=== PATIENT | female | born 1970 | race African-American/Black ===

== ENCOUNTER 2017-08-02 12:14 | Emergency (ER) | payer OTHER ==
[~2017-08-02] VITALS: Ht 160 cm; Wt 96.9 kg
[2017-08-02 12:17] VITALS: Ht 160 cm; Wt 96.9 kg
[2017-08-02] MEDS ORDERED: KETOROLAC TROMETHAMINE 30 MG/ML VIAL IV STA (12:54)
[2017-08-02 12:59] LABS: HEMATOCRIT 39.4 % (37-47); HEMOGLOBIN 13.2 g/dL (12.0-16.0); MEAN CORPUSCULAR HEMOGLOBIN 30.1 pg (25-34); MEAN CORPUSCULAR HGB CONC 33.5 g/dl (32-36); MEAN PLATELET VOLUME 9.8 fL (7.4-10.4); PLATELET COUNT 249 K/uL (130-400); RED CELL DISTRIBUTION WIDTH CV 13.1 % (11.5-14.5); RED CELL DISTRIBUTION WIDTH SD 43.4 fL (36.4-46.3); WHITE BLOOD COUNT 6.74 K/uL (4.8-10.8)
[2017-08-02 13:14] LABS: ALBUMIN 3.7 gm/dl (3.4-5.0); CALCIUM 8.8 mg/dl (8.5-10.1); CREATININE 0.76 mg/dl (0.60-1.20); POTASSIUM 3.8 mmol/L (3.5-5.1)
[2017-08-02] MEDS ORDERED: ATV/1 PO (13:16)
[2017-08-02] MEDS ORDERED: BUPRTAB PO (13:16)
[2017-08-02] MEDS ORDERED: NXM/40 PO (13:16)
[2017-08-02 13:19] LABS: CKMB 1.9 ng/ml (0.5-3.6); TOTAL PROTEIN 8.1 gm/dl (6.4-8.2)
[2017-08-02] MEDS ORDERED: IBUP1CAP9 PO (13:19)
--- NOTE | 2017-08-02 13:36 | DIAGNOSTIC IMAGING REPORT ---
CHEST ONE VIEW PORTABLE CLINICAL HISTORY: Chest pain. COMPARISON STUDY: No previous studies for comparison. FINDINGS: Lung volumes are normal. Lungs are clear. No pneumothorax or pleural effusion is noted. Pulmonary vascularity is normal. There is borderline cardiomegaly. IMPRESSION: No acute cardiopulmonary findings. Electronically signed by: Tai Salazar M.D. 08/02/2017 1:34 PM Dictated Date/Time: 08/02/2017 1:33 PM
[2017-08-02 13:55] LABS: INR 0.9 (0.9-1.1); PTT PATIENT 23.8 SECONDS (21.0-31.0)
[2017-08-02] MEDS ORDERED: ACETAMINOPHEN 500 MG TAB PO ONE (14:22)
[2017-08-02] MEDS ORDERED: ACETAMINOPHEN 500 MG TAB PO STA (14:22)
[2017-08-02 14:30] VITALS: O2SAT 99
--- NOTE | 2017-08-02 14:33 | EMERGENCY ROOM VISIT NOTE ---
History Report prepared by Earle: Viet Alan Under the Supervision of: Dr. Bob Churchill D.O. First contact with patient: 12:43 Chief Complaint: CHEST PAIN Stated Complaint: CHEST PAIN History of Present Illness The patient is a 47 year old female who presents to the Emergency Room with complaints of constant chest pain that began 1 hour ago. She states her fingers went to sleep and that she had sharp, stabbing pain that radiated into her chest. She also complains that her nose was bleeding and that she was seeing spots. Of note, she states she is Lorazepam for her anxiety and on Nexium. Source of History: patient Onset: 1 hour ago Position: chest Quality: sharp, stabbing Timing: constant Associated Symptoms: + chest pain Note: Patient complains of seeing spots and epistaxis. Review of Systems See HPI for pertinent positives & negatives. A total of 10 systems reviewed and were otherwise negative. Past Medical & Surgical Medical Problems: (1) Anxiety Social History Smoking Status: Current Every Day Smoker Occupation Status: employed Current/Historical Medications Scheduled Bupropion Hcl (Wellbutrin Xl), 1 TAB PO QAM Esomeprazole Magnesium (Nexium), 40 MG PO QAM Ibuprofen (Ibuprofen), 800 MG PO UD Lorazepam (Ativan), 1 MG PO BID Allergies Coded Allergies: No Known Allergies (Unverified , 08/02/17) Physical Exam Vital Signs Date Time Temp Pulse Resp B/P (MAP) Pulse Ox O2 Delivery O2 Flow Rate FiO2 08/02/17 14:30 99 Room Air 08/02/17 14:23 77 18 159/109 99 08/02/17 14:21 75 18 165/102 99 08/02/17 14:14 76 19 08/02/17 13:44 79 19 97 08/02/17 13:33 98 Room Air 08/02/17 13:31 166/115 08/02/17 13:28 173/116 08/02/17 13:24 79 20 151/105 98 08/02/17 13:23 151/105 08/02/17 12:54 74 08/02/17 12:44 80 15 08/02/17 12:17 36.5 82 20 159/106 99 Room Air Physical Exam CONSTITUTIONAL/VITAL SIGNS: Reviewed / noted above. GENERAL: Non-toxic in appearance. INTEGUMENTARY: Warm, dry, and [place]. HEAD: Normocephalic. EYES: without scleral icterus or trauma. ENT/OROPHARYNX: clear and moist. LYMPHADENOPATHY/NECK: Is supple without lymphadenopathy or meningismus. RESPIRATORY: Lungs clear and equal. CARDIOVASCULAR: Regular rate and rhythm. GI/ABDOMEN: Soft and nontender. No organomegaly or pulsatile mass. No rebound or guarding. Normal bowel sounds. EXTREMITIES: Warm and well perfused. BACK: No CVA tenderness. NEUROLOGICAL: Intact without focal deficits. PSYCHIATRIC: normal affect. MUSCULOSKELETAL: Normally developed with good muscle tone. Medical Decision & Procedures ER Provider Diagnostic Interpretation: Radiology results as stated below per my review and radiologist interpretation: CHEST ONE VIEW PORTABLE CLINICAL HISTORY: Chest pain. COMPARISON STUDY: No previous studies for comparison. FINDINGS: Lung volumes are normal. Lungs are clear. No pneumothorax or pleural effusion is noted. Pulmonary vascularity is normal. There is borderline cardiomegaly. IMPRESSION: No acute cardiopulmonary findings. Electronically signed by: Tai Salazar M.D. 08/02/2017 1:34 PM Dictated Date/Time: 08/02/2017 1:33 PM Laboratory Results 08/02/17 12:45 08/02/17 12:45 Test 08/02/17 12:45 08/02/17 13:30 08/02/17 13:33 Red Blood Count 4.38 M/uL (4.2-5.4) Mean Corpuscular Volume 90.0 fL (80-100) Mean Corpuscular Hemoglobin 30.1 pg (25-34) Mean Corpuscular Hemoglobin Concent 33.5 g/dl (32-36) RDW Standard Deviation 43.4 fL (36.4-46.3) RDW Coefficient of Variation 13.1 % (11.5-14.5) Mean Platelet Volume 9.8 fL (7.4-10.4) Anion Gap 6.0 mmol/L (3-11) Est Creatinine Clear Calc Drug Dose 100.3 ml/min Estimated GFR () 107.5 Estimated GFR (Non- 92.8 BUN/Creatinine Ratio 18.5 (10-20) Calcium Level 8.8 mg/dl (8.5-10.1) Total Bilirubin 0.2 mg/dl (0.2-1) Aspartate Amino Transf (AST/SGOT) 18 U/L (15-37) Alanine Aminotransferase (ALT/SGPT) 35 U/L (12-78) Alkaline Phosphatase 87 U/L (45-117) Total Creatine Kinase 269 U/L (26-192) Creatine Kinase MB 1.9 ng/ml (0.5-3.6) Creatine Kinase MB Ratio 0.7 (0-3.0) Total Protein 8.1 gm/dl (6.4-8.2) Albumin 3.7 gm/dl (3.4-5.0) Globulin 4.4 gm/dl (2.5-4.0) Albumin/Globulin Ratio 0.8 (0.9-2) Prothrombin Time 9.8 SECONDS (9.0-12.0) Prothromb Time International Ratio 0.9 (0.9-1.1) Activated Partial Thromboplast Time 23.8 SECONDS (21.0-31.0) Partial Thromboplastin Ratio 0.9 D-Dimer 270 ug/L FEU (0-500) Bedside Troponin I < 0.030 ng/ml (0-0.045) Laboratory results as stated above per my review. Medications Administered Medications (Trade) Dose Ordered Sig/Vitaly Route Start Time Stop Time Status Last Admin Dose Admin Ketorolac Tromethamine (Toradol Inj) 30 mg NOW STAT IV 08/02/17 12:54 08/02/17 12:55 DC 08/02/17 13:24 30 MG Acetaminophen (Tylenol Tab) 1,000 mg STK-MED ONCE PO 08/02/17 14:22 08/02/17 14:23 DC 08/02/17 14:25 1,000 MG ECG Indication: chest pain Rate (beats per minute): 87 Rhythm: normal sinus Findings: no ectopy, other (no acute injury) Change: Patient's EKG interpreted by me. ED Course 1243: Previous medical records were reviewed. The patient was evaluated in room A3. A complete history and physical examination was performed. 1254: Toradol Inj 30 mg IV. 1422: Tylenol Tab 1,000 mg PO. 1440: On reevaluation, the patient is doing well. I discussed the results and findings with the patient. She verbalized agreement of the treatment plan. She was discharged home. Medical Decision the differential was considered includes acute myocardial infarction, acute coronary syndrome, myocarditis, pericarditis, pericardial effusions /tamponade, esophageal perforation, thoracic aortic dissection, pulmonary embolism, pneumonia, pneumothorax, pancreatitis, shingles, acute cholecystitis, perforated abdominal viscus. This is a 47-year-old female who presents to the ED with a chief complaint of chest pain as well as a sensation of paresthesias in her upper extremities prior the patient states that her fingers felt like they were sleeping. She also reported a headache in addition to her chest pain. The chest pain and symptoms started around 11 or 12:00. 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 The patient states that her chest pain is a sharp pinching sensation and pulling sensation as well as stabbing sensation. It is mostly left chest and into the shoulder. It is worsened by breathing and movement. The patient does report a history of anxiety. Her exam was unremarkable. An EKG shows normal sinus rhythm at a rate of 87. CBC is normal, d-dimer is negative, troponin is negative, complete metabolic panel was unremarkable. Chest x-ray did not show acute disease. Blood pressure was somewhat elevated during her ED stay. She was told to follow-up with her PCP for this. She is felt to be stable for discharge. Medication Reconcilliation Current Medication List: was personally reviewed by me Blood Pressure Screening Patient's blood pressure: Elevated blood pressure Blood pressure disposition: Elevated BP felt to be situational Impression Primary Impression: Left sided chest pain Additional Impression: Paresthesia Scribe Attestation The scribe's documentation has been prepared under my direction and personally reviewed by me in its entirety. I confirm that the note above accurately reflects all work, treatment, procedures, and medical decision making performed by me. Departure Information Dispostion Home / Self-Care Referrals No Doctor, Assigned (PCP) Patient Instructions My [facility] Additional Instructions Follow-up with your doctor for further care and evaluation in 1-2 days. Return to the emergency department for worsening or new symptoms or any concerns. You have been examined and treated today on an emergency basis only. This is not a substitute for, or an effort to provide, complete comprehensive medical care. It is impossible to recognize and treat all injuries or illnesses in a single emergency department visit. It is therefore important that you follow up closely with your doctor. Call as soon as possible for an appointment. Follow-up with your doctor for recheck your blood pressure. Problem Qualifiers
[2017-08-02 15:11] VITALS: BP 155/102; PULSE 75; TEMP 36.5; O2SAT 99
== END 2017-08-02 15:11 | disposition home or self-care (01) ==
LOC: C.EDB 12:15 → C.EDA 15:11
DX: R07.9 Chest pain, unspecified (principal); R20.2 Paresthesia of skin; R51 Headache; F41.9 Anxiety disorder, unspecified; Z79.899 Other long term (current) drug therapy; F17.210 Nicotine dependence, cigarettes, uncomplicated

== ENCOUNTER 2017-08-16 13:38 | Emergency (ER) | payer OTHER ==
[~2017-08-16] VITALS: Ht 160 cm; Wt 91.2 kg
[~2017-08-16 13:38] MED LIST: ATV/1 PO; BUPRTAB PO; IBUP1CAP9 PO; NXM/40 PO
[2017-08-16 13:45] VITALS: TEMP 36.7; Ht 160 cm; Wt 91.2 kg
[2017-08-16] MEDS ORDERED: LABETALOL HCL IV 5 MG/ML 20ML IV STA (13:50)
[2017-08-16] MEDS ORDERED: MoRPHine SULFATE 4 MG/ML 1 ML CARP\\VIAL IV STA (13:50)
[2017-08-16] MEDS ORDERED: LORAZEPAM 2 MG/ML 1 ML VIAL IV STA (13:50)
--- NOTE | 2017-08-16 13:59 | EMERGENCY ROOM VISIT NOTE ---
History Report prepared by Earle: Viet Alan Under the Supervision of: Dr. Alex Horta M.D. First contact with patient: 13:42 Chief Complaint: HYPERTENSION Stated Complaint: HYPERTENSION History of Present Illness The patient is a 47 year old female who presents to the Emergency Room with complaints of headache when she woke up 5 hours ago. She states that her "brain is on fire" and took Excedrin 1 hour ago with minimal improvement. She states she had 3 [employer] beverages last night. She states she has neck pain. She denies recent falls, head strike, vomiting, and abdominal pain. She denies taking blood pressure medication. She was previously seen for chest pain. She denies a history of migraines. She states she is menopausal and takes Lorazepam 3x a day. Source of History: patient Onset: 5 hours ago Position: head Quality: burning (Patient states her head is on fire) Timing: constant Associated Symptoms: + headache, + neck pain, No vomiting, No abdominal pain Note: The patient denies recent falls and head strike. Review of Systems See HPI for pertinent positives & negatives. A total of 10 systems reviewed and were otherwise negative. Past Medical & Surgical Medical Problems: (1) Anxiety Social History Smoking Status: Current Every Day Smoker Occupation Status: employed Current/Historical Medications Scheduled Amlodipine (Norvasc), 5 MG PO DAILY Bupropion Hcl (Wellbutrin Xl), 1 TAB PO QAM Esomeprazole Magnesium (Nexium), 40 MG PO QAM Lorazepam (Ativan), 1 MG PO BID Allergies Coded Allergies: No Known Allergies (Unverified , 08/16/17) Physical Exam Vital Signs Date Time Temp Pulse Resp B/P (MAP) Pulse Ox O2 Delivery O2 Flow Rate FiO2 08/16/17 18:00 77 20 155/98 99 08/16/17 16:48 66 08/16/17 15:49 78 20 161/95 99 Room Air 08/16/17 14:51 84 20 128/92 98 Room Air 08/16/17 14:29 76 20 160/77 100 Room Air 08/16/17 13:50 82 08/16/17 13:45 36.7 82 20 186/109 98 Room Air Physical Exam GENERAL: Patient is very anxious appearing and in mild distress. HEENT: No acute trauma, normocephalic atraumatic, mucous membranes moist, no nasal congestion, no scleral icterus. NECK: No stridor, no adenopathy, no meningismus, trachea is midline. Spasm of bilateral paraspinal muscles of cervical spine. LUNGS: No dyspnea. Clear to auscultation and equal bilaterally. No wheeze, no rhonchi. HEART: Regular rate and rhythm. No murmurs, rubs, gallops appreciated. ABDOMEN: Soft, nontender, bowel sounds positive, no masses appreciated, no peritonitis. BACK: No midline tenderness, no CVA tenderness EXTREMITIES: Normal motion all extremities, no cyanosis, no edema. NEUROLOGIC: Alert and oriented, no acute motor or sensory deficits, no focal weakness, cranial nerves grossly intact. SKIN: No rash, no jaundice, no diaphoresis. Medical Decision & Procedures ER Provider Diagnostic Interpretation: Radiology results and stated below per my review and radiologist interpretation: CT OF THE HEAD WITHOUT CONTRAST CLINICAL HISTORY: Sudden onset headache/hypertension last evening. COMPARISON STUDY: No previous studies for comparison. CT DOSE: 623.48 mGy.cm TECHNIQUE: Helical axial images of the head were obtained without IV contrast. Automated exposure control was utilized for the study. A dose lowering technique was utilized adhering to the principles of ALARA. FINDINGS: No acute intracranial hemorrhage, midline shift or mass effect is present. Ventricular system is normal. Basilar cisterns are patent. There are no extra-axial collections. Robert-white differentiation is maintained. There are no findings to suggest acute dural sinus thrombosis or acute territorial infarct. There are no significant calvarial abnormalities. There is minimal mucosal thickening of the ethmoid sinuses. Mastoid air cells are clear. IMPRESSION: No acute intracranial findings. Electronically signed by: Tai Salazar M.D. 08/16/2017 3:01 PM Dictated Date/Time: 08/16/2017 2:59 PM Laboratory Results 08/16/17 14:15 Red Blood Count 4.38, Mean Corpuscular Volume 89.5, Mean Corpuscular Hemoglobin 29.7, Mean Corpuscular Hemoglobin Concent 33.2, Mean Platelet Volume 9.2, Neutrophils (%) (Auto) 57.4, Lymphocytes (%) (Auto) 33.1, Monocytes (%) (Auto) 8.0, Eosinophils (%) (Auto) 1.3, Basophils (%) (Auto) 0.1, Neutrophils # (Auto) 4.02, Lymphocytes # (Auto) 2.32, Monocytes # (Auto) 0.56, Eosinophils # (Auto) 0.09, Basophils # (Auto) 0.01 08/16/17 14:15 Test 08/16/17 14:15 White Blood Count 7.01 K/uL (4.8-10.8) Red Blood Count 4.38 M/uL (4.2-5.4) Hemoglobin 13.0 g/dL (12.0-16.0) Hematocrit 39.2 % (37-47) Mean Corpuscular Volume 89.5 fL (80-100) Mean Corpuscular Hemoglobin 29.7 pg (25-34) Mean Corpuscular Hemoglobin Concent 33.2 g/dl (32-36) Platelet Count 237 K/uL (130-400) Mean Platelet Volume 9.2 fL (7.4-10.4) Neutrophils (%) (Auto) 57.4 % Lymphocytes (%) (Auto) 33.1 % Monocytes (%) (Auto) 8.0 % Eosinophils (%) (Auto) 1.3 % Basophils (%) (Auto) 0.1 % Neutrophils # (Auto) 4.02 K/uL (1.4-6.5) Lymphocytes # (Auto) 2.32 K/uL (1.2-3.4) Monocytes # (Auto) 0.56 K/uL (0.11-0.59) Eosinophils # (Auto) 0.09 K/uL (0-0.5) Basophils # (Auto) 0.01 K/uL (0-0.2) RDW Standard Deviation 42.7 fL (36.4-46.3) RDW Coefficient of Variation 13.1 % (11.5-14.5) Immature Granulocyte % (Auto) 0.1 % Immature Granulocyte # (Auto) 0.01 K/uL (0.00-0.02) Anion Gap 7.0 mmol/L (3-11) Est Creatinine Clear Calc Drug Dose 95.8 ml/min Estimated GFR () 105.8 Estimated GFR (Non- 91.3 BUN/Creatinine Ratio 15.7 (10-20) Calcium Level 8.6 mg/dl (8.5-10.1) Troponin I < 0.015 ng/ml (0-0.045) Laboratory results as reviewed by me. Medications Administered Medications (Trade) Dose Ordered Sig/Vitaly Route Start Time Stop Time Status Last Admin Dose Admin Lorazepam (Ativan Inj) 1 mg NOW STAT IV 08/16/17 13:50 08/16/17 13:52 DC 08/16/17 14:30 1 MG Morphine Sulfate (MoRPHine SULFATE INJ) 4 mg NOW STAT IV 08/16/17 13:50 08/16/17 13:52 DC 08/16/17 14:31 4 MG Ketorolac Tromethamine (Toradol Inj) 30 mg NOW STAT IV 08/16/17 15:26 08/16/17 15:28 DC 08/16/17 16:04 30 MG Diphenhydramine HCl (Benadryl Inj) 25 mg NOW STAT IV 08/16/17 15:26 08/16/17 15:28 DC 08/16/17 16:03 25 MG Amlodipine Besylate (Norvasc Tab) 5 mg NOW ONCE PO 08/16/17 17:30 08/16/17 17:31 DC 08/16/17 17:58 5 MG Oxycodone HCl (Roxicodone Immediate Rel 5MG Home Pack) 1 homepack UD ONCE PO 08/16/17 17:30 08/16/17 17:31 DC 08/16/17 17:57 1 HOMEPACK ECG Per My Interpretation Indication: other (headache) Rate (beats per minute): 77 Rhythm: normal sinus Findings: no acute ischemic change, no ectopy Comparison ECG Date: 08/02/2017: Similar morphology to previous EKG Change: EKG: Electrocardiogram per my interpretation. ED Course 1342: The patient was evaluated in room B8. A complete history and physical exam was performed. 1511: I checked on the patient. She is much improved and states she has a mild frontal headache. She declines further imaging and LP. She would like to try more for her headache. I have ordered Toradol and Benadryl. 1700: I checked on the patient and she is feeling much better. She has faint residual headache but her symptoms have improved. She has no neural deficits. She is agreeable to start antihypertensives. She will follow up with PCP for repeat evaluation. We discussed at length the symptoms that would require a return visit to the ED. 1715: Reevaluated the patient. Discussed results and discharge instructions: She verbalized understanding and agreement. The patient is ready for discharge. Medical Decision Differential: Headache, Migraine, Cluster Headache, Seizure, Meningitis, Sinusitis, CO exposure, ICH/SAH, Infectious, Tumor, Sinus Thrombosis, Arterial Dissection, amongst other pathologies entertained. 47 yr old hypertensive female arrives for evaluation of frontal headache that radiates to back of head. She is not meningitic nor does she have risks of dissection. No neuro defictis nor unremarkable findings other than her HTN and headache. Vastly improved with above and looking well. EKG and labs unremarkable. Rare headaches thus felt imaging reasonable which was unremarkable and given resolution of symptoms I do not feel MRI/MRA are required. The patient is well hydrated, happy, breathing comfortably and in no distress. They are not septic and are stable at discharge. She will be started on Norvasc given clearly underlying HTN issues and I have stressed PCP follow up. Reviewed symptoms requiring RTED. Head Trauma GCS Score: 15 Medication Reconcilliation Current Medication List: was personally reviewed by me Blood Pressure Screening Patient's blood pressure: Elevated blood pressure Blood pressure disposition: Elevated BP felt to be situational Impression Primary Impression: Frontal headache Additional Impression: Hypertension Scribe Attestation The scribe's documentation has been prepared under my direction and personally reviewed by me in its entirety. I confirm that the note above accurately reflects all work, treatment, procedures, and medical decision making performed by me. Departure Information Dispostion Home / Self-Care Prescriptions Amlodipine (Norvasc) 5 Mg Tab 5 MG PO DAILY for 30 Days, #30 TAB Prov: Alex Horta M.D. 08/16/17 Referrals Brad Dsouza M.D. (PCP) Patient Instructions ED Hypertension [facility], [facility] Additional Instructions You have received a narcotic pain medication. These medications may cause drowsiness and should not be used with other sedative medications. Do not drive , drink alcohol, perform dangerous activities, nor make important decisions after taking these medications. exterminator termite use or inappropriate use may lead to addiction. Problem Qualifiers
[2017-08-16 14:25] LABS: BASO % 0.1 %; BASO ABS # 0.01 K/uL (0-0.2); EOS % 1.3 %; EOS ABS # 0.09 K/uL (0-0.5); HEMATOCRIT 39.2 % (37-47); IG# 0.01 K/uL (0.00-0.02); LYMPH % 33.1 %; LYMPH ABS # 2.32 K/uL (1.2-3.4); MEAN CELL VOLUME 89.5 fL (80-100); MEAN CORPUSCULAR HEMOGLOBIN 29.7 pg (25-34); MEAN CORPUSCULAR HGB CONC 33.2 g/dl (32-36); MEAN PLATELET VOLUME 9.2 fL (7.4-10.4); MONO ABS # 0.56 K/uL (0.11-0.59); NEUT % 57.4 %; NEUT ABS # 4.02 K/uL (1.4-6.5); PLATELET COUNT 237 K/uL (130-400); RED CELL DISTRIBUTION WIDTH CV 13.1 % (11.5-14.5); RED CELL DISTRIBUTION WIDTH SD 42.7 fL (36.4-46.3); WHITE BLOOD COUNT 7.01 K/uL (4.8-10.8)
[2017-08-16 14:45] LABS: BLOOD UREA NITROGEN 12 mg/dl (7-18); CALCIUM 8.6 mg/dl (8.5-10.1); CARBON DIOXIDE 28 mmol/L (21-32); CREATININE 0.77 mg/dl (0.60-1.20); GLUCOSE 92 mg/dl (70-99); POTASSIUM 3.6 mmol/L (3.5-5.1); SODIUM 138 mmol/L (136-145)
--- NOTE | 2017-08-16 15:02 | DIAGNOSTIC IMAGING REPORT ---
CT OF THE HEAD WITHOUT CONTRAST CLINICAL HISTORY: Sudden onset headache/hypertension last evening. COMPARISON STUDY: No previous studies for comparison. CT DOSE: 623.48 mGy.cm TECHNIQUE: Helical axial images of the head were obtained without IV contrast. Automated exposure control was utilized for the study. A dose lowering technique was utilized adhering to the principles of ALARA. FINDINGS: No acute intracranial hemorrhage, midline shift or mass effect is present. Ventricular system is normal. Basilar cisterns are patent. There are no extra-axial collections. Robert-white differentiation is maintained. There are no findings to suggest acute dural sinus thrombosis or acute territorial infarct. There are no significant calvarial abnormalities. There is minimal mucosal thickening of the ethmoid sinuses. Mastoid air cells are clear. IMPRESSION: No acute intracranial findings. Electronically signed by: Tai Salazar M.D. 08/16/2017 3:01 PM Dictated Date/Time: 08/16/2017 2:59 PM
[2017-08-16] MEDS ORDERED: DiphenhydrAMINE HCL 50 MG/ML VIAL IV STA (15:26)
[2017-08-16] MEDS ORDERED: KETOROLAC TROMETHAMINE 30 MG/ML VIAL IV STA (15:26)
[2017-08-16] MEDS ORDERED: AMLO-110 PO (17:18)
[2017-08-16] MEDS ORDERED: OXYCODONE IR HOME PACK PO ONE (17:30)
[2017-08-16] MEDS ORDERED: AMLODIPINE BESYLATE 5 MG TAB PO ONE (17:30)
[2017-08-16 18:00] VITALS: BP 155/98; PULSE 77; O2SAT 99
== END 2017-08-16 18:00 | disposition home or self-care (01) ==
LOC: EDBD 13:38 → C.EDB 13:39
DX: R51 Headache (principal); I10 Essential (primary) hypertension; Z78.0 Asymptomatic menopausal state; Z79.899 Other long term (current) drug therapy; F41.9 Anxiety disorder, unspecified; F17.210 Nicotine dependence, cigarettes, uncomplicated

== ENCOUNTER 2021-04-08 15:52 | Inpatient (IN) ==
--- NOTE | 2021-04-08 16:16 | Emergency Department Note ---
Impression & Plan Slurring of speech, HTN (hypertension), Numbness on right side ED Provider Note Provider: Bao Mauricio MD DATE OF SERVICE: 04/08/2021 CHIEF COMPLAINT: Fogginess, right facial issues, numbness HISTORY OF PRESENT ILLNESS: Patient is a 50-year-old female history of hypertension and GERD as well as anxiety presenting here today reporting developing since around 10 PM last night onset fairly suddenly of some mild fogginess and some right-sided numbness of her face and indoor right hand. P atient states she is developed a bit of a headache but no nausea. Denies any falls. States she has been a little bit wobbly on her feet. Went to bed and awoke and was a bit better but then worsened over the course the morning. Presents here for further evaluation. Patient states he feels a little bit euphoric and a bit out of it. Patient denies any chest pain or shortness of breath. She denies any abdominal pain or nausea. She reports she has only been on Effexor for 2 weeks and initially after starting this medication she was stuck in bed for a day or 2 but this resolved. Denies any significant alcohol use or drug use overnight. No history of similar is reported. Daughter present states that her speech been somewhat slurred at home and she thought it seemed like she had a little bit of a left facial droop although the patient reports some numbness and weakness of the right side of her face. No rashes reported denies dental pain REVIEW OF SYSTEMS: A total of 10 review of systems was obtained and negative except as stated above in the HPI. PAST MEDICAL HISTORY: As noted above MEDICATIONS: Reviewed home medication SOCIAL HISTORY: Former smoker quit a month ago, denies alcohol use but reports occasional marijuana use PHYSICAL EXAM: GENERAL: alert and oriented to person in no acute distress on stretcher Head: normocephalic and atraumatic EYES: No injection, discharge or icterus. PERRL, EOMI. NECK: Trachea midline. Supple. ENT: Mucous membranes pink and moist. Pharynx without erythema or exudate. Nonstridulous. LUNGS: Airway patent. No retractions. Breath sounds clear HEART: Regular rate and rhythm. No chest wall tenderness ABDOMEN: Soft and non-tender, without guarding or rebound. SKIN: Acyanotic, warm, dry, without rashes EXTREMITIES: Without swelling, tenderness or deformity NEUROLOGICAL: No aphasia. Some slight right facial droop and numbness of the right face is noted including the forehead. Some slight numbness in the right hand and interestingly of only the left thumb is noted. Tongue midline. Normal strength and tone in the extremities. Ambulatory EK bpm normal sinus rhythm. No PVC or PAC. No acute ST segment elevation is noted with some nonspecific lateral T wave inversions. CONTINUOUS CARDIAC MONITORING: was ordered and showed a heart rate of 60s to 80s bpm in normal sinus rhythm Patient's laboratory studies and imaging reviewed. Differential includes infection, dehydration, metabolic abnormality, hypo/hyperglycemia, electrolyte disturbance, anemia, hypoxia, cardiac sources, intracerebral event, toxicologic, neurologic, as well as other pathologies. IMPRESSION/MEDICAL DECISION MAKING: Patient presents outside the TPA window with onset of some slurred speech and numbness in her right hand and on her right face with a possible left facial droop/right facial droop last night. No trauma reported. Some improved this morning but then worsened this afternoon. Not hemiplegic. Some mild headache reported. Does not seem infectious in nature. Question of some component of her Effexor medication which is new baby contributing. Suspicion exists however for possible stroke/TIA. Again outside the window for acute thrombolysis. Basic labs and CT imaging of the head and neck will be completed. Blood work without significant anemia leukocytosis. I doubt this is meningitis, HSV, or zoster. The distribution seems somewhat atypical for Sena's palsy and does involve sensation to the forehead. Lyme testing is negative. No significant electrolyte abnormalities. No evidence of acute hepatitis. Covid test negative. CT the head and CT angiograms of the head neck per radiology without acute bleed, CT evidence of ischemia, or vascular abnormality of significance. Reassessed the patient discussed with her the findings. She still continues with some right facial numbness and dullness and states that her tongue is feeling a bit weird. Still with some numbness in her right hand and occasion ally upper right arm. Discussed that this could possibly related to Effexor medication but somewhat atypical. Patient's blood pressure still noted to be hypertensive here but I doubt this is a hypertensive emergency. Patient symptoms could be related to a small occult stroke does have some risk factors. Discussed with her for total exclusion MRI and further evaluation here in the hospital was recommended. Given some aspirin. DIAGNOSIS: Slurred speech, right-sided numbness, hypertension DISPOSITION: Hospitalist will evaluate Patient was agreeable with this plan. Past Med/Surg History Medical History (Updated 04/08/21 @ 19:34 by Bao Mauricio M.D.) Anxiety GERD (gastroesophageal reflux disease) Hypertension Surgical History No significant past surgical history Social History Smoking Status: Former smoker Preferred Language: Tuvaluan marital status: Single current occupational status: unemployed Feels Safe at Home: Yes Allergies Allergies Allergy/AdvReac Type Severity Reaction Status Date / Time No Known Allergies Allergy Unverified 06/13/19 10:23 Home Meds Home Medications Medication Instructions Recorded Confirmed amlodipine 5 mg tablet 5 mg PO DAILY 04/16/19 06/13/19 hydrochlorothiazide 12.5 mg capsule 0 mg PO DAILY 04/16/19 06/13/19 lorazepam 1 mg tablet 1 mg PO TID PRN 04/16/19 06/13/19 omeprazole 40 mg capsule,delayed 40 mg PO DAILY 04/16/19 06/13/19 release gabapentin 100 mg capsule 100 mg PO BID 06/13/19 06/13/19 Previous Rx's Medication Instructions Recorded hydrocodone 5 mg-acetaminophen 325 1 tab PO Q6H PRN #8 tab 06/13/19 mg tablet (Mehama) Results & Data (ED) Vital Signs Vital Signs - 24 hr 04/08/21 15:55 04/08/21 16:12 04/08/21 16:30 Temperature 36.9 C Temperature Source Oral Pulse Rate 87 82 75 Pulse Rate from SpO2 Sensor Respiratory Rate 18 20 19 Blood Pressure 151/100 H 134/96 Blood Pressure Mean 117 108 Pulse Oximetry 97 Oxygen Delivery Method Room Air Sepsis Recent Fever Within 48 Hours No Sepsis New/Unexplained Change in Mental Status No Sepsis Action Taken by Nursing No Action Required 04/08/21 17:30 04/08/21 18:00 Temperature Temperature Source Pulse Rate 83 72 Pulse Rate from SpO2 Sensor 72 Respiratory Rate 14 23 Blood Pressure 159/107 H 172/104 H Blood Pressure Mean 124 126 Pulse Oximetry 96 96 Oxygen Delivery Method Room Air Sepsis Recent Fever Within 48 Hours Sepsis New/Unexplained Change in Mental Status Sepsis Action Taken by Nursing Laboratory Data Result diagrams: 04/08/21 17:19 10/10/21 17:19 Lab Results 04/08/21 04/08/21 04/08/21 Range/Units 17:19 17:19 17:19 WBC 5.94 (4.8-10.8) K/uL RBC 5.07 (4.2-5.4) M/uL Hgb 15.2 (12.0-16.0) g/dL Hct 44.2 (37-47) % MCV 87.2 (80-100) fL MCH 30.0 (25-34) pg MCHC 34.4 (32-36) g/dL RDW Std Deviation 40.7 (36.4-46.3) fL RDW Coeff of Magdiel 12.7 (11.5-14.5) % Plt Count 213 (130-400) K/uL MPV 9.4 (7.4-10.4) fL Immature Gran % (Auto) 0.2 % Neut % (Auto) 48.8 % Lymph % (Auto) 41.8 % Mccormick % (Auto) 8.2 % Eos % (Auto) 0.8 % Baso % (Auto) 0.2 % Neut # (Auto) 2.90 (1.4-6.5) K/uL Lymph # (Auto) 2.48 (1.2-3.4) K/uL Mccormick # (Auto) 0.49 (0.11-0.59) K/uL Eos # (Auto) 0.05 (0-0.5) K/uL Baso # (Auto) 0.01 (0-0.2) K/uL Immature Gran # (Auto) 0.01 (0.00-0.02) K/uL PT 9.9 (9.0-12.0) Seconds INR 1.0 (0.9-1.1) APTT 25.1 (21.0-31.0) Seconds PTT Ratio 1.0 Sodium (136-145) mmol/L Potassium (3.5-5.1) mmol/L Chloride (98-107) mmol/L Carbon Dioxide (21-32) mmol/L Anion Gap (3-11) BUN (7-18) mg/dl Creatinine (0.6-1.2) mg/dl Est Cr Clr Drug Dosing ml/min Est GFR ( Amer) ml/min Est GFR (Non-Af Amer) ml/min BUN/Creatinine Ratio (10-20) Glucose (70-99) mg/dl Calcium (8.5-10.1) mg/dl Magnesium (1.8-2.4) mg/dl Total Bilirubin (0.2-1) mg/dl AST (15-37) U/L ALT (12-78) U/L Alkaline Phosphatase (45-117) U/L Troponin I (0-0.045) ng/ml Total Protein (6.4-8.2) gm/dl Albumin (3.4-5.0) gm/dl Globulin (2.5-4.0) gm/dl Albumin/Globulin Ratio (0.9-2) HCG, Qual Negative (Negative) Lyme Disease IgG Ab Negative (Negative) Lyme Disease IgM Ab Negative (Negative) COVID-19 Eval Order SARS-CoV-2 (PCR) (Negative) 04/08/21 04/08/21 04/08/21 Range/Units 17:19 17:19 17:19 WBC (4.8-10.8) K/uL RBC (4.2-5.4) M/uL Hgb (12.0-16.0) g/dL Hct (37-47) % MCV (80-100) fL MCH (25-34) pg MCHC (32-36) g/dL RDW Std Deviation (36.4-46.3) fL RDW Coeff of Magdiel (11.5-14.5) % Plt Count (130-400) K/uL MPV (7.4-10.4) fL Immature Gran % (Auto) % Neut % (Auto) % Lymph % (Auto) % Mccormick % (Auto) % Eos % (Auto) % Baso % (Auto) % Neut # (Auto) (1.4-6.5) K/uL Lymph # (Auto) (1.2-3.4) K/uL Mccormick # (Auto) (0.11-0.59) K/uL Eos # (Auto) (0-0.5) K/uL Baso # (Auto) (0-0.2) K/uL Immature Gran # (Auto) (0.00-0.02) K/uL PT (9.0-12.0) Seconds INR (0.9-1.1) APTT (21.0-31.0) Seconds PTT Ratio Sodium 139 (136-145) mmol/L Potassium 3.6 (3.5-5.1) mmol/L Chloride 106 (98-107) mmol/L Carbon Dioxide 29 (21-32) mmol/L Anion Gap 4.0 (3-11) BUN 6 L (7-18) mg/dl Creatinine 0.79 (0.6-1.2) mg/dl Est Cr Clr Drug Dosing 89.8 ml/min Est GFR ( Amer) 100.5 ml/min Est GFR (Non-Af Amer) 86.7 ml/min BUN/Creatinine Ratio 8.0 L (10-20) Glucose 110 H (70-99) mg/dl Calcium 9.2 (8.5-10.1) mg/dl Magnesium 2.3 (1.8-2.4) mg/dl Total Bilirubin 0.2 (0.2-1) mg/dl AST 19 (15-37) U/L ALT 31 (12-78) U/L Alkaline Phosphatase 104 (45-117) U/L Troponin I < 0.015 (0-0.045) ng/ml Total Protein 8.3 H (6.4-8.2) gm/dl Albumin 4.0 (3.4-5.0) gm/dl Globulin 4.3 H (2.5-4.0) gm/dl Albumin/Globulin Ratio 0.9 (0.9-2) HCG, Qual (Negative) Lyme Disease IgG Ab (Negative) Lyme Disease IgM Ab (Negative) COVID-19 Eval Order Covid19 at [facility] SARS-CoV-2 (PCR) NEGATIVE (Negative) Administered Medications Discontinued Medications Ioversol (Optiray 320 125ml) 101 ml IV ONCE ONE Stop: 04/08/21 19:05 Last Admin: 04/08/21 19:04 Dose: 101 ml Documented by: [id number] Imaging Data Radiologist's Impression: Head CT 04/08/21 16:[address] OF THE BRAIN; CT ANGIOGRAM OF THE BRAIN; CT ANGIOGRAM OF THE NECK CLINICAL HISTORY: Strokelike symptoms. COMPARISON STUDY: CT of the brain dated 08/16/2017. TECHNIQUE: Unenhanced axial CT scan of the brain is performed. Subsequently, following the IV administration of 101 of Optiray 320, CT angiogram of the head and neck was performed from the aortic arch to the vertex. Images are reviewed in the axial, sagittal, and coronal planes. 3-D MIPS images are created and assessed. IV contrast was administered without complication. All measurements were calculated based on NASCET criteria. A dose lowering technique was u tilized adhering to the principles of ALARA. CT DOSE: 1155.75 mGy.cm FINDINGS: Brain parenchyma: The brain parenchyma is normal in appearance. There is no hemorrhage, mass effect, or evidence of acute territorial ischemia by CT criteria. There is no evidence of enhancing mass lesion on the angiogram phase images. The ventricles, sulci, and cisterns are normal in configuration. Robert- white matter differentiation is preserved. No extra-axial fluid collection is seen. Thoracic aorta: Visualized portions of the thoracic aorta are normal in caliber. The aortic arch demonstrates standard 3-vessel anatomy. Right carotid arterial system: The right common carotid artery is widely patent, as are the right internal and external carotid arteries. Left carotid arterial system: The left common carotid artery is widely patent, as are the left internal and external carotid arteries. Vertebral arteries: The vertebral arteries are widely patent bilaterally and codominant. Subclavian arteries: Widely patent bilaterally. Intracranial vasculature: There is origin of the right posterior cerebral artery. There is atherosclerotic calcification of the cavernous carotid arteries. The internal carotid arteries are patent at the skull base, as are the anterior and middle cerebral arteries bilaterally. The vertebrobasilar system and posterior cerebral arteries are widely patent. The vertebral arteries are codominant. There is no aneurysm, high-grade stenosis, or focal vessel cut off seen throughout the intracranial circulation. Jugular veins: Patent bilaterally. Dural sinuses: Patent. Lung apices: Partially visualized upper lobe lung parenchyma appears clear. Soft tissues: The visualized pharyngeal soft tissues are normal in appearance noting angiographic phase technique. The oropharyngeal airway appears widely patent. The salivary and thyroid glands are normal in appearance. No cervical lymphadenopathy is seen. Skeletal structures: The calvarium appears intact. The cervical spine is maintained noting mild multilevel spondylosis. No lytic or blastic lesion is seen. Orbits: The bony orbits are intact. Orbital contents are normal as visualized. Sinuses and mastoids: The paranasal sinuses are clear. The mastoid air cells are well pneumatized. IMPRESSION: 1 There is no hemorrhage, mass effect, or evidence of acute territorial ischemia by CT criteria. 2. Unremarkable CT angiogram of the brain. 3. Unremarkable CT angiogram of the neck. ACT 112: Negative or not required by law. Electronically signed by: Riky Velasco M.D. 04/08/2021 7:09 PM Head CTA 04/08/21 16:[address] OF THE BRAIN; CT ANGIOGRAM OF THE BRAIN; CT ANGIOGRAM OF THE NECK CLINICAL HISTORY: Strokelike symptoms. COMPARISON STUDY: CT of the brain dated 08/16/2017. TECHNIQUE: Unenhanced axial CT scan of the brain is performed. Subsequently, following the IV administration of 101 of Optiray 320, CT angiogram of the head and neck was performed from the aortic arch to the vertex. Images are reviewed in the axial, sagittal, and coronal planes. 3-D MIPS images are created and assessed. IV contrast was administered without complication. All measurements were calculated based on NASCET criteria. A dose lowering technique was utilized adhering to the principles of ALARA. CT DOSE: 1155.75 mGy.cm FINDINGS: Brain parenchyma: The brain parenchyma is normal in appearance. There is no hemorrhage, mass effect, or evidence of acute territorial ischemia by CT criteria. There is no evidence of enhancing mass lesion on the angiogram phase images. The ventricles, sulci, and cisterns are normal in configuration. Robert- white matter differentiation is preserved. No extra-axial fluid collection is seen. Thoracic aorta: Visualized portions of the thoracic aorta are normal in caliber. The aortic arch demonstrates standard 3-vessel anatomy. Right carotid arterial system: The right common carotid artery is widely patent, as are the right internal and external carotid arteries. Left carotid arterial system: The left common carotid artery is widely patent, as are the left internal and external carotid arteries. Vertebral arteries: The vertebral arteries are widely patent bilaterally and codominant. Subclavian arteries: Widely patent bilaterally. Intracranial vasculature: There is origin of the right posterior cerebral artery. There is atherosclerotic calcification of the cavernous carotid arteries. The internal carotid arteries are patent at the skull base, as are the anterior and middle cerebral arteries bilaterally. The vertebrobasilar system and posterior cerebral arteries are widely patent. The vertebral arteries are codominant. There is no aneurysm, high-grade stenosis, or focal vessel cut off seen throughout the intracranial circulation. Jugular veins: Patent bilaterally. Dural sinuses: Patent. Lung apices: Partially visualized upper lobe lung parenchyma appears clear. Soft tissues: The visualized pharyngeal soft tissues are normal in appearance noting angiographic phase technique. The oropharyngeal airway appears widely patent. The salivary and thyroid glands are normal in appearance. No cervical lymphadenopathy is seen. Skeletal structures: The calvarium appears intact. The cervical spine is maintained noting mild multilevel spondylosis. No lytic or blastic lesion is seen. Orbits: The bony orbits are intact. Orbital contents are normal as visualized. Sinuses and mastoids: The paranasal sinuses are clear. The mastoid air cells are well pneumatized. IMPRESSION: 1 There is no hemorrhage, mass effect, or evidence of acute territorial ischemia by CT criteria. 2. Unremarkable CT angiogram of the brain. 3. Unremarkable CT angiogram of the neck. ACT 112: Negative or not required by law. Electronically signed by: Riky Velasco M.D. 04/08/2021 7:09 PM Neck CTA 04/08/21 16:[address] OF THE BRAIN; CT ANGIOGRAM OF THE BRAIN; CT ANGIOGRAM OF THE NECK CLINICAL HISTORY: Strokelike symptoms. COMPARISON STUDY: CT of the brain dated 08/16/2017. TECHNIQUE: Unenhanced axial CT scan of the brain is performed. Subsequently, following the IV administration of 101 of Optiray 320, CT angiogram of the head and neck was performed from the aortic arch to the vertex. Images are reviewed in the axial, sagittal, and coronal planes. 3-D MIPS images are created and assessed. IV contrast was administered without complication. All measurements were calculated based on NASCET criteria. A dose lowering technique was utilized adhering to the principles of ALARA. CT DOSE: 1155.75 mGy.cm FINDINGS: Brain parenchyma: The brain parenchyma is normal in appearance. There is no hemorrhage, mass effect, or evidence of acute territorial ischemia by CT criteria. There is no evidence of enhancing mass lesion on the angiogram phase images. The ventricles, sulci, and cisterns are normal in configuration. Robert- white matter differentiation is preserved. No extra-axial fluid collection is seen. Thoracic aorta: Visualized portions of the thoracic aorta are normal in caliber. The aortic arch demonstrates standard 3-vessel anatomy. Right carotid arterial system: The right common carotid artery is widely patent, as are the right internal and external carotid arteries. Left carotid arterial system: The left common carotid artery is widely patent, as are the left internal and external carotid arteries. Vertebral arteries: The vertebral arteries are widely patent bilaterally and codominant. Subclavian arteries: Widely patent bilaterally. Intracranial vasculature: There is origin of the right posterior cerebral artery. There is atherosclerotic calcification of the cavernous carotid arteries. The internal carotid arteries are patent at the skull base, as are the anterior and middle cerebral arteries bilaterally. The vertebrobasilar system and posterior cerebral arteries are widely patent. The vertebral arteries are codominant. There is no aneurysm, high-grade stenosis, or focal vessel cut off seen throughout the intracranial circulation. Jugular veins: Patent bilaterally. Dural sinuses: Patent. Lung apices: Partially visualized upper lobe lung parenchyma appears clear. Soft tissues: The visualized pharyngeal soft tissues are normal in appearance noting angiographic phase technique. The oropharyngeal airway appears widely patent. The salivary and thyroid glands are normal in appearance. No cervical lymphadenopathy is seen. Skeletal structures: The calvarium appears intact. The cervical spine is maintained noting mild multilevel spondylosis. No lytic or blastic lesion is seen. Orbits: The bony orbits are intact. Orbital contents are normal as visualized. Sinuses and mastoids: The paranasal sinuses are clear. The mastoid air cells are well pneumatized. IMPRESSION: 1 There is no hemorrhage, mass effect, or evidence of acute territorial ischemia by CT criteria. 2. Unremarkable CT angiogram of the brain. 3. Unremarkable CT angiogram of the neck. ACT 112: Negative or not required by law. Electronically signed by: Riky Velasco M.D. 04/08/2021 7:09 PM Discharge Plan Visit Data Chief Complaint: Stroke/CVA Symptoms Stated Complaint: SLURRED SPEECH, R SIDE FACIAL DROOP, STROKE SYMP ED Provider: Bao Mauricio Discharge Problem: Slurring of speech, HTN (hypertension), Numbness on right side Patient Disposition: Being Evaluated by Hospitalist Forms Stand Alone Forms: My [facility] Prescriptions Prescriptions: No Action amlodipine 5 mg tablet 5 mg PO DAILY RF: 0 omeprazole 40 mg capsule,delayed release(DR/EC) 40 mg PO DAILY RF: 0 hydrochlorothiazide 12.5 mg Capsule 0 mg PO DAILY RF: 0 lorazepam 1 mg tablet 1 mg PO TID PRN (Reason: Anxiety) RF: 0 gabapentin 100 mg Capsule 100 mg PO BID RF: 0 hydrocodone-acetaminophen [Mehama] 5-325 mg tablet 1 tab PO Q6H PRN (Reason: pain) Qty: 8 RF: 0 Referrals Referrals: Brad Dsouza MD [Primary Care Provider] - Discharge Problem: HTN (hypertension) Qualifiers: Hypertension type: unspecified Qualified Code(s): I10 - Essential (primary) hypertension
[2021-04-08 17:26] LABS: Basophils # (auto) 0.01 K/uL (0-0.2); Basophils % (auto) 0.2 %; Eosinophils # (auto) 0.05 K/uL (0-0.5); Eosinophils % (auto) 0.8 %; Hematocrit (blood only) 44.2 % (37-47); Hemoglobin 15.2 g/dL (12.0-16.0); Immature Granulocytes # (auto) 0.01 K/uL (0.00-0.02); Immature Granulocytes % (auto) 0.2 %; Lymphocytes # (auto) 2.48 K/uL (1.2-3.4); Lymphocytes % (auto) 41.8 %; Mean Corpuscular Hgb Conc 34.4 g/dL (32-36); Mean Corpuscular Volume 87.2 fL (80-100); Mean Platelet Volume 9.4 fL (7.4-10.4); Monocytes # (auto) 0.49 K/uL (0.11-0.59); Monocytes % (auto) 8.2 %; Neutrophils % (auto) 48.8 %; Platelet Count 213 K/uL (130-400); RDW Coefficient of Variation 12.7 % (11.5-14.5); RDW Standard Deviation 40.7 fL (36.4-46.3); Red Blood Count 5.07 M/uL (4.2-5.4); White Blood Count 5.94 K/uL (4.8-10.8)
[2021-04-08 17:40] LABS: Partial Thromboplastin Time 25.1 Seconds (21.0-31.0); Prothrombin Time 9.9 Seconds (9.0-12.0)
[2021-04-08 18:04] LABS: Alanine Aminotransferase 31 U/L (12-78); Aspartate Aminotransferase 19 U/L (15-37); Blood Urea Nitrogen 6 mg/dl (7-18); Calcium 9.2 mg/dl (8.5-10.1); Carbon Dioxide 29 mmol/L (21-32); Chloride 106 mmol/L (98-107); Creatinine Clr Calc Pharmacy 89.8 ml/min; Est GFR (African American) 100.5 ml/min; Est GFR (Non-African American) 86.7 ml/min; Glucose 110 mg/dl (70-99); Magnesium 2.3 mg/dl (1.8-2.4); Potassium 3.6 mmol/L (3.5-5.1); Sodium 139 mmol/L (136-145)
[2021-04-08 18:09] LABS: Albumin Globulin Ratio 0.9 (0.9-2); Alkaline Phosphatase 104 U/L (45-117); Bilirubin,Total 0.2 mg/dl (0.2-1); Globulin 4.3 gm/dl (2.5-4.0); Total Protein 8.3 gm/dl (6.4-8.2); Troponin I < 0.015 ng/ml (0-0.045)
[2021-04-08 18:38] LABS: Pregnancy Test, Serum Negative (Negative)
[2021-04-08 19:03] LABS: Lyme Ab IgG w/WB Rflx Negative (Negative); Lyme Ab IgM w/WB Rflx Negative (Negative)
[2021-04-08] MEDS ORDERED: OPTIRAY 320 125ml IV ONE (19:04)
--- NOTE | 2021-04-08 19:10 | CT Scan Report ---
UNENHANCED CT OF THE BRAIN; CT ANGIOGRAM OF THE BRAIN; CT ANGIOGRAM OF THE NECK CLINICAL HISTORY: Strokelike symptoms. COMPARISON STUDY: CT of the brain dated 08/16/2017. TECHNIQUE: Unenhanced axial CT scan of the brain is performed. Subsequently, following the IV adminis tration of 101 of Optiray 320, CT angiogram of the head and neck was performed from the aortic arch t o the vertex. Images are reviewed in the axial, sagittal, and coronal planes. 3-D MIPS images are cre ated and assessed. IV contrast was administered without complication. All measurements were calculate d based on NASCET criteria. A dose lowering technique was utilized adhering to the principles of ALA RA. CT DOSE: 1155.75 mGy.cm FINDINGS: Brain parenchyma: The brain parenchyma is normal in appearance. There is no hemorrhage, mass effect, or evidence of acute territorial ischemia by CT criteria. There is no evidence of enhancing mass lesi on on the angiogram phase images. The ventricles, sulci, and cisterns are normal in configuration. Gr ay-white matter differentiation is preserved. No extra-axial fluid collection is seen. Thoracic aorta: Visualized portions of the thoracic aorta are normal in caliber. The aortic arch demo nstrates standard 3-vessel anatomy. Right carotid arterial system: The right common carotid artery is widely patent, as are the right int ernal and external carotid arteries. Left carotid arterial system: The left common carotid artery is widely patent, as are the left international logistics coordinator al and external carotid arteries. Vertebral arteries: The vertebral arteries are widely patent bilaterally and codominant. Subclavian arteries: Widely patent bilaterally. Intracranial vasculature: There is origin of the right posterior cerebral artery. There is athe rosclerotic calcification of the cavernous carotid arteries. The internal carotid arteries are patent at the skull base, as are the anterior and middle cerebral arteries bilaterally. The vertebrobasilar system and posterior cerebral arteries are widely patent. The vertebral arteries are codominant. The re is no aneurysm, high-grade stenosis, or focal vessel cut off seen throughout the intracranial circ ulation. Jugular veins: Patent bilaterally. Dural sinuses: Patent. Lung apices: Partially visualized upper lobe lung parenchyma appears clear. Soft tissues: The visualized pharyngeal soft tissues are normal in appearance noting angiographic pha se technique. The oropharyngeal airway appears widely patent. The salivary and thyroid glands are nor mal in appearance. No cervical lymphadenopathy is seen. Skeletal structures: The calvarium appears intact. The cervical spine is maintained noting mild multi level spondylosis. No lytic or blastic lesion is seen. Orbits: The bony orbits are intact. Orbital contents are normal as visualized. Sinuses and mastoids: The paranasal sinuses are clear. The mastoid air cells are well pneumatized. IMPRESSION: 1 There is no hemorrhage, mass effect, or evidence of acute territorial ischemia by CT criteria. 2. Unremarkable CT angiogram of the brain. 3. Unremarkable CT angiogram of the neck. ACT 112: Negative or not required by law. Electronically signed by: Riky Velasco M.D. 04/08/2021 7:09 PM
[2021-04-08] MEDS ORDERED: ASPIRIN 81 MG CHEW PO STA (19:27)
[2021-04-08 20:53] LABS: Appearance Urine Clear (Clear); Bilirubin Urine Negative (Negative); Blood Urine Negative (Negative); Color Urine Yellow; Glucose Urine UA Negative (Negative); Ketones Urine Negative (Negative); Leukocyte Esterase Urine Negative (Negative); Nitrite Urine Negative (Negative); Protein Urine Negative (Negative); Specific Gravity Urine 1.015 (1.000-1.030); Urobilinogen Urine Negative (Negative)
--- NOTE | 2021-04-08 22:13 | History & Physical Report ---
Date of Service April 08, 2021 Assessment & Plan (1) Acute CVA (cerebrovascular accident): Plan: hypertension, elevated secondary to intracranial process anxiety/mood disorder, improved with Effexor, PCP planning to taper patient off medication given intolerance of side effects as per patient prediabetes, hemoglobin A1c of 6.01 July 2020 past tobacco abuse Medical telemetry Neurochecks Aspirin and Plavix for secondary stroke prevention TTE to rule out embolic source Check lipid profile, initiate statin Permissive hypertension Update hemoglobin A1c DVT prophylaxis per Lovenox subcu Full code Text document was generated using [employer] voice recognition software. It may contain grammatical or spelling errors. Kindly contact undersigned for clarification of any documentation item in question. History of Present Illness Chief Complaint: Transient right right-sided facial droop, arm numbness Primary Care Provider: Brad Dsouza MD History obtained from patient and records. Medical history significant for hypertension, anxiety/mood disorder, prediabetes, past tobacco abuse. Patient seen at PCPs office last month for worsening mood swings brought about by personal stressors. Effexor initiated by family doctor which controlled mood swings. Patient however unhappy with sedation. PCP contemplating on weaning patient off medication. Around 10 PM last night, patient noted right-sided numbness of the face and right hand. Transient droopiness of the right face. Patient daughter told her it was her left face that looked droopy. Transient headache symptoms. No chest pain, no S OB. No prior episodes. Left hand also felt tingly as per patient. Patient has concerns if Effexor medication has anything to do with symptoms. Personal stressors at home with recent in the family. Improved symptoms upon arrival at the ER after aspirin administration. Medical History as above Surgical History : Breast biopsy, BTL Family History : Unknown as patient was adopted Personal/Social history : Past tobacco abuse, occasional EtOH intake, home care Allergies Allergy/AdvReac Type Severity Reaction Status Date / Time No Known Drug Allergies Allergy . Verified 04/09/21 00:27 Home Medications Medication Instructions Recorded Confirmed Type amlodipine 5 mg tablet 5 mg PO DAILY 04/16/19 04/08/21 History omeprazole 40 mg capsule,delayed 40 mg PO DAILY 04/16/19 04/08/21 History release acetaminophen 500 mg tablet 1,000 mg PO Q6H PRN 04/08/21 04/08/21 History (Tylenol Extra Strength) albuterol sulfate 2.5 mg INHALATION Q4 PRN 04/08/21 04/08/21 History albuterol sulfate 90 mcg/actuation 2 puff INHALATION Q4 PRN 04/08/21 04/08/21 History aerosol inhaler clobetasol 0.05 % topical cream 1 applic TOPICAL BID PRN 04/08/21 04/08/21 History (Temovate) clonazepam 0.5 mg tablet 0.5 mg PO TID PRN 04/08/21 04/08/21 History diclofenac sodium 1 % topical gel 2 g TOPICAL BID PRN 04/08/21 04/08/21 History fluticasone propionate 50 2 spray INTRANASAL DAILY 04/08/21 04/08/21 History mcg/actuation nasal spray,suspension hydrochlorothiazide 25 mg tablet 25 mg PO DAILY 04/08/21 04/08/21 History ibuprofen 200 mg tablet 400 - 600 mg PO TID PRN 04/08/21 04/08/21 History venlafaxine 150 mg 150 mg PO DAILY 04/08/21 04/08/21 History capsule,extended release 24 hr Past Med/Surg History Medical History Anxiety GERD (gastroesophageal reflux disease) HLD (hyperlipidemia) Hypertension Pre-diabetes Surgical History No significant past surgical history Social History Smoking Status: Former smoker Hx Alcohol Use: No Hx Substance Use: No Preferred Language: Yi Beliefs That Will Affect Care: None marital status: Single Current Living Situation: Family current occupational status: unemployed Other Information That Helps Us Care for You: No Feels Safe at Home: Yes Safety Concerns: Feels Safe At This Time Assistive Devices: None Review of Systems Review of Systems: As per HPI, all 10 systems reviewed, all other ROS negative Physical Exam Physical Exam: GENERAL: Comfortable, obese, no respiratory distress SKIN: Normal color, warm HEENT: [place] palpebral conjunctivae, no ptosis, moist buccal mucosa NECK : Supple, short neck, no tenderness CHEST : CTA, no tenderness HEART : RRR, no obvious murmurs ABDOMEN: Some distention, nontender EXTREMITIES : Minimal LE swelling, no LE tenderness, no other conspicuous deformities noted NEUROLOGIC : Coherent, no facial asymmetry, no other gross focality Results & Data Results & Data ([facility]) Vital Signs (Past 12 Hours) Vital Signs Temp Pulse Resp BP Pulse Ox 04/08/21 21:30 67 21 04/08/21 21:00 69 17 171/100 H 04/08/21 20:30 68 15 140/97 04/08/21 20:00 68 21 140/97 04/08/21 19:30 71 19 04/08/21 19:00 74 21 04/08/21 18:45 81 15 99 04/08/21 18:00 72 23 172/104 H 96 04/08/21 17:30 83 14 159/107 H 96 04/08/21 16:30 75 19 04/08/21 16:12 82 20 134/96 04/08/21 15:55 36.9 C 87 18 151/100 H 97 Laboratory Results Laboratory Results WBC 5.94 K/uL (4.8-10.8) 04/08/21 17:19 RBC 5.07 M/uL (4.2-5.4) 04/08/21 17:19 Hgb 15.2 g/dL (12.0-16.0) 04/08/21 17:19 Hct 44.2 % (37-47) 04/08/21 17:19 MCV 87.2 fL (80-100) 04/08/21 17:19 MCH 30.0 pg (25-34) 04/08/21 17:19 MCHC 34.4 g/dL (32-36) 04/08/21 17:19 RDW Std Deviation 40.7 fL (36.4-46.3) 04/08/21 17:19 RDW Coeff of Magdiel 12.7 % (11.5-14.5) 04/08/21 17:19 Plt Count 213 K/uL (130-400) 04/08/21 17:19 MPV 9.4 fL (7.4-10.4) 04/08/21 17:19 Immature Gran % (Auto) 0.2 % 04/08/21 17:19 Neut % (Auto) 48.8 % 04/08/21 17:19 Lymph % (Auto) 41.8 % 04/08/21 17:19 [place] % (Auto) 8.2 % 04/08/21 17:19 Eos % (Auto) 0.8 % 04/08/21 17:19 Baso % (Auto) 0.2 % 04/08/21 17:19 Neut # (Auto) 2.90 K/uL (1.4-6.5) 04/08/21 17:19 Lymph # (Auto) 2.48 K/uL (1.2-3.4) 04/08/21 17:19 [place] # (Auto) 0.49 K/uL (0.11-0.59) 04/08/21 17:19 Eos # (Auto) 0.05 K/uL (0-0.5) 04/08/21 17:19 Baso # (Auto) 0.01 K/uL (0-0.2) 04/08/21 17:19 Immature Gran # (Auto) 0.01 K/uL (0.00-0.02) 04/08/21 17:19 PT 9.9 Seconds (9.0-12.0) 04/08/21 17:19 INR 1.0 (0.9-1.1) 04/08/21 17:19 APTT 25.1 Seconds (21.0-31.0) 04/08/21 17:19 PTT Ratio 1.0 04/08/21 17:19 Sodium 139 mmol/L (136-145) 04/08/21 17:19 Potassium 3.6 mmol/L (3.5-5.1) 04/08/21 17:19 Chloride 106 mmol/L (98-107) 04/08/21 17:19 Carbon Dioxide 29 mmol/L (21-32) 04/08/21 17:19 Anion Gap 4.0 (3-11) 04/08/21 17:19 BUN 6 mg/dl (7-18) L 04/08/21 17:19 Creatinine 0.79 mg/dl (0.6-1.2) 04/08/21 17:19 Est Cr Clr Drug Dosing 89.8 ml/min 04/08/21 17:19 Est GFR ( Amer) 100.5 ml/min 04/08/21 17:19 Est GFR (Non-Af Amer) 86.7 ml/min 04/08/21 17:19 BUN/Creatinine Ratio 8.0 (10-20) L 04/08/21 17:19 Glucose 110 mg/dl (70-99) H 04/08/21 17:19 Calcium 9.2 mg/dl (8.5-10.1) 04/08/21 17:19 Magnesium 2.3 mg/dl (1.8-2.4) 04/08/21 17:19 Total Bilirubin 0.2 mg/dl (0.2-1) 04/08/21 17:19 AST 19 U/L (15-37) 04/08/21 17:19 ALT 31 U/L (12-78) 04/08/21 17:19 Alkaline Phosphatase 104 U/L (45-117) 04/08/21 17:19 Troponin I < 0.015 ng/ml (0-0.045) 04/08/21 17:19 Total Protein 8.3 gm/dl (6.4-8.2) H 04/08/21 17:19 Albumin 4.0 gm/dl (3.4-5.0) 04/08/21 17:19 Globulin 4.3 gm/dl (2.5-4.0) H 04/08/21 17:19 Albumin/Globulin Ratio 0.9 (0.9-2) 04/08/21 17:19 HCG, Qual Negative (Negative) 04/08/21 17:19 Urine Color Yellow 04/08/21 20:37 Urine Appearance Clear (Clear) 04/08/21 20:37 Urine pH 8.0 (4.5-7.5) H 04/08/21 20:37 Ur Specific [place] 1.015 (1.000-1.030) 04/08/21 20:37 Urine Protein Negative (Negative) 04/08/21 20:37 Urine Glucose (UA) Negative (Negative) 04/08/21 20:37 Urine Ketones Negative (Negative) 04/08/21 20:37 Urine Blood Negative (Negative) 04/08/21 20:37 Urine Nitrite Negative (Negative) 04/08/21 20:37 Urine Bilirubin Negative (Negative) 04/08/21 20:37 Urine Urobilinogen Negative (Negative) 04/08/21 20:37 Ur Leukocyte Esterase Negative (Negative) 04/08/21 20:37 Lyme Disease IgG Ab Negative (Negative) 04/08/21 17:19 Lyme Disease IgM Ab Negative (Negative) 04/08/21 17:19 COVID-19 Eval Order Covid19 at [facility] 04/08/21 17:19 SARS-CoV-2 (PCR) NEGATIVE (Negative) 04/08/21 17:[address] 04/08/21 16:[address] OF THE BRAIN; CT ANGIOGRAM OF THE BRAIN; CT ANGIOGRAM OF THE NECK CLINICAL HISTORY: Strokelike symptoms. COMPARISON STUDY: CT of the brain dated 08/16/2017. TECHNIQUE: Unenhanced axial CT scan of the brain is performed. Subsequently, following the IV administration of 101 of Optiray 320, CT angiogram of the head and neck was performed from the aortic arch to the vertex. Images are reviewed in the axial, sagittal, and coronal planes. 3-D MIPS images are created and assessed. IV contrast was administered without complication. All measurements were calculated based on NASCET criteria. A dose lowering technique was utilized adhering to the principles of ALARA. CT DOSE: 1155.75 mGy.cm FINDINGS: Brain parenchyma: The brain parenchyma is normal in appearance. There is no hemorrhage, mass effect, or evidence of acute territorial ischemia by CT criteria. There is no evidence of enhancing mass lesion on the angiogram phase images. The ventricles, sulci, and cisterns are normal in configuration. Robert-white matter differentiation is preserved. No extra-axial fluid collection is seen. Thoracic aorta: Visualized portions of the thoracic aorta are normal in caliber. The aortic arch demonstrates standard 3-vessel anatomy. Right carotid arterial system: The right common carotid artery is widely patent, as are the right internal and external carotid arteries. Left carotid arterial system: The left common carotid artery is widely patent, as are the left internal and external carotid arteries. Vertebral arteries: The vertebral arteries are widely patent bilaterally and codominant. Subclavian arteries: Widely patent bilaterally. Intracranial vasculature: There is origin of the right posterior cerebral artery. There is atherosclerotic calcification of the cavernous carotid arteries. The internal carotid arteries are patent at the skull base, as are the anterior and middle cerebral arteries bilaterally. The vertebrobasilar system and posterior cerebral arteries are widely patent. The vertebral arteries are codominant. There is no aneurysm, high-grade stenosis, or focal vessel cut off seen throughout the intracranial circulation. Jugular veins: Patent bilaterally. Dural sinuses: Patent. Lung apices: Partially visualized upper lobe lung parenchyma appears clear. Soft tissues: The visualized pharyngeal soft tissues are normal in appearance noting angiographic phase technique. The oropharyngeal airway appears widely patent. The salivary and thyroid glands are normal in appearance. No cervical lymphadenopathy is seen. Skeletal structures: The calvarium appears intact. The cervical spine is maintained noting mild multilevel spondylosis. No lytic or blastic lesion is seen. Orbits: The bony orbits are intact. Orbital contents are normal as visualized. Sinuses and mastoids: The paranasal sinuses are clear. The mastoid air cells are well pneumatized. IMPRESSION: 1 There is no hemorrhage, mass effect, or evidence of acute territorial ischemia by CT criteria. 2. Unremarkable CT angiogram of the brain. 3. Unremarkable CT angiogram of the neck. ACT 112: Negative or not required by law. Electronically signed by: Riky Velasco M.D. 04/08/2021 7:09 PM Head CTA 04/08/21 16:[address] OF THE BRAIN; CT ANGIOGRAM OF THE BRAIN; CT ANGIOGRAM OF THE NECK CLINICAL HISTORY: Strokelike symptoms. COMPARISON STUDY: CT of the brain dated 08/16/2017. TECHNIQUE: Unenhanced axial CT scan of the brain is performed. Subsequently, following the IV administration of 101 of Optiray 320, CT angiogram of the head and neck was performed from the aortic arch to the vertex. Images are reviewed in the axial, sagittal, and coronal planes. 3-D MIPS images are created and assessed. IV contrast was administered without complication. All measurements were calculated based on NASCET criteria. A dose lowering technique was utilized adhering to the principles of ALARA. CT DOSE: 1155.75 mGy.cm FINDINGS: Brain parenchyma: The brain parenchyma is normal in appearance. There is no hemorrhage, mass effect, or evidence of acute territorial ischemia by CT criteria. There is no evidence of enhancing mass lesion on the angiogram phase images. The ventricles, sulci, and cisterns are normal in configuration. Robert- white matter differentiation is preserved. No extra-axial fluid collection is seen. Thoracic aorta: Visualized portions of the thoracic aorta are normal in caliber. The aortic arch demonstrates standard 3-vessel anatomy. Right carotid arterial system: The right common carotid artery is widely patent, as are the right internal and external carotid arteries. Left carotid arterial system: The left common carotid artery is widely patent, as are the left internal and external carotid arteries. Vertebral arteries: The vertebral arteries are widely patent bilaterally and codominant. Subclavian arteries: Widely patent bilaterally. Intracranial vasculature: There is origin of the right posterior cerebral artery. There is atherosclerotic calcification of the cavernous carotid arteries. The internal carotid arteries are patent at the skull base, as are the anterior and middle cerebral arteries bilaterally. The vertebrobasilar system and posterior cerebral arteries are widely patent. The vertebral arteries are codominant. There is no aneurysm, high-grade stenosis, or focal vessel cut off seen throughout the intracranial circulation. Jugular veins: Patent bilaterally. Dural sinuses: Patent. Lung apices: Partially visualized upper lobe lung parenchyma appears clear. Soft tissues: The visualized pharyngeal soft tissues are normal in appearance noting angiographic phase technique. The oropharyngeal airway appears widely patent. The salivary and thyroid glands are normal in appearance. No cervical lymphadenopathy is seen. Skeletal structures: The calvarium appears intact. The cervical spine is maintained noting mild multilevel spondylosis. No lytic or blastic lesion is seen. Orbits: The bony orbits are intact. Orbital contents are normal as visualized. Sinuses and mastoids: The paranasal sinuses are clear. The mastoid air cells are well pneumatized. IMPRESSION: 1 There is no hemorrhage, mass effect, or evidence of acute territorial ischemia by CT criteria. 2. Unremarkable CT angiogram of the brain. 3. Unremarkable CT angiogram of the neck. ACT 112: Negative or not required by law. Electronically signed by: Riky Velasco M.D. 04/08/2021 7:09 PM Neck CTA 04/08/21 16:[address] OF THE BRAIN; CT ANGIOGRAM OF THE BRAIN; CT ANGIOGRAM OF THE NECK CLINICAL HISTORY: Strokelike symptoms. COMPARISON STUDY: CT of the brain dated 08/16/2017. TECHNIQUE: Unenhanced axial CT scan of the brain is performed. Subsequently, following the IV administration of 101 of Optiray 320, CT angiogram of the head and neck was performed from the aortic arch to the vertex. Images are reviewed in the axial, sagittal, and coronal planes. 3-D MIPS images are created and assessed. IV contrast was administered without complication. All measurements were calculated based on NASCET criteria. A dose lowering technique was utilized adhering to the principles of ALARA. CT DOSE: 1155.75 mGy.cm FINDINGS: Brain parenchyma: The brain parenchyma is normal in appearance. There is no hemorrhage, mass effect, or evidence of acute territorial ischemia by CT criteria. There is no evidence of enhancing mass lesion on the angiogram phase images. The ventricles, sulci, and cisterns are normal in configuration. Robert- white matter differentiation is preserved. No extra-axial fluid collection is seen. Thoracic aorta: Visualized portions of the thoracic aorta are normal in caliber. The aortic arch demonstrates standard 3-vessel anatomy. Right carotid arterial system: The right common carotid artery is widely patent, as are the right internal and external carotid arteries. Left carotid arterial system: The left common carotid artery is widely patent, as are the left internal and external carotid arteries. Vertebral arteries: The vertebral arteries are widely patent bilaterally and codominant. Subclavian arteries: Widely patent bilaterally. Intracranial vasculature: There is origin of the right posterior cerebral artery. There is atherosclerotic calcification of the cavernous carotid arteries. The internal carotid arteries are patent at the skull base, as are the anterior and middle cerebral arteries bilaterally. The vertebrobasilar system and posterior cerebral arteries are widely patent. The vertebral arteries are codominant. There is no aneurysm, high-grade stenosis, or focal vessel cut off seen throughout the intracranial circulation. Jugular veins: Patent bilaterally. Dural sinuses: Patent. Lung apices: Partially visualized upper lobe lung parenchyma appears clear. Soft tissues: The visualized pharyngeal soft tissues are normal in appearance noting angiographic phase technique. The oropharyngeal airway appears widely patent. The salivary and thyroid glands are normal in appearance. No cervical lymphadenopathy is seen. Skeletal structures: The calvarium appears intact. The cervical spine is maintained noting mild multilevel spondylosis. No lytic or blastic lesion is seen. Orbits: The bony orbits are intact. Orbital contents are normal as visualized. Sinuses and mastoids: The paranasal sinuses are clear. The mastoid air cells are well pneumatized. IMPRESSION: 1 There is no hemorrhage, mass effect, or evidence of acute territorial ischemia by CT criteria. 2. Unremarkable CT angiogram of the brain. 3. Unremarkable CT angiogram of the neck. ACT 112: Negative or not required by law. Electronically signed by: Riky Velasco M.D. 04/08/2021 7:09 PM Diagnostic Findings MRI brain initial read: Small, multifocal areas of restricted diffusion in the right frontal cortex and deep white matter, compatible with acute infarct, nonhemorrhagic. Normal flowvoids in the major arteries at the skull base, indicating gross patency. No mass-effect, hydrocephalus, midline shift, herniation, or other acute finding. EKG as per my interpretation rate 70, NSR, normal axis, nonspecific T wave abnormalities
[2021-04-08] MEDS ORDERED: LORazepam 1 MG/2 ML VIAL IV PRN (22:14)
[2021-04-09] MEDS ORDERED: CLOPIDOGREL BISULFATE 300 MG TAB PO STA (00:13)
[2021-04-09] MEDS ORDERED: PROMETHAZINE HCL 12.5 MG in SODIUM CHLORIDE 0.9% 50 ML IV PRN (00:20)
[2021-04-09] MEDS ORDERED: LORazepam 0.5 MG/1 ML VIAL IV PRN (00:20)
[2021-04-09] MEDS ORDERED: oxyCODONE HCL IR 5 MG TAB (IMMEDIATE RELEASE) PO PRN (00:20)
[2021-04-09] MEDS ORDERED: POTASSIUM CHLORIDE 40 MEQ in SODIUM CHLORIDE 0.9% 1000ML 1,000 ML IV STA (00:28)
[2021-04-09 06:52] LABS: Basophils # (auto) 0.01 K/uL (0-0.2); Basophils % (auto) 0.2 %; Eosinophils # (auto) 0.05 K/uL (0-0.5); Hematocrit (blood only) 42.7 % (37-47); Hemoglobin 14.5 g/dL (12.0-16.0); Immature Granulocytes # (auto) 0.01 K/uL (0.00-0.02); Immature Granulocytes % (auto) 0.2 %; Lymphocytes # (auto) 2.14 K/uL (1.2-3.4); Mean Corpuscular Hemoglobin 29.4 pg (25-34); Mean Corpuscular Volume 86.4 fL (80-100); Mean Platelet Volume 10.3 fL (7.4-10.4); Monocytes # (auto) 0.41 K/uL (0.11-0.59); Monocytes % (auto) 8.4 %; Neutrophils # (auto) 2.24 K/uL (1.4-6.5); Neutrophils % (auto) 46.2 %; Platelet Count 201 K/uL (130-400); RDW Coefficient of Variation 12.6 % (11.5-14.5); RDW Standard Deviation 40.3 fL (36.4-46.3); Red Blood Count 4.94 M/uL (4.2-5.4); White Blood Count 4.86 K/uL (4.8-10.8)
--- NOTE | 2021-04-09 07:12 | Magnetic Resonance Report ---
MR brain wo con HISTORY: 50 years-old Female r numbness acute dizziness with weakness and slurred speech COMPARISON: Head CT 04/08/2021 TECHNIQUE: Multiplanar multisequence MRI of the brain was obtained without the use of IV contrast. FINDINGS: Cortical based foci of restricted diffusion within the right frontal lobe near the vertex measures up to 2.2 cm on image 17 series 4 demonstrating decreased signal on ADC map with areas of minimally inc reased T2/FLAIR signal. Study is mildly motion degraded. No acute intracranial hemorrhage, midline sh ift, abnormal extra-axial collection, hydrocephalus or intracranial mass. No pathologic blooming corie fact. Minimal senescent calcifications of the basal ganglia. Cerebral venous sinuses and major arterial flow voids are patent. The mastoid air cells and paranasal sinuses are generally clear. The skull, orbits and soft tissues are within normal limits. IMPRESSION: There are several small acute infarcts of the right frontal lobe near the vertex within the right MCA territory measuring up to 2.2 cm. No associated hemorrhage or midline shift. ACT 112: Negative or not required by law. The above report was generated using voice recognition software. It may contain grammatical, syntax o r spelling errors. Electronically signed by: Griffin Sarabia M.D. 04/09/2021 7:11 AM
[2021-04-09 07:15] LABS: Creatinine Clr Calc Pharmacy 125.6 ml/min; Est GFR (African American) 123.7 ml/min; Est GFR (Non-African American) 106.7 ml/min; Potassium 3.7 mmol/L (3.5-5.1)
[2021-04-09] MEDS ORDERED: VENLAFAXINE HCL XR 150 MG CAPXR PO SCH (09:00)
[2021-04-09] MEDS: ATORVASTATIN 40 MG TAB PO SCH (09:25)
[2021-04-09] MEDS: ENOXAPARIN INJ 40 MG/0.4 ML SYR SQ SCH (09:25)
[2021-04-09] MEDS: ASPIRIN 81 MG ECTAB PO SCH (09:25)
[2021-04-09] MEDS: PANTOprazole 40 MG TAB PO SCH (09:26)
[2021-04-09] MEDS: FLUTICASONE PROPIONATE NA SPR 16 GM BTL SCH (09:26)
[2021-04-09] MEDS: ACETAMINOPHEN 325 MG TAB PO PRN ×2 (09:27→21:13)
[2021-04-09] MEDS ORDERED: CLOPIDOGREL BISULFATE 75 MG TAB ONE (09:29)
--- NOTE | 2021-04-09 09:57 | Hospitalist Progress Note ---
Date of Service April 09, 2021 Assessment & Plan (1) Acute CVA (cerebrovascular accident): (2) HTN (hypertension): (3) Depression with anxiety: (4) Pre-diabetes: (5) HLD (hyperlipidemia): Plan: This is a 50-year-old female who has significant past medical history of HTN, prediabetes, reactive airway disease, GERD, depression with anxiety who presented to ER on the evening of 04/08/21 secondary to left-sided facial droop, slurred speech and right-sided weakness. She underwent stroke work-up and MRI revealed several small acute infarcts in the right frontal lobe and right MCA territory 2.2 cm. Acute CVA loaded with plavix continue plavix 75mg daily and aspirin 81mg daily Initiate atorvastatin 40mg daily given hyperlipidemia MRI: There are several small acute infarcts of the right frontal lobe near the vertex within the right MCA territory measuring up to 2.2 cm. No associated hemorrhage or midline shift. CTA Head/Neck: No acute intracranial abnormality Echo: pending consult neurology PT/OT/ST pending NPO until evaluated by speech allow permissive HTN for 24 hours then resume antihypertensives monitor on tele HTN pt blood pressure severely elevated on admission, but did not meet criteria for emergency BP 137/82 now hold amlodipine, HCTZ for now monitor Depression with anxiety pt with increase in stressors and feels on edge started on effexor on 03/13, wishes to be weaned off will start 75mg daily x 1 week and then every other day x 1 week then stop will consult psych as pt wishes to be started on additional agent in meantime to help deal with depression/anxiety - will await their recommendation Pre-diabetes last a1c 6.2 07/12/20 obtain a1c HLD total cholesterol 256 LDL 173, HDL 63, trig 98 start atorvastatin 40mg daily DVT ppx: Lovenox Dispo: PCU, likely discharge tomorrow PCP: Meet FULL CODE Pt was seen and examined in collaboration with Dr. Archibald, please see addendum Admission and Anticipated Discharge Date Admission Date: April 08, 2021 Supervising Physician Co-Signing Physician Notes Patient is seen and examined at bedside. States having frontal headache, generalized weakness and tiredness. Facial droop, weakness improved. Denies any chest pain, shortness of breath, dizziness, nausea, abdominal pain. Discussed with neurology today. On exam patient is obese, no apparent distress, normocephalic atraumatic,+ minimal left facial droop, normal breath sounds, clear to auscultation, S1-S2, no murmur, no pedal edema, abdomen soft, nontender, normal bowel sounds, alert, awake, oriented, grossly no focal deficits. Acute CVA. Agree with continuing aspirin, Plavix and Lipitor. Monitor on telemetry for any arrhythmias. Agree with checking echo. Appreciate neurology input. Needs hypercoagulable work-up as per neurology. Allow permissive hypertension in setting of acute CVA. PT OT, speech evaluation requested. I personally reviewed the record. Patient is interviewed and examined at bedside. Patient's care is coordinated with Pam Greco PA-C. Please refer to the documentation above for details of patient's presentation and for discussion of other issues. Subjective This is a 50-year-old female who has significant past medical history of HTN, prediabetes, reactive airway disease, GERD, depression with anxiety who presented to ER on the evening of 04/08/21 secondary to left-sided facial droop and right-sided weakness. She underwent stroke work-up and MRI revealed several small acute infarcts in the right frontal lobe and right MCA territory 2.2 cm. She was seen and evaluated in room D3 as an ER admission hold. Currently she feels that facial droop has resolved as well as right-sided weakness. She complains of being generally weak and tired due to lack of oral intake. She denies fever, chills, sweats, lightheadedness, dizziness, chest pain, shortness breath, cough, nausea, vomiting, abdominal pain. She is concerned as to why she had an acute stroke. 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 Due to her recent stress and feeling like she was, "at her limit," she sought advice from her PCP who recently prescribed her Effexor 150 mg daily. On this medication she felt "zombiefied," and although it has taken her edge off she does not like the way it makes her feel. She feels this has caused her to have a stroke. She wishes to stop taking this medication. She denies family history of stroke. Review of Systems Review of Systems: All systems reviewed & are unremarkable except as noted in HPI & below Physical Exam Physical Exam: Constitutional: WD/WN, vitals as above, NAD, sitting up in bed, pleasant, conversing easily Head: Normocephalic, Atraumatic Eyes: PERRL, conjunctivae normal, anicteric sclerae ENMT: external ear and nose normal, oropharynx normal Neck: trachea midline, no thyromegaly normal visual inspection Respiratory: normal respiratory effort, lungs clear to auscultation, no wheeze, rales, rhonchi. Normal insp/exp effort, no accessory muscle use Cardiovascular: RRR, no murmur, no edema Vessels: no JVD or carotid bruit Chest: normal inspection of chest Abdomen: Obese abdomen, normal bowel sounds, soft, nontender, no hepatosplenomegaly Musculoskeletal: no cyanosis or clubbing, extremities motor strength 5/5 Skin: no rashes, warm and dry normal turgor Neurologic: PERRL, EOMI, accommodation nl, no face palsy, no dysarthria CN's II-XI intact bilaterally and moves all extremities Psychiatric: A+Ox3, euthymic affect : deferred Results & Data Results & Data ([facility]) Vital Signs (Past 12 Hours) Vital Signs Temp Pulse Pulse Resp BP BP Pulse Ox 04/09/21 00:20 36.8 C 65 16 137/82 96 04/08/21 23:34 37.1 C 78 16 145/74 H 98 04/08/21 23:00 69 17 04/08/21 22:30 64 21 04/08/21 22:00 74 17 Pulse Ox 04/09/21 00:20 96 04/08/21 23:34 04/08/21 23:00 04/08/21 22:30 04/08/21 22:00 Laboratory Results Short CBC 04/09/21 Range/Units 06:04 WBC 4.86 (4.8-10.8) K/uL Hgb 14.5 (12.0-16.0) g/dL Hct 42.7 (37-47) % Plt Count 201 (130-400) K/uL BMP 04/08/21 04/09/21 17:19 06:04 Sodium 139 140 Potassium 3.6 3.7 Chloride 106 107 Carbon Dioxide 29 26 BUN 6 L 6 L Creatinine 0.79 0.58 L Glucose 110 H 84 Calcium 9.2 9.0 Cardiac Enzymes 04/08/21 Range/Units 17:19 Troponin I < 0.015 (0-0.045) ng/ml Liver Function 04/08/21 Range/Units 17:19 Total Bilirubin 0.2 (0.2-1) mg/dl AST 19 (15-37) U/L ALT 31 (12-78) U/L Alkaline Phosphatase 104 (45-117) U/L Albumin 4.0 (3.4-5.0) gm/dl Urine 04/08/21 Range/Units 20:37 Urine Color Yellow Urine Appearance Clear (Clear) Urine pH 8.0 H (4.5-7.5) Ur Specific [place] 1.015 (1.000-1.030) Urine Protein Negative (Negative) Urine Glucose (UA) Negative (Negative) Diagnostic Findings Head CT 04/08/21 16:[address] OF THE BRAIN; CT ANGIOGRAM OF THE BRAIN; CT ANGIOGRAM OF THE NECK CLINICAL HISTORY: Strokelike symptoms. COMPARISON STUDY: CT of the brain dated 08/16/2017. TECHNIQUE: Unenhanced axial CT scan of the brain is performed. Subsequently, following the IV administration of 101 of Optiray 320, CT angiogram of the head and neck was performed from the aortic arch to the vertex. Images are reviewed in the axial, sagittal, and coronal planes. 3-D MIPS images are created and assessed. IV contrast was administered without complication. All measurements were calculated based on NASCET criteria. A dose lowering technique was utilized adhering to the principles of ALARA. CT DOSE: 1155.75 mGy.cm FINDINGS: Brain parenchyma: The brain parenchyma is normal in appearance. There is no hemorrhage, mass effect, or evidence of acute territorial ischemia by CT criteria. There is no evidence of enhancing mass lesion on the angiogram phase images. The ventricles, sulci, and cisterns are normal in configuration. Robert- white matter differentiation is preserved. No extra-axial fluid collection is seen. Thoracic aorta: Visualized portions of the thoracic aorta are normal in caliber. The aortic arch demonstrates standard 3-vessel anatomy. Right carotid arterial system: The right common carotid artery is widely patent, as are the right internal and external carotid arteries. Left carotid arterial system: The left common carotid artery is widely patent, as are the left internal and external carotid arteries. Vertebral arteries: The vertebral arteries are widely patent bilaterally and codominant. Subclavian arteries: Widely patent bilaterally. Intracranial vasculature: There is origin of the right posterior cerebral artery. There is atherosclerotic calcification of the cavernous carotid arteries. The internal carotid arteries are patent at the skull base, as are the anterior and middle cerebral arteries bilaterally. The vertebrobasilar system and posterior cerebral arteries are widely patent. The vertebral arteries are codominant. There is no aneurysm, high-grade stenosis, or focal vessel cut off seen throughout the intracranial circulation. Jugular veins: Patent bilaterally. Dural sinuses: Patent. Lung apices: Partially visualized upper lobe lung parenchyma appears clear. Soft tissues: The visualized pharyngeal soft tissues are normal in appearance noting angiographic phase technique. The oropharyngeal airway appears widely patent. The salivary and thyroid glands are normal in appearance. No cervical lymphadenopathy is seen. Skeletal structures: The calvarium appears intact. The cervical spine is maintained noting mild multilevel spondylosis. No lytic or blastic lesion is seen. Orbits: The bony orbits are intact. Orbital contents are normal as visualized. Sinuses and mastoids: The paranasal sinuses are clear. The mastoid air cells are well pneumatized. IMPRESSION: 1 There is no hemorrhage, mass effect, or evidence of acute territorial ischemia by CT criteria. 2. Unremarkable CT angiogram of the brain. 3. Unremarkable CT angiogram of the neck. ACT 112: Negative or not required by law. Electronically signed by: Riky Velasco M.D. 04/08/2021 7:09 PM Head CTA 04/08/21 16:[address] OF THE BRAIN; CT ANGIOGRAM OF THE BRAIN; CT ANGIOGRAM OF THE NECK CLINICAL HISTORY: Strokelike symptoms. COMPARISON STUDY: CT of the brain dated 08/16/2017. TECHNIQUE: Unenhanced axial CT scan of the brain is performed. Subsequently, following the IV administration of 101 of Optiray 320, CT angiogram of the head and neck was performed from the aortic arch to the vertex. Images are reviewed i n the axial, sagittal, and coronal planes. 3-D MIPS images are created and assessed. IV contrast was administered without complication. All measurements were calculated based on NASCET criteria. A dose lowering technique was utilized adhering to the principles of ALARA. CT DOSE: 1155.75 mGy.cm FINDINGS: Brain parenchyma: The brain parenchyma is normal in appearance. There is no hemorrhage, mass effect, or evidence of acute territorial ischemia by CT criteria. There is no evidence of enhancing mass lesion on the angiogram phase images. The ventricles, sulci, and cisterns are normal in configuration. Robert- white matter differentiation is preserved. No extra-axial fluid collection is seen. Thoracic aorta: Visualized portions of the thoracic aorta are normal in caliber. The aortic arch demonstrates standard 3-vessel anatomy. Right carotid arterial system: The right common carotid artery is widely patent, as are the right internal and external carotid arteries. Left carotid arterial system: The left common carotid artery is widely patent, as are the left internal and external carotid arteries. Vertebral arteries: The vertebral arteries are widely patent bilaterally and cod ominant. Subclavian arteries: Widely patent bilaterally. Intracranial vasculature: There is origin of the right posterior cerebral artery. There is atherosclerotic calcification of the cavernous carotid arteries. The internal carotid arteries are patent at the skull base, as are the anterior and middle cerebral arteries bilaterally. The vertebrobasilar system and posterior cerebral arteries are widely patent. The vertebral arteries are codominant. There is no aneurysm, high-grade stenosis, or focal vessel cut off seen throughout the intracranial circulation. Jugular veins: Patent bilaterally. Dural sinuses: Patent. Lung apices: Partially visualized upper lobe lung parenchyma appears clear. Soft tissues: The visualized pharyngeal soft tissues are normal in appearance noting angiographic phase technique. The oropharyngeal airway appears widely patent. The salivary and thyroid glands are normal in appearance. No cervical lymphadenopathy is seen. Skeletal structures: The calvarium appears intact. The cervical spine is maintained noting mild multilevel spondylosis. No lytic or blastic lesion is seen. Orbits: The bony orbits are intact. Orbital contents are normal as visualized. Sinuses and mastoids: The paranasal sinuses are clear. The mastoid air cells are well pneumatized. IMPRESSION: 1 There is no hemorrhage, mass effect, or evidence of acute territorial ischemia by CT criteria. 2. Unremarkable CT angiogram of the brain. 3. Unremarkable CT angiogram of the neck. ACT 112: Negative or not required by law. Electronically signed by: Riky Velasco M.D. 04/08/2021 7:09 PM Neck CTA 04/08/21 16:[address] OF THE BRAIN; CT ANGIOGRAM OF THE BRAIN; CT ANGIOGRAM OF THE NECK CLINICAL HISTORY: Strokelike symptoms. COMPARISON STUDY: CT of the brain dated 08/16/2017. TECHNIQUE: Unenhanced axial CT scan of the brain is performed. Subsequently, following the IV administration of 101 of Optiray 320, CT angiogram of the head and neck was performed from the aortic arch to the vertex. Images are reviewed in the axial, sagittal, and coronal planes. 3-D MIPS images are created and assessed. IV contrast was administered without complication. All measurements were calculated based on NASCET criteria. A dose lowering technique was utilized adhering to the principles of ALARA. CT DOSE: 1155.75 mGy.cm FINDINGS: Brain parenchyma: The brain parenchyma is normal in appearance. There is no hemorrhage, mass effect, or evidence of acute territorial ischemia by CT criteria. There is no evidence of enhancing mass lesion on the angiogram phase images. The ventricles, sulci, and cisterns are normal in configuration. Robert- white matter differentiation is preserved. No extra-axial fluid collection is seen. Thoracic aorta: Visualized portions of the thoracic aorta are normal in caliber. The aortic arch demonstrates standard 3-vessel anatomy. Right carotid arterial system: The right common carotid artery is widely patent, as are the right internal and external carotid arteries. Left carotid arterial system: The left common carotid artery is widely patent, as are the left internal and external carotid arteries. Vertebral arteries: The vertebral arteries are widely patent bilaterally and codominant. Subclavian arteries: Widely patent bilaterally. Intracranial vasculature: There is origin of the right posterior cerebral artery. There is atherosclerotic calcification of the cavernous carotid arteries. The internal carotid arteries are patent at the skull base, as are the anterior and middle cerebral arteries bilaterally. The vertebrobasilar system and posterior cerebral arteries are widely patent. The vertebral arteries are codominant. There is no aneurysm, high-grade stenosis, or focal vessel cut off seen throughout the intracranial circulation. Jugular veins: Patent bilaterally. Dural sinuses: Patent. Lung apices: Partially visualized upper lobe lung parenchyma appears clear. Soft tissues: The visualized pharyngeal soft tissues are normal in appearance noting angiographic phase technique. The oropharyngeal airway appears widely patent. The salivary and thyroid glands are normal in appearance. No cervical lymphadenopathy is seen. Skeletal structures: The calvarium appears intact. The cervical spine is maintained noting mild multilevel spondylosis. No lytic or blastic lesion is seen. Orbits: The bony orbits are intact. Orbital contents are normal as visualized. Sinuses and mastoids: The paranasal sinuses are clear. The mastoid air cells are well pneumatized. IMPRESSION: 1 There is no hemorrhage, mass effect, or evidence of acute territorial ischemia by CT criteria. 2. Unremarkable CT angiogram of the brain. 3. Unremarkable CT angiogram of the neck. ACT 112: Negative or not required by law. Electronically signed by: Riky Velasco M.D. 04/08/2021 7:09 PM Brain MRI 04/08/21 22:13 MR brain wo con HISTORY: 50 years-old Female r numbness acute dizziness with weakness and slurred speech COMPARISON: Head CT 04/08/2021 TECHNIQUE: Multiplanar multisequence MRI of the brain was obtained without the use of IV contrast. FINDINGS: Cortical based foci of restricted diffusion within the right frontal lobe near the vertex measures up to 2.2 cm on image 17 series 4 demonstrating decreased signal on ADC map with areas of minimally increased T2/FLAIR signal. Study is mildly motion degraded. No acute intracranial hemorrhage, midline shift, abnormal extra-axial collection, hydrocephalus or intracranial mass. No pathologic blooming artifact. Minimal senescent calcifications of the basal ganglia. Cerebral venous sinuses and major arterial flow voids are patent. The mastoid a ir cells and paranasal sinuses are generally clear. The skull, orbits and soft tissues are within normal limits. IMPRESSION: There are several small acute infarcts of the right frontal lobe near the vertex within the right MCA territory measuring up to 2.2 cm. No associated hemorrhage or midline shift. ACT 112: Negative or not required by law. The above report was generated using voice recognition software. It may contain grammatical, syntax or spelling errors. Electronically signed by: Griffin Sarabia M.D. 04/09/2021 7:11 AM Medications Administered Medication List Acetaminophen (Acetaminophen 325 Mg Tab) 650 mg PO Q4H PRN PRN Reason: Pain or Fever Stop: 05/09/21 00:19 Last Admin: 04/09/21 09:27 Dose: 650 mg Documented by: [id number] Aspirin (Aspirin 81 Mg Ectab) 81 mg PO [facility] Stop: 05/09/21 08:59 Last Admin: 04/09/21 09:25 Dose: 81 mg Documented by: [id number] Atorvastatin Calcium (Atorvastatin 40 Mg Tab) 40 mg PO [facility] Stop: 05/09/21 08:59 Last Admin: 04/09/21 09:25 Dose: 40 mg Documented by: [id number] Enoxaparin Sodium (Enoxaparin Inj 40 Mg/0.4 Ml Syr) 40 mg SQ QAM STEVE Stop: 05/09/21 08:59 Last Admin: 04/09/21 09:25 Dose: 40 mg Documented by: [id number] Fluticasone Propionate (Fluticasone Propionate Na Spr 16 Gm Btl) 2 sprays NA DAILY STEVE Stop: 05/09/21 08:59 Last Admin: 04/09/21 09:26 Dose: 2 sprays Documented by: [id number] Potassium Chloride 40 meq/ (Sodium Chloride) 1,020 mls @ 50 mls/hr IV .[id number] STA Stop: 04/09/21 20:51 Last Admin: 04/09/21 01:05 Dose: 50 mls/hr Documented by: [id number] Pantoprazole Sodium (Pantoprazole 40 Mg Tab) 40 mg PO DAILY STEVE Stop: 05/09/21 08:59 Last Admin: 04/09/21 09:26 Dose: 40 mg Documented by: [id number] Discontinued Medications Aspirin (Aspirin 81 Mg Chew) 324 mg PO NOW STA Stop: 04/08/21 19:28 Last Admin: 04/08/21 20:47 Dose: 324 mg Documented by: [id number] Clopidogrel Bisulfate (Clopidogrel Bisulfate 300 Mg Tab) 300 mg PO NOW STA Stop: 04/09/21 00:14 Last Admin: 04/09/21 00:35 Dose: Not Given Documented by: [id number] Clopidogrel Bisulfate (Clopidogrel Bisulfate 75 Mg Tab) Confirm Administered Dose 75 mg .ROUTE .STK-MED ONE Stop: 04/09/21 09:30 Last Admin: 04/09/21 09:32 Dose: Not Given Documented by: [id number] Lorazepam (Ativan) 1 mg in 2 mls @ 1 mls/min IV Q1H PRN PRN Reason: Anxiety/Agitation Stop: 05/08/21 22:13 Last Admin: 04/08/21 23:06 Dose: 1 mls/min Documented by: [id number] Ioversol (Optiray 320 125ml) 101 ml IV ONCE ONE Stop: 04/08/21 19:05 Last Admin: 04/08/21 19:04 Dose: 101 ml Documented by: [id number] Venlafaxine HCl (Venlafaxine Hcl Xr 150 Mg Capxr) 150 mg PO DAILY STEVE Stop: 05/09/21 08:59 Last Admin: 04/09/21 09:26 Dose: 150 mg Documented by: [id number] ECG Rate (beats per minute): 71 Rhythm: normal sinus COVID-19 Results Results COVID-19 Adm Lab Results: RBC 4.94 M/uL (4.2-5.4) 04/09/21 WBC 4.86 K/uL (4.8-10.8) 04/09/21 Hgb 14.5 g/dL (12.0-16.0) 04/09/21 Hct 42.7 % (37-47) 04/09/21 Plt Count 201 K/uL (130-400) 04/09/21 Neutrophils (%) (Auto) 46.2 % 04/09/21 Lymphocytes (%) (Auto) 44.0 % 04/09/21 Monocytes # (Auto) 0.41 K/uL (0.11-0.59) 04/09/21 Eosinophils # (Auto) 0.05 K/uL (0-0.5) 04/09/21 Immature Granulocyte % (Auto) 0.2 % 04/09/21 Neutrophils # (Auto) 2.24 K/uL (1.4-6.5) 04/09/21 Lymphocytes # (Auto) 2.14 K/uL (1.2-3.4) 04/09/21 Monocytes # (Auto) 0.41 K/uL (0.11-0.59) 04/09/21 Eosinophils # (Auto) 0.05 K/uL (0-0.5) 04/09/21 Basophils # (Auto) 0.01 K/uL (0-0.2) 04/09/21 Immature Granulocyte # (Auto) 0.01 K/uL (0.00-0.02) 04/09/21 Na 140 mmol/L (136-145) 04/09/21 K 3.7 mmol/L (3.5-5.1) 04/09/21 Cl 107 mmol/L (98-107) 04/09/21 CO2 26 mmol/L (21-32) 04/09/21 Anion Gap 7.0 (3-11) 04/09/21 BUN 6 mg/dl (7-18) L 04/09/21 Creatinine 0.58 mg/dl (0.6-1.2) L 04/09/21 BUN/Creatinine Ratio 10.0 (10-20) 04/09/21 Glucose Level 84 mg/dl (70-99) 04/09/21 Ca 9.0 mg/dl (8.5-10.1) 04/09/21 Total Bilirubin 0.2 mg/dl (0.2-1) 04/08/21 AST/SGOT 19 U/L (15-37) 04/08/21 ALT/SGPT 31 U/L (12-78) 04/08/21 Alkaline Phosphatase 104 U/L (45-117) 04/08/21 Total Protein 8.3 gm/dl (6.4-8.2) H 04/08/21 Albumin 4.0 gm/dl (3.4-5.0) 04/08/21 Globulin 4.3 gm/dl (2.5-4.0) H 04/08/21 Albumin/Globulin Ratio 0.9 (0.9-2) 04/08/21 Troponin I < 0.015 ng/ml (0-0.045) 04/08/21 PTT 25.1 Seconds (21.0-31.0) 04/08/21 INR 1.0 (0.9-1.1) 04/08/21 Triglycerides Level 98 mg/dl (0-150) 04/09/21 COVID-19 PCR NEGATIVE (Negative) 04/08/21 (1) HTN (hypertension) Hypertension type: unspecified Qualified Code(s): I10 - Essential (primary) hypertension
[2021-04-09 12:20] LABS: Estimated Average Glucose 126 mg/dl
[2021-04-09] MEDS: clonazePAM 0.5 MG TAB PO PRN ×2 (12:23→21:13)
--- NOTE | 2021-04-09 14:09 | Electrocardiogram Report ---
Test Reason : Blood Pressure : / mmHG Vent. Rate : 071 BPM Atrial Rate : 071 BPM P-R Int : 166 ms QRS Dur : 082 ms QT Int : 386 ms P-R-T Axes : 069 004 092 degrees QTc Int : 419 ms Normal sinus rhythm Nonspecific T wave abnormality Abnormal ECG When compared with ECG of 16-AUG-2017 14:00, No significant change was found Confirmed by Donaldo Swenson ([id number]) on 04/09/2021 2:09:23 PM Referred By: REFERRED SELF Confirmed By:Donaldo Swenson
--- NOTE | 2021-04-09 16:14 | Communication Note ---
Date of Service: April 09, 2021 Divine boudreaux 50 years old is right-handed is a patient of Dr. Dsouza and suffers from hyperlipidemia, hypertension, prediabetes (in her own words she is "1 stickers far short of being diabetic") who suffers from paresthesias of her hands likely due to carpal tunnel syndrome, little restless leg, and some subjective periodic palpitations but otherwise no other obvious health or neurologic issues until yesterday afternoon when she suddenly was noted by her family to have a left facial asymmetry and slightly slurred speech but no other neurologic deficits and instead of coming to the emergency room she elected to take a shower and wait things out in hopes that they would improve but finally her family prevailed upon her to present herself to the emergency room and she did so and is now in the emergency room inpatient unit in an improved state with clear speech minimal facial droop no other symptoms no headache and has had a work-up consisting of a CT angiographic study of the head and neck, CT of the head, subsequent MRI of the head and echocardiogram all of which are unremarkable with the exception of the MRI which shows 2 small areas of recent infarction involving the right frontoparietal lobes likely embolic in light of the absence of evidence for significant intracranial disease at this level but with no obvious source of emboli being done months Family history is unknown as she is adopted so we do not know about vascular risk factors nor do we know about any potential hypercoagulable states although she has not had any trouble up to this point in her life Her home medications include acetaminophen albuterol amlodipine clobetasol clonazepam topical diclofenac, fluticasone, hydrochlorothiazide, ibuprofen omeprazole and Effexor Laboratory studies are unremarkable in terms of her CBC etc. An EKG shows sinus rhythm no ectopy Her baseline coagulopathy work-up with PT and PTT are normal Social history reveals her to be an occasional consumer of ethanol a non-smoker of about a months duration and have lost weight and enter an exercise program Review of systems reveals no recent infections hospitalizations volitional melo ght loss, no palpitations paresthesias of her hands for restless leg syndrome prediabetes and hypertension is otherwise unremarkable Exam reveals blood pressure 143/76 pulse 76 and regular respirations 16 she is afebrile has an O2 saturation of 98% on room air She is awake alert oriented 3 spheres with no recent or remote memory deficits Cranial nerves reveal very subtle left facial asymmetry and is otherwise normal with normal eye movements clear speech normal facial sensation normal tongue protrusion normal neck flexor strength There is no tremor or tics choreiform activity drift or pronation sign Reflexes are essentially normal and symmetrical toes are downgoing no Bowen signs are seen Strength testing is normal Sensations intact to vibration light touch and temperature As noted above I suspect these are embolic events involving the right hemisphere source unknown but with a history of palpitations and her vascular risk factors I think she needs to be carefully monitored for paroxysmal atrial fibrillation and this can be done on an outpatient basis assuming we do not crab picker any rhythm disturbances here while she is in the hospital She needs a full hypercoagulable work-up in light of her relatively youthful age and I think this is already being performed She needs to be on dual antiplatelet therapy with aspirin and Plavix for 21 days and then have the switch to aspirin alone We will see her in the neurology department in 3 to 4 weeks make the switch over to aspirin at that point and place a Zio patch At this time I would suggest she be observed overnight but in light of her clinical improvement and the lack of any obvious source of embolism based on her initial laboratory and radiographic battery and her lack of any needs for rehabilitation I suspect she could be discharged to home care with follow-up with her primary care and neurology as outlined above and will tentatively sign off her case at this point. If she still in the hospital tomorrow I will make a visit to her bedside but frankly suspect she could be released tomorrow morning or early afternoon 48 hours after her event as long as she remains clinically stable Gildardo Romero MD The above note was generated utilizing voice recognition technology and may have spelling errors punctuation errors pronoun usage errors and semantic errors
--- NOTE | 2021-04-09 16:45 | Psychiatric Consultation ---
Date of Consultation April 09, 2021 Impression / Recommendations Impression 50 yo female with age related mood changes and intermittent panic, currently HTN following neurologic event with some residual facial droop/slurring of speech 2 weeks after initiation of Effexor XR. Reviewed with patient that stroke includes many risk factors and likely multifactorial but Effexor XR can be associated with BP changes, that doesn't imply causation. She is mainly interested in tapering it as quickly as possible and reviewed risks of discontinuation syndrome. (1) Depression with anxiety: there is no indication for inpatient mental health admission Effexor XR taper could be completed more quickly than currently written, discontinuation syndrome less likely given brief rx. For example, Effexor XR 75 mg daily for 2 more days then 37.5 mg for 3 days then d/c. Adjust taper as needed for discontinuation syndrome. She currently feels Klonopin is effective, reviewed that I would defer to her outpatient provider, typically try to avoid combining controlled substances with MJ. She was clear she does not combine with ETOH. Reviewed other options re: mood such as therapy or another SNRI (Cymbalta). I typically try to avoid SSRIs if acutely starting other antiplatelet agents. She is not interested in any referrals or new medications at this time. Risk Factors Assessment Do You Have Access To A Gun?: No Psych History Identifying Data 50 yo female boarding in ED pending monitored bed, s/p acute CVA, remains HTN, starting antiplatelet agent. Consult is by Dr. Archibald for recs for anxiety/replacing Effexor XR. Chief Complaint "My problem is menopause". History of Present Illness Patient states that she hasn't had a period for 2 years and during that time she has been experiencing more body aches, irritability, and brad panic symptoms. She generally doesn't "like pills" and would prefer to manage her symptoms with medical MJ. She scored a 13 on the PHQ-9--little interest in leaving house, fatigue, insomnia ("probably apnea"), feeling bad that she can't help more people. She started Effexor XR 2 weeks ago and states it helped with irritability, "I was cured", but mainly as "I didn't feel anything." She is frustrated to have this neurologic event as she quit smoking 1 month ago and has lost >25 lbs on a plant based diet. She blames Effexor and wonders whether an antidepressant would cause this to happen again. She states she uses Klonopin prn sparingly. Other stressors include her aunt passing away recently. Past Psychiatric History Previous Psych History: med trials per PCP Outpatient Services: none Previous Psych Admissions: none Do You Have Access To A Gun?: No History of Previous Suicide Attempt: No Past Medication Trials: Ativan, Klonopin, trazodone, Wellbutrin (jittery) Allergies Allergy/AdvReac Type Severity Reaction Status Date / Time No Known Drug Allergies Allergy . Verified 04/09/21 00:27 Home Medications Medication Instructions Recorded Confirmed Type amlodipine 5 mg tablet 5 mg PO DAILY 04/16/19 04/08/21 History omeprazole 40 mg capsule,delayed 40 mg PO DAILY 04/16/19 04/08/21 History release acetaminophen 500 mg tablet 1,000 mg PO Q6H PRN 04/08/21 04/08/21 History (Tylenol Extra Strength) albuterol sulfate 2.5 mg INHALATION Q4 PRN 04/08/21 04/08/21 History albuterol sulfate 90 mcg/actuation 2 puff INHALATION Q4 PRN 04/08/21 04/08/21 History aerosol inhaler clobetasol 0.05 % topical cream 1 applic TOPICAL BID PRN 04/08/21 04/08/21 History (Temovate) clonazepam 0.5 mg tablet 0.5 mg PO TID PRN 04/08/21 04/08/21 History diclofenac sodium 1 % topical gel 2 g TOPICAL BID PRN 04/08/21 04/08/21 History fluticasone propionate 50 2 spray INTRANASAL DAILY 04/08/21 04/08/21 History mcg/actuation nasal spray,suspension hydrochlorothiazide 25 mg tablet 25 mg PO DAILY 04/08/21 04/08/21 History ibuprofen 200 mg tablet 400 - 600 mg PO TID PRN 04/08/21 04/08/21 History venlafaxine 150 mg 150 mg PO DAILY 04/08/21 04/08/21 History capsule,extended release 24 hr Family History adopted Substance Abuse History rare alcohol, MJ to sleep Personal History 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) Number Of Children: 3 (young adults, eldest joined [employer]) Beliefs That Will Affect Care: None History of Legal Problems: no Psychological Trauma History Comment: loss Patient History Medical History Anxiety GERD (gastroesophageal reflux disease) HLD (hyperlipidemia) Hypertension Pre-diabetes Surgical History No significant past surgical history Social History Smoking Status: Former smoker Hx Alcohol Use: No Hx Substance Use: No Preferred Language: Estonian Beliefs That Will Affect Care: None marital status: Single Current Living Situation: Family current occupational status: unemployed Other Information That Helps Us Care for You: No Feels Safe at Home: Yes Safety Concerns: Feels Safe At This Time Assistive Devices: None Physical Exam Psychiatric: Orientation: alert and oriented x 3 Apperance: appropriately dressed and appropriately groomed Eye Contact: good eye contact Motor Behavior: no abnormal motor movements Speech: + abnormal rate/rhythm/volume of speech (slight slurring) Affect: + depressed affect Mood: + anxious mood Thought Process: + circumstantial thought process Thought Content: reality based without delusions Suicidal Thoughts: denies suicidal thoughts Homicidal Thoughts: denies homicidal thoughts Hallucinations: no auditory hallucinations and no visual hallucinations Cognition: attention grossly intact and language grossly intact Estimated Intelligence: consistent with education level Judgement: + limited judgement Vital Signs (Past 24 Hours): Last Vital Signs Temp 36.7 C 04/09/21 12:00 Pulse 76 04/09/21 12:00 Resp 16 04/09/21 12:00 BP 143/76 H 04/09/21 12:00 Pulse Ox 98 04/09/21 12:00 Review of Systems All systems reviewed & are unremarkable except as noted in HPI & below significant DOLAN with light sensitivity, generalized joint pain. Results & Data (PSY) Medications Administered Acetaminophen (Acetaminophen 325 Mg Tab) 650 mg PO Q4H PRN PRN Reason: Pain or Fever Stop: 05/09/21 00:19 Last Admin: 04/09/21 09:27 Dose: 650 mg Documented by: [id number] Aspirin (Aspirin 81 Mg Ectab) [facility] [place] Stop: 05/09/21 08:59 Last Admin: 04/09/21 09:25 Dose: 81 mg Documented by: [id number] Atorvastatin Calcium (Atorvastatin 40 Mg Tab) [facility] [place] Stop: 05/09/21 08:59 Last Admin: 04/09/21 09:25 Dose: 40 mg Documented by: [id number] Clonazepam (Clonazepam 0.5 Mg Tab) 0.5 mg PO TID PRN PRN Reason: Anxiety Stop: 05/09/21 00:19 Last Admin: 04/09/21 12:23 Dose: 0.5 mg Documented by: [id number] Enoxaparin Sodium (Enoxaparin Inj 40 Mg/0.4 Ml Syr) 40 mg SQ QAM STEVE Stop: 05/09/21 08:59 Last Admin: 04/09/21 09:25 Dose: 40 mg Documented by: [id number] Fluticasone Propionate (Fluticasone Propionate Na Spr 16 Gm Btl) 2 sprays NA DAILY STEVE Stop: 05/09/21 08:59 Last Admin: 04/09/21 09:26 Dose: 2 sprays Documented by: [id number] Potassium Chloride 40 meq/ (Sodium Chloride) 1,020 mls @ 50 mls/hr IV .[id number] STA Stop: 04/09/21 20:51 Last Admin: 04/09/21 01:05 Dose: 50 mls/hr Documented by: [id number] Pantoprazole Sodium (Pantoprazole 40 Mg Tab) 40 mg PO DAILY STEVE Stop: 05/09/21 08:59 Last Admin: 04/09/21 09:26 Dose: 40 mg Documented by: [id number] Coding Level of Care Code 56609 Inpt Consult Level 3 Diagnoses Depression with anxiety F41.8
[2021-04-10 07:07] LABS: Basophils # (auto) 0.01 K/uL (0-0.2); Basophils % (auto) 0.2 %; Eosinophils # (auto) 0.04 K/uL (0-0.5); Eosinophils % (auto) 0.9 %; Hematocrit (blood only) 43.2 % (37-47); Lymphocytes # (auto) 2.27 K/uL (1.2-3.4); Lymphocytes % (auto) 48.7 %; Mean Corpuscular Hemoglobin 29.5 pg (25-34); Mean Corpuscular Hgb Conc 34.7 g/dL (32-36); Mean Platelet Volume 9.5 fL (7.4-10.4); Monocytes # (auto) 0.39 K/uL (0.11-0.59); Monocytes % (auto) 8.4 %; Neutrophils # (auto) 1.95 K/uL (1.4-6.5); Neutrophils % (auto) 41.8 %; Platelet Count 232 K/uL (130-400); RDW Coefficient of Variation 12.7 % (11.5-14.5); RDW Standard Deviation 39.6 fL (36.4-46.3); Red Blood Count 5.08 M/uL (4.2-5.4); White Blood Count 4.66 K/uL (4.8-10.8)
[2021-04-10 07:23] LABS: BUN Creatinine Ratio 17.3 (10-20); Calcium 9.5 mg/dl (8.5-10.1); Creatinine Clr Calc Pharmacy 101.5 ml/min; Est GFR (African American) 116.3 ml/min; Est GFR (Non-African American) 100.3 ml/min; Potassium 3.8 mmol/L (3.5-5.1)
[2021-04-10] MEDS: ENOXAPARIN INJ 40 MG/0.4 ML SYR SQ SCH (08:20)
[2021-04-10] MEDS: PANTOprazole 40 MG TAB PO SCH (08:21)
[2021-04-10] MEDS: ASPIRIN 81 MG ECTAB PO SCH (08:21)
[2021-04-10] MEDS: ATORVASTATIN 40 MG TAB PO SCH (08:21)
[2021-04-10] MEDS: FLUTICASONE PROPIONATE NA SPR 16 GM BTL SCH (08:22)
[2021-04-10] MEDS ORDERED: VENLAFAXINE HCL XR 75 MG CAPXR PO SCH (09:00)
[2021-04-10] MEDS ORDERED: CLOPIDOGREL BISULFATE 75 MG TAB PO SCH (09:00)
--- NOTE | 2021-04-10 09:35 | Hospitalist Progress Note ---
Date of Service April 10, 2021 Assessment & Plan (1) Acute CVA (cerebrovascular accident): (2) HTN (hypertension): (3) Depression with anxiety: (4) Pre-diabetes: (5) HLD (hyperlipidemia): Plan: This is a 50-year-old female who has significant past medical history of HTN, prediabetes, reactive airway disease, GERD, depression with anxiety who presented to ER on the evening of 04/08/21 secondary to left-sided facial droop, slurred speech and right-sided weakness. She underwent stroke work-up and MRI revealed several small acute infarcts in the right frontal lobe and right MCA territory 2.2 cm. Acute CVA CVA likely due to embolism/thrombosis of cerebral artery, etiology unknown loaded with plavix continue plavix 75mg daily and aspirin 81mg daily Initiate atorvastatin 40mg daily given hyperlipidemia MRI: There are several small acute infarcts of the right frontal lobe near the vertex within the right MCA territory measuring up to 2.2 cm. No associated hemorrhage or midline shift. CTA Head/Neck: No acute intracranial abnormality Echo: No intra-atrial septum shunt, EF 55 to 60% Neurology recs appreciated -suspected embolic events involving the right hemisphere, source unknown, concerning for atrial fibrillation, will need Zio patch as outpatient Telemetry monitoring reveals sinus rhythm with PACs heart rate in the 60s overnight, this morning sinus bradycardia with heart rate in the 50s Hypercoagulable work-up is pending PT/OT/ST performed, okay to be discharged home NPO until evaluated by speech HTN pt blood pressure severely elevated on admission, but did not meet criteria for emergency Resume home blood pressure medications Depression with anxiety pt with increase in stressors and feels on edge started on effexor on 03/13, but did not start taking until 03/19, wishes to be weaned off Appreciate psychiatric consult, will wean from Effexor, to follow-up with PCP as outpatient regarding addition of another agent Patient states that she will use marijuana since it is, "natural" Per psychiatry will taper 75 mg x 2 days and then 37.5 mg x 3 days and then DC Pre-diabetes last a1c 6.2 07/12/20 A1C 6.0 HLD total cholesterol 256 LDL 173, HDL 63, trig 98 start atorvastatin 40mg daily DVT ppx: Lovenox Dispo:D/C to home today PCP: Meet FULL CODE Pt was seen and examined in collaboration with Dr. Archibald, please see addendum Admission and Anticipated Discharge Date Admission Date: April 09, 2021 Supervising Physician Co-Signing Physician Notes Patient is seen and examined at bedside. Headache is better today. No new complaints. No new focal weakness. Denies any chest pain, shortness of breath, dizziness, nausea, abdominal pain. Discussed with neurology today. On exam patient is obese, no apparent distress, normocephalic atraumatic,+ minimal left facial droop, normal breath sounds, clear to auscultation, S1-S2, no murmur, no pedal edema, abdomen soft, nontender, normal bowel sounds, alert, awake, oriented, grossly no focal deficits. Acute CVA. Agree with continuing aspirin, Plavix and Lipitor. No arrhythmias on Monitor. Hypercoagulable work-up pending. Agree with resuming home antihypertensives to control blood pressure. Recommended for Zio patch as outpatient. Appreciate neurology input. PT OT, speech evaluation Completed. To be discharged home today. I personally reviewed the record. Patient is interviewed and examined at bedside. Patient's care is coordinated with Pam Greco PA-C. Please refer to the documentation above for details of patient's presentation and for discussion of other issues. Subjective This is a 50-year-old female who has significant past medical history of HTN, prediabetes, reactive airway disease, GERD, depression with anxiety who presented to ER on the evening of 04/08/21 secondary to left-sided facial droop and right-sided weakness. She underwent stroke work-up and MRI revealed several small acute infarcts in the right frontal lobe and right MCA territory 2.2 cm. She was seen and evaluated in room 275-2. She is anxious to be discharged home today. She feels well. She is questioning why her cholesterol would be high. She denies any fever, chills, sweats, lightheadedness, dizziness, chest pain, shortness breath, nausea, vomiting, abdominal pain. She denies headache and feels facial droop and slurred speech has resolved. Her appetite is good. Review of Systems Review of Systems: All systems reviewed & are unremarkable except as noted in HPI & below Physical Exam Physical Exam: Gen: WD/WN, NAD, A&O x3 HEENT: Normocephalic, atraumatic, conjunctivae moist, sclerae anicteric, mucous membranes moist. Lung: Clear to Auscultation bilaterally, no wheezes/rales/rhonchi Heart: Regular rate, regular rhythm, no murmurs, rubs, or gallops Abdomen: Soft, NT, ND +BS x 4 Extremities: No edema Skin: Warm, no rash, negative turgor. Results & Data Results & Data ([facility]) Vital Signs (Past 12 Hours) Vital Signs Temp Pulse Pulse Resp BP Pulse Ox 04/10/21 07:49 72 04/10/21 07:34 36.6 C 60 16 139/83 100 04/10/21 04:13 36.8 C 61 18 129/76 98 04/10/21 02:00 78 04/09/21 23:28 37.1 C 78 18 140/90 96 Laboratory Results Short CBC 04/10/21 Range/Units 06:49 WBC 4.66 L (4.8-10.8) K/uL Hgb 15.0 (12.0-16.0) g/dL Hct 43.2 (37-47) % Plt Count 232 (130-400) K/uL BMP 04/10/21 06:49 Sodium 138 Potassium 3.8 Chloride 108 H Carbon Dioxide 25 BUN 12 D Creatinine 0.70 Glucose 98 Calcium 9.5 Diagnostic Findings Echocardiogram: Left ventricle is normal in size There is mild concentric left ventricular hypertrophy The left wall motion is normal. Left ventricular systolic function is normal. Ejection fraction equals 55 to 60%. There is no significant valvular disease. Interatrial septum appears intact without shunt. Medications Administered Current Inpatient Medications Acetaminophen (Acetaminophen 325 Mg Tab) 650 mg PO Q4H PRN PRN Reason: Pain or Fever Stop: 05/09/21 00:19 Last Admin: 04/09/21 21:13 Dose: 650 mg Documented by: Aspirin (Aspirin 81 Mg Ectab) 81 mg PO [facility] Stop: 05/09/21 08:59 Last Admin: 04/10/21 08:21 Dose: 81 mg Documented by: Atorvastatin Calcium (Atorvastatin 40 Mg Tab) [facility] [place] Stop: 05/09/21 08:59 Last Admin: 04/10/21 08:21 Dose: 40 mg Documented by: Clonazepam (Clonazepam 0.5 Mg Tab) 0.5 mg PO TID PRN PRN Reason: Anxiety Stop: 05/09/21 00:19 Last Admin: 04/09/21 21:13 Dose: 0.5 mg Documented by: Clopidogrel Bisulfate (Clopidogrel Bisulfate 75 Mg Tab) 75 mg PO QAM [facility] Stop: 05/10/21 08:59 Last Admin: 04/10/21 08:21 Dose: 75 mg Documented by: Enoxaparin Sodium (Enoxaparin Inj 40 Mg/0.4 Ml Syr) 40 mg SQ QAM STEVE Stop: 05/09/21 08:59 Last Admin: 04/10/21 08:20 Dose: 40 mg Documented by: Fluticasone Propionate (Fluticasone Propionate Na Spr 16 Gm Btl) 2 sprays NA DAILY STEVE Stop: 05/09/21 08:59 Last Admin: 04/10/21 08:22 Dose: 2 sprays Documented by: Promethazine HCl 12.5 mg/ (Sodium Chloride) 50.5 mls @ 202 mls/hr IV Q6H PRN PRN Reason: Nausea And Vomiting Stop: 05/09/21 00:19 Lorazepam (Ativan) 0.5 mg in 1 mls @ 1 mls/min IV Q4H PRN PRN Reason: Anxiety/Agitation Stop: 05/09/21 00:19 Oxycodone HCl (Oxycodone Hcl Ir 5 Mg Tab (Immediate Release)) 5 mg PO Q4H PRN PRN Reason: Pain Stop: 04/23/21 00:19 Pantoprazole Sodium (Pantoprazole 40 Mg Tab) 40 mg PO DAILY STEVE Stop: 05/09/21 08:59 Last Admin: 04/10/21 08:21 Dose: 40 mg Documented by: Venlafaxine HCl (Venlafaxine Hcl Xr 75 Mg Capxr) 75 mg PO DAILY STEVE Stop: 05/10/21 08:59 Last Admin: 04/10/21 08:21 Dose: 75 mg Documented by: (1) HTN (hypertension) Hypertension type: unspecified Qualified Code(s): I10 - Essential (primary) hypertension
--- NOTE | 2021-04-10 10:16 | Discharge Summary ---
Date of Service April 10, 2021 Admission HPI Per Admitting Provider History obtained from patient and records. Medical history significant for hypertension, anxiety/mood disorder, prediabetes, past tobacco abuse. Patient seen at PCPs office last month for worsening mood swings brought about by personal stressors. Effexor initiated by family doctor which controlled mood swings. Patient however unhappy with sedation. PCP contemplating on weaning patient off medication. Around 10 PM last night, patient noted right-sided numbness of the face and right hand. Transient droopiness of the right face. Patient daughter told her it was her left face that looked droopy. Transient headache symptoms. No chest pain, no S OB. No prior episodes. Left hand also felt tingly as per patient. Patient has concerns if Effexor medication has anything to do with symptoms. Personal stressors at home with recent in the family. Improved symptoms upon arrival at the ER after aspirin administration. Medical History as above Surgical History : Breast biopsy, BTL Family History : Unknown as patient was adopted Personal/Social history : Past tobacco abuse, occasional EtOH intake, home care Admission Exam Per Admitting Provider Physical Exam: GENERAL: Comfortable, obese, no respiratory distress SKIN: Normal color, warm HEENT: [place] palpebral conjunctivae, no ptosis, moist buccal mucosa NECK : Supple, short neck, no tenderness CHEST : CTA, no tenderness HEART : RRR, no obvious murmurs ABDOMEN: Some distention, nontender EXTREMITIES : Minimal LE swelling, no LE tenderness, no other conspicuous deformities noted NEUROLOGIC : Coherent, no facial asymmetry, no other gross focality Principal Diagnosis Acute CVA Hyperlipidemia HTN Anxiety Discharge Exam Gen: WD/WN, NAD, A&O x3 HEENT: Normocephalic, atraumatic, conjunctivae moist, sclerae anicteric, mucous membranes moist. Lung: Clear to Auscultation bilaterally, no wheezes/rales/rhonchi Heart: Regular rate, regular rhythm, no murmurs, rubs, or gallops Abdomen: Soft, NT, ND +BS x 4 Extremities: No edema Skin: Warm, no rash, negative turgor. Discharge Data Allergies Allergy/AdvReac Type Severity Reaction Status Date / Time No Known Drug Allergies Allergy . Verified 04/09/21 00:27 Consultations Neurology Consult: Dr. Romero As noted above I suspect these are embolic events involving the right hemisphere source unknown but with a history of palpitations and her vascular risk factors I think she needs to be carefully monitored for paroxysmal atrial fibrillation and this can be done on an outpatient basis assuming we do not poultry picker any rhythm disturbances here while she is in the hospital She needs a full hypercoagulable work-up in light of her relatively youthful age and I think this is already being performed She needs to be on dual antiplatelet therapy with aspirin and Plavix for 21 days and then have the switch to aspirin alone We will see her in the neurology department in 3 to 4 weeks make the switch over to aspirin at that point and place a Zio patch At this time I would suggest she be observed overnight but in light of her clinical improvement and the lack of any obvious source of embolism based on her initial laboratory and radiographic battery and her lack of any needs for rehabilitation I suspect she could be discharged to home care with follow-up with her primary care and neurology as outlined above and will tentatively sign off her case at this point. If she still in the hospital tomorrow I will make a visit to her bedside but frankly suspect she could be released tomorrow morning or early afternoon 48 hours after her event as long as she remains clinically stable Gildardo Romero MD Psychiatric Consult: Impression / Recommendations Impression 50 yo female with age related mood changes and intermittent panic, currently HTN following neurologic event with some residual facial droop/slurring of speech 2 weeks after initiation of Effexor XR. Reviewed with patient that stroke includes many risk factors and likely multifactorial but Effexor XR can be associated with BP changes, that doesn't imply causation. She is mainly interested in tapering it as quickly as possible and reviewed risks of discontinuation syndrome. (1) Depression with anxiety: there is no indication for inpatient mental health admission Effexor XR taper could be completed more quickly than currently written, discontinuation syndrome less likely given brief rx. For example, Effexor XR 75 mg daily for 2 more days then 37.5 mg for 3 days then d/c. Adjust taper as needed for discontinuation syndrome. She currently feels Klonopin is effective, reviewed that I would defer to her outpatient provider, typically try to avoid combining controlled substances with MJ. She was clear she does not combine with ETOH. Reviewed other options re: mood such as therapy or another SNRI (Cymbalta). I typically try to avoid SSRIs if acutely starting other antiplatelet agents. She is not interested in any referrals or new medications at this time. Ordered Studies Head CT 04/08/21 16:[address] OF THE BRAIN; CT ANGIOGRAM OF THE BRAIN; CT ANGIOGRAM OF THE NECK CLINICAL HISTORY: Strokelike symptoms. COMPARISON STUDY: CT of the brain dated 08/16/2017. TECHNIQUE: Unenhanced axial CT scan of the brain is performed. Subsequently, following the IV administration of 101 of Optiray 320, CT angiogram of the head and neck was performed from the aortic arch to the vertex. Images are reviewed in the axial, sagittal, and coronal planes. 3-D MIPS images are created and assessed. IV contrast was administered without complication. All measurements were calculated based on NASCET criteria. A dose lowering technique was utilized adhering to the principles of ALARA. CT DOSE: 1155.75 mGy.cm FINDINGS: Brain parenchyma: The brain parenchyma is normal in appearance. There is no hemorrhage, mass effect, or evidence of acute territorial ischemia by CT criteria. There is no evidence of enhancing mass lesion on the angiogram phase images. The ventricles, sulci, and cisterns are normal in configuration. Robert- white matter differentiation is preserved. No extra-axial fluid collection is seen. Thoracic aorta: Visualized portions of the thoracic aorta are normal in caliber. The aortic arch demonstrates standard 3-vessel anatomy. Right carotid arterial system: The right common carotid artery is widely patent, as are the right internal and external carotid arteries. Left carotid arterial system: The left common carotid artery is widely patent, as are the left internal and external carotid arteries. Vertebral arteries: The vertebral arteries are widely patent bilaterally and codominant. Subclavian arteries: Widely patent bilaterally. Intracranial vasculature: There is origin of the right posterior cerebral artery. There is atherosclerotic calcification of the cavernous carotid arteries. The internal carotid arteries are patent at the skull base, as are the anterior and middle cerebral arteries bilaterally. The vertebrobasilar system and posterior cerebral arteries are widely patent. The vertebral arteries are codominant. There is no aneurysm, high-grade stenosis, or focal vessel cut off seen throughout the intracranial circulation. Jugular veins: Patent bilaterally. Dural sinuses: Patent. Lung apices: Partially visualized upper lobe lung parenchyma appears clear. Soft tissues: The visualized pharyngeal soft tissues are normal in appearance noting angiographic phase technique. The oropharyngeal airway appears widely patent. The salivary and thyroid glands are normal in appearance. No cervical lymphadenopathy is seen. Skeletal structures: The calvarium appears intact. The cervical spine is maintained noting mild multilevel spondylosis. No lytic or blastic lesion is seen. Orbits: The bony orbits are intact. Orbital contents are normal as visualized. Sinuses and mastoids: The paranasal sinuses are clear. The mastoid air cells are well pneumatized. IMPRESSION: 1 There is no hemorrhage, mass effect, or evidence of acute territorial ischemia by CT criteria. 2. Unremarkable CT angiogram of the brain. 3. Unremarkable CT angiogram of the neck. ACT 112: Negative or not required by law. Electronically signed by: Riky Velasco M.D. 04/08/2021 7:09 PM Head CTA 04/08/21 16:[address] OF THE BRAIN; CT ANGIOGRAM OF THE BRAIN; CT ANGIOGRAM OF THE NECK CLINICAL HISTORY: Strokelike symptoms. COMPARISON STUDY: CT of the brain dated 08/16/2017. TECHNIQUE: Unenhanced axial CT scan of the brain is performed. Subsequently, following the IV administration of 101 of Optiray 320, CT angiogram of the head and neck was performed from the aortic arch to the vertex. Images are reviewed in the axial, sagittal, and coronal planes. 3-D MIPS images are created and assessed. IV contrast was administered without complication. All measurements were calculated based on NASCET criteria. A dose lowering technique was utilized adhering to the principles of ALARA. CT DOSE: 1155.75 mGy.cm FINDINGS: Brain parenchyma: The brain parenchyma is normal in appearance. There is no hemorrhage, mass effect, or evidence of acute territorial ischemia by CT criteria. There is no evidence of enhancing mass lesion on the angiogram phase images. The ventricles, sulci, and cisterns are normal in configuration. Robert- white matter differentiation is preserved. No extra-axial fluid collection is seen. Thoracic aorta: Visualized portions of the thoracic aorta are normal in caliber. The aortic arch demonstrates standard 3-vessel anatomy. Right carotid arterial system: The right common carotid artery is widely patent, as are the right internal and external carotid arteries. Left carotid arterial system: The left common carotid artery is widely patent, as are the left internal and external carotid arteries. Vertebral arteries: The vertebral arteries are widely patent bilaterally and codominant. Subclavian arteries: Widely patent bilaterally. Intracranial vasculature: There is origin of the right posterior cerebral artery. There is atherosclerotic calcification of the cavernous carotid arteries. The internal carotid arteries are patent at the skull base, as are the anterior and middle cerebral arteries bilaterally. The vertebrobasilar system and posterior cerebral arteries are widely patent. The vertebral arteries are codominant. There is no aneurysm, high-grade stenosis, or focal vessel cut off seen throughout the intracranial circulation. Jugular veins: Patent bilaterally. Dural sinuses: Patent. Lung apices: Partially visualized upper lobe lung parenchyma appears clear. Soft tissues: The visualized pharyngeal soft tissues are normal in appearance noting angiographic phase technique. The oropharyngeal airway appears widely patent. The salivary and thyroid glands are normal in appearance. No cervical lymphadenopathy is seen. Skeletal structures: The calvarium appears intact. The cervical spine is maintained noting mild multilevel spondylosis. No lytic or blastic lesion is seen. Orbits: The bony orbits are intact. Orbital contents are normal as visualized. Sinuses and mastoids: The paranasal sinuses are clear. The mastoid air cells are well pneumatized. IMPRESSION: 1 There is no hemorrhage, mass effect, or evidence of acute territorial ischemia by CT criteria. 2. Unremarkable CT angiogram of the brain. 3. Unremarkable CT angiogram of the neck. ACT 112: Negative or not required by law. Electronically signed by: Riky Velasco M.D. 04/08/2021 7:09 PM Neck CTA 04/08/21 16:[address] OF THE BRAIN; CT ANGIOGRAM OF THE BRAIN; CT ANGIOGRAM OF THE NECK CLINICAL HISTORY: Strokelike symptoms. COMPARISON STUDY: CT of the brain dated 08/16/2017. TECHNIQUE: Unenhanced axial CT scan of the brain is performed. Subsequently, following the IV administration of 101 of Optiray 320, CT angiogram of the head and neck was performed from the aortic arch to the vertex. Images are reviewed in the axial, sagittal, and coronal planes. 3-D MIPS images are created and assessed. IV contrast was administered without complication. All measurements were calculated based on NASCET criteria. A dose lowering technique was utilized adhering to the principles of ALARA. CT DOSE: 1155.75 mGy.cm FINDINGS: Brain parenchyma: The brain parenchyma is normal in appearance. There is no hemorrhage, mass effect, or evidence of acute territorial ischemia by CT criteria. There is no evidence of enhancing mass lesion on the angiogram phase images. The ventricles, sulci, and cisterns are normal in configuration. Robert- white matter differentiation is preserved. No extra-axial fluid collection is seen. Thoracic aorta: Visualized portions of the thoracic aorta are normal in caliber. The aortic arch demonstrates standard 3-vessel anatomy. Right carotid arterial system: The right common carotid artery is widely patent, as are the right internal and external carotid arteries. Left carotid arterial system: The left common carotid artery is widely patent, as are the left internal and external carotid arteries. Vertebral arteries: The vertebral arteries are widely patent bilaterally and codominant. Subclavian arteries: Widely patent bilaterally. Intracranial vasculature: There is origin of the right posterior cerebral artery. There is atherosclerotic calcification of the cavernous carotid arteries. The internal carotid arteries are patent at the skull base, as are the anterior and middle cerebral arteries bilaterally. The vertebrobasilar system and posterior cerebral arteries are widely patent. The vertebral arteries are codominant. There is no aneurysm, high-grade stenosis, or focal vessel cut off seen throughout the intracranial circulation. Jugular veins: Patent bilaterally. Dural sinuses: Patent. Lung apices: Partially visualized upper lobe lung parenchyma appears clear. Soft tissues: The visualized pharyngeal soft tissues are normal in appearance noting angiographic phase technique. The oropharyngeal airway appears widely patent. The salivary and thyroid glands are normal in appearance. No cervical lymphadenopathy is seen. Skeletal structures: The calvarium appears intact. The cervical spine is maintained noting mild multilevel spondylosis. No lytic or blastic lesion is seen. Orbits: The bony orbits are intact. Orbital contents are normal as visualized. Sinuses and mastoids: The paranasal sinuses are clear. The mastoid air cells are well pneumatized. IMPRESSION: 1 There is no hemorrhage, mass effect, or evidence of acute territorial ischemia by CT criteria. 2. Unremarkable CT angiogram of the brain. 3. Unremarkable CT angiogram of the neck. ACT 112: Negative or not required by law. Electronically signed by: Riky Velasco M.D. 04/08/2021 7:09 PM Brain MRI 04/08/21 22:13 MR brain wo con HISTORY: 50 years-old Female r numbness acute dizziness with weakness and slurred speech COMPARISON: Head CT 04/08/2021 TECHNIQUE: Multiplanar multisequence MRI of the brain was obtained without the use of IV contrast. FINDINGS: Cortical based foci of restricted diffusion within the right frontal lobe near the vertex measures up to 2.2 cm on image 17 series 4 demonstrating decreased signal on ADC map with areas of minimally increased T2/FLAIR signal. Study is mildly motion degraded. No acute intracranial hemorrhage, midline shift, abnormal extra-axial collection, hydrocephalus or intracranial mass. No pathologic blooming artifact. Minimal senescent calcifications of the basal ganglia. Cerebral venous sinuses and major arterial flow voids are patent. The mastoid air cells and paranasal sinuses are generally clear. The skull, orbits and soft tissues are within normal limits. IMPRESSION: There are several small acute infarcts of the right frontal lobe near the vertex within the right MCA territory measuring up to 2.2 cm. No associated hemorrhage or midline shift. ACT 112: Negative or not required by law. The above report was generated using voice recognition software. It may contain grammatical, syntax or spelling errors. Electronically signed by: Griffin Sarabia M.D. 04/09/2021 7:11 AM Hospital Course (1) Acute CVA (cerebrovascular accident): (2) HTN (hypertension): (3) Depression with anxiety: (4) Pre-diabetes: (5) HLD (hyperlipidemia): This is a 50-year-old female who has significant past medical history of HTN, prediabetes, reactive airway disease, GERD, depression with anxiety who presented to ER on the evening of 04/08/21 secondary to left-sided facial droop, slurred speech and right-sided weakness. She underwent stroke work-up and MRI revealed several small acute infarcts in the right frontal lobe and right MCA territory 2.2 cm. She was loaded with Plavix and started on dual antiplatelet therapy regimen of aspirin 81 mg daily and Plavix 75 mg daily. She was also initiated on atorvastatin 40 mg daily. Her total cholesterol panel did reveal elevated cholesterol at 256 and elevated LDL at 173. Echocardiogram was within normal limits and did not reveal any intra-atrial shunt or defect. She was monitored on telemetry which did not reveal any arrhythmia. Her CTA of head and neck showed no acute intracranial abnormality. She was seen and evaluated by neurology who feels source is likely embolic in nature. A hypercoagulable work- up was initiated and pending at the time of discharge. Neurology recommends follow-up in clinic in 3 weeks and at this time a Zio patch will be arranged. It was further recommended that she remain on dual antiplatelet therapy for 21 days and then discontinue Plavix in favor of aspirin 81 mg daily. Patient is very hesitant regarding taking any medication so she was educated and counseled regarding importance of compliance specifically with aspirin, Plavix and statin. During hospitalization she did make aware that she was recently started on Effexor. She did not like how it made her feel. She also expressed her increased stressors and anxieties in life. She wished to be weaned off of her Effexor and psychiatry was consulted. An appropriate Effexor taper was prescribed for 75 mg daily x3 days, 37.5 mg x 3 days and then discontinue in light of brief duration of therapy. It is recommended she follow up with PCP regarding reinitiation of any antidepressant or anxiolytic. At time of discharge patient was in good spirits and her vital signs were stable. She was alert and oriented and without any neuro focal deficits. Total Time Total Time Spent Total Time Spent (In Minutes): 60 minutes Total Time Includes: Examination of the Patient, Discharge Planning, Medication Reconciliation, Communication With Other Providers and Other Discharge Plan Discharge Items Patient Disposition: Home - Self-Care Reason For Visit: SLURRED SPEECH, R SIDE FACIAL DROOP, STROKE SYMP Discharge Diagnosis: Acute Stroke High Cholesterol Anxiety High Blood Pressure Pre Diabetes Activity: Resume your previous activity Bathing: No limitations Driving/Machine Use: No limitations Weightbearing: Full weightbearing Non-emergency contact: Primary Care Provider and Neurologist Call non-emergency contact if: you have any medication questions, your symptoms worsen and you have a fever Follow-up/Referrals: Karis Chisholm PA-C [Physician Paunch Trimmer] - 04/16/21 11:20 am (Date & Time 04/16/2021 11:20 AM Provider Karis Chisholm PA-C Department Neurology [facility] ) Brad Dsouza MD [Primary Care Provider] - 04/13/21 3:20 pm (Date & Time 04/13/2021 3:20 PM Provider Brad Dsouza MD Department Family Practice [facility] ) Diet: Heart Healthy Addtl Attending Provider Instructions: MEDICATION CHANGES: New Medications: *Aspirin 81mg by mouth once daily *Clopidogrel (Plavix ) 75mg once daily for additional 19 days and then stop *Atorvastatin 40mg by mouth at bedtime. *Stop Omeprazole; Start Pantoprazole 40mg daily *Venlafaxine (Effexor) 75mg by mouth daily x 2 days; then 37.5mg daily x 3 days then Stop STOP TAKING: *Omeprazole - as it interferes with plavix *Ibuprofen - recommend avoid taking anti inflammatories while on Plavix, including motrin, ibuprofen or aleve SUMMARY OF TEST RESULTS: You were admitted to [facility] due to slurred speech, facial numbness and R arm numbness. You were found to have a few small strokes on the right side of your brain on MRI. You were seen and evaluated by neurology who recommend taking aspirin and plavix for 21 days; and then aspirin 81mg daily Your cholesterol was found to be high and it is recommended you take atorvastatin 40mg daily An echocardiogram (Ultrasound of your heart) was performed and this was normal. PENDING TEST RESULTS: You have a hypercoagulable work up pending which is blood work assessing for any clotting disorders. RECOMMENDATIONS FOR FOLLOW-UP: Follow up with Dr. Dsouza and Neurology as scheduled in this discharge paper work. You will need to have a ZIO patch placed as outpatient. This is a remote heart monitoring device to check for any arrhythmias like atrial fibrillation. Follow up with Dr. Dsouza regarding your pending blood work. Once you finish taper of Effexor, discuss with Dr. Dsouza regarding other anti depressant medications. Encourage continued smoking cessation and weight loss. OTHER INSTRUCTIONS: Seek medical attention if you have: * temperature above 101 * chest pain or trouble breathing * abdominal pain, nausea, vomiting * diarrhea, dark stools or bloody stools * any unanswered questions or concerns Call 911 if symptoms are severe. Please take good care of yourself. It has been a pleasure taking care of you. Please take care of yourself. If you have any questions regarding your recent hospitalization please contact [facility] and request Aldo Barnardist @ [phone]. Pam Greco PA-C Risk Factors for Stroke: You can reduce your chances of stroke by working with your medical provider to adopt a healthy lifestyle. Some specific ways to lower your chance of stroke are: * If you are a smoker, now is the time to stop smoking cigarettes * If you are diabetic, improve the control of your blood sugars * Avoid excessive amounts of alcohol * Control high blood pressure * Lose weight if you are overweight * Be sure to lead an active lifestyle * Eat a healthy diet low in salt, cholesterol and fat You should know about other risk factors for stroke that you are unable to control. These include: * Age 55 years or older * Male gender * Certain racial groups: , or / * Family History of Stroke, Mini stroke or Heart Attack * Sickle Cell Disease Follow Up: It is important for you to keep your follow up appointments with your medical provider. Who to Call and When: Medical Emergencies: Call 911 immediately if you experience any of the following warning signs and symptoms of Stroke: * Sudden numbness or weakness of the face, arm or leg, especially on one side of the body * Sudden confusion, trouble speaking or understanding * Sudden trouble seeing in one or both eyes * Sudden trouble walking, dizziness, loss of balance or coordination * Sudden severe headache with no cause Do not delay calling 911 if you experience any warning signs or symptoms of a stroke. Delay in seeking medical attention may affect what treatments can be given to you. . Do not take group of medications belonging to NSAIDs group -can cause worsening of your kidney function your risk for bleeding. List Of these medications includes but not limited to: Diclofenac Ibuprofen, Motrin, Advil Toradol,ketorolac Naproxen, Aleve, Naprosyn You can take Tylenol as needed for pain or fever When buying [id number] pain medications please consult with pharmacy if you are not sure regarding ingredients, as a lot of the pain medications have combination of NSAIDs and Tylenol. Pending Studies at Discharge: Yes Studies:: Hypercoagulable work up - follow up results with Dr. Dsouza Stand-Alone Forms: My [facility] [employer] Smoking Cessation Medications and DC Order Prescriptions: New atorvastatin 40 mg Tablet 40 mg PO HS Qty: 30 RF: 0 venlafaxine 75 mg Capsule,Extended Release 24hr 75 mg PO DAILY 2 Days Qty: 2 RF: 0 aspirin 81 mg Tablet,Delayed Release (Dr/Ec) 81 mg PO QAM Qty: 30 RF: 0 pantoprazole 40 mg Tablet,Delayed Release (Dr/Ec) 40 mg PO DAILY Qty: 30 RF: 0 venlafaxine [Effexor XR] 37.5 mg capsule,extended release 24hr 37.5 mg PO DAILY 3 Days Qty: 3 RF: 0 clopidogrel 75 mg Tablet 75 mg PO QAM Qty: 19 RF: 0 Continued amlodipine 5 mg tablet 5 mg PO DAILY RF: 0 hydrochlorothiazide 25 mg tablet 25 mg PO DAILY RF: 0 albuterol sulfate 2.5 mg /3 mL (0.083 %) solution for nebulization 2.5 mg inhalation Q4 PRN (Reason: Wheezing) RF: 0 clonazepam 0.5 mg tablet 0.5 mg PO TID PRN (Reason: Anxiety) RF: 0 clobetasol [Temovate] 0.05 % cream 1 applic TOPICAL BID PRN (Reason: .flare ups) RF: 0 acetaminophen [Tylenol Extra Strength] 500 mg Tablet 1,000 mg PO Q6H PRN (Reason: Fever Or Pain) RF: 0 albuterol sulfate 90 mcg/actuation HFA aerosol inhaler 2 puff INHALATION Q4 PRN (Reason: Shortness Of Breath) RF: 0 fluticasone propionate 50 mcg/actuation spray,suspension 2 spray INTRANASAL DAILY RF: 0 diclofenac sodium 1 % gel 2 g TOPICAL BID PRN (Reason: Pain) RF: 0 Discontinued omeprazole 40 mg capsule,delayed release(DR/EC) 40 mg PO DAILY RF: 0 venlafaxine 150 mg capsule,extended release 24hr 150 mg PO DAILY RF: 0 ibuprofen 200 mg Tablet 400 - 600 mg PO TID PRN (Reason: Pain) RF: 0 Discharge Orders: Discharge Order (Routine); Ordered 04/10/21 Ordered By: Pam Andrade/Other Patient Handouts: A1C, Prediabetes, 5 Steps for Eating Healthier Admission Data Admit Date/Time: 04/09/21 00:12 Attending Provider: Tapan Archibald Admit Provider: Denver Garcia Primary Care Provider: Brad Dsouza Other Providers: Denver Garcia ; Karis Chisholm ; Gildardo Romero ; Karis Dixon ; Latrell Zarate ; Pam Greco ; Louise Coates ; Valerie Chandler ; Vanessa Hill ; Wilbert Johnson Other Interventions: Discharge Summary Assessment (RN) Last Done: 04/10/21 12:17
[2021-04-10] MEDS: ACETAMINOPHEN 325 MG TAB PO PRN (12:43)
[2021-04-13 16:56] LABS: B2 Glycoprotein IgG <2.0 U/mL (<20.0); B2 Glycoprotein IgM 5.1 U/mL (<20.0); Protein S Functional(Activity) 116 % (60-140)
[2021-04-14 23:32] LABS: Factor 5 Mutation NEGATIVE
[2021-04-15 00:32] LABS: Anti Cardiolipin Ab IgG <2.0 GPL-U/mL; Anti Cardiolipin Ab IgM 6.8 MPL-U/mL; Anti-Thrombin III Activity 113 % normal (80-135); PTT LA Screen 37 sec (<=40)
== END 2021-04-10 17:27 | disposition home or self-care (01) | DRG 66 ==
LOC: EDINP 15:52 → ED 15:52 → EDINP 23:34 → 2N 04-09 19:19

== ENCOUNTER 2022-01-16 16:12 | Inpatient (IN) ==
--- NOTE | 2022-01-16 16:52 | Emergency Department Note ---
Impression & Plan Left facial numbness, HTN (hypertension), Numbness and tingling in left hand, Headache ED Provider Note Provider: Bao Mauricio MD DATE OF SERVICE: 01/16/2022 CHIEF COMPLAINT: Foggy, tingly left face and hand/arm HISTORY OF PRESENT ILLNESS: Patient is a 51-year-old female history of anxiety, hypertension, and CVA last fall presenting today stating for the past week she been feeling bit foggy in her head but developed when she woke this morning around p.m. some pain in her posterior right head with some tingling of her left hand and left face. Patient states her vision feels a bit off as well. Patient states her speech is Right now like when she had a stroke in the past but this is a bit similar. Has been off amlodipine for last several days as she ran out. Denies any trauma. Denies significant nausea or vomiting. Denies issues with the right arm or leg. Denies left leg issues. Patient states she went to bed sometime last night but she cannot give an exact time. REVIEW OF SYSTEMS: A total of 10 review of systems was obtained and negative except as stated above in the HPI. PAST MEDICAL HISTORY: As noted above MEDICATIONS: Reviewed home medications with the patient includes aspirin SOCIAL HISTORY:Smoking history reported. Medical marijuana use reported. PHYSICAL EXAM: GENERAL: alert and oriented in no acute distress on stretcher Head: normocephalic and atraumatic EYES: No injection, discharge or icterus. PERRL, EOMI. NECK: Trachea midline. Supple. ENT: Mucous membranes pink and moist. LUNGS: Airway patent. No retractions. Breath sounds clear with good air entry bilaterally. HEART: Regular rate and rhythm. No chest wall tenderness ABDOMEN: Soft and non-tender, without guarding or rebound. SKIN: Acyanotic, warm, dry, without rashes EXTREMITIES: Without swelling, tenderness or deformity NEUROLOGICAL: No aphasia. No slurred speech and tongue midline. Maybe a slight right facial droop on exam. Normal strength and tone in the extremities. S ensation to gross touch intact but she states diminished in the left hand and left cheek. Ambulatory. EK bpm normal sinus rhythm. No PVC or PAC. No acute ST segment elevation or depression with a QTC of 421 CONTINUOUS CARDIAC MONITORING: was ordered and showed a heart rate of 60s-0s bpm in 7normal sinus rhythm Patient's laboratory studies and imaging reviewed. Differential includes Infection, dehydration, metabolic abnormality, hypo/hyperglycemia, electrolyte disturbance, anemia, hypoxia, cardiac sources, intracerebral event, toxicologic, neurologic, as well as other pathologies. IMPRESSION/MEDICAL DECISION MAKING: Patient with significant history of prior stroke. Patient states she is taking aspirin. CT of the head and CT angiogram will be obtained. And last known well was sometime last night more than 12 hours thus outside in a thrombolytic window. Basic labs obtained but given the involvement of the hand this does not seem consistent with a Sena's palsy situation. Blood work without significant anemia or leukocytosis. Slightly leukopenic. No severe electrolyte abnormality noted. No LFT abnormalities or elevated troponin noted. Radiology reports without evidence of acute bleed or large vessel occlusion. Patient's blood pressure somewhat elevated but improving. Still with some headache after Tylenol given small mount of Toradol and IV fluid. Still with some tingling of her left hand and left face. Given history of stroke discussed with her staying for MRI and further neurological evaluation. Given additional aspirin for full dose today as she takes a baby aspirin every day. Hospitalist was contacted. DIAGNOSIS: Left facial tingling, left hand numbness, hypertension, headache DISPOSITION: Hospitalist will evaluate Patient was agreeable with this plan. Past Med/Surg History Medical History Anxiety GERD (gastroesophageal reflux disease) HLD (hyperlipidemia) Hypertension Pre-diabetes Surgical History No significant past surgical history Social History Smoking Status: Never smoker Hx Alcohol Use: No Hx Substance Use: No Preferred Language: Swiss Beliefs That Will Affect Care: None marital status: Single Current Living Situation: Family current occupational status: unemployed Feels Safe at Home: Yes Assistive Devices: None Allergies Allergies Allergy/AdvReac Type Severity Reaction Status Date / Time No Known Allergies Allergy Verified 01/16/22 18:58 Home Meds Home Medications Medication Instructions Recorded Confirmed amlodipine 5 mg tablet 5 mg PO DAILY 04/16/19 01/16/22 acetaminophen 500 mg tablet 1,000 mg PO Q6H PRN Fever Or Pain 04/08/21 01/16/22 (Tylenol Extra Strength) albuterol sulfate 2.5 mg inhalation Q4 PRN Wheezing 04/08/21 01/16/22 albuterol sulfate 90 mcg/actuation 2 puff inhalation Q4 PRN Shortness 04/08/21 01/16/22 aerosol inhaler Of Breath clonazepam 0.5 mg tablet 0.5 mg PO TID PRN Anxiety 04/08/21 01/16/22 diclofenac sodium 1 % topical gel 2 g topical BID PRN Pain 04/08/21 01/16/22 fluticasone propionate 50 2 spray intranasal DAILY 04/08/21 01/16/22 mcg/actuation nasal spray,suspension hydrochlorothiazide 25 mg tablet 25 mg PO DAILY 04/08/21 01/16/22 duloxetine 30 mg capsule,delayed 30 mg PO DAILY 01/16/22 01/16/22 release sprinkle duloxetine 60 mg capsule,delayed 60 mg PO DAILY 01/16/22 01/16/22 release sprinkle omeprazole 40 mg capsule,delayed 40 mg PO DAILY 01/16/22 01/16/22 release Previous Rx's Medication Instructions Recorded aspirin 81 mg tablet,delayed 81 mg PO QAM #30 tabs 04/10/21 release Results & Data (ED) Vital Signs Vital Signs - 24 hr 01/16/22 16:13 01/16/22 16:42 01/16/22 18:48 Temperature 36.8 C Temperature Source Temporal Artery Scan Pulse Rate 81 Pulse Rate [Right Finger] 80 66 Pulse Rhythm [Right Finger] Regular Pulse Strength [Right Finger] Normal Normal Respiratory Rate 16 18 18 Respiratory Effort / Characteristics Non-Labored Spontaneous Non-Labored Spontaneous Non-Labored Spontaneous Respiratory Depth Normal Normal Normal Respiratory Pattern Regular Regular Regular Blood Pressure 177/100 H Blood Pressure [Right Arm] 137/107 H 145/83 H Blood Pressure Mean 125 Blood Pressure Mean [Right Arm] 117 103 Blood Pressure Position Sitting Blood Pressure Position [Right Arm] Lying Pulse Oximetry 98 98 97 Oxygen Delivery Method Room Air Room Air Room Air Sepsis Recent Fever Within 48 Hours No Sepsis New/Unexplained Change in Mental Status No Sepsis Action Taken by Nursing No Action Required Laboratory Data Result diagrams: 01/16/22 16:46 01/16/22 16:46 Lab Results 01/16/22 01/16/22 01/16/22 Range/Units 16:39 16:46 16:46 WBC 4.53 L (4.8-10.8) K/ul RBC 4.83 (3.93-5.22) M/uL Hgb 14.2 (12.0-16.0) g/dl POC Hgb (12.0-16.0) g/dl Hct 42.4 (34.1-44.9) % POC Hct (37-47) % MCV 87.8 (80.0-100.0) fL MCH 29.4 (25.0-34.0) pg MCHC 33.5 (32.0-36.0) g/dL RDW Std Deviation 42.4 (36.4-46.3) fL RDW Coeff of Magdiel 13.2 (11.5-14.5) % Plt Count 250 (130-400) K/uL MPV 9.4 (9.4-12.3) fL Immature Gran % (Auto) 0.2 % Neut % (Auto) 46.0 % Lymph % (Auto) 43.9 % [place] % (Auto) 8.2 % Eos % (Auto) 1.3 % Baso % (Auto) 0.4 % Neut # (Auto) 2.08 (1.4-6.5) K/uL Lymph # (Auto) 1.99 (1.2-3.4) K/uL [place] # (Auto) 0.37 (0.24-0.82) K/uL Eos # (Auto) 0.06 (0-0.50) K/uL Baso # (Auto) 0.02 (0-0.2) K/uL Immature Gran # (Auto) 0.01 (0.00-0.02) K/uL PT 11.9 (9.0-12.0) Seconds INR 1.1 (0.9-1.1) APTT 25.1 (21.0-31.0) Seconds PTT Ratio 0.9 POC Sodium (135-144) mmol/L Sodium (136-145) mmol/L POC Potassium (3.3-5.0) mmol/L Potassium (3.5-5.1) mmol/L POC Chloride (101-112) mmol/L Chloride (98-107) mmol/L Carbon Dioxide (21-32) mmol/L POC Total CO2 (24-31) mmol/L Anion Gap (3-11) POC Anion Gap (16-25) mmol/L POC BUN (7-18) mg/dl BUN (6-23) mg/dl Creatinine (0.6-1.2) mg/dl POC Creatinine (0.6-1.3) mg/dl Est Cr Clr Drug Dosing ml/min Est GFR ( Amer) ml/min Est GFR (Non-Af Amer) ml/min BUN/Creatinine Ratio (10-20) Glucose (70-99(Fasting)) mg/dl POC Glucose 112 H (70-99) mg/dl POC Glucose (other) (70-99) mg/dl Calcium (8.5-10.1) mg/dl POC Ioniz Calcium Dulce Maria (1.12-1.32) mmol/l Magnesium (1.7-2.4) mg/dl Total Bilirubin (0.2-1.0) mg/dl AST (13-39) U/L ALT (7-52) U/L Alkaline Phosphatase (34-104) U/L Troponin I High Sens (0-14) pg/ml Total Protein (6.0-8.3) gm/dl Albumin (3.4-5.0) gm/dl Globulin (2.5-4.0) gm/dl Albumin/Globulin Ratio (0.9-2) 01/16/22 01/16/22 Range/Units 16:46 16:59 WBC (4.8-10.8) K/ul RBC (3.93-5.22) M/uL Hgb (12.0-16.0) g/dl POC Hgb 14.6 (12.0-16.0) g/dl Hct (34.1-44.9) % POC Hct 43 (37-47) % MCV (80.0-100.0) fL MCH (25.0-34.0) pg MCHC (32.0-36.0) g/dL RDW Std Deviation (36.4-46.3) fL RDW Coeff of Magdiel (11.5-14.5) % Plt Count (130-400) K/uL MPV (9.4-12.3) fL Immature Gran % (Auto) % Neut % (Auto) % Lymph % (Auto) % [place] % (Auto) % Eos % (Auto) % Baso % (Auto) % Neut # (Auto) (1.4-6.5) K/uL Lymph # (Auto) (1.2-3.4) K/uL [place] # (Auto) (0.24-0.82) K/uL Eos # (Auto) (0-0.50) K/uL Baso # (Auto) (0-0.2) K/uL Immature Gran # (Auto) (0.00-0.02) K/uL PT (9.0-12.0) Seconds INR (0.9-1.1) APTT (21.0-31.0) Seconds PTT Ratio POC Sodium 144 (135-144) mmol/L Sodium 141 (136-145) mmol/L POC Potassium 3.5 (3.3-5.0) mmol/L Potassium 3.5 (3.5-5.1) mmol/L POC Chloride 106 (101-112) mmol/L Chloride 108 H (98-107) mmol/L Carbon Dioxide 27 (21-32) mmol/L POC Total CO2 26 (24-31) mmol/L Anion Gap 6 (3-11) POC Anion Gap 16.0 (16-25) mmol/L POC BUN 10 (7-18) mg/dl BUN 9 (6-23) mg/dl Creatinine 0.65 (0.6-1.2) mg/dl POC Creatinine 0.7 (0.6-1.3) mg/dl Est Cr Clr Drug Dosing 104.7 ml/min Est GFR ( Amer) 118.3 ml/min Est GFR (Non-Af Amer) 102.1 ml/min BUN/Creatinine Ratio 13.8 (10-20) Glucose 109 H (70-99(Fasting)) mg/dl POC Glucose (70-99) mg/dl POC Glucose (other) 115 H (70-99) mg/dl Calcium 9.2 (8.5-10.1) mg/dl POC Ioniz Calcium Dulce Maria 1.20 (1.12-1.32) mmol/l Magnesium 2.2 (1.7-2.4) mg/dl Total Bilirubin 0.4 (0.2-1.0) mg/dl AST 22 (13-39) U/L ALT 24 (7-52) U/L Alkaline Phosphatase 78 (34-104) U/L Troponin I High Sens 3.2 (0-14) pg/ml Total Protein 7.6 (6.0-8.3) gm/dl Albumin 4.2 (3.4-5.0) gm/dl Globulin 3.4 (2.5-4.0) gm/dl Albumin/Globulin Ratio 1.2 (0.9-2) Administered Medications Discontinued Medications Acetaminophen (Acetaminophen 500 Mg Tab) 1,000 mg PO NOW STA Stop: 01/16/22 17:20 Last Admin: 01/16/22 17:37 Dose: 1,000 mg Documented By: SATURNINO Aspirin (Aspirin 81 Mg Chew) 243 mg PO NOW STA Stop: 01/16/22 18:21 Last Admin: 01/16/22 18:49 Dose: 243 mg Documented By: ANGEL Sodium Chloride (Nss 1000ml) 500 mls @ 999 mls/hr IV .Q31M ONE Stop: 01/16/22 18:50 Last Admin: 01/16/22 18:51 Dose: 999 mls/hr Documented By: ANGEL Ioversol (Optiray 320 125ml) 120 ml IV ONCE ONE Stop: 01/16/22 17:49 Last Admin: 01/16/22 17:52 Dose: 120 ml Documented By: MABEL Ketorolac Tromethamine (Ketorolac Tromethamine 15 Mg/Ml Vial) 10 mg IV NOW ONE Stop: 01/16/22 18:21 Last Admin: 01/16/22 18:49 Dose: 10 mg Documented By: ANGEL Imaging Data Radiologist's Impression: Head CT 01/16/22 16:[address] OF THE BRAIN; CT ANGIOGRAM OF THE BRAIN; CT ANGIOGRAM OF THE NECK CLINICAL HISTORY: Strokelike symptoms. Facial droop. Blurry vision. COMPARISON STUDY: CT of the brain dated 04/08/2021. CT angiogram of the head and neck dated 04/08/2021. TECHNIQUE: Unenhanced axial CT scan of the brain is performed. Subsequently, following the IV administration of 120 of Optiray 320, CT angiogram of the head and neck was performed from the aortic arch to the vertex. Images are reviewed in the axial, sagittal, and coronal planes. 3-D MIPS images are created and assessed. IV contrast was administered without complication. All measurements were calculated based on NASCET criteria. A dose lowering technique was utilized adhering to the principles of ALARA. CT DOSE: 1096.14 mGy.cm FINDINGS: Brain parenchyma: The brain parenchyma is normal in appearance. There is no hemorrhage, mass effect, or evidence of acute territorial ischemia by CT criteria. There is no evidence of enhancing mass lesion on the angiogram phase images. The ventricles, sulci, and cisterns are normal in configuration. Robert- white matter differentiation is preserved. No extra-axial fluid collection is seen. Thoracic aorta: Visualized portions of the thoracic aorta are normal in caliber. The aortic arch demonstrates standard 3-vessel anatomy. Right carotid arterial system: The right common carotid artery is widely patent, as are the right internal and external carotid arteries. Left carotid arterial system: The left common carotid artery is widely patent, as are the left internal and external carotid arteries. Vertebral arteries: The vertebral arteries are widely patent bilaterally and codominant. Subclavian arteries: Widely patent bilaterally. Intracranial vasculature: There is origin of the right posterior cerebral artery. There is atherosclerotic calcification of the cavernous carotid arteries. The internal carotid arteries are patent at the skull base, as are the anterior and middle cerebral arteries bilaterally. The vertebrobasilar system and posterior cerebral arteries are widely patent. The vertebral arteries are codominant. There is no aneurysm, high-grade stenosis, or focal vessel cut off s een throughout the intracranial circulation. Jugular veins: Patent bilaterally. Dural sinuses: Patent. Lung apices: Partially visualized upper lobe lung parenchyma appears clear. Soft tissues: The visualized pharyngeal soft tissues are normal in appearance noting angiographic phase technique. The oropharyngeal airway appears widely patent. Calcified sialoliths are noted in the left parotid gland. The salivary and thyroid glands are otherwise normal in appearance. No cervical lymphadenopathy is seen. Skeletal structures: The calvarium appears intact. The cervical spine is maintained noting mild multilevel spondylosis. No lytic or blastic lesion is seen. Orbits: The bony orbits are intact. Orbital contents are normal as visualized. Sinuses and mastoids: The paranasal sinuses are clear. The mastoid air cells are well pneumatized. IMPRESSION: 1 There is no hemorrhage, mass effect, or evidence of acute territorial ischemia by CT criteria. 2. Unremarkable CT angiogram of the brain. No change from 04/08/2021. 3. Unremarkable CT angiogram of the neck. No change from 04/08/2021. ACT 112: Negative or not required by law. Electronically signed by: Riky Velasco M.D. 01/16/2022 6:02 PM Head CTA 01/16/22 16:[address] OF THE BRAIN; CT ANGIOGRAM OF THE BRAIN; CT ANGIOGRAM OF THE NECK CLINICAL HISTORY: Strokelike symptoms. Facial droop. Blurry vision. COMPARISON STUDY: CT of the brain dated 04/08/2021. CT angiogram of the head and neck dated 04/08/2021. TECHNIQUE: Unenhanced axial CT scan of the brain is performed. Subsequently, fo llowing the IV administration of 120 of Optiray 320, CT angiogram of the head and neck was performed from the aortic arch to the vertex. Images are reviewed in the axial, sagittal, and coronal planes. 3-D MIPS images are created and assessed. IV contrast was administered without complication. All measurements were calculated based on NASCET criteria. A dose lowering technique was utilized adhering to the principles of ALARA. CT DOSE: 1096.14 mGy.cm FINDINGS: Brain parenchyma: The brain parenchyma is normal in appearance. There is no hemorrhage, mass effect, or evidence of acute territorial ischemia by CT criteria. There is no evidence of enhancing mass lesion on the angiogram phase images. The ventricles, sulci, and cisterns are normal in configuration. Robert- white matter differentiation is preserved. No extra-axial fluid collection is seen. Thoracic aorta: Visualized portions of the thoracic aorta are normal in caliber. The aortic arch demonstrates standard 3-vessel anatomy. Right carotid arterial system: The right common carotid artery is widely patent, as are the right internal and external carotid arteries. Left carotid arterial system: The left common carotid artery is widely patent, as are the left internal and external carotid arteries. Vertebral arteries: The vertebral arteries are widely patent bilaterally and codominant. Subclavian arteries: Widely patent bilaterally. Intracranial vasculature: There is origin of the right posterior cerebral artery. There is atherosclerotic calcification of the cavernous carotid arteries. The internal carotid arteries are patent at the skull base, as are the anterior and middle cerebral arteries bilaterally. The vertebrobasilar system and posterior cerebral arteries are widely patent. The vertebral arteries are codominant. There is no aneurysm, high-grade stenosis, or focal vessel cut off seen throughout the intracranial circulation. Jugular veins: Patent bilaterally. Dural sinuses: Patent. Lung apices: Partially visualized upper lobe lung parenchyma appears clear. Soft tissues: The visualized pharyngeal soft tissues are normal in appearance noting angiographic phase technique. The oropharyngeal airway appears widely patent. Calcified sialoliths are noted in the left parotid gland. The salivary and thyroid glands are otherwise normal in appearance. No cervical lymphadenopa thy is seen. Skeletal structures: The calvarium appears intact. The cervical spine is maintained noting mild multilevel spondylosis. No lytic or blastic lesion is seen. Orbits: The bony orbits are intact. Orbital contents are normal as visualized. Sinuses and mastoids: The paranasal sinuses are clear. The mastoid air cells are well pneumatized. IMPRESSION: 1 There is no hemorrhage, mass effect, or evidence of acute territorial ischemia by CT criteria. 2. Unremarkable CT angiogram of the brain. No change from 04/08/2021. 3. Unremarkable CT angiogram of the neck. No change from 04/08/2021. ACT 112: Negative or not required by law. Electronically signed by: Riky Velasco M.D. 01/16/2022 6:02 PM Neck CTA 01/16/22 16:[address] OF THE BRAIN; CT ANGIOGRAM OF THE BRAIN; CT ANGIOGRAM OF THE NECK CLINICAL HISTORY: Strokelike symptoms. Facial droop. Blurry vision. COMPARISON STUDY: CT of the brain dated 04/08/2021. CT angiogram of the head and neck dated 04/08/2021. TECHNIQUE: Unenhanced axial CT scan of the brain is performed. Subsequently, following the IV administration of 120 of Optiray 320, CT angiogram of the head and neck was performed from the aortic arch to the vertex. Images are reviewed in the axial, sagittal, and coronal planes. 3-D MIPS images are created and assessed. IV contrast was administered without complication. All measurements were calculated based on NASCET criteria. A dose lowering technique was utilized adhering to the principles of ALARA. CT DOSE: 1096.14 mGy.cm FINDINGS: Brain parenchyma: The brain parenchyma is normal in appearance. There is no hemorrhage, mass effect, or evidence of acute territorial ischemia by CT crite divina. There is no evidence of enhancing mass lesion on the angiogram phase images. The ventricles, sulci, and cisterns are normal in configuration. Robert- white matter differentiation is preserved. No extra-axial fluid collection is seen. Thoracic aorta: Visualized portions of the thoracic aorta are normal in caliber. The aortic arch demonstrates standard 3-vessel anatomy. Right carotid arterial system: The right common carotid artery is widely patent, as are the right internal and external carotid arteries. Left carotid arterial system: The left common carotid artery is widely patent, as are the left internal and external carotid arteries. Vertebral arteries: The vertebral arteries are widely patent bilaterally and codominant. Subclavian arteries: Widely patent bilaterally. Intracranial vasculature: There is origin of the right posterior cerebral artery. There is atherosclerotic calcification of the cavernous carotid arteries. The internal carotid arteries are patent at the skull base, as are the anterior and middle cerebral arteries bilaterally. The vertebrobasilar system and posterior cerebral arteries are widely patent. The vertebral arteries are codominant. There is no aneurysm, high-grade stenosis, or focal vessel cut off seen throughout the intracranial circulation. Jugular veins: Patent bilaterally. Dural sinuses: Patent. Lung apices: Partially visualized upper lobe lung parenchyma appears clear. Soft tissues: The visualized pharyngeal soft tissues are normal in appearance noting angiographic phase technique. The oropharyngeal airway appears widely patent. Calcified sialoliths are noted in the left parotid gland. The salivary and thyroid glands are otherwise normal in appearance. No cervical lymphade nopathy is seen. Skeletal structures: The calvarium appears intact. The cervical spine is maintained noting mild multilevel spondylosis. No lytic or blastic lesion is seen. Orbits: The bony orbits are intact. Orbital contents are normal as visualized. Sinuses and mastoids: The paranasal sinuses are clear. The mastoid air cells are well pneumatized. IMPRESSION: 1 There is no hemorrhage, mass effect, or evidence of acute territorial ischemia by CT criteria. 2. Unremarkable CT angiogram of the brain. No change from 04/08/2021. 3. Unremarkable CT angiogram of the neck. No change from 04/08/2021. ACT 112: Negative or not required by law. Electronically signed by: Riky Velasco M.D. 01/16/2022 6:02 PM Discharge Plan Visit Data Chief Complaint: Stroke/CVA Symptoms Stated Complaint: STROKE SYMPTOMS, DROOP ON ONE SIDE, BLURRED VISOIN ED Provider: Bao Mauricio Discharge Problem: Left facial numbness, HTN (hypertension), Numbness and tingling in left hand, Headache Patient Disposition: Being Evaluated by Hospitalist Forms Stand Alone Forms: My [facility] Prescriptions Prescriptions: No Action amlodipine 5 mg tablet 5 mg PO DAILY Rx Instructions: PER PT "RAN OUT 5 DAYS AGO, HAVEN'T HAD". hydrochlorothiazide 25 mg tablet 25 mg PO DAILY albuterol sulfate 2.5 mg /3 mL (0.083 %) solution for nebulization 2.5 mg inhalation Q4 PRN (Reason: Wheezing) clonazepam 0.5 mg tablet 0.5 mg PO TID PRN (Reason: Anxiety) acetaminophen [Tylenol Extra Strength] 500 mg Tablet 1,000 mg PO Q6H PRN (Reason: Fever Or Pain) albuterol sulfate 90 mcg/actuation HFA aerosol inhaler 2 puff INHALATION Q4 PRN (Reason: Shortness Of Breath) fluticasone propionate 50 mcg/actuation spray,suspension 2 spray INTRANASAL DAILY diclofenac sodium 1 % gel 2 g TOPICAL BID PRN (Reason: Pain) aspirin 81 mg Tablet,Delayed Release (Dr/Ec) 81 mg PO QAM Qty: 30 0RF Rx Instructions: Take one tablet by mouth daily omeprazole 40 mg Capsule,Delayed Release(Dr/Ec) 40 mg PO DAILY duloxetine 30 mg Capsule, Delayed Rel Sprinkle 30 mg PO DAILY Rx Instructions: TOTAL DOSE 90 MG--TAKES WITH 60 MG CAP. duloxetine 60 mg Capsule, Delayed Rel Sprinkle 60 mg PO DAILY Rx Instructions: TOTAL DOSE 90 MG--TAKES WITH 30 MG CAP. Referrals Referrals: Brad Dsouza MD [Primary Care Provider] - : HTN (hypertension) Qualifiers: Hypertension type: unspecified Qualified Code(s): I10 - Essential (primary) hypertension Headache Qualifiers: Headache type: unspecified Headache chronicity pattern: acute headache
[2022-01-16 17:02] LABS: Basophils # (auto) 0.02 K/uL (0-0.2); Basophils % (auto) 0.4 %; Eosinophils # (auto) 0.06 K/uL (0-0.50); Eosinophils % (auto) 1.3 %; Hematocrit (blood only) 42.4 % (34.1-44.9); Hemoglobin 14.2 g/dl (12.0-16.0); Immature Granulocytes # (auto) 0.01 K/uL (0.00-0.02); Immature Granulocytes % (auto) 0.2 %; Lymphocytes # (auto) 1.99 K/uL (1.2-3.4); Lymphocytes % (auto) 43.9 %; Mean Corpuscular Hemoglobin 29.4 pg (25.0-34.0); Mean Corpuscular Hgb Conc 33.5 g/dL (32.0-36.0); Mean Corpuscular Volume 87.8 fL (80.0-100.0); Mean Platelet Volume 9.4 fL (9.4-12.3); Monocytes # (auto) 0.37 K/uL (0.24-0.82); Monocytes % (auto) 8.2 %; Neutrophils # (auto) 2.08 K/uL (1.4-6.5); Platelet Count 250 K/uL (130-400); RDW Coefficient of Variation 13.2 % (11.5-14.5); RDW Standard Deviation 42.4 fL (36.4-46.3); Red Blood Count 4.83 M/uL (3.93-5.22); White Blood Count 4.53 K/ul (4.8-10.8)
[2022-01-16 17:13] LABS: iSTAT Creatinine 0.7 mg/dl (0.6-1.3); iSTAT Hemoglobin 14.6 g/dl (12.0-16.0); iSTAT Ionized Calcium 1.2 mmol/l (1.12-1.32); iSTAT Potassium 3.5 mmol/L (3.3-5.0)
[2022-01-16 17:14] LABS: INR 1.1 (0.9-1.1); Partial Thromboplastin Ratio 0.9; Partial Thromboplastin Time 25.1 Seconds (21.0-31.0); Prothrombin Time 11.9 Seconds (9.0-12.0)
[2022-01-16] MEDS ORDERED: ACETAMINOPHEN 500 MG TAB PO STA (17:19)
[2022-01-16 17:41] LABS: Albumin Globulin Ratio 1.2 (0.9-2); Albumin Level 4.2 gm/dl (3.4-5.0); BUN Creatinine Ratio 13.8 (10-20); Bilirubin,Total 0.4 mg/dl (0.2-1.0); Calcium 9.2 mg/dl (8.5-10.1); Creatinine Clr Calc Pharmacy 104.7 ml/min; Est GFR (African American) 118.3 ml/min; Est GFR (Non-African American) 102.1 ml/min; Globulin 3.4 gm/dl (2.5-4.0); Magnesium 2.2 mg/dl (1.7-2.4); Potassium 3.5 mmol/L (3.5-5.1); Total Protein 7.6 gm/dl (6.0-8.3)
[2022-01-16 17:43] LABS: Troponin I High Sensitivity 3.2 pg/ml (0-14)
[2022-01-16] MEDS ORDERED: OPTIRAY 320 125ml IV ONE (17:48)
--- NOTE | 2022-01-16 18:04 | CT Scan Report ---
UNENHANCED CT OF THE BRAIN; CT ANGIOGRAM OF THE BRAIN; CT ANGIOGRAM OF THE NECK CLINICAL HISTORY: Strokelike symptoms. Facial droop. Blurry vision. COMPARISON STUDY: CT of the brain dated 04/08/2021. CT angiogram of the head and neck dated 04/08/20. TECHNIQUE: Unenhanced axial CT scan of the brain is performed. Subsequently, following the IV adminis tration of 120 of Optiray 320, CT angiogram of the head and neck was performed from the aortic arch t o the vertex. Images are reviewed in the axial, sagittal, and coronal planes. 3-D MIPS images are cre ated and assessed. IV contrast was administered without complication. All measurements were calculate d based on NASCET criteria. A dose lowering technique was utilized adhering to the principles of ALA RA. CT DOSE: 1096.14 mGy.cm FINDINGS: Brain parenchyma: The brain parenchyma is normal in appearance. There is no hemorrhage, mass effect, or evidence of acute territorial ischemia by CT criteria. There is no evidence of enhancing mass lesi on on the angiogram phase images. The ventricles, sulci, and cisterns are normal in configuration. Gr ay-white matter differentiation is preserved. No extra-axial fluid collection is seen. Thoracic aorta: Visualized portions of the thoracic aorta are normal in caliber. The aortic arch demo nstrates standard 3-vessel anatomy. Right carotid arterial system: The right common carotid artery is widely patent, as are the right int ernal and external carotid arteries. Left carotid arterial system: The left common carotid artery is widely patent, as are the left international operations manager al and external carotid arteries. Vertebral arteries: The vertebral arteries are widely patent bilaterally and codominant. Subclavian arteries: Widely patent bilaterally. Intracranial vasculature: There is origin of the right posterior cerebral artery. There is athe rosclerotic calcification of the cavernous carotid arteries. The internal carotid arteries are patent at the skull base, as are the anterior and middle cerebral arteries bilaterally. The vertebrobasilar system and posterior cerebral arteries are widely patent. The vertebral arteries are codominant. The re is no aneurysm, high-grade stenosis, or focal vessel cut off seen throughout the intracranial circ ulation. Jugular veins: Patent bilaterally. Dural sinuses: Patent. Lung apices: Partially visualized upper lobe lung parenchyma appears clear. Soft tissues: The visualized pharyngeal soft tissues are normal in appearance noting angiographic pha se technique. The oropharyngeal airway appears widely patent. Calcified sialoliths are noted in the l eft parotid gland. The salivary and thyroid glands are otherwise normal in appearance. No cervical ly mphadenopathy is seen. Skeletal structures: The calvarium appears intact. The cervical spine is maintained noting mild multi level spondylosis. No lytic or blastic lesion is seen. Orbits: The bony orbits are intact. Orbital contents are normal as visualized. Sinuses and mastoids: The paranasal sinuses are clear. The mastoid air cells are well pneumatized. IMPRESSION: 1 There is no hemorrhage, mass effect, or evidence of acute territorial ischemia by CT criteria. 2. Unremarkable CT angiogram of the brain. No change from 04/08/2021. 3. Unremarkable CT angiogram of the neck. No change from 04/08/2021. ACT 112: Negative or not required by law. Electronically signed by: Riky Velasco M.D. 01/16/2022 6:02 PM
[2022-01-16] MEDS ORDERED: KETOROLAC TROMETHAMINE 15 MG/ML VIAL IV ONE (18:20)
[2022-01-16] MEDS ORDERED: ASPIRIN 81 MG CHEW PO STA (18:20)
[2022-01-16] MEDS ORDERED: SODIUM CHLORIDE 0.9% 1000ML 500 ML IV ONE (18:20)
--- NOTE | 2022-01-16 18:41 | History & Physical Report ---
Date of Service January 16, 2022 Assessment & Plan (1) Left facial numbness: (2) Numbness and tingling in left hand: (3) CVA (cerebral vascular accident): Plan: History CVA Patient is 51 y/o F with PMH CVA in 03/2021treated with dual anti-platelets for 21 days, HTN, prediabetes, reactive airway disease, GERD, depression with anxiety presented to ER with complaint of left face and left upper extremity tingling noted today upon awakening at 1:00PM. Fell asleep last night after 11:00PM. Also c/o decreased sensation to left face and LUE, dizziness, "foggy" sensation. Since being at ER patient reports started with right-sided headache that has progressed to diffuse headache, light sensitivity. Denies history of migraines in the past. Improving with Tylenol and toradol in ER In ER CT Head: unremarkable CTA Head and neck: No significant electrolyte abnormality. Troponin WNL DDX: TIA, CVA, atypical migraine, hypertensive emergency -Tele to monitor for arrhythmias -tox screen -lipids in am -A1C, TSH in am -MRI brain -History echo with bubble study in 03/2021 without abnormality -aspiration precautions -PT/OT consult -Continue aspirin -allow permissive HTN -neurology consult (4) HTN (hypertension): Plan: BP initially elevated upon ER arrival 177/100 down to 145/83 in ER without BP medication -Patient has been without amlodipine for the past 5 days -We will allow permissive hypertension during the first 24 hours for possible CVA -Recheck BP tomorrow to see if can resume home amlodipine and HCTZ (5) Pre-diabetes: Plan: A1c: 6.5 in 08/2021 Diet controlled. Patient has reportedly lost 20 pounds -A1c in a.m. (6) Depression with anxiety: Plan: - Following with outpatient psych -Continue duloxetine, Klonopin as needed DVT Prophylaxis -SCDs Full Code as per discussion with pt Follows with Dr Dsouza for routine care Pt was seen and care coordinated with Dr Rivera. See addendum History of Present Illness Chief Complaint: Face tingling Primary Care Provider: Brad Dsouza MD Patient is 51 y/o F with PMH CVA, HTN, prediabetes, reactive airway disease, GERD, depression with anxiety presented to ER with complaint of left face and left upper extremity tingling. History obtained from patient and chart review. Patient reports fell asleep after 11 PM yesterday and did not wake up till 1 PM today. She reports upon awakening today she felt like left arm and left face had decreased sensation compared to right side. She reports later developed tingling sensation to left face and left arm. She feels like her tongue is "lazy". She reports she feels off and feels wobbly and slightly dizzy with walking and feels like her thoughts are "fuzzy". Denies noted extremity weakn ess. She is unsure if has visual disturbance. She states saw a neighbor this afternoon and neighbor thought patient possibly had drooping left side of face so patient presented to ER. Here in ER no facial drooping or speech abnormality. Since being at ER patient reports started with right-sided headache that has progressed to diffuse headache, light sensitivity. Denies history of migraines in the past. Patient states she has been out of her amlodipine for the past 5 days. Smokes marijuana daily for chronic back pain. In 03/2021 CVA and was on dual antiplatelet therapy for 21 days. She was discharged on atorvastatin however patient reports thinks that was discontinued outpatient. Hypercoagulable work-up reported negative. Denies fever/chills, diaphoresis, N/V/D/C, syncope, neck pain, CP, SOB, orthopnea, palpitations, cough, sore throat, choking, otalgia, rhinorrhea, abdominal pain, extremity edema, rashes, urinary symptoms. Patient denies significant family history. Allergies Allergy/AdvReac Type Severity Reaction Status Date / Time No Known Allergies Allergy Verified 01/16/22 18:58 Home Medications Medication Instructions Recorded Confirmed Type amlodipine 5 mg tablet 5 mg PO DAILY 04/16/19 01/16/22 History acetaminophen 500 mg tablet 1,000 mg PO Q6H PRN Fever Or Pain 04/08/21 01/16/22 History (Tylenol Extra Strength) albuterol sulfate 2.5 mg inhalation Q4 PRN Wheezing 04/08/21 01/16/22 History albuterol sulfate 90 mcg/actuation 2 puff inhalation Q4 PRN Shortness 04/08/21 01/16/22 History aerosol inhaler Of Breath clonazepam 0.5 mg tablet 0.5 mg PO TID PRN Anxiety 04/08/21 01/16/22 History diclofenac sodium 1 % topical gel 2 g topical BID PRN Pain 04/08/21 01/16/22 History fluticasone propionate 50 2 spray intranasal DAILY 04/08/21 01/16/22 History mcg/actuation nasal spray,suspension hydrochlorothiazide 25 mg tablet 25 mg PO DAILY 04/08/21 01/16/22 History aspirin 81 mg tablet,delayed 81 mg PO QAM #30 tabs 04/10/21 01/16/22 Rx release duloxetine 30 mg capsule,delayed 30 mg PO DAILY 01/16/22 01/16/22 History release sprinkle duloxetine 60 mg capsule,delayed 60 mg PO DAILY 01/16/22 01/16/22 History release sprinkle omeprazole 40 mg capsule,delayed 40 mg PO DAILY 01/16/22 01/16/22 History release Past Med/Surg History Medical History (Updated 01/16/22 @ 19:42 by Leonila Lund PA-C) Anxiety CVA (cerebral vascular accident) Depression with anxiety GERD (gastroesophageal reflux disease) HLD (hyperlipidemia) Hypertension Pre-diabetes Surgical History (Updated 01/16/22 @ 19:42 by Leonila Lund PA-C) History of tubal ligation Family History (Updated 01/16/22 @ 19:42 by Leonila Lund PA-C) Other No significant family history Social History (Updated 01/16/22 @ 19:43 by Leonila Lund PA-C) Smoking Status: Never smoker Hx Alcohol Use: No Hx Substance Use: Yes Prescribed Medications: Marijuana Last Used Substance: Unknown Preferred Language: Amharic Communication Ability: Effective 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 Truck 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: No Beliefs That Will Affect Care: None marital status: Single Current Living Situation: Family current occupational status: unemployed Other Information That Helps Us Care for You: No Feels Safe at Home: Yes Assistive Devices: None Review of Systems Review of Systems: All systems reviewed & are unremarkable except as noted in HPI & below Physical Exam Physical Exam: General: no distress, obese Head: normocephalic, atraumatic Eyes: PERRL, EOM's intact, conjunctiva non-injected, anicteric ENT: normal inspection external ears, nose, mucous membranes moist Neck: supple, trachea midline, ROM intact Lungs: clear, no respiratory distress, no wheezing/rhonchi/rales CV: RRR, no murmur, no pretibial edema Abd: normal BS, soft, non-tender Ext: no cyanosis, no calf tenderness Neuro: A&O x 3, normal affect, visual garces intact. Reported decreased facial sensation left side compared to right, the face is strong and symmetric, Hearing grossly intact, Soft palate elevates symmetrically, no dysarthria, Shoulder shrug intact, Tongue is midline, normal movement, no fasciculations. Decreased sensation reported to left forearm and hand. Strength 5/5 bilateral upper extremities, chronic left leg/knee pain with difficulty strength testing to left leg secondary to pain and limited patient attempt with active ROM and strength testing. Skin: warm, dry Results & Data Results & Data ([facility]) Vital Signs (Past 12 Hours) Vital Signs Temp Pulse Pulse Resp BP BP Pulse Ox 01/16/22 16:42 80 18 137/107 H 98 01/16/22 16:13 36.8 C 81 16 177/100 H 98 O2 Del Method 01/16/22 16:42 Room Air 01/16/22 16:13 Room Air Laboratory Results Short CBC 01/16/22 Range/Units 16:46 WBC 4.53 L (4.8-10.8) K/ul Hgb 14.2 (12.0-16.0) g/dl Hct 42.4 (34.1-44.9) % Plt Count 250 (130-400) K/uL BMP 01/16/22 16:46 Sodium 141 Potassium 3.5 Chloride 108 H Carbon Dioxide 27 BUN 9 Creatinine 0.65 Glucose 109 H Calcium 9.2 Liver Function 01/16/22 Range/Units 16:46 Total Bilirubin 0.4 (0.2-1.0) mg/dl AST 22 (13-39) U/L ALT 24 (7-52) U/L Alkaline Phosphatase 78 (34-104) U/L Albumin 4.2 (3.4-5.0) gm/dl Diagnostic Findings Head CT 01/16/22 16:[address] OF THE BRAIN; CT ANGIOGRAM OF THE BRAIN; CT ANGIOGRAM OF THE NECK CLINICAL HISTORY: Strokelike symptoms. Facial droop. Blurry vision. COMPARISON STUDY: CT of the brain dated 04/08/2021. CT angiogram of the head and neck dated 04/08/2021. TECHNIQUE: Unenhanced axial CT scan of the brain is performed. Subsequently, following the IV administration of 120 of Optiray 320, CT angiogram of the head and neck was performed from the aortic arch to the vertex. Images are reviewed in the axial, sagittal, and coronal planes. 3-D MIPS images are created and assessed. IV contrast was administered without complication. All measurements were calculated based on NASCET criteria. A dose lowering technique was utilized adhering to the principles of ALARA. CT DOSE: 1096.14 mGy.cm FINDINGS: Brain parenchyma: The brain parenchyma is normal in appearance. There is no hemorrhage, mass effect, or evidence of acute territorial ischemia by CT criteria. There is no evidence of enhancing mass lesion on the angiogram phase images. The ventricles, sulci, and cisterns are normal in configuration. Robert- white matter differentiation is preserved. No extra-axial fluid collection is seen. Thoracic aorta: Visualized portions of the thoracic aorta are normal in caliber. The aortic arch demonstrates standard 3-vessel anatomy. Right carotid arterial system: The right common carotid artery is widely patent, as are the right internal and external carotid arteries. Left carotid arterial system: The left common carotid artery is widely patent, as are the left internal and external carotid arteries. Vertebral arteries: The vertebral arteries are widely patent bilaterally and codominant. Subclavian arteries: Widely patent bilaterally. Intracranial vasculature: There is origin of the right posterior cerebral artery. There is atherosclerotic calcification of the cavernous carotid arteries. The internal carotid arteries are patent at the skull base, as are the anterior and middle cerebral arteries bilaterally. The vertebrobasilar system and posterior cerebral arteries are widely patent. The vertebral arteries are codominant. There is no aneurysm, high-grade stenosis, or focal vessel cut off seen throughout the intracranial circulation. Jugular veins: Patent bilaterally. Dural sinuses: Patent. Lung apices: Partially visualized upper lobe lung parenchyma appears clear. Soft tissues: The visualized pharyngeal soft tissues are normal in appearance noting angiographic phase technique. The oropharyngeal airway appears widely patent. Calcified sialoliths are noted in the left parotid gland. The salivary and thyroid glands are otherwise normal in appearance. No cervical lymphadenopathy is seen. Skeletal structures: The calvarium appears intact. The cervical spine is maintained noting mild multilevel spondylosis. No lytic or blastic lesion is seen. Orbits: The bony orbits are intact. Orbital contents are normal as visualized. Sinuses and mastoids: The paranasal sinuses are clear. The mastoid air cells are well pneumatized. IMPRESSION: 1 There is no hemorrhage, mass effect, or evidence of acute territorial ischemia by CT criteria. 2. Unremarkable CT angiogram of the brain. No change from 04/08/2021. 3. Unremarkable CT angiogram of the neck. No change from 04/08/2021. ACT 112: Negative or not required by law. Electronically signed by: Riky Velasco M.D. 01/16/2022 6:02 PM Head CTA 01/16/22 16:[address] OF THE BRAIN; CT ANGIOGRAM OF THE BRAIN; CT ANGIOGRAM OF THE NECK CLINICAL HISTORY: Strokelike symptoms. Facial droop. Blurry vision. COMPARISON STUDY: CT of the brain dated 04/08/2021. CT angiogram of the head and neck dated 04/08/2021. TECHNIQUE: Unenhanced axial CT scan of the brain is performed. Subsequently, following the IV administration of 120 of Optiray 320, CT angiogram of the head and neck was performed from the aortic arch to the vertex. Images are reviewed i n the axial, sagittal, and coronal planes. 3-D MIPS images are created and assessed. IV contrast was administered without complication. All measurements were calculated based on NASCET criteria. A dose lowering technique was utilized adhering to the principles of ALARA. CT DOSE: 1096.14 mGy.cm FINDINGS: Brain parenchyma: The brain parenchyma is normal in appearance. There is no hemorrhage, mass effect, or evidence of acute territorial ischemia by CT criteria. There is no evidence of enhancing mass lesion on the angiogram phase images. The ventricles, sulci, and cisterns are normal in configuration. Robert- white matter differentiation is preserved. No extra-axial fluid collection is seen. Thoracic aorta: Visualized portions of the thoracic aorta are normal in caliber. The aortic arch demonstrates standard 3-vessel anatomy. Right carotid arterial system: The right common carotid artery is widely patent, as are the right internal and external carotid arteries. Left carotid arterial system: The left common carotid artery is widely patent, as are the left internal and external carotid arteries. Vertebral arteries: The vertebral arteries are widely patent bilaterally and cod ominant. Subclavian arteries: Widely patent bilaterally. Intracranial vasculature: There is origin of the right posterior cerebral artery. There is atherosclerotic calcification of the cavernous carotid arteries. The internal carotid arteries are patent at the skull base, as are the anterior and middle cerebral arteries bilaterally. The vertebrobasilar system and posterior cerebral arteries are widely patent. The vertebral arteries are codominant. There is no aneurysm, high-grade stenosis, or focal vessel cut off seen throughout the intracranial circulation. Jugular veins: Patent bilaterally. Dural sinuses: Patent. Lung apices: Partially visualized upper lobe lung parenchyma appears clear. Soft tissues: The visualized pharyngeal soft tissues are normal in appearance noting angiographic phase technique. The oropharyngeal airway appears widely patent. Calcified sialoliths are noted in the left parotid gland. The salivary and thyroid glands are otherwise normal in appearance. No cervical lymphadenopathy is seen. Skeletal structures: The calvarium appears intact. The cervical spine is maintained noting mild multilevel spondylosis. No lytic or blastic lesion is seen. Orbits: The bony orbits are intact. Orbital contents are normal as visualized. Sinuses and mastoids: The paranasal sinuses are clear. The mastoid air cells are well pneumatized. IMPRESSION: 1 There is no hemorrhage, mass effect, or evidence of acute territorial ischemia by CT criteria. 2. Unremarkable CT angiogram of the brain. No change from 04/08/2021. 3. Unremarkable CT angiogram of the neck. No change from 04/08/2021. ACT 112: Negative or not required by law. Electronically signed by: Riky Velasco M.D. 01/16/2022 6:02 PM Neck CTA 01/16/22 16:[address] OF THE BRAIN; CT ANGIOGRAM OF THE BRAIN; CT ANGIOGRAM OF THE NECK CLINICAL HISTORY: Strokelike symptoms. Facial droop. Blurry vision. COMPARISON STUDY: CT of the brain dated 04/08/2021. CT angiogram of the head and neck dated 04/08/2021. TECHNIQUE: Unenhanced axial CT scan of the brain is performed. Subsequently, following the IV administration of 120 of Optiray 320, CT angiogram of the head and neck was performed from the aortic arch to the vertex. Images are reviewed in the axial, sagittal, and coronal planes. 3-D MIPS images are created and assessed. IV contrast was administered without complication. All measurements were calculated based on NASCET criteria. A dose lowering technique was utilized adhering to the principles of ALARA. CT DOSE: 1096.14 mGy.cm FINDINGS: Brain parenchyma: The brain parenchyma is normal in appearance. There is no hemorrhage, mass effect, or evidence of acute territorial ischemia by CT criteria. There is no evidence of enhancing mass lesion on the angiogram phase images. The ventricles, sulci, and cisterns are normal in configuration. Robert- white matter differentiation is preserved. No extra-axial fluid collection is seen. Thoracic aorta: Visualized portions of the thoracic aorta are normal in caliber. The aortic arch demonstrates standard 3-vessel anatomy. Right carotid arterial system: The right common carotid artery is widely patent, as are the right internal and external carotid arteries. Left carotid arterial system: The left common carotid artery is widely patent, as are the left internal and external carotid arteries. Vertebral arteries: The vertebral arteries are widely patent bilaterally and codominant. Subclavian arteries: Widely patent bilaterally. Intracranial vasculature: There is origin of the right posterior cerebral artery. There is atherosclerotic calcification of the cavernous carotid arteries. The internal carotid arteries are patent at the skull base, as are the anterior and middle cerebral arteries bilaterally. The vertebrobasilar system and posterior cerebral arteries are widely patent. The vertebral arteries are codominant. There is no aneurysm, high-grade stenosis, or focal vessel cut off seen throughout the intracranial circulation. Jugular veins: Patent bilaterally. Dural sinuses: Patent. Lung apices: Partially visualized upper lobe lung parenchyma appears clear. Soft tissues: The visualized pharyngeal soft tissues are normal in appearance noting angiographic phase technique. The oropharyngeal airway appears widely patent. Calcified sialoliths are noted in the left parotid gland. The salivary and thyroid glands are otherwise normal in appearance. No cervical lymphadenopathy is seen. Skeletal structures: The calvarium appears intact. The cervical spine is maintained noting mild multilevel spondylosis. No lytic or blastic lesion is seen. Orbits: The bony orbits are intact. Orbital contents are normal as visualized. Sinuses and mastoids: The paranasal sinuses are clear. The mastoid air cells are well pneumatized. IMPRESSION: 1 There is no hemorrhage, mass effect, or evidence of acute territorial ischemia by CT criteria. 2. Unremarkable CT angiogram of the brain. No change from 04/08/2021. 3. Unremarkable CT angiogram of the neck. No change from 04/08/2021. ACT 112: Negative or not required by law. Electronically signed by: Riky Velasco M.D. 01/16/2022 6:02 PM Supervising Physician Co-Signing Physician Notes This is an attending cosign note for full reports and documentation please see full dictation by YASMEEN following is a synopsis. Patient presenting with questionable findings for CVA with left facial left arm and subsequently left hand altered and diminished sensations also noted by patient's friend to have a left-sided droop complaining of headache as well as noted to have high blood pressure along with photophobia. Patient also ran out recently from her blood pressure medication. Head atraumatic chest largely clear. Mild in degree sensation noted left side of the face left arm and hand. Strength appears intact. No asymmetry of the face noted currently. Questionable CVA versus complex migraine versus hypertensive disease. Obtain MRI. Neurology evaluation. (1) HTN (hypertension) Hypertension type: unspecified Qualified Code(s): I10 - Essential (primary) hypertension
[2022-01-16 19:58] LABS: Appearance Urine Clear (Clear); Bilirubin Urine Negative (Negative); Blood Urine Negative (Negative); Color Urine Yellow; Glucose Urine UA Negative (Negative); Ketones Urine Negative (Negative); Leukocyte Esterase Urine Negative (Negative); Nitrite Urine Negative (Negative); Protein Urine Negative (Negative); Specific Gravity Urine 1.043 (1.000-1.030); Urobilinogen Urine Negative (Negative)
[2022-01-16] MEDS ORDERED: clonazePAM 0.5 MG TAB PO PRN (22:41)
[2022-01-16] MEDS ORDERED: ALBUTEROL HFA 8 GM INHALER INH PRN (22:41)
[2022-01-16] MEDS ORDERED: PHARMACIST DISCHARGE MED REC CONSULT PRN (22:41)
[2022-01-16] MEDS ORDERED: DICLOFENAC SOD 1% GEL 100 GM TUBE EXT PRN (22:41)
[2022-01-16] MEDS ORDERED: ONDANSETRON INJ 2 MG/ML 2 ML VIAL IV PRN (22:41)
[2022-01-16] MEDS ORDERED: POLYETHYLENE (MIRALAX) 17 GM PACK PO PRN (22:41)
[2022-01-17] MEDS: ACETAMINOPHEN 325 MG TAB PO PRN ×2 (00:27→09:23)
[2022-01-17 06:46] LABS: Basophils # (auto) 0.02 K/uL (0-0.2); Basophils % (auto) 0.4 %; Eosinophils # (auto) 0.06 K/uL (0-0.50); Eosinophils % (auto) 1.3 %; Hematocrit (blood only) 40.8 % (34.1-44.9); Hemoglobin 13.8 g/dl (12.0-16.0); Immature Granulocytes # (auto) 0.01 K/uL (0.00-0.02); Immature Granulocytes % (auto) 0.2 %; Lymphocytes # (auto) 2.14 K/uL (1.2-3.4); Lymphocytes % (auto) 44.9 %; Mean Corpuscular Hemoglobin 29.4 pg (25.0-34.0); Mean Corpuscular Hgb Conc 33.8 g/dL (32.0-36.0); Mean Corpuscular Volume 86.8 fL (80.0-100.0); Mean Platelet Volume 10.7 fL (9.4-12.3); Monocytes # (auto) 0.44 K/uL (0.24-0.82); Monocytes % (auto) 9.2 %; Platelet Count 196 K/uL (130-400); RDW Coefficient of Variation 13.2 % (11.5-14.5); RDW Standard Deviation 41.4 fL (36.4-46.3); White Blood Count 4.77 K/ul (4.8-10.8)
[2022-01-17 07:01] LABS: Estimated Average Glucose 123 mg/dl; Hemoglobin A1C 5.9 % (4.5-5.6)
[2022-01-17 07:10] LABS: BUN Creatinine Ratio 12.5 (10-20); Calcium 8.6 mg/dl (8.5-10.1); Chol HDL Ratio 4.6 (0-5); Creatinine Clr Calc Pharmacy 121.6 ml/min; Est GFR (African American) 124.2 ml/min; Est GFR (Non-African American) 107.2 ml/min; Potassium 3.5 mmol/L (3.5-5.1)
--- NOTE | 2022-01-17 07:11 | Magnetic Resonance Report ---
MRI OF THE BRAIN WITHOUT IV CONTRAST CLINICAL HISTORY: Dizziness. Lightheadedness. Upper extremity and facial paresthesias. COMPARISON STUDY: CT of the brain dated 01/16/2022. MRI of the brain dated 04/08/2021. TECHNIQUE: MRI of the brain was performed utilizing various T1 and T2-weighted sequences in the axial , sagittal, and coronal planes. IV contrast was not administered for this examination. FINDINGS: Brain parenchyma: There is a tiny chronic infarct in the right frontal lobe. The brain parenchyma is otherwise normal in appearance. There is no hemorrhage or mass effect. There is no restricted diffusi on to suggest acute ischemia. Robert-white matter differentiation is preserved. No extra-axial fluid co llection is seen. The cerebellar tonsils are normal in configuration. Ventricles, sulci, and cisterns: Normal in configuration. Cavum septum pellucidum is incidentally not ed. Pituitary and sella: Unremarkable. Intracranial vasculature: Normal flow voids are maintained at the skull base. Orbits: The bony orbits are grossly intact. Orbital contents are normal in appearance. Sinuses and mastoids: Clear. Calvarium: Unremarkable. Cervical cord: Partially visualized cervical spinal cord is normal in morphology and signal intensity . IMPRESSION: No acute intracranial abnormality. ACT 112: Negative or not required by law. Electronically signed by: Riky Velasco M.D. 01/17/2022 7:09 AM
--- NOTE | 2022-01-17 08:19 | Neurology Consultation ---
Date of Consultation January 17, 2022 Assessment & Plan (1) Left facial numbness: 1. MRI brain no acute findings 2. CTA head/neck- no occlusion or significant stenosis 3. continue aspirin 81 mg 4. optimize HTN HLD, DM LDL <70 5. PT/OT speech for discharge needs 6. complex migraine likely source of symptoms. start riboflavin 400 mg and mg ox 400 mg daily will follow up as outpatient for migraine treatment ok to discharge if medically stable from neurology stand point (2) Numbness and tingling in left hand: 1. ascending numbness and tingling in left hand accompanied by headache Supervising Physician Co-Signing Physician Notes Patient discussed with Karis Chisholm PA-C. Agree with the recommendations as noted below. History of Present Illness Reason for Consultation: stroke like symptoms Requesting Physician: Tobias Riley MD Attending Physician: Tobias Riley MD History of Present Illness Britney is 51 year old female with PMH- CVA, HTN, prediabetes, reactive airway disease, GERD, depression with anxiety presented to [facility] ER 01/16/22 with complaint of left face and left upper extremity tingling.She fell asleep after 11 PM the day prior to admission and did not wake up till 1 PM today. Upon awakening today she felt like left arm and left face had decreased sensation compared to right side. She reports later developed tingling sensation to left face and left arm. She feels like her tongue is "lazy".She feels off and feels wobbly and slightly dizzy with walking and feels like her thoughts are "fuzzy". She is unsure if has visual disturbance but a neighbor who thought she possibly had drooping left side of face. In the ER she had a right-sided headache that has progressed to diffuse headache, light sensitivity. Denies history of migraines in the past. She has been out of her amlodipine for the past 5 days. Smokes marijuana daily for chronic back pain. In 03/2021 CVA and was on dual antiplatelet therapy for 21 days. She was discharged on atorvastatin however patient reports thinks that was discontinued outpatient. Hypercoagulable work- up reported negative. she has no history of migraines but she had a headache after the ascending numbness and tingling up her left arm. Allergies Allergy/AdvReac Type Severity Reaction Status Date / Time No Known Allergies Allergy Verified 01/16/22 18:58 Home Medications Medication Instructions Recorded Confirmed Type amlodipine 5 mg tablet 5 mg PO DAILY 04/16/19 01/16/22 History acetaminophen 500 mg tablet 1,000 mg PO Q6H PRN Fever Or Pain 04/08/21 01/16/22 History (Tylenol Extra Strength) albuterol sulfate 2.5 mg inhalation Q4 PRN Wheezing 04/08/21 01/16/22 History albuterol sulfate 90 mcg/actuation 2 puff inhalation Q4 PRN Shortness 04/08/21 01/16/22 History aerosol inhaler Of Breath clonazepam 0.5 mg tablet 0.5 mg PO TID PRN Anxiety 04/08/21 01/16/22 History diclofenac sodium 1 % topical gel 2 g topical BID PRN Pain 04/08/21 01/16/22 History fluticasone propionate 50 2 spray intranasal DAILY 04/08/21 01/16/22 History mcg/actuation nasal spray,suspension hydrochlorothiazide 25 mg tablet 25 mg PO DAILY 04/08/21 01/16/22 History aspirin 81 mg tablet,delayed 81 mg PO QAM #30 tabs 04/10/21 01/16/22 Rx release duloxetine 30 mg capsule,delayed 30 mg PO DAILY 01/16/22 01/16/22 History release sprinkle duloxetine 60 mg capsule,delayed 60 mg PO DAILY 01/16/22 01/16/22 History release sprinkle omeprazole 40 mg capsule,delayed 40 mg PO DAILY 01/16/22 01/16/22 History release Patient History Medical History (Updated 01/16/22 @ 19:42 by Leonila Lund PA-C) Anxiety CVA (cerebral vascular accident) Depression with anxiety GERD (gastroesophageal reflux disease) HLD (hyperlipidemia) Hypertension Pre-diabetes Surgical History (Updated 01/16/22 @ 19:42 by Leonila Lund PA-C) History of tubal ligation Family History (Updated 01/16/22 @ 19:42 by Leonila Lund PA-C) Other No significant family history Social History (Updated 01/16/22 @ 19:43 by Loenila Lund PA-C) Smoking Status: Never smoker Hx Alcohol Use: No Hx Substance Use: Yes Prescribed Medications: Marijuana Last Used Substance: Unknown Preferred Language: Finnish Communication Ability: Effective Media Planner / Buyer Required: No Beliefs That Will Affect Care: None marital status: Single Current Living Situation: Family current occupational status: unemployed Other Information That Helps Us Care for You: No Feels Safe at Home: Yes Assistive Devices: None Review of Systems Review of Systems: All systems reviewed & are unremarkable except as noted in HPI & below Physical Exam Physical Exam: Physical Exam: Constitutional: appearance over nourished, healthy Ears, Nose, Mouth and Throat: mucous membranes moist, no injection and skin normal, eyes normal Cardiovascular: normal S-1 and S-2 and regular rate and rhythm Respiratory: clear to auscultation (CTA) and no rales, rhonchi or wheeze Musculoskeletal: no peripheral edema and good distal pulses Skin: no stigmata of neurocutaneous disease noted and normal and intact Eyes: extraocular muscles intact (EOMI) and pupils equal, round and reactive to light (PERRL) NEUROLOGIC EXAMINATION: Mental status: Alert and interactive Oriented to full date and location Oriented to person Speech fluent with no evidence of aphasia Cranial Nerves smile eye brow raise symmetric Reflexes: Deep tendon reflexes were symmetrical and graded 2/5. down going toes Sensory: intact to light and cool touch Coordination: finger to nose Gait/Stance: Posture lying in bed sits up without assistance, stands without assistance walks tandem steady gait . Motor: Negative for pronator drift of out stretched arms with eyes closed. Strength: hand paraffiner biceps triceps 5/5 bilaterally hip flex right 5/5 left halted by pain Results & Data ([facility]) Vital Signs (Past 12 Hours) Vital Signs Temp Pulse Pulse Pulse Resp BP Pulse Ox 01/17/22 07:42 36.7 C 61 18 102/60 95 01/17/22 07:18 67 01/17/22 02:40 36.6 C 68 18 136/85 98 01/17/22 01:18 70 01/16/22 23:54 01/16/22 23:54 36.5 C 75 16 137/91 95 O2 Del Method 01/17/22 07:42 Room Air 01/17/22 07:18 01/17/22 02:40 Room Air 01/17/22 01:18 01/16/22 23:54 Room Air 01/16/22 23:54 Room Air Laboratory Results Abnormal lab results 01/16/22 01/16/22 01/16/22 Range/Units 16:39 16:46 16:46 WBC 4.53 L (4.8-10.8) K/ul Chloride 108 H (98-107) mmol/L Creatinine (0.6-1.2) mg/dl Glucose 109 H (70-99(Fasting)) mg/dl POC Glucose 112 H (70-99) mg/dl POC Glucose (other) (70-99) mg/dl Hemoglobin A1c (4.5-5.6) % Cholesterol (0-200) mg/dl Urine pH (4.5-7.5) Ur Specific [place] (1.000-1.030) 01/16/22 01/16/22 01/17/22 Range/Units 16:59 19:32 05:48 WBC 4.77 L (4.8-10.8) K/ul Chloride (98-107) mmol/L Creatinine (0.6-1.2) mg/dl Glucose (70-99(Fasting)) mg/dl POC Glucose (70-99) mg/dl POC Glucose (other) 115 H (70-99) mg/dl Hemoglobin A1c (4.5-5.6) % Cholesterol (0-200) mg/dl Urine pH 8.0 H (4.5-7.5) Ur Specific [place] 1.043 H (1.000-1.030) 01/17/22 01/17/22 Range/Units 05:48 05:48 WBC (4.8-10.8) K/ul Chloride (98-107) mmol/L Creatinine 0.56 L (0.6-1.2) mg/dl Glucose (70-99(Fasting)) mg/dl POC Glucose (70-99) mg/dl POC Glucose (other) (70-99) mg/dl Hemoglobin A1c 5.9 H (4.5-5.6) % Cholesterol 250 H (0-200) mg/dl Urine pH (4.5-7.5) Ur Specific [place] (1.000-1.030) Diagnostic Findings CT head-There is no hemorrhage, mass effect, or evidence of acute territorial ischemia by CT criteria. Unremarkable CT angiogram of the brain. No change from 04/08/2021. Unremarkable CT angiogram of the neck. No change from 04/08/2021. Unremarkable CT angiogram of the brain. No change from 04/08/2021. Unremarkable CT angiogram of the neck. No change from 04/08/2021. MRI brain-No acute intracranial abnormality.
[2022-01-17] MEDS ORDERED: PANTOprazole 40 MG TAB PO SCH (09:00)
[2022-01-17] MEDS ORDERED: ASPIRIN 81 MG ECTAB PO SCH ×2 (09:00)
[2022-01-17] MEDS ORDERED: DULoxetine HCL 60 MG CAP PO SCH (09:00)
[2022-01-17] MEDS ORDERED: FLUTICASONE PROPIONATE NA SPR 16 GM BTL NAE SCH (09:00)
[2022-01-17] MEDS ORDERED: DULoxetine HCL 30 MG CAP PO SCH (09:00)
[2022-01-17 09:04] LABS: Amphetamines+Metham, Urine Neg (Neg); Barbiturates, Urine Neg (Neg); Benzodiazepine, Urine Neg (Neg); Cocaine, Urine Neg (Neg); MDMA (Ecstacy), Urine Neg (Neg); Methadone, Urine Neg (Neg); Opiate, Urine Neg (Neg); Phencyclidine, Urine Neg (Neg)
[2022-01-17] MEDS ORDERED: KETOROLAC TROMETHAMINE 15 MG/ML VIAL IV ONE ×2 (11:13→16:46)
--- NOTE | 2022-01-17 18:53 | Discharge Summary ---
Date of Service January 17, 2022 Admission HPI Per Admitting Provider Chief Complaint: Face tingling Primary Care Provider: Brad Dsouza MD Patient is 51 y/o F with PMH CVA, HTN, prediabetes, reactive airway disease, GERD, depression with anxiety presented to ER with complaint of left face and left upper extremity tingling. History obtained from patient and chart review. Patient reports fell asleep after 11 PM yesterday and did not wake up till 1 PM today. She reports upon awakening today she felt like left arm and left face had decreased sensation compared to right side. She reports later developed tingling sensation to left face and left arm. She feels like her tongue is "lazy". She reports she feels off and feels wobbly and slightly dizzy with walking and feels like her thoughts are "fuzzy". Denies noted extremity weakness. She is unsure if has visual disturbance. She states saw a neighbor this afternoon and neighbor thought patient possibly had drooping left side of face so patient presented to ER. Here in ER no facial drooping or speech abnormality. Since being at ER patient reports started with right-sided headache that has progressed to diffuse headache, light sensitivity. Denies history of migraines in the past. Patient states she has been out of her amlodipine for the past 5 days. Smokes marijuana daily for chronic back pain. In 03/2021 CVA and was on dual antiplatelet therapy for 21 days. She was discharged on atorvastatin however patient reports thinks that was discontinued outpatient. Hypercoagulable work-up reported negative. Denies fever/chills, diaphoresis, N/V/D/C, syncope, neck pain, CP, SOB, orthopnea, palpitations, cough, sore throat, choking, otalgia, rhinorrhea, abdominal pain, extremity edema, rashes, urinary symptoms. Patient denies significant family history. Admission Exam Per Admitting Provider General: no distress, obese Head: normocephalic, atraumatic Eyes: PERRL, EOM's intact, conjunctiva non-injected, anicteric ENT: normal inspection external ears, nose, mucous membranes moist Neck: supple, trachea midline, ROM intact Lungs: clear, no respiratory distress, no wheezing/rhonchi/rales CV: RRR, no murmur, no pretibial edema Abd: normal BS, soft, non-tender Ext: no cyanosis, no calf tenderness Neuro: A&O x 3, normal affect, visual garces intact. Reported decreased facial sensation left side compared to right, the face is strong and symmetric, Hearing grossly intact, Soft palate elevates symmetrically, no dysarthria, Shoulder shrug intact, Tongue is midline, normal movement, no fasciculations. Decreased sensation reported to left forearm and hand. Strength 5/5 bilateral upper extremities, chronic left leg/knee pain with difficulty strength testing to left leg secondary to pain and limited patient attempt with active ROM and strength testing. Skin: warm, dry Principal Diagnosis Suspected complex migraine Discharge Exam General: Lying comfortably in bed, not in distress, on room air HEENT: EOMI, DESTINI, MMM Chest: Clear breath sounds bilaterally, no wheezes or crackles CVS: Regular rate and rhythm, normal heart sounds, no murmur Abdomen: Soft, non tender, not distended, normal bowel sounds Neuro: Awake, alert, oriented, conversing well, non focal. Sensation felt less on left side compared to the right. Observed ambulating independently from bathroom to her bed. Extremities: No cyanosis, clubbing or edema Discharge Data Allergies Allergy/AdvReac Type Severity Reaction Status Date / Time No Known Allergies Allergy Verified 01/16/22 18:58 Consultations 01/16/22 18:34 ED Decision to Admit Stat 01/16/22 22:41 Consult Neurology Routine Ordered Studies 01/16/22 16:18 CT angio head w con Stat CT angio neck with con Stat CT head/brain wo con Stat 01/16/22 22:41 MR brain wo con Routine Laboratory Results WBC 4.77 K/ul (4.8-10.8) L 01/17/22 05:48 RBC 4.70 M/uL (3.93-5.22) 01/17/22 05:48 Hgb 13.8 g/dl (12.0-16.0) 01/17/22 05:48 POC Hgb 14.6 g/dl (12.0-16.0) 01/16/22 16:59 Hct 40.8 % (34.1-44.9) 01/17/22 05:48 POC Hct 43 % (37-47) 01/16/22 16:59 MCV 86.8 fL (80.0-100.0) 01/17/22 05:48 MCH 29.4 pg (25.0-34.0) 01/17/22 05:48 MCHC 33.8 g/dL (32.0-36.0) 01/17/22 05:48 RDW Std Deviation 41.4 fL (36.4-46.3) 01/17/22 05:48 RDW Coeff of Magdiel 13.2 % (11.5-14.5) 01/17/22 05:48 Plt Count 196 K/uL (130-400) 01/17/22 05:48 MPV 10.7 fL (9.4-12.3) 01/17/22 05:48 Immature Gran % (Auto) 0.2 % 01/17/22 05:48 Neut % (Auto) 44.0 % 01/17/22 05:48 Lymph % (Auto) 44.9 % 01/17/22 05:48 [place]erry % (Auto) 9.2 % 01/17/22 05:48 Eos % (Auto) 1.3 % 01/17/22 05:48 Baso % (Auto) 0.4 % 01/17/22 05:48 Neut # (Auto) 2.10 K/uL (1.4-6.5) 01/17/22 05:48 Lymph # (Auto) 2.14 K/uL (1.2-3.4) 01/17/22 05:48 [place]erry # (Auto) 0.44 K/uL (0.24-0.82) 01/17/22 05:48 Eos # (Auto) 0.06 K/uL (0-0.50) 01/17/22 05:48 Baso # (Auto) 0.02 K/uL (0-0.2) 01/17/22 05:48 Immature Gran # (Auto) 0.01 K/uL (0.00-0.02) 01/17/22 05:48 PT 11.9 Seconds (9.0-12.0) 01/16/22 16:46 INR 1.1 (0.9-1.1) 01/16/22 16:46 APTT 25.1 Seconds (21.0-31.0) 01/16/22 16:46 PTT Ratio 0.9 01/16/22 16:46 POC Sodium 144 mmol/L (135-144) 01/16/22 16:59 Sodium 139 mmol/L (136-145) 01/17/22 05:48 POC Potassium 3.5 mmol/L (3.3-5.0) 01/16/22 16:59 Potassium 3.5 mmol/L (3.5-5.1) 01/17/22 05:48 POC Chloride 106 mmol/L (101-112) 01/16/22 16:59 Chloride 107 mmol/L (98-107) 01/17/22 05:48 Carbon Dioxide 28 mmol/L (21-32) 01/17/22 05:48 POC Total CO2 26 mmol/L (24-31) 01/16/22 16:59 Anion Gap 4 (3-11) 01/17/22 05:48 POC Anion Gap 16.0 mmol/L (16-25) 01/16/22 16:59 POC BUN 10 mg/dl (7-18) 01/16/22 16:59 BUN 7 mg/dl (6-23) 01/17/22 05:48 Creatinine 0.56 mg/dl (0.6-1.2) L 01/17/22 05:48 POC Creatinine 0.7 mg/dl (0.6-1.3) 01/16/22 16:59 Est Cr Clr Drug Dosing 121.6 ml/min 01/17/22 05:48 Est GFR ( Amer) 124.2 ml/min 01/17/22 05:48 Est GFR (Non-Af Amer) 107.2 ml/min 01/17/22 05:48 BUN/Creatinine Ratio 12.5 (10-20) 01/17/22 05:48 Glucose 86 mg/dl (70-99(Fasting)) 01/17/22 05:48 POC Glucose 112 mg/dl (70-99) H 01/16/22 16:39 POC Glucose (other) 115 mg/dl (70-99) H 01/16/22 16:59 Estimat Average Glucose 123 mg/dl 01/17/22 05:48 Hemoglobin A1c 5.9 % (4.5-5.6) H 01/17/22 05:48 Calcium 8.6 mg/dl (8.5-10.1) 01/17/22 05:48 POC Ioniz Calcium Dulce Maria 1.20 mmol/l (1.12-1.32) 01/16/22 16:59 Magnesium 2.2 mg/dl (1.7-2.4) 01/16/22 16:46 Total Bilirubin 0.4 mg/dl (0.2-1.0) 01/16/22 16:46 AST 22 U/L (13-39) 01/16/22 16:46 ALT 24 U/L (7-52) 01/16/22 16:46 Alkaline Phosphatase 78 U/L (34-104) 01/16/22 16:46 Troponin I High Sens 3.2 pg/ml (0-14) 01/16/22 16:46 Total Protein 7.6 gm/dl (6.0-8.3) 01/16/22 16:46 Albumin 4.2 gm/dl (3.4-5.0) 01/16/22 16:46 Globulin 3.4 gm/dl (2.5-4.0) 01/16/22 16:46 Albumin/Globulin Ratio 1.2 (0.9-2) 01/16/22 16:46 Triglycerides 127 mg/dl (0-150) 01/17/22 05:48 Cholesterol 250 mg/dl (0-200) H 01/17/22 05:48 LDL Cholesterol, Calc 171 mg/dl 01/17/22 05:48 VLDL Cholesterol, Calc 25 mg/dl (0-30) 01/17/22 05:48 HDL Cholesterol 54 mg/dl 01/17/22 05:48 Cholesterol/HDL Ratio 4.6 (0-5) 01/17/22 05:48 Urine Color Yellow 01/16/22 19:32 Urine Appearance Clear (Clear) 01/16/22 19:32 Urine pH 8.0 (4.5-7.5) H 01/16/22 19:32 Ur Specific [place] 1.043 (1.000-1.030) H 01/16/22 19:32 Urine Protein Negative (Negative) 01/16/22 19:32 Urine Glucose (UA) Negative (Negative) 01/16/22 19:32 Urine Ketones Negative (Negative) 01/16/22 19:32 Urine Blood Negative (Negative) 01/16/22 19:32 Urine Nitrite Negative (Negative) 01/16/22 19:32 Urine Bilirubin Negative (Negative) 01/16/22 19:32 Urine Urobilinogen Negative (Negative) 01/16/22 19:32 Ur Leukocyte Esterase Negative (Negative) 01/16/22 19:32 Urine Opiates Screen Neg (Neg) 01/17/22 07:55 Ur Methadone, Qual Neg (Neg) 01/17/22 07:55 Urine Barbiturates Neg (Neg) 01/17/22 07:55 Ur Phencyclidine (PCP) Neg (Neg) 01/17/22 07:55 U Amphetamin/Meth Scrn Neg (Neg) 01/17/22 07:55 MDMA (Ecstasy) Screen Neg (Neg) 01/17/22 07:55 U Benzodiazepines Scrn Neg (Neg) 01/17/22 07:55 Ur Cocaine Metabolite Neg (Neg) 01/17/22 07:55 U Marijuana (THC) Screen Pos (Neg) H 01/17/22 07:55 SARS-CoV-2, RNA, NAAT NEGATIVE (NEGATIVE) 01/16/22 18:[address] 01/16/22 16:[address] OF THE BRAIN; CT ANGIOGRAM OF THE BRAIN; CT ANGIOGRAM OF THE NECK CLINICAL HISTORY: Strokelike symptoms. Facial droop. Blurry vision. COMPARISON STUDY: CT of the brain dated 04/08/2021. CT angiogram of the head and neck dated 04/08/2021. TECHNIQUE: Unenhanced axial CT scan of the brain is performed. Subsequently, following the IV administration of 120 of Optiray 320, CT angiogram of the head and neck was performed from the aortic arch to the vertex. Images are reviewed in the axial, sagittal, and coronal planes. 3-D MIPS images are created and assessed. IV contrast was administered without complication. All measurements were calculated based on NASCET criteria. A dose lowering technique was utilized adhering to the principles of ALARA. CT DOSE: 1096.14 mGy.cm FINDINGS: Brain parenchyma: The brain parenchyma is normal in appearance. There is no hemorrhage, mass effect, or evidence of acute territorial ischemia by CT criteria. There is no evidence of enhancing mass lesion on the angiogram phase images. The ventricles, sulci, and cisterns are normal in configuration. Robert- white matter differentiation is preserved. No extra-axial fluid collection is seen. Thoracic aorta: Visualized portions of the thoracic aorta are normal in caliber. The aortic arch demonstrates standard 3-vessel anatomy. Right carotid arterial system: The right common carotid artery is widely patent, as are the right internal and external carotid arteries. Left carotid arterial system: The left common carotid artery is widely patent, as are the left internal and external carotid arteries. Vertebral arteries: The vertebral arteries are widely patent bilaterally and codominant. Subclavian arteries: Widely patent bilaterally. Intracranial vasculature: There is origin of the right posterior cerebral artery. There is atherosclerotic calcification of the cavernous carotid arteries. The internal carotid arteries are patent at the skull base, as are the anterior and middle cerebral arteries bilaterally. The vertebrobasilar system and posterior cerebral arteries are widely patent. The vertebral arteries are codominant. There is no aneurysm, high-grade stenosis, or focal vessel cut off seen throughout the intracranial circulation. Jugular veins: Patent bilaterally. Dural sinuses: Patent. Lung apices: Partially visualized upper lobe lung parenchyma appears clear. Soft tissues: The visualized pharyngeal soft tissues are normal in appearance noting angiographic phase technique. The oropharyngeal airway appears widely patent. Calcified sialoliths are noted in the left parotid gland. The salivary and thyroid glands are otherwise normal in appearance. No cervical lymphadenopathy is seen. Skeletal structures: The calvarium appears intact. The cervical spine is maintained noting mild multilevel spondylosis. No lytic or blastic lesion is seen. Orbits: The bony orbits are intact. Orbital contents are normal as visualized. Sinuses and mastoids: The paranasal sinuses are clear. The mastoid air cells are well pneumatized. IMPRESSION: 1 There is no hemorrhage, mass effect, or evidence of acute territorial ischemia by CT criteria. 2. Unremarkable CT angiogram of the brain. No change from 04/08/2021. 3. Unremarkable CT angiogram of the neck. No change from 04/08/2021. ACT 112: Negative or not required by law. Electronically signed by: Riky Velasco M.D. 01/16/2022 6:02 PM Head CTA 01/16/22 16:[address] OF THE BRAIN; CT ANGIOGRAM OF THE BRAIN; CT ANGIOGRAM OF THE NECK CLINICAL HISTORY: Strokelike symptoms. Facial droop. Blurry vision. COMPARISON STUDY: CT of the brain dated 04/08/2021. CT angiogram of the head and neck dated 04/08/2021. TECHNIQUE: Unenhanced axial CT scan of the brain is performed. Subsequently, following the IV administration of 120 of Optiray 320, CT angiogram of the head and neck was performed from the aortic arch to the vertex. Images are reviewed in the axial, sagittal, and coronal planes. 3-D MIPS images are created and assessed. IV contrast was administered without complication. All measurements were calculated based on NASCET criteria. A dose lowering technique was utilized adhering to the principles of ALARA. CT DOSE: 1096.14 mGy.cm FINDINGS: Brain parenchyma: The brain parenchyma is normal in appearance. There is no hemorrhage, mass effect, or evidence of acute territorial ischemia by CT criteria. There is no evidence of enhancing mass lesion on the angiogram phase images. The ventricles, sulci, and cisterns are normal in configuration. Robert- white matter differentiation is preserved. No extra-axial fluid collection is seen. Thoracic aorta: Visualized portions of the thoracic aorta are normal in caliber. The aortic arch demonstrates standard 3-vessel anatomy. Right carotid arterial system: The right common carotid artery is widely patent, as are the right internal and external carotid arteries. Left carotid arterial system: The left common carotid artery is widely patent, as are the left internal and external carotid arteries. Vertebral arteries: The vertebral arteries are widely patent bilaterally and codominant. Subclavian arteries: Widely patent bilaterally. Intracranial vasculature: There is origin of the right posterior cerebral artery. There is atherosclerotic calcification of the cavernous carotid arteries. The internal carotid arteries are patent at the skull base, as are the anterior and middle cerebral arteries bilaterally. The vertebrobasilar system and posterior cerebral arteries are widely patent. The vertebral arteries are codominant. There is no aneurysm, high-grade stenosis, or focal vessel cut off seen throughout the intracranial circulation. Jugular veins: Patent bilaterally. Dural sinuses: Patent. Lung apices: Partially visualized upper lobe lung parenchyma appears clear. Soft tissues: The visualized pharyngeal soft tissues are normal in appearance noting angiographic phase technique. The oropharyngeal airway appears widely p atent. Calcified sialoliths are noted in the left parotid gland. The salivary and thyroid glands are otherwise normal in appearance. No cervical lymphadenopathy is seen. Skeletal structures: The calvarium appears intact. The cervical spine is maintained noting mild multilevel spondylosis. No lytic or blastic lesion is seen. Orbits: The bony orbits are intact. Orbital contents are normal as visualized. Sinuses and mastoids: The paranasal sinuses are clear. The mastoid air cells are well pneumatized. IMPRESSION: 1 There is no hemorrhage, mass effect, or evidence of acute territorial ischemia by CT criteria. 2. Unremarkable CT angiogram of the brain. No change from 04/08/2021. 3. Unremarkable CT angiogram of the neck. No change from 04/08/2021. ACT 112: Negative or not required by law. Electronically signed by: Riky Velasco M.D. 01/16/2022 6:02 PM Neck CTA 01/16/22 16:[address] OF THE BRAIN; CT ANGIOGRAM OF THE BRAIN; CT ANGIOGRAM OF THE NECK CLINICAL HISTORY: Strokelike symptoms. Facial droop. Blurry vision. COMPARISON STUDY: CT of the brain dated 04/08/2021. CT angiogram of the head and neck dated 04/08/2021. TECHNIQUE: Unenhanced axial CT scan of the brain is performed. Subsequently, following the IV administration of 120 of Optiray 320, CT angiogram of the head and neck was performed from the aortic arch to the vertex. Images are reviewed in the axial, sagittal, and coronal planes. 3-D MIPS images are created and assessed. IV contrast was administered without complication. All measurements were calculated based on NASCET criteria. A dose lowering technique was utilized adhering to the principles of ALARA. CT DOSE: 1096.14 mGy.cm FINDINGS: Brain parenchyma: The brain parenchyma is normal in appearance. There is no hemorrhage, mass effect, or evidence of acute territorial ischemia by CT criteria. There is no evidence of enhancing mass lesion on the angiogram phase images. The ventricles, sulci, and cisterns are normal in configuration. Robert- white matter differentiation is preserved. No extra-axial fluid collection is seen. Thoracic aorta: Visualized portions of the thoracic aorta are normal in caliber. The aortic arch demonstrates standard 3-vessel anatomy. Right carotid arterial system: The right common carotid artery is widely patent, as are the right internal and external carotid arteries. Left carotid arterial system: The left common carotid artery is widely patent, as are the left internal and external carotid arteries. Vertebral arteries: The vertebral arteries are widely patent bilaterally and codominant. Subclavian arteries: Widely patent bilaterally. Intracranial vasculature: There is origin of the right posterior cerebral artery. There is atherosclerotic calcification of the cavernous carotid arteries. The internal carotid arteries are patent at the skull base, as are the anterior and middle cerebral arteries bilaterally. The vertebrobasilar system and posterior cerebral arteries are widely patent. The vertebral arteries are codominant. There is no aneurysm, high-grade stenosis, or focal vessel cut off seen throughout the intracranial circulation. Jugular veins: Patent bilaterally. Dural sinuses: Patent. Lung apices: Partially visualized upper lobe lung parenchyma appears clear. Soft tissues: The visualized pharyngeal soft tissues are normal in appearance noting angiographic phase technique. The oropharyngeal airway appears widely patent. Calcified sialoliths are noted in the left parotid gland. The salivary and thyroid glands are otherwise normal in appearance. No cervical lymphadenopathy is seen. Skeletal structures: The calvarium appears intact. The cervical spine is maintained noting mild multilevel spondylosis. No lytic or blastic lesion is seen. Orbits: The bony orbits are intact. Orbital contents are normal as visualized. Sinuses and mastoids: The paranasal sinuses are clear. The mastoid air cells are well pneumatized. IMPRESSION: 1 There is no hemorrhage, mass effect, or evidence of acute territorial ischemia by CT criteria. 2. Unremarkable CT angiogram of the brain. No change from 04/08/2021. 3. Unremarkable CT angiogram of the neck. No change from 04/08/2021. ACT 112: Negative or not required by law. Electronically signed by: Riky Velasco M.D. 01/16/2022 6:02 PM Brain MRI 01/16/22 22:41 MRI OF THE BRAIN WITHOUT IV CONTRAST CLINICAL HISTORY: Dizziness. Lightheadedness. Upper extremity and facial paresthesias. COMPARISON STUDY: CT of the brain dated 01/16/2022. MRI of the brain dated 04/08/2021. TECHNIQUE: MRI of the brain was performed utilizing various T1 and T2-weighted sequences in the axial, sagittal, and coronal planes. IV contrast was not administered for this examination. FINDINGS: Brain parenchyma: There is a tiny chronic infarct in the right frontal lobe. The brain parenchyma is otherwise normal in appearance. There is no hemorrhage or mass effect. There is no restricted diffusion to suggest acute ischemia. Robert- white matter differentiation is preserved. No extra-axial fluid collection is seen. The cerebellar tonsils are normal in configuration. Ventricles, sulci, and cisterns: Normal in configuration. Cavum septum pellucidum is incidentally noted. Pituitary and sella: Unremarkable. Intracranial vasculature: Normal flow voids are maintained at the skull base. Orbits: The bony orbits are grossly intact. Orbital contents are normal in appearance. Sinuses and mastoids: Clear. Calvarium: Unremarkable. Cervical cord: Partially visualized cervical spinal cord is normal in morphology and signal intensity. IMPRESSION: No acute intracranial abnormality. ACT 112: Negative or not required by law. Electronically signed by: Riky Velasco M.D. 01/17/2022 7:09 AM Hospital Course (1) Complicated migraine: (2) Depression with anxiety: (3) Left facial numbness: (4) Pre-diabetes: (5) HLD (hyperlipidemia): Plan Patient is 51 y/o F with PMH TIA in 03/2021treated with dual anti-platelets for 21 days, HTN, prediabetes, reactive airway disease, GERD, depression with anxiety presented to ER with complaint of left face and left upper extremity tingling noted today upon awakening at 1:00PM. Fell asleep last night after 11:00PM. Also c/o decreased sensation to left face and LUE, dizziness, "foggy" sensation. Stroke work up with CT head, CTA head and neck, MRI brain was negative for acute infarction. She was seen by neurology who suspected complex migraine and recommended riboflavin 400 mg daily and magnesium oxide 400 mg daily and outpatient follow up with neuro for migraine treatment. She was seen by physical therapy recommended outpatient PT- script was provided. She was observed to ambulate independently from bathroom to bed without any issues. She had good response to her headache with toradol. No N/V. Tolerating oral intake without issues. Upon further questioning, seem she might have mild BPPV (as she states she gets dizziness/vertigo briefly for seconds with quick positional movements of head or body) but she declined meclizine prn- recommended follow up with ENT and/or vestibular therapy if it gets worse. She was cleared by neuro for discharge home. She is comfortable and stable for discharge home. All questions were answered. Lipitor was started given her history of TIAx2, prediabetes, HTN and hyperlipidemia- she had tolerated in past without issues. Total Time Total Time Spent Total Time Spent (In Minutes): 50 Discharge Plan Discharge Items Patient Disposition: Home - Self-Care Reason For Visit: STROKE LIKE SYMPTOMS Discharge Diagnosis: suspected complex migraine Activity: Resume your previous activity Non-emergency contact: Primary Care Provider Call non-emergency contact if: you have any medication questions, your symptoms worsen, your pain is unusual for you and you have a fever Follow-up/Referrals: Brad Dsouza MD [Primary Care Provider] - Diet: Regular Addtl Attending Provider Instructions: You did not have stroke You were seen by neurology who thinks this could be from migraine. They recommend riboflavin and magnesium daily. You can take tylenol as needed for headache You could also have benign positional vertigo- you did not want meclizine- if vertigo, dizziness gets worse, recommend follow up for outpatient vestibular therapy or ENT. Continue outpatient physical therapy Recommend starting on the cholesterol pill lipitor Recommend continue checking blood pressure at home and follow with family doctor for further adjustment. If not eating or drinking well or blood pressure on lower side, recommend holding hydrochlorothiazide. Follow up with family doctor and neurology Pending Studies at Discharge: No Stand-Alone Forms: My [facility] Courseload, Smoking Cessation Medications and DC Order Prescriptions: New riboflavin (vitamin B2) 400 mg tablet 400 mg PO DAILY Qty: 30 0RF magnesium oxide 400 mg magnesium tablet 400 mg PO DAILY Qty: 30 0RF atorvastatin [Lipitor] 40 mg tablet 40 mg PO HS Qty: 30 0RF Continued amlodipine 5 mg tablet 5 mg PO DAILY Rx Instructions: PER PT "RAN OUT 5 DAYS AGO, HAVEN'T HAD". hydrochlorothiazide 25 mg tablet 25 mg PO DAILY albuterol sulfate 2.5 mg /3 mL (0.083 %) solution for nebulization 2.5 mg inhalation Q4 PRN (Reason: Wheezing) clonazepam 0.5 mg tablet 0.5 mg PO TID PRN (Reason: Anxiety) acetaminophen [Tylenol Extra Strength] 500 mg Tablet 1,000 mg PO Q6H PRN (Reason: Fever Or Pain) albuterol sulfate 90 mcg/actuation HFA aerosol inhaler 2 puff INHALATION Q4 PRN (Reason: Shortness Of Breath) fluticasone propionate 50 mcg/actuation spray,suspension 2 spray INTRANASAL DAILY diclofenac sodium 1 % gel 2 g TOPICAL BID PRN (Reason: Pain) aspirin 81 mg Tablet,Delayed Release (Dr/Ec) 81 mg PO QAM Qty: 30 0RF Rx Instructions: Take one tablet by mouth daily omeprazole 40 mg Capsule,Delayed Release(Dr/Ec) 40 mg PO DAILY duloxetine 30 mg Capsule, Delayed Rel Sprinkle 30 mg PO DAILY Rx Instructions: TOTAL DOSE 90 MG--TAKES WITH 60 MG CAP. duloxetine 60 mg Capsule, Delayed Rel Sprinkle 60 mg PO DAILY Rx Instructions: TOTAL DOSE 90 MG--TAKES WITH 30 MG CAP. Discharge Orders: Discharge Order (Routine); Ordered 01/17/22 Ordered By: Tobias Andrade/Other Patient Handouts: All About Cholesterol Control Admission Data Admit Date/Time: 01/16/22 18:56 Attending Provider: Tobias Riley Admit Provider: Tavon Rivera Primary Care Provider: Brad Dsouza Other Providers: Tavon Rivera ; Latrell Zarate Other Interventions: Discharge Summary Assessment (RN) Last Done: 01/17/22 17:20
--- NOTE | 2022-01-17 21:39 | Electrocardiogram Report ---
Test Reason : Blood Pressure : / mmHG Vent. Rate : 071 BPM Atrial Rate : 071 BPM P-R Int : 160 ms QRS Dur : 078 ms QT Int : 388 ms P-R-T Axes : 068 027 086 degrees QTc Int : 421 ms Poor data quality, interpretation may be adversely affected Normal sinus rhythm Nonspecific ST and T wave abnormality Abnormal ECG When compared with ECG of 08-APR-2021 17:00, Nonspecific T wave abnormality, improved in Inferior leads Confirmed by Martin Amezquita ([id number]) on 01/17/2022 9:39:19 PM Referred By: REFERRED SELF Confirmed By:Martin Amezquita
[2022-01-20 08:02] LABS: Marijuana Quant, GCMS Urine 1470 ng/mL (<5)
== END 2022-01-17 18:03 | disposition home or self-care (01) | DRG 103 ==
LOC: ED 16:12 → SUATTDRO 18:56 → 2N 18:56

== ENCOUNTER 2022-05-31 18:43 | Inpatient (IN) ==
[2022-05-31] MEDS ORDERED: SODIUM CHLORIDE 0.9% 1000ML 1,000 ML IV SCH (19:00)
--- NOTE | 2022-05-31 19:24 | XRay Report ---
XR chest 1V portable CLINICAL HISTORY: Stroke Like Symptoms TECHNIQUE: Single frontal radiograph of the chest was obtained. Comparison: Comparison is made to chest radiograph 08/02/2017 FINDINGS: No lines and tubes are seen. The cardiomediastinal silhouette is normal. The lungs are clear. No evid ence of pleural effusion or pneumothorax. IMPRESSION: No acute chest disease. ACT 112: Negative or not required by law. Electronically signed by: Mina Sharpe M.D. 05/31/2022 7:23 PM
[2022-05-31 19:50] LABS: Basophils # (auto) 0.02 K/uL (0-0.2); Basophils % (auto) 0.4 %; Eosinophils # (auto) 0.09 K/uL (0-0.50); Eosinophils % (auto) 1.9 %; Hematocrit (blood only) 40.5 % (34.1-44.9); Hemoglobin 13.6 g/dl (12.0-16.0); Immature Granulocytes # (auto) 0.01 K/uL (0.00-0.02); Immature Granulocytes % (auto) 0.2 %; Lymphocytes # (auto) 2.19 K/uL (1.2-3.4); Lymphocytes % (auto) 45.9 %; Mean Corpuscular Hemoglobin 30.1 pg (25.0-34.0); Mean Corpuscular Hgb Conc 33.6 g/dL (32.0-36.0); Mean Corpuscular Volume 89.6 fL (80.0-100.0); Mean Platelet Volume 10.4 fL (9.4-12.3); Monocytes % (auto) 8.4 %; Neutrophils # (auto) 2.06 K/uL (1.4-6.5); Neutrophils % (auto) 43.2 %; Platelet Count 228 K/uL (130-400); RDW Coefficient of Variation 12.7 % (11.5-14.5); RDW Standard Deviation 42.4 fL (36.4-46.3); Red Blood Count 4.52 M/uL (3.93-5.22); White Blood Count 4.77 K/ul (4.8-10.8)
[2022-05-31 20:04] LABS: Prothrombin Time 10.4 Seconds (9.0-12.0)
[2022-05-31 20:24] LABS: Troponin I High Sensitivity 4.8 pg/ml (0-14)
[2022-05-31 20:25] LABS: Albumin Globulin Ratio 1.4 (0.9-2); Albumin Level 4.1 gm/dl (3.4-5.0); BUN Creatinine Ratio 22.4 (10-20); Bilirubin,Total 0.4 mg/dl (0.2-1.0); Calcium 9.1 mg/dl (8.5-10.1); Creatinine Clr Calc Pharmacy 101.8 ml/min; Est GFR (African American) 116.3 ml/min; Est GFR (Non-African American) 100.4 ml/min; Magnesium 2.2 mg/dl (1.7-2.4); Potassium 3.8 mmol/L (3.5-5.1); Total Protein 7.1 gm/dl (6.0-8.3)
[2022-05-31] MEDS ORDERED: ACETAMINOPHEN 500 MG TAB PO STA (20:33)
[2022-05-31] MEDS ORDERED: OPTIRAY 320 500ml IV ONE (20:50)
[2022-05-31 21:20] LABS: Appearance Urine Clear (Clear); Bilirubin Urine Negative (Negative); Blood Urine Negative (Negative); Color Urine Yellow; Glucose Urine UA Negative (Negative); Ketones Urine Negative (Negative); Leukocyte Esterase Urine Negative (Negative); Nitrite Urine Negative (Negative); Protein Urine Negative (Negative); Specific Gravity Urine 1.041 (1.000-1.030); Urobilinogen Urine Negative (Negative)
--- NOTE | 2022-05-31 21:23 | CT Scan Report ---
CT angio head w con, CT head/brain wo con, CT angio neck with con CLINICAL HISTORY: Stroke Like Symptoms TECHNIQUE: Contiguous axial CT images of the head were acquired from the base of the skull to the sergio brian without intravenous contrast administration. CT angiography of the head and neck was performed f ollowing intravenous administration of iodinated contrast. Coronal and sagittal MIPS were obtained fr om the axial data set and were submitted for review. Automated dose lowering techniques and/or adjus tment according to patient size were utilized for this examination. All measurements were calculated based on NASCET criteria. CT DOSE: 1254.99 mGy.cm Comparison: None available at the time of this dictation. FINDINGS: CT head: There is no acute intracranial hemorrhage or evidence of acute territorial infarction. No sh ift of the midline structures, mass effect, or extra-axial abnormalities are shown. Small thyroid nodules are seen which do not require follow-up by ACR criteria. CTA Neck: A 3 vessel aortic arch is shown. Retropharyngeal course of the bilateral common carotid ar teries noted. The common carotid, external carotid, cervical segments of the internal carotid arteri es, and the cervical segments of the vertebral arteries are patent without hemodynamically significan t stenosis. The left vertebral artery is dominant. CTA Head: The anterior and posterior cerebral circulations are patent. origin of the right pos terior cerebral artery is seen. IMPRESSION: 1. No acute intracranial hemorrhage, evidence of acute territorial infarction, or other acute intrac ranial disease process. 2. No occlusion, hemodynamically significant stenosis, or dissection in the major cervical arteries. 3. No occlusion, hemodynamically significant stenosis, aneurysm, dissection, or arteriovenous malfor mation in the major intracranial arteries. Assessment of stenosis of the internal carotid arteries is based on NASCET criteria. ACT 112: Negative or not required by law. Electronically signed by: Mina Sharpe M.D. 05/31/2022 9:20 PM
--- NOTE | 2022-05-31 21:35 | History & Physical Report ---
Date of Service May 31, 2022 Assessment & Plan (1) Stroke-like symptoms: (2) History of CVA (cerebrovascular accident): (3) Headache: Plan: Patient is 51 y/o F with PMH TIA, CVA, HTN, prediabetes, reactive airway disease, GERD, depression with anxiety presented to ER with complaint ofleft sided weakness today, DOLAN x 1 week. Reported decreased sensation left face. Possible left facial droop today per family. In ER is hypertensive. No significant electrolyte abnormality. Troponin WNL CT Head: unremarkable CTA Head and neck: DDX: TIA, CVA, atypical migraine, hypertensive emergency (4) HTN (hypertension): Plan: Previously on amlodipine. Pt unsure when stopped using (5) Pre-diabetes: Plan: A1c: 5.9 in 12/2021 Patient reports lost weight with improved A1c (6) Depression with anxiety: Plan: On duloxetine, prazosin, clonazepam Further assessment and plan per Dr Garcia. History of Present Illness Chief Complaint: Left sided weakness Primary Care Provider: Brad Dsouza MD Patient is 51 y/o F with PMH TIA, CVA, HTN, prediabetes, reactive airway disease, GERD, depression with anxiety presented to ER with complaint ofleft sided weakness. History obtained from patient, patient's son and chart review. Reported occipital and top of head headache for past week. Patient states has "felt off" all week and is vague with further description. Son attempts to help with further history. He states has noticed patient sleeping more than usual and patient does admit to more fatigue recently. Has chronic intermittent tingling sensation to left fingers for past year. H/O CVA ini 03/2021 and was on dual antiplatelet therapy for 21 days. History hospitalization 01/16/2022-01/17/2022 left facial tingling. Stroke work-up was negative for acute CVA, neurology consult suspected complex migraine. Patient admits to not taking her aspirin and is unsure when she last took it because she thinks she lost the bottle. Patient son states over the past couple of days family has noticed some intermittent slight left facial drooping. He states he talked her on the phone this morning around 10 AM and patient sounded like had a little bit of slurred speech however he thought it was secondary to patient just getting awake. He reports today patient and patient's son had an argument around 4 PM. Patient reports after argument she felt very anxious and felt very tired and just wanted to lay down. Family reports approximately 5-5:30pm today noticed some mild left facial drooping and patient seemed weaker on left side. Patient states left side of face with decreased sensation. It is unclear if this is acute or chronic symptom. Patient reports chronic blurry vision, not improved with we aring her glasses. Denies vision loss or diplopia. Patient reports some photophobia. She reports intermittent nausea which she relates to menopause symptoms. Denies fever/chills, diaphoresis, V/D/C, dizziness, syncope, vision changes, neck pain, CP, SOB, orthopnea, palpitations, cough, sore throat, choking, otalgia, rhinorrhea, abdominal pain, extremity edema, rashes, urinary symptoms. Allergies Allergy/AdvReac Type Severity Reaction Status Date / Time No Known Allergies Allergy Verified 05/31/22 20:18 Home Medications Medication Instructions Recorded Confirmed Type acetaminophen 500 mg tablet 1,000 mg PO Q6H PRN Fever Or Pain 04/08/21 05/31/22 History (Tylenol Extra Strength) albuterol sulfate 2.5 mg/3 mL 2.5 mg inhalation Q4 PRN Wheezing 04/08/21 05/31/22 History (0.083 %) solution for nebulization albuterol sulfate 90 mcg/actuation 2 puff inhalation QID PRN 04/08/21 05/31/22 History aerosol inhaler Shortness Of Breath clonazepam 0.5 mg tablet 0.5 mg PO TID PRN Anxiety 04/08/21 05/31/22 History fluticasone propionate 50 2 spray intranasal QAM 04/08/21 05/31/22 History mcg/actuation nasal spray,suspension aspirin 81 mg tablet,delayed 81 mg PO QAM #30 tabs 04/10/21 05/31/22 Rx release duloxetine 30 mg capsule,delayed 30 mg PO DAILY 01/16/22 05/31/22 History release sprinkle duloxetine 60 mg capsule,delayed 60 mg PO DAILY 01/16/22 05/31/22 History release sprinkle omeprazole 40 mg capsule,delayed 40 mg PO DAILYBB 01/16/22 05/31/22 History release celecoxib 100 mg capsule 100 mg PO QAM 05/31/22 05/31/22 History prazosin 1 mg capsule 1 mg PO HS 05/31/22 05/31/22 History Past Med/Surg History Medical History Anxiety CVA (cerebral vascular accident) Depression with anxiety GERD (gastroesophageal reflux disease) HLD (hyperlipidemia) Hypertension Pre-diabetes Surgical History History of tubal ligation Family History Other No significant family history Social History Smoking Status: Never smoker Hx Alcohol Use: No Hx Substance Use: Yes Prescribed Medications: Marijuana Last Used Substance: Unknown Preferred Language: Omani Communication Ability: Effective [employer] Required: No Beliefs That Will Affect Care: None marital status: Single Current Living Situation: Family current occupational status: unemployed Feels Safe at Home: Yes Assistive Devices: None Review of Systems Review of Systems: All systems reviewed & are unremarkable except as noted in HPI & below Physical Exam 2 Physical Exam: General: no distress, overweight Head: normocephalic, atraumatic Eyes: PERRL, EOM's intact, conjunctiva non-injected, anicteric ENT: normal inspection external ears, nose, mucous membranes moist Neck: supple, trachea midline Lungs: clear, no respiratory distress, no wheezing/rhonchi/rales CV: RRR, no murmur, no pretibial edema Abd: normal BS, soft, non-tender Ext: no cyanosis, no calf tenderness Neuro: A&O x 3, flat affect. visual garces intact. EOMs intact. No nystagmus. facial sensation is reported to be decreased on left cheek, face is strong and symmetric, hearing grossly intact, soft palate elevates symmetrically, no dysarthria, shoulder shrug intact, tongue is midline, normal movement, no fasciculations. Muscle tone normal. Poor effort by pt for strength testing, appears that left arm and left leg weaker than right arm and leg Skin: warm, dry Results & Data Results & Data ([facility]) Vital Signs (Past 12 Hours) Vital Signs Pulse Pulse Resp BP BP Pulse Ox O2 Del Method 05/31/22 19:20 73 14 99 05/31/22 19:18 180/154 H 05/31/22 19:18 78 21 96 05/31/22 19:10 75 16 99 05/31/22 19:03 75 20 100 05/31/22 18:44 73 180/154 H 96 Room Air 05/31/22 19:06 100 Room Air 05/31/22 18:47 66 18 188/101 H 100 Room Air Laboratory Results Short CBC 05/31/22 Range/Units 19:19 WBC 4.77 L (4.8-10.8) K/ul Hgb 13.6 (12.0-16.0) g/dl Hct 40.5 (34.1-44.9) % Plt Count 228 (130-400) K/uL BMP 05/31/22 19:19 Sodium 141 Potassium 3.8 Chloride 108 H Carbon Dioxide 28 BUN 15 Creatinine 0.67 Glucose 86 Calcium 9.1 Liver Function 05/31/22 Range/Units 19:19 Total Bilirubin 0.4 (0.2-1.0) mg/dl AST 18 (13-39) U/L ALT 18 (7-52) U/L Alkaline Phosphatase 75 (34-104) U/L Albumin 4.1 (3.4-5.0) gm/dl Urine 05/31/22 Range/Units 21:05 Urine Color Yellow Urine Appearance Clear (Clear) Urine pH 7.0 (4.5-7.5) Ur Specific [place] 1.041 H (1.000-1.030) Urine Protein Negative (Negative) Urine Glucose (UA) Negative (Negative) Diagnostic Findings Chest X-Ray 05/31/22 18:57 XR chest 1V portable CLINICAL HISTORY: Stroke Like Symptoms TECHNIQUE: Single frontal radiograph of the chest was obtained. Comparison: Comparison is made to chest radiograph 08/02/2017 FINDINGS: No lines and tubes are seen. The cardiomediastinal silhouette is normal. The lungs are clear. No evidence of pleural effusion or pneumothorax. IMPRESSION: No acute chest disease. ACT 112: Negative or not required by law. Electronically signed by: Mina Sharpe M.D. 05/31/2022 7:[address] 05/31/22 18:57 CT angio head w con, CT head/brain wo con, CT angio neck with con CLINICAL HISTORY: Stroke Like Symptoms TECHNIQUE: Contiguous axial CT images of the head were acquired from the base of the skull to the vertex without intravenous contrast administration. CT angiography of the head and neck was performed following intravenous administration of iodinated contrast. Coronal and sagittal MIPS were obtained from the axial data set and were submitted for review. Automated dose lowering techniques and/or adjustment according to patient size were utilized for this examination. All measurements were calculated based on NASCET criteria. CT DOSE: 1254.99 mGy.cm Comparison: None available at the time of this dictation. FINDINGS: CT head: There is no acute intracranial hemorrhage or evidence of acute territorial infarction. No shift of the midline structures, mass effect, or extra-axial abnormalities are shown. Small thyroid nodules are seen which do not require follow-up by ACR criteria. CTA Neck: A 3 vessel aortic arch is shown. Retropharyngeal course of the bilateral common carotid arteries noted. The common carotid, external carotid, cervical segments of the internal carotid arteries, and the cervical segments of the vertebral arteries are patent without hemodynamically significant stenosis. The left vertebral artery is dominant. CTA Head: The anterior and posterior cerebral circulations are patent. origin of the right posterior cerebral artery is seen. IMPRESSION: 1. No acute intracranial hemorrhage, evidence of acute territorial infarction, or other acute intracranial disease process. 2. No occlusion, hemodynamically significant stenosis, or dissection in the major cervical arteries. 3. No occlusion, hemodynamically significant stenosis, aneurysm, dissection, or arteriovenous malformation in the major intracranial arteries. Assessment of stenosis of the internal carotid arteries is based on NASCET criteria. ACT 112: Negative or not required by law. Electronically signed by: Mina Sharpe M.D. 05/31/2022 9:20 PM Head CTA 05/31/22 18:57 CT angio head w con, CT head/brain wo con, CT angio neck with con CLINICAL HISTORY: Stroke Like Symptoms TECHNIQUE: Contiguous axial CT images of the head were acquired from the base of the skull to the vertex without intravenous contrast administration. CT angiography of the head and neck was performed following intravenous administration of iodinated contrast. Coronal and sagittal MIPS were obtained from the axial data set and were submitted for review. Automated dose lowering techniques and/or adjustment according to patient size were utilized for this examination. All measurements were calculated based on NASCET criteria. CT DOSE: 1254.99 mGy.cm Comparison: None available at the time of this dictation. FINDINGS: CT head: There is no acute intracranial hemorrhage or evidence of acute territorial infarction. No shift of the midline structures, mass effect, or extra-axial abnormalities are shown. Small thyroid nodules are seen which do not require follow-up by ACR criteria. CTA Neck: A 3 vessel aortic arch is shown. Retropharyngeal course of the bilateral common carotid arteries noted. The common carotid, external carotid, cervical segments of the internal carotid arteries, and the cervical segments of the vertebral arteries are patent without hemodynamically significant stenosis. The left vertebral artery is dominant. CTA Head: The anterior and posterior cerebral circulations are patent. origin of the right posterior cerebral artery is seen. IMPRESSION: 1. No acute intracranial hemorrhage, evidence of acute territorial infarction, or other acute intracranial disease process. 2. No occlusion, hemodynamically significant stenosis, or dissection in the major cervical arteries. 3. No occlusion, hemodynamically significant stenosis, aneurysm, dissection, or arteriovenous malformation in the major intracranial arteries. Assessment of stenosis of the internal carotid arteries is based on NASCET criteria. ACT 112: Negative or not required by law. Electronically signed by: Mina Sharpe M.D. 05/31/2022 9:20 PM Neck CTA 05/31/22 18:57 CT angio head w con, CT head/brain wo con, CT angio neck with con CLINICAL HISTORY: Stroke Like Symptoms TECHNIQUE: Contiguous axial CT images of the head were acquired from the base of the skull to the vertex without intravenous contrast administration. CT angiography of the head and neck was performed following intravenous administration of iodinated contrast. Coronal and sagittal MIPS were obtained from the axial data set and were submitted for review. Automated dose lowering techniques and/or adjustment according to patient size were utilized for this examination. All measurements were calculated based on NASCET criteria. CT DOSE: 1254.99 mGy.cm Comparison: None available at the time of this dictation. FINDINGS: CT head: There is no acute intracranial hemorrhage or evidence of acute territorial infarction. No shift of the midline structures, mass effect, or extra-axial abnormalities are shown. Small thyroid nodules are seen which do not require follow-up by ACR criteria. CTA Neck: A 3 vessel aortic arch is shown. Retropharyngeal course of the bilateral common carotid arteries noted. The common carotid, external carotid, cervical segments of the internal carotid arteries, and the cervical segments of the vertebral arteries are patent without hemodynamically significant stenosis. The left vertebral artery is dominant. CTA Head: The anterior and posterior cerebral circulations are patent. origin of the right posterior cerebral artery is seen. IMPRESSION: 1. No acute intracranial hemorrhage, evidence of acute territorial infarction, or other acute intracranial disease process. 2. No occlusion, hemodynamically significant stenosis, or dissection in the major cervical arteries. 3. No occlusion, hemodynamically significant stenosis, aneurysm, dissection, or arteriovenous malformation in the major intracranial arteries. Assessment of stenosis of the internal carotid arteries is based on NASCET criteria. ACT 112: Negative or not required by law. Electronically signed by: Mina Sharpe M.D. 05/31/2022 9:20 PM Supervising Physician Co-Signing Physician Notes IM ATTENDING : Patient seen and examined. History obtained from patient and records. Preceding documentation by Ms. Leonila Lund PA-C reviewed. FINAL ASSESSMENT AND PLAN as follows : TIA Left-sided weakness currently improving Past history CVA ? Aspirin failure (patient taking aspirin but missed 2 days of medication because of misplaced medication bottle) Rule out complicated migraine given headache complaints hypertension, elevated secondary to intracranial process Hyperlipidemia, statin noncompliance Anxiety/stress contributory DM2 diet controlled, well-controlled as of outpatient hemoglobin A1c of 5.9 last April 2022 past tobacco abuse Medical telemetry Neurochecks Add Plavix to patient's aspirin for secondary stroke prevention for possible aspirin failure Reinitiate statin Rx Permissive hypertension for now Analgesia, anxiolytic as needed MRI brain, TTE for stroke work-up Update lipid profile Neurology consult Re: TIA with headache symptoms, history of CVA ISS BG goal 1 10-1 40, carb count coverage DVT prophylaxis per Lovenox subcu Full code Text document was generated using [employer] voice recognition software. It may contain grammatical or spelling errors. Kindly contact undersigned for clarification of any documentation item in question. (1) Headache Headache chronicity pattern: acute headache Headache type: unspecified
--- NOTE | 2022-05-31 21:36 | Emergency Department Note ---
Impression & Plan Stroke-like symptoms, HTN (hypertension) ED Provider Note INFORMANT: Patient ED PROVIDER(S): Gildardo Montez MD CHIEF COMPLAINT: Strokelike symptoms PLAN: Disposition: Admitted Condition: Good Outpatient prescription management: None Referral: None MEDICAL DECISION MAKING: Patient presented because of strokelike symptoms. She was out of the thrombolytic window and given her history she was not made a stroke alert. The patient underwent a stroke evaluation given the symptoms. She was noted to be moderately hypertensive. She did have 1 measurement of 180/154 which did seem to be an accurate. I did recheck this and it was 159/109. The patient had findings on the left side of her face and extremities. She went through CT imaging and had negative CT and CT angiography testing performed. The patient had an unremarkable CBC and chemistry panel. Her ECG showed a normal sinus rhythm. Patient was given oral Tylenol as she complained of a chronic headache. She had significant improvement of symptoms but noted still having some sensation in the left side of her face on reassessment. The left-sided arm and leg weakness was improved. With her history and symptoms further management in the hospital was felt to be appropriate. Consultation was made with Dr. Denver Garcia, [facility] hospitalist service. Patient was evaluated in the ER for further management. Triage Nursing notes reviewed and agree them. Vital Signs: reviewed and remarkable for hypertension Differential diagnosis: CVA, TIA, hypertensive urgency, infection, dehydration, metabolic abnormality, hypo/hyperglycemia, electrolyte disturbance, anemia, hypoxia, cardiac sources, intracerebral event, toxicologic, neurologic, as well as other pathologies. Diagnostics interpreted by me: EC Lead ECG performed and revealed Normal sinus rhythm at 65, normal [place], QRS normal. No elevation or depression. No PACs or PVCs Cardiac Monitoring: Cardiac monitoring ordered by me: The patient was placed on continuous cardiac monitoring and observed. It revealed a normal sinus rhythm at 73 beats per minute without ectopy or evidence of dysrhythmia. Imaging studies: CT scans and chest x-ray as noted above HPI: The patient is a 52 year old female who presents to the Emergency Room with complaints of strokelike symptoms. This started on and off a few weeks ago, was present this morning when she woke up and is noted to be worsened around 1730 this evening. Family noted that patient was visibly stressed and then her symptoms seem to worsen. Patient felt stressed out about her son. She notes a history of stroke. The patient also notes the following associated symptoms, left arm and left leg weakness. The patient has taken no medication for relieving factors. Current pain is rated as 8/10. Pt denies LOC, fevers, chills, diaphoresis, visual changes, neck pain, chest pain, breathing difficulties, nausea, vomiting, abdominal pain, back pain, melena, hematochezia, urinary symptoms, lymphadenopathy, rash, or other complaints. ROS: See above HPI for pertinent positives & negatives. A total of 10 systems reviewed and were otherwise negative. PAST MEDICAL HISTORY:See Below , hypertension, stroke PAST SURGICAL HISTORY:See Below, FAMILY HISTORY:See Below SOCIAL HISTORY:See Below, smokes marijuana HOME MEDICATIONS:See Below ALLERGIES:See Below VITALS:See Below PHYSICAL EXAMINATION: GENERAL: Awake, alert, well-appearing, in no distress HENT: Normocephalic, atraumatic. Oropharynx unremarkable. EYES: Normal conjunctiva. Sclera non-icteric. PERRLA. EOMI. NECK: Inspection normal. Non-tender. Supple. No nuchal rigidity. FROM. No masses. RESPIRATORY: Clear to auscultation. No wheezes. No rales. Normal respiratory effort. CARDIAC: Normal rate. Normal rhythm. No murmurs. No rubs. Extremities warm and well perfused. Pulses equal. No JVD. GI: Soft, non-distended. No tenderness to palpation. No rebound or guarding. No masses. RECTAL: Deferred. MUSCULOSKELETAL: Atraumatic. Chest examination reveals no tenderness. The back is symmetrical on inspection without obvious abnormality. There is no CVA tenderness to palpation. No joint edema. LOWER EXTREMITIES: Calves are equal size bilaterally and non-tender. No edema. No discoloration. NEURO: Normal sensorium. Patient complains of decree sensation in the left side of the face. She also has weakness with mild drift in the left arm and left leg. Cranial nerves II through XII intact otherwise. Speech normal. No right- sided deficits noted. SKIN: No rash or jaundice noted. Gildardo Montez MD Past Med/Surg History Medical History (Updated 05/31/22 @ 21:35 by Gildardo Montez MD) Anxiety CVA (cerebral vascular accident) Depression with anxiety GERD (gastroesophageal reflux disease) HLD (hyperlipidemia) Hypertension Pre-diabetes Surgical History (Updated 01/16/22 @ 19:42 by Leonila Lund PA-C) History of tubal ligation Family History (Updated 01/16/22 @ 19:42 by Leonila Lund PA-C) Other No significant family history Social History (Updated 01/16/22 @ 19:43 by Leonila Lund PA-C) Smoking Status: Never smoker Hx Alcohol Use: No Hx Substance Use: Yes Prescribed Medications: Marijuana Last Used Substance: Unknown Preferred Language: Lao Communication Ability: Effective 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: No Beliefs That Will Affect Care: None marital status: Single Current Living Situation: Family current occupational status: unemployed Feels Safe at Home: Yes Assistive Devices: None Allergies Allergies Allergy/AdvReac Type Severity Reaction Status Date / Time No Known Allergies Allergy Verified 05/31/22 20:18 Home Meds Home Medications Medication Instructions Recorded Confirmed acetaminophen 500 mg tablet 1,000 mg PO Q6H PRN Fever Or Pain 04/08/21 05/31/22 (Tylenol Extra Strength) albuterol sulfate 2.5 mg/3 mL 2.5 mg inhalation Q4 PRN Wheezing 04/08/21 05/31/22 (0.083 %) solution for nebulization albuterol sulfate 90 mcg/actuation 2 puff inhalation QID PRN 04/08/21 05/31/22 aerosol inhaler Shortness Of Breath clonazepam 0.5 mg tablet 0.5 mg PO TID PRN Anxiety 04/08/21 05/31/22 fluticasone propionate 50 2 spray intranasal QAM 04/08/21 05/31/22 mcg/actuation nasal spray,suspension duloxetine 30 mg capsule,delayed 30 mg PO DAILY 01/16/22 05/31/22 release sprinkle duloxetine 60 mg capsule,delayed 60 mg PO DAILY 01/16/22 05/31/22 release sprinkle omeprazole 40 mg capsule,delayed 40 mg PO DAILYBB 01/16/22 05/31/22 release celecoxib 100 mg capsule 100 mg PO QAM 05/31/22 05/31/22 prazosin 1 mg capsule 1 mg PO HS 05/31/22 05/31/22 Previous Rx's Medication Instructions Recorded aspirin 81 mg tablet,delayed 81 mg PO QAM #30 tabs 04/10/21 release Results & Data (ED) Vital Signs Vital Signs - 24 hr 05/31/22 18:47 05/31/22 19:06 05/31/22 18:44 Pulse Rate 66 Pulse Rate [Right] 73 Pulse Rate from SpO2 Sensor Respiratory Rate 18 Respiratory Effort / Characteristics Non-Labored Respiratory Depth Normal Blood Pressure 188/101 H Blood Pressure [Left Arm] 180/154 H Blood Pressure Mean 130 Blood Pressure Mean [Left Arm] 162 Blood Pressure Position [Left Arm] Lying Pulse Oximetry 100 100 96 Oxygen Delivery Method Room Air Room Air Room Air Sepsis Recent Fever Within 48 Hours No Sepsis New/Unexplained Change in Mental Status No Sepsis Action Taken by Nursing No Action Required 05/31/22 19:03 05/31/22 19:10 05/31/22 19:18 Pulse Rate 75 75 78 Pulse Rate [Right] Pulse Rate from SpO2 Sensor 73 75 77 Respiratory Rate 20 16 21 Respiratory Effort / Characteristics Respiratory Depth Blood Pressure Blood Pressure [Left Arm] Blood Pressure Mean Blood Pressure Mean [Left Arm] Blood Pressure Position [Left Arm] Pulse Oximetry 100 99 96 Oxygen Delivery Method Sepsis Recent Fever Within 48 Hours Sepsis New/Unexplained Change in Mental Status Sepsis Action Taken by Nursing 05/31/22 19:18 05/31/22 19:20 Pulse Rate 73 Pulse Rate [Right] Pulse Rate from SpO2 Sensor 72 Respiratory Rate 14 Respiratory Effort / Characteristics Respiratory Depth Blood Pressure 180/154 H Blood Pressure [Left Arm] Blood Pressure Mean 162 Blood Pressure Mean [Left Arm] Blood Pressure Position [Left Arm] Pulse Oximetry 99 Oxygen Delivery Method Sepsis Recent Fever Within 48 Hours Sepsis New/Unexplained Change in Mental Status Sepsis Action Taken by Nursing Laboratory Data Result diagrams: 05/31/22 19:19 05/31/22 19:19 Lab Results 05/31/22 05/31/22 05/31/22 Range/Units 18:56 19:19 19:19 WBC 4.77 L (4.8-10.8) K/ul RBC 4.52 (3.93-5.22) M/uL Hgb 13.6 (12.0-16.0) g/dl Hct 40.5 (34.1-44.9) % MCV 89.6 (80.0-100.0) fL MCH 30.1 (25.0-34.0) pg MCHC 33.6 (32.0-36.0) g/dL RDW Std Deviation 42.4 (36.4-46.3) fL RDW Coeff of Magdiel 12.7 (11.5-14.5) % Plt Count 228 (130-400) K/uL MPV 10.4 (9.4-12.3) fL Immature Gran % (Auto) 0.2 % Neut % (Auto) 43.2 % Lymph % (Auto) 45.9 % Whitman % (Auto) 8.4 % Eos % (Auto) 1.9 % Baso % (Auto) 0.4 % Neut # (Auto) 2.06 (1.4-6.5) K/uL Lymph # (Auto) 2.19 (1.2-3.4) K/uL Whitman # (Auto) 0.40 (0.24-0.82) K/uL Eos # (Auto) 0.09 (0-0.50) K/uL Baso # (Auto) 0.02 (0-0.2) K/uL Immature Gran # (Auto) 0.01 (0.00-0.02) K/uL PT (9.0-12.0) Seconds INR (0.9-1.1) APTT (21.0-31.0) Seconds PTT Ratio Sodium (136-145) mmol/L Potassium (3.5-5.1) mmol/L Chloride (98-107) mmol/L Carbon Dioxide (21-32) mmol/L Anion Gap (3-11) BUN (6-23) mg/dl Creatinine (0.6-1.2) mg/dl Est Cr Clr Drug Dosing ml/min Est GFR ( Amer) ml/min Est GFR (Non-Af Amer) ml/min BUN/Creatinine Ratio (10-20) Glucose (70-99(Fasting)) mg/dl POC Glucose 90 (70-99) mg/dl Calcium (8.5-10.1) mg/dl Magnesium (1.7-2.4) mg/dl Total Bilirubin (0.2-1.0) mg/dl AST (13-39) U/L ALT (7-52) U/L Alkaline Phosphatase (34-104) U/L Troponin I High Sens (0-14) pg/ml Total Protein (6.0-8.3) gm/dl Albumin (3.4-5.0) gm/dl Globulin (2.5-4.0) gm/dl Albumin/Globulin Ratio (0.9-2) Urine Color Urine Appearance (Clear) Urine pH (4.5-7.5) Ur Specific [place] (1.000-1.030) Urine Protein (Negative) Urine Glucose (UA) (Negative) Urine Ketones (Negative) Urine Blood (Negative) Urine Nitrite (Negative) Urine Bilirubin (Negative) Urine Urobilinogen (Negative) Ur Leukocyte Esterase (Negative) Blood Type A Positive Antibody Screen NEGATIVE 05/31/22 05/31/22 05/31/22 Range/Units 19:19 19:19 21:05 WBC (4.8-10.8) K/ul RBC (3.93-5.22) M/uL Hgb (12.0-16.0) g/dl Hct (34.1-44.9) % MCV (80.0-100.0) fL MCH (25.0-34.0) pg MCHC (32.0-36.0) g/dL RDW Std Deviation (36.4-46.3) fL RDW Coeff of Magdiel (11.5-14.5) % Plt Count (130-400) K/uL MPV (9.4-12.3) fL Immature Gran % (Auto) % Neut % (Auto) % Lymph % (Auto) % Whitman % (Auto) % Eos % (Auto) % Baso % (Auto) % Neut # (Auto) (1.4-6.5) K/uL Lymph # (Auto) (1.2-3.4) K/uL Whitman # (Auto) (0.24-0.82) K/uL Eos # (Auto) (0-0.50) K/uL Baso # (Auto) (0-0.2) K/uL Immature Gran # (Auto) (0.00-0.02) K/uL PT 10.4 (9.0-12.0) Seconds INR 1.0 (0.9-1.1) APTT 27.0 (21.0-31.0) Seconds PTT Ratio 1.0 Sodium 141 (136-145) mmol/L Potassium 3.8 (3.5-5.1) mmol/L Chloride 108 H (98-107) mmol/L Carbon Dioxide 28 (21-32) mmol/L Anion Gap 5 (3-11) BUN 15 (6-23) mg/dl Creatinine 0.67 (0.6-1.2) mg/dl Est Cr Clr Drug Dosing 101.8 ml/min Est GFR ( Amer) 116.3 ml/min Est GFR (Non-Af Amer) 100.4 ml/min BUN/Creatinine Ratio 22.4 H (10-20) Glucose 86 (70-99(Fasting)) mg/dl POC Glucose (70-99) mg/dl Calcium 9.1 (8.5-10.1) mg/dl Magnesium 2.2 (1.7-2.4) mg/dl Total Bilirubin 0.4 (0.2-1.0) mg/dl AST 18 (13-39) U/L ALT 18 (7-52) U/L Alkaline Phosphatase 75 (34-104) U/L Troponin I High Sens 4.8 (0-14) pg/ml Total Protein 7.1 (6.0-8.3) gm/dl Albumin 4.1 (3.4-5.0) gm/dl Globulin 3.0 (2.5-4.0) gm/dl Albumin/Globulin Ratio 1.4 (0.9-2) Urine Color Yellow Urine Appearance Clear (Clear) Urine pH 7.0 (4.5-7.5) Ur Specific [place] 1.041 H (1.000-1.030) Urine Protein Negative (Negative) Urine Glucose (UA) Negative (Negative) Urine Ketones Negative (Negative) Urine Blood Negative (Negative) Urine Nitrite Negative (Negative) Urine Bilirubin Negative (Negative) Urine Urobilinogen Negative (Negative) Ur Leukocyte Esterase Negative (Negative) Blood Type Antibody Screen Administered Medications Sodium Chloride (Nss 1000ml) 1,000 mls @ 50 mls/hr IV .Q20H STEVE Stop: 06/30/22 18:59 Last Admin: 05/31/22 19:09 Dose: 50 mls/hr Documented By: LITTLE Discontinued Medications Acetaminophen (Acetaminophen 500 Mg Tab) 1,000 mg PO NOW STA Stop: 05/31/22 20:34 Last Admin: 05/31/22 20:59 Dose: 1,000 mg Documented By: LITTLE Ioversol (Optiray 320 500ml) 122 ml IV ONCE ONE Stop: 05/31/22 20:51 Last Admin: 05/31/22 20:50 Dose: 122 ml Documented By: NILSA Imaging Data Radiologist's Impression: Chest X-Ray 05/31/22 18:57 XR chest 1V portable CLINICAL HISTORY: Stroke Like Symptoms TECHNIQUE: Single frontal radiograph of the chest was obtained. Comparison: Comparison is made to chest radiograph 08/02/2017 FINDINGS: No lines and tubes are seen. The cardiomediastinal silhouette is normal. The lungs are clear. No evidence of pleural effusion or pneumothorax. IMPRESSION: No acute chest disease. ACT 112: Negative or not required by law. Electronically signed by: Mina Sharpe M.D. 05/31/2022 7:[address] 05/31/22 18:57 CT angio head w con, CT head/brain wo con, CT angio neck with con CLINICAL HISTORY: Stroke Like Symptoms TECHNIQUE: Contiguous axial CT images of the head were acquired from the base of the skull to the vertex without intravenous contrast administration. CT angiography of the head and neck was performed following intravenous administration of iodinated contrast. Coronal and sagittal MIPS were obtained from the axial data set and were submitted for review. Automated dose lowering techniques and/or adjustment according to patient size were utilized for this examination. All measurements were calculated based on NASCET criteria. CT DOSE: 1254.99 mGy.cm Comparison: None available at the time of this dictation. FINDINGS: CT head: There is no acute intracranial hemorrhage or evidence of acute territorial infarction. No shift of the midline structures, mass effect, or extra-axial abnormalities are shown. Small thyroid nodules are seen which do not require follow-up by ACR criteria. CTA Neck: A 3 vessel aortic arch is shown. Retropharyngeal course of the bilateral common carotid arteries noted. The common carotid, external carotid, cervical segments of the internal carotid arteries, and the cervical segments of the vertebral arteries are patent without hemodynamically significant stenosis. The left vertebral artery is dominant. CTA Head: The anterior and posterior cerebral circulations are patent. origin of the right posterior cerebral artery is seen. IMPRESSION: 1. No acute intracranial hemorrhage, evidence of acute territorial infarction, or other acute intracranial disease process. 2. No occlusion, hemodynamically significant stenosis, or dissection in the major cervical arteries. 3. No occlusion, hemodynamically significant stenosis, aneurysm, dissection, or arteriovenous malformation in the major intracranial arteries. Assessment of stenosis of the internal carotid arteries is based on NASCET criteria. ACT 112: Negative or not required by law. Electronically signed by: Mina Sharpe M.D. 05/31/2022 9:20 PM Head CTA 05/31/22 18:57 CT angio head w con, CT head/brain wo con, CT angio neck with con CLINICAL HISTORY: Stroke Like Symptoms TECHNIQUE: Contiguous axial CT images of the head were acquired from the base of the skull to the vertex without intravenous contrast administration. CT angiography of the head and neck was performed following intravenous administration of iodinated contrast. Coronal and sagittal MIPS were obtained from the axial data set and were submitted for review. Automated dose lowering techniques and/or adjustment according to patient size were utilized for this examination. All measurements were calculated based on NASCET criteria. CT DOSE: 1254.99 mGy.cm Comparison: None available at the time of this dictation. FINDINGS: CT head: There is no acute intracranial hemorrhage or evidence of acute territorial infarction. No shift of the midline structures, mass effect, or extra-axial abnormalities are shown. Small thyroid nodules are seen which do not require follow-up by ACR criteria. CTA Neck: A 3 vessel aortic arch is shown. Retropharyngeal course of the bilateral common carotid arteries noted. The common carotid, external carotid, cervical segments of the internal carotid arteries, and the cervical segments of the vertebral arteries are patent without hemodynamically significant stenosis. The left vertebral artery is dominant. CTA Head: The anterior and posterior cerebral circulations are patent. origin of the right posterior cerebral artery is seen. IMPRESSION: 1. No acute intracranial hemorrhage, evidence of acute territorial infarction, or other acute intracranial disease process. 2. No occlusion, hemodynamically significant stenosis, or dissection in the major cervical arteries. 3. No occlusion, hemodynamically significant stenosis, aneurysm, dissection, or arteriovenous malformation in the major intracranial arteries. Assessment of stenosis of the internal carotid arteries is based on NASCET criteria. ACT 112: Negative or not required by law. Electronically signed by: Mina Sharpe M.D. 05/31/2022 9:20 PM Neck CTA 05/31/22 18:57 CT angio head w con, CT head/brain wo con, CT angio neck with con CLINICAL HISTORY: Stroke Like Symptoms TECHNIQUE: Contiguous axial CT images of the head were acquired from the base of the skull to the vertex without intravenous contrast administration. CT angiography of the head and neck was performed following intravenous admin istration of iodinated contrast. Coronal and sagittal MIPS were obtained from the axial data set and were submitted for review. Automated dose lowering techniques and/or adjustment according to patient size were utilized for this examination. All measurements were calculated based on NASCET criteria. CT DOSE: 1254.99 mGy.cm Comparison: None available at the time of this dictation. FINDINGS: CT head: There is no acute intracranial hemorrhage or evidence of acute territorial infarction. No shift of the midline structures, mass effect, or extra-axial abnormalities are shown. Small thyroid nodules are seen which do not require follow-up by ACR criteria. CTA Neck: A 3 vessel aortic arch is shown. Retropharyngeal course of the bilateral common carotid arteries noted. The common carotid, external carotid, cervical segments of the internal carotid arteries, and the cervical segments of the vertebral arteries are patent without hemodynamically significant stenosis. The left vertebral artery is dominant. CTA Head: The anterior and posterior cerebral circulations are patent. origin of the right posterior cerebral artery is seen. IMPRESSION: 1. No acute intracranial hemorrhage, evidence of acute territorial infarction, or other acute intracranial disease process. 2. No occlusion, hemodynamically significant stenosis, or dissection in the cornelius or cervical arteries. 3. No occlusion, hemodynamically significant stenosis, aneurysm, dissection, or arteriovenous malformation in the major intracranial arteries. Assessment of stenosis of the internal carotid arteries is based on NASCET criteria. ACT 112: Negative or not required by law. Electronically signed by: Mina Sharpe M.D. 05/31/2022 9:20 PM Discharge Plan Visit Data Chief Complaint: Stroke/CVA Symptoms Stated Complaint: WEAKNESS IN FACE, PREVIOUS STROKE ED Provider: Gildardo Montez Discharge Problem: Stroke-like symptoms, HTN (hypertension) Forms Stand Alone Forms: [facility] Prescriptions Prescriptions: No Action albuterol sulfate 2.5 mg /3 mL (0.083 %) solution for nebulization 2.5 mg inhalation Q4 PRN (Reason: Wheezing) clonazepam 0.5 mg tablet 0.5 mg PO TID PRN (Reason: Anxiety) acetaminophen [Tylenol Extra Strength] 500 mg Tablet 1,000 mg PO Q6H PRN (Reason: Fever Or Pain) albuterol sulfate 90 mcg/actuation HFA aerosol inhaler 2 puff INHALATION QID PRN (Reason: Shortness Of Breath) fluticasone propionate 50 mcg/actuation spray,suspension 2 spray INTRANASAL QAM aspirin 81 mg Tablet,Delayed Release (Dr/Ec) 81 mg PO QAM Qty: 30 0RF Rx Instructions: Take one tablet by mouth daily omeprazole 40 mg Capsule,Delayed Release(Dr/Ec) 40 mg PO DAILYBB duloxetine 30 mg Capsule, Delayed Rel Sprinkle 30 mg PO DAILY Rx Instructions: TOTAL DOSE 90 MG--TAKES WITH 60 MG CAP. duloxetine 60 mg Capsule, Delayed Rel Sprinkle 60 mg PO DAILY Rx Instructions: TOTAL DOSE 90 MG--TAKES WITH 30 MG CAP. prazosin 1 mg Capsule 1 mg PO HS celecoxib 100 mg Capsule 100 mg PO QAM Referrals Referrals: Brad Dsouza MD [Primary Care Provider] -
[2022-05-31] MEDS ORDERED: oxyCODONE HCL IR 5 MG TAB (IMMEDIATE RELEASE) PO STA (22:36)
[2022-05-31] MEDS ORDERED: CLOPIDOGREL BISULFATE 300 MG TAB PO STA (23:17)
[2022-06-01] MEDS ORDERED: CARBOHYDRATES FOR HYPOGLYCEMIA PO PRN (00:55)
[2022-06-01] MEDS ORDERED: oxyCODONE HCL IR 5 MG TAB (IMMEDIATE RELEASE) PO PRN (00:55)
[2022-06-01] MEDS ORDERED: GLUCAGON FOR INJ 1 MG VIAL SQ PRN (00:55)
[2022-06-01] MEDS ORDERED: clonazePAM 0.5 MG TAB PO PRN (00:55)
[2022-06-01] MEDS ORDERED: DEXTROSE 50% 50 ML SYRINGE IV PRN (00:55)
[2022-06-01] MEDS ORDERED: PROMETHAZINE HCL 12.5 MG in SODIUM CHLORIDE 0.9% 50 ML IV PRN (00:55)
[2022-06-01] MEDS ORDERED: GLUCOSE 40% GEL 15 GM TUBE PO PRN (00:55)
[2022-06-01] MEDS ORDERED: GLUCOSE 10 TAB/TUBE PO PRN (00:55)
[2022-06-01] MEDS: INSULIN ASPART PER UNIT SC SCH ×3 (01:38→12:46)
[2022-06-01 01:50] LABS: Amphetamines+Metham, Urine Neg (Neg); Barbiturates, Urine Neg (Neg); Benzodiazepine, Urine Neg (Neg); Cocaine, Urine Neg (Neg); MDMA (Ecstacy), Urine Neg (Neg); Methadone, Urine Neg (Neg); Opiate, Urine Pos (Neg); Phencyclidine, Urine Neg (Neg)
[2022-06-01] MEDS ORDERED: PANTOprazole 40 MG TAB PO SCH (06:30)
[2022-06-01 08:02] LABS: Basophils # (auto) 0.02 K/uL (0-0.2); Basophils % (auto) 0.5 %; Eosinophils # (auto) 0.07 K/uL (0-0.50); Eosinophils % (auto) 1.9 %; Hematocrit (blood only) 40.3 % (34.1-44.9); Hemoglobin 13.6 g/dl (12.0-16.0); Immature Granulocytes # (auto) 0.02 K/uL (0.00-0.02); Immature Granulocytes % (auto) 0.5 %; Lymphocytes # (auto) 1.56 K/uL (1.2-3.4); Lymphocytes % (auto) 42.5 %; Mean Corpuscular Hgb Conc 33.7 g/dL (32.0-36.0); Mean Platelet Volume 9.8 fL (9.4-12.3); Monocytes # (auto) 0.36 K/uL (0.24-0.82); Monocytes % (auto) 9.8 %; Neutrophils # (auto) 1.64 K/uL (1.4-6.5); Neutrophils % (auto) 44.8 %; Platelet Count 196 K/uL (130-400); RDW Coefficient of Variation 12.6 % (11.5-14.5); RDW Standard Deviation 41.6 fL (36.4-46.3); Red Blood Count 4.53 M/uL (3.93-5.22); White Blood Count 3.67 K/ul (4.8-10.8)
[2022-06-01 08:49] LABS: BUN Creatinine Ratio 23.1 (10-20); Calcium 8.7 mg/dl (8.5-10.1); Chol HDL Ratio 3.8 (0-5); Creatinine Clr Calc Pharmacy 130.7 ml/min; Est GFR (African American) 126.4 ml/min; Est GFR (Non-African American) 109.1 ml/min; Potassium 3.7 mmol/L (3.5-5.1)
[2022-06-01] MEDS ORDERED: ASPIRIN 81 MG ECTAB PO SCH (09:00)
[2022-06-01] MEDS ORDERED: ENOXAPARIN INJ 40 MG/0.4 ML SYR SQ SCH (09:00)
[2022-06-01] MEDS ORDERED: DULoxetine HCL 30 MG CAP PO SCH (09:00)
[2022-06-01] MEDS ORDERED: FLUTICASONE PROPIONATE NA SPR 16 GM BTL SCH (09:00)
[2022-06-01] MEDS ORDERED: DULoxetine HCL 60 MG CAP PO SCH (09:00)
[2022-06-01] MEDS ORDERED: ATORVASTATIN 40 MG TAB PO SCH (09:00)
[2022-06-01] MEDS ORDERED: CLOPIDOGREL BISULFATE 75 MG TAB PO SCH (09:00)
--- NOTE | 2022-06-01 09:49 | Neurology Consultation ---
Date of Consultation June 01, 2022 Assessment & Plan (1) Stroke-like symptoms: (2) History of CVA (cerebrovascular accident): Plan Possible recurrent right hemispheric ischemic infarct presenting with intermittent left-sided numbness and weakness over the past week with a more pe rsistent episode occurring yesterday. Patient does have evidence of left-sided weakness and sensory loss on examination today although the symptoms may be chronic and related to her previous stroke that occurred in March 2021. She will need a brain MRI to further assess for possible acute infarct. She has been noncompliant with daily low-dose aspirin. Stroke risk factors for this patient include borderline diabetes mellitus, hyperlipidemia, and hypertension. Patient's daily low-dose aspirin has been restarted, clopidogrel has been added, I agree with this medication combination. Would continue with dual antiplatelet therapy for the next 3 weeks, followed by transition to aspirin monotherapy as recurrent strokelike episodes occurs in the context of noncompliance with aspirin. Atorvastatin has been added as well, I agree with the addition of this medication as well. For acute stroke management would recommend systolic blood pressure be maintained between 140 to 160 mmHg, permissive hypertension. Patient will likely need to have an antihypertensive medication restarted prior to discharge. Will need ongoing follow-up with her PCP for continual management of cardiovascular risk factors after discharge. Again, follow-up with results of brain MRI. Medication recommendations as above. Also, patient may benefit from some additional outpatient assessments. She may have a right carpal tunnel syndrome and may need a right upper extremity EMG/NCS completed. She also endorses a history of fatigue and snoring and may have sleep apnea. She may benefit from a formal sleep medicine consultation for possible sleep apnea. No further immediate neurological recommendations. She has seen the [facility] neurology practice previously and may follow-up with them for ongoing neurologic management as well. History of Present Illness Reason for Consultation: The patient is a 52-year-old female who presented to the emergency department yesterday with a chief complaint of intermittent left-sided numbness and weakness occurring over the past few weeks, typically lasting only a few minutes, perhaps only a few episodes, but with a more persistent episode occurring just prior to her current hospitalization. She had noted the symptoms prior to going to bed, they were still present upon awakening. She complains of significant stressors at home related to her job and several teenage children who live with her. She has a history of a multifocal ischemic right frontal lobe infarct occurring in March 2021 as demonstrated on MRI at [facility] at that time. Stroke risk factors of this patient include hyperlipidemia, hypertension, diabetes/prediabetic condition. She reports lo sing a significant amount of weight and has been able to control her diabetes with diet/lifestyle modification. I see that she was admitted to the [facility] this past December for similar strokelike symptoms, numbness, tingling, left hand, associated with headache at that time. She has been following with the [facility] neurology group and did see Karis Chisholm during her hospitalization on January 17, 2022. A brain MRI at that time was negative for acute infarct. CT angiography of the head and neck at that time was unremarkable as well. She was to continue with daily low-dose aspirin, optimize other cardiovascular risk factors such as hypertension, hyperlipidemia, diabetes. There was some discussion as to whether or not her symptoms could be related to complicated migraine. In the context of her current hospitalization, a CT of the head including CT angiogram of the head and neck completed yesterday were unremarkable, no hemorrhage or acute process, no vascular lesion identifie d. I did independently review these images as well as her previous brain MRI from March 2021 demonstrating the acute right frontal infarcts at that time. A brain MRI has not been completed during her current admission. An electrocardiogram has revealed a normal sinus rhythm. The patient does admit that she has not been compliant with daily low-dose aspirin citing significant stressors, has not purchased [id number] daily low-dose aspirin recently. She does remark that she has chronic left-sided numbness and weakness which she relates to her previous stroke that occurred in March 2021. 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 She also complains of chronic fatigue, snoring, does not believe she has been tested for sleep apnea previously. Also complains of numbness and tingling affecting the right hand and wrist which frequently interferes with sleep. Attending Physician: Charlie Jefferson MD Allergies Allergy/AdvReac Type Severity Reaction Status Date / Time No Known Allergies Allergy Verified 05/31/22 20:18 Home Medications Medication Instructions Recorded Confirmed Type acetaminophen 500 mg tablet 1,000 mg PO Q6H PRN Fever Or Pain 04/08/21 05/31/22 History (Tylenol Extra Strength) albuterol sulfate 2.5 mg/3 mL 2.5 mg inhalation Q4 PRN Wheezing 04/08/21 05/31/22 History (0.083 %) solution for nebulization albuterol sulfate 90 mcg/actuation 2 puff inhalation QID PRN 04/08/21 05/31/22 History aerosol inhaler Shortness Of Breath clonazepam 0.5 mg tablet 0.5 mg PO TID PRN Anxiety 04/08/21 05/31/22 History fluticasone propionate 50 2 spray intranasal QAM 04/08/21 05/31/22 History mcg/actuation nasal spray,suspension aspirin 81 mg tablet,delayed 81 mg PO QAM #30 tabs 04/10/21 05/31/22 Rx release duloxetine 30 mg capsule,delayed 30 mg PO DAILY 01/16/22 05/31/22 History release sprinkle duloxetine 60 mg capsule,delayed 60 mg PO DAILY 01/16/22 05/31/22 History release sprinkle omeprazole 40 mg capsule,delayed 40 mg PO DAILYBB 01/16/22 05/31/22 History release celecoxib 100 mg capsule 100 mg PO QAM 05/31/22 05/31/22 History prazosin 1 mg capsule 1 mg PO HS 05/31/22 05/31/22 History Patient History Medical History Anxiety CVA (cerebral vascular accident) Depression with anxiety GERD (gastroesophageal reflux disease) HLD (hyperlipidemia) Hypertension Pre-diabetes Surgical History History of tubal ligation Family History Other No significant family history Social History Smoking Status: Former smoker Hx Alcohol Use: Yes Alcohol type: beer, wine and hard liquor Hx Substance Use: Yes Prescribed Medications: Marijuana Last Used Substance: Unknown Preferred Language: Kazakh Communication Ability: Effective Building Mechanic Required: No Beliefs That Will Affect Care: None marital status: Single Current Living Situation: Family Current Living Situation Comment: Adult children live with her current occupational status: unemployed Feels Safe at Home: Yes Assistive Devices: Glasses Review of Systems Review of Systems: All systems reviewed & are unremarkable except as noted in Subjective Exam (Neuro) Constitutional: well developed and well nourished Eyes: normal visual garces by confrontation, PERRL and EOM intact bilaterally; no fundoscopic abnormality and no papilledema Cardiovascular: Vessels: no carotid bruit and + abnormal carotid upstroke Neurologic: Oriented to:: Person, Place and Time Memory: Short Term Intact and Remote Intact Attention: Span Intact and Concentration Intact Speech Fluency: negative Dysarthria or Dysfluency Fund of Knowledge: Current Events, Past History and Vocabulary Cranial Nerves: Normal II, III, IV, , VII, VIII, IX, X, XI and XII; Abnorm V (Decreased facial sensation for the left) Motor Strength: Hemiparesis (Mild) Laterality: Left; negative Normal Lower Extremities or Normal Upper Extremities Motor Tone: Normal Lower Extremities and Normal Upper Extremities Muscle Bulk/Involuntary Movements: No Involuntary Movements; negative Muscle Atrophy Sensation: Proprioception Intact; negative Light Touch Intact, Pain/Temperature Intact or Vibration Intact Coordination: Limited Balance, Finger-Nose Abnormal Laterality: Left and Heel-Irizarry Abnormal Laterality: Left Deep Tendon Reflexes: Rt Triceps: 2+, Lt Triceps: 3+, Rt Biceps: 2+, Lt Biceps: 3+, Rt Brachioradialis: 2+, Lt Brachioradialis: 3+, Rt Patellar: 2+, Lt Patellar: 3+, Rt Ankle: 1+ and Lt Ankle: 2+ Gait: Normal Station and Gait Details: Patient exhibits a mild to moderate left hemisensory deficit as well is a very mild left hemiparesis with poor movement initiation of the left arm and leg. She has not been facial droop. She exhibits mild dysmetria [id number] and [id number] on the left as well. She is relatively hyperreflexive for the left arm and leg. Results & Data ([facility]) Vital Signs (Past 12 Hours) Vital Signs Temp Pulse Pulse Resp BP BP BP 06/01/22 08:24 36.4 C L 60 18 165/113 H 161/100 H 06/01/22 03:59 36.7 C 67 20 146/91 H 06/01/22 04:06 64 06/01/22 00:15 36.4 C L 64 18 150/96 H 06/01/22 00:03 05/31/22 23:20 67 20 154/102 H 05/31/22 22:50 68 26 H 05/31/22 22:40 53 L 28 H 05/31/22 22:30 49 L 29 H 05/31/22 22:20 54 L 29 H 05/31/22 22:16 48 L 28 H 05/31/22 22:00 65 18 167/116 H 05/31/22 22:44 05/31/22 21:50 70 17 05/31/22 21:45 69 20 05/31/22 21:45 175/116 H 05/31/22 21:40 71 25 H Pulse Ox O2 Del Method 06/01/22 08:24 99 Room Air 06/01/22 03:59 95 Room Air 06/01/22 04:06 06/01/22 00:15 95 Room Air 06/01/22 00:03 Room Air 05/31/22 23:20 96 Room Air 05/31/22 22:50 96 05/31/22 22:40 97 05/31/22 22:30 96 05/31/22 22:20 98 05/31/22 22:16 97 05/31/22 22:00 95 05/31/22 22:44 Room Air 05/31/22 21:50 95 05/31/22 21:45 96 05/31/22 21:45 05/31/22 21:40 96 Laboratory Results WBC 3.67, hemoglobin 13.6, hematocrit 40.3, platelet count 196, sodium 139, potassium 3.7, BUN 12, creatinine 0.52, glucose 88, calcium 8.7, AST 18, ALT 18, triglycerides 134, cholesterol 256, LDL 162, VLDL 27, HDL [address] of the head including CT angiography of the head and neck are as described above. Previous brain MRI is as described above as well. ECG reveals a normal sinus rhythm, 65 bpm. Coding Level of Care Code 43622 Initial Inpt Care Lvl 3 Diagnoses Stroke-like symptoms R29.90 History of CVA (cerebrovascular accident) Z86.73
[2022-06-01] MEDS ORDERED: ACETAMINOPHEN 325 MG TAB PO PRN (10:34)
--- NOTE | 2022-06-01 12:32 | Magnetic Resonance Report ---
MRI OF THE BRAIN WITHOUT IV CONTRAST CLINICAL HISTORY: Transient ischemic attack. Chronic headaches. COMPARISON STUDY: CT of the brain dated 05/31/2022. MRI of the brain dated 01/16/2022. TECHNIQUE: MRI of the brain was performed utilizing various T1 and T2-weighted sequences in the axial , sagittal, and coronal planes. IV contrast was not administered for this examination. FINDINGS: Brain parenchyma: The tiny chronic right frontal lobe infarct is unchanged. Minimal microangiopathic change is also similar to previous. The brain parenchyma is otherwise normal in appearance. There is no hemorrhage or mass effect. There is no restricted diffusion to suggest acute ischemia. Robert-white matter differentiation is preserved. No extra-axial fluid collection is seen. The cerebellar tonsils are normal in configuration. Ventricles, sulci, and cisterns: Normal in configuration. Pituitary and sella: Unremarkable. Intracranial vasculature: Normal flow voids are maintained at the skull base. Orbits: The bony orbits are grossly intact. Orbital contents are normal in appearance. Sinuses and mastoids: There is mild mucosal thickening within the left ethmoid sinuses. The remaining paranasal sinuses and the mastoid air cells are clear. Calvarium: Unremarkable. Cervical cord: Partially visualized cervical spinal cord is normal in morphology and signal intensity . IMPRESSION: No acute intracranial abnormality is identified. ACT 112: Negative or not required by law. Electronically signed by: Riky Velasco M.D. 06/01/2022 12:30 PM
--- NOTE | 2022-06-01 14:34 | Electrocardiogram Report ---
Test Reason : Blood Pressure : / mmHG Vent. Rate : 065 BPM Atrial Rate : 065 BPM P-R Int : 162 ms QRS Dur : 072 ms QT Int : 376 ms P-R-T Axes : 058 022 068 degrees QTc Int : 391 ms Normal sinus rhythm Normal ECG When compared with ECG of 16-JAN-2022 16:37, No significant change was found Confirmed by Donaldo Swenson ([id number]) on 06/01/2022 2:33:42 PM Referred By: REFERRED SELF Confirmed By:Donaldo Swenson
[2022-06-01] MEDS ORDERED: hydroCHLOROthiazide 25 MG TAB PO SCH (14:50)
--- NOTE | 2022-06-01 15:11 | Discharge Summary ---
Date of Service June 01, 2022 Admission HPI Per Admitting Provider Patient is 51 y/o F with PMH TIA, CVA, HTN, prediabetes, reactive airway disease, GERD, depression with anxiety presented to ER with complaint ofleft sided weakness. History obtained from patient, patient's son and chart review. Reported occipital and top of head headache for past week. Patient states has "felt off" all week and is vague with further description. Son attempts to help with further history. He states has noticed patient sleeping more than usual and patient does admit to more fatigue recently. Has chronic intermittent tingling sensation to left fingers for past year. H/O CVA ini 03/2021 and was on dual antiplatelet therapy for 21 days. History hospitalization 01/16/2022-01/17/2022 left facial tingling. Stroke work-up was negative for acute CVA, neurology consult suspected complex migraine. Patient admits to not taking her aspirin and is unsure when she last took it because she thinks she lost the bottle. Patient son states over the past couple of days family has noticed some intermittent slight left facial drooping. He states he talked her on the phone this morning around 10 AM and patient sounded like had a little bit of slurred speech however he thought it was secondary to patient just getting awake. He reports today patient and patient's son had an argument around 4 PM. Patient reports after argument she felt very anxious and felt very tired and just wanted to lay down. Family reports approximately 5-5:30pm today noticed some mild left facial drooping and patient seemed weaker on left side. Patient states left side of face with decreased sensation. It is unclear if this is acute or chronic symptom. Patient reports chronic blurry vision, not improved with wearing her glasses. Denies vision loss or diplopia. Patient reports some photophobia. She reports intermittent nausea which she relates to menopause symptoms. Denies fever/chills, diaphoresis, V/D/C, dizziness, syncope, vision changes, neck pain, CP, SOB, orthopnea, palpitations, cough, sore throat, chok ing, otalgia, rhinorrhea, abdominal pain, extremity edema, rashes, urinary symptoms. Admission Exam Per Admitting Provider General: no distress, overweight Head: normocephalic, atraumatic Eyes: PERRL, EOM's intact, conjunctiva non-injected, anicteric ENT: normal inspection external ears, nose, mucous membranes moist Neck: supple, trachea midline Lungs: clear, no respiratory distress, no wheezing/rhonchi/rales CV: RRR, no murmur, no pretibial edema Abd: normal BS, soft, non-tender Ext: no cyanosis, no calf tenderness Neuro: A&O x 3, flat affect. visual garces intact. EOMs intact. No nystagmus. facial sensation is reported to be decreased on left cheek, face is strong and symmetric, hearing grossly intact, soft palate elevates symmetrically, no dysarthria, shoulder shrug intact, tongue is midline, normal movement, no fasciculations. Muscle tone normal. Poor effort by pt for strength testing, appears that left arm and left leg weaker than right arm and leg Skin: warm, dry Principal Diagnosis TIA Hypertension Prediabetes Medication noncompliance, has not been taking aspirin prior to arrival Discharge Exam GENERAL: Alert and oriented x3. NAD, on RA. HEENT: No pallor, no icterus. Pupils equal, round and reactive to light. Oral mucosa moist. NECK: No JVD, no neck masses. HEART: S1 and S2 heard. Regular rate and rhythm. No murmur, no gallop. RESPIRATORY SYSTEM: Normal AP diameter. No accessory muscle use. No wheezing, no crackles. ABDOMEN: Soft, bowel sounds present, nontender, no distention. CENTRAL NERVOUS SYSTEM: No facial droop. Speech is clear. Obeys simple commands. Moves extremities. LLE 4/5 EXTREMITIES: No edema, no erythema seen. Discharge Data Allergies Allergy/AdvReac Type Severity Reaction Status Date / Time No Known Allergies Allergy Verified 05/31/22 20:18 Consultations 05/31/22 21:36 ED Decision to Admit Stat 06/01/22 00:55 Consult Neurology Routine Ordered Studies 05/31/22 18:57 CT angio head w con Stat CT angio neck with con Stat CT head/brain wo con Stat 06/01/22 00:55 MR brain wo con Routine Hospital Course (1) Stroke-like symptoms: (2) History of CVA (cerebrovascular accident): Plan 52-year-old lady presented with left extremity weakness and decreased sensation on left face and possible left facial droop per family. In the ED patient was hypertensive, CT head and CTA head and neck were unremarkable. Neurology evaluated, recommended DAPT for 21 days followed by aspirin daily. Patient had been on aspirin but has been noncompliant. Patient did have a history of CVA. Patient explained the importance of compliance with medication that are preventative of stroke. MRI brain without acute findings. Echo without inter- atrial shunt. Hydrochlorothiazide started for hypertension, statin is started, patient to follow-up with PCP and likely get labs in a week time. Patient also to follow-up with neurology. Patient made aware. Patient would like to go home. OT evaluated. Discussed with neurology, roman to NOAH from neuro [facility]. She is being discharged home with following instruction at the point of discharge: Follow-up with your primary care physician and likely you will need blood test CBC/CMP/magnesium level. Establish and follow-up with your neurology in 1 to 2 weeks time. For stroke prevention, it is very important that you adhere to the medication regimen. Take your aspirin and Plavix for 21 days as prescribed and then take aspirin daily for lifelong. For your hypertension, you have been started on hydrochlorothiazide. Maintain blood pressure measurement twice a day and maintain a log to take to primary care physician for dose adjustment of your blood pressure medication. You have also been started on statin. For your prediabetes, close follow-up with your primary care physician for ongoing management. Recommend weight loss and heart healthy diet. You will need a formal sleep study to rule out sleep apnea, coordinate with your PCP for setting up the test. You will also benefit from right upper extremity EMG/NCS as an outpatient, follow-up with your neurology for right carpal tunnel syndrome. Take your medications as prescribed. As discussed, please make sure that you are able to get your medications today by calling your pharmacy before you leave the hospital so that your treatment continuity is not broken. Home Health Attestation I certify that this patient is under my care and that I, or a physicians physician's assistant working with me, had a face to-face encounter that meets the home health [id number] encounter requirements with this patient. The encounter with the patient was in whole, or in part, for the following medical condition, which is the primary reason for home health care (list medical condition): I certify that, based on my findings, the following services are medically necessary home health services: My clinical findings support the need for the above services because: Further, I certify that my clinical findings support that this patient is h omebound (i.e. absences from home require considerable and taxing effort and are for medical reasons or [employer] services or infrequently or of short duration when for other reasons) because: Certification for Home Health Services: Based on the above findings, I certify that this patient is confined to the home and needs intermittent correction care, physical therapy and/or speech therapy or continues to need occupational therapy. The patient is under my care, and I have initiated the establishment of the plan of care. This patient will be followed by a physician who will periodically review the plan of care. Total Time Total Time Spent Total Time Spent (In Minutes): 45 Discharge Plan Discharge Items Patient Disposition: Home - Home Health Services Reason For Visit: TIA Discharge Diagnosis: TIA Hypertension Prediabetes Medication noncompliance, has not been taking aspirin prior to arrival Activity: Resume your previous activity Non-emergency contact: Primary Care Provider Call non-emergency contact if: you have any medication questions and your symptoms worsen Follow-up/Referrals: Brad Dsouza MD [Primary Care Provider] - Diet: Heart Healthy Addtl Attending Provider Instructions: Follow-up with your primary care physician and likely you will need blood test CBC/CMP/magnesium level. Establish and follow-up with your neurology in 1 to 2 weeks time. For stroke prevention, it is very important that you adhere to the medication regimen. Take your aspirin and Plavix for 21 days as prescribed and then take aspirin daily for lifelong. For your hypertension, you have been started on hydrochlorothiazide. Maintain blood pressure measurement twice a day and maintain a log to take to primary care physician for dose adjustment of your blood pressure medication. You have also been started on statin. For your prediabetes, close follow-up with your primary care physician for ongoing management. Recommend weight loss and heart healthy diet. You will need a formal sleep study to rule out sleep apnea, coordinate with your PCP for setting up the test. You will also benefit from right upper extremity EMG/NCS as an outpatient, follow-up with your neurology for right carpal tunnel syndrome. Take your medications as prescribed. As discussed, please make sure that you are able to get your medications today by calling your pharmacy before you leave the hospital so that your treatment continuity is not broken. Pending Studies at Discharge: No Stand-Alone Forms: My [facility], Smoking Cessation Medications and DC Order Prescriptions: New clopidogrel 75 mg Tablet 75 mg PO QAM 20 Days Qty: 20 0RF atorvastatin 40 mg Tablet 40 mg PO QAM Qty: 30 0RF hydrochlorothiazide 25 mg Tablet 12.5 mg PO QAM Qty: 15 0RF Continued albuterol sulfate 2.5 mg /3 mL (0.083 %) solution for nebulization 2.5 mg inhalation Q4 PRN (Reason: Wheezing) clonazepam 0.5 mg tablet 0.5 mg PO TID PRN (Reason: Anxiety) acetaminophen [Tylenol Extra Strength] 500 mg Tablet 1,000 mg PO Q6H PRN (Reason: Fever Or Pain) albuterol sulfate 90 mcg/actuation HFA aerosol inhaler 2 puff INHALATION QID PRN (Reason: Shortness Of Breath) fluticasone propionate 50 mcg/actuation spray,suspension 2 spray INTRANASAL QAM omeprazole 40 mg Capsule,Delayed Release(Dr/Ec) 40 mg PO DAILYBB duloxetine 30 mg Capsule, Delayed Rel Sprinkle 30 mg PO DAILY Rx Instructions: TOTAL DOSE 90 MG--TAKES WITH 60 MG CAP. duloxetine 60 mg Capsule, Delayed Rel Sprinkle 60 mg PO DAILY Rx Instructions: TOTAL DOSE 90 MG--TAKES WITH 30 MG CAP. prazosin 1 mg Capsule 1 mg PO HS celecoxib 100 mg Capsule 100 mg PO QAM aspirin 81 mg Tablet,Delayed Release (Dr/Ec) 81 mg PO QAM Qty: 30 0RF Rx Instructions: Take one tablet by mouth daily Discharge Orders: Discharge Order (Routine); Ordered 06/01/22 Ordered By: Charlie Jefferson Admission Data Admit Date/Time: 05/31/22 22:38 Attending Provider: Charlie Jefferson Admit Provider: Denver Garcia Primary Care Provider: Brad Dsouza Other Providers: Denver Garcia ; Yuval Fernandez
[2022-06-03 06:22] LABS: Codeine Urine NEGATIVE ng/mL (<50); Hydrocodone Urine 291 ng/mL (<50); Hydromor Urine 53 ng/mL (<50); Marijuana Quant, GCMS Urine 2576 ng/mL (<5); Morphine Urine NEGATIVE ng/mL (<50); Norhydrocodone Conf Ur 685 ng/mL (<50); Noroxycodone Urine NEGATIVE ng/mL (<50); Oxycodone Urine NEGATIVE ng/mL (<50); Oxymorph Urine NEGATIVE ng/mL (<50)
--- NOTE | 2022-06-11 16:17 | Coding Query ---
CODING QUERY To promote full compliance with coding requirements relating to patient care, provider participation is requested in all cases of dye box operator uncertainty. Please assist us with the question(s) below: Coding Question(s): The Neurology Consultation on 06/01 documents, "Possible recurrent right hemispheric ischemic infarct presenting with intermittent left- sided numbness and weakness over the past week with a more persistent episode occurring yesterday. Patient does have evidence of left-sided weakness and sensory loss on examination today although the symptoms may be chronic and related to her previous stroke that occurred in March 2021. She will need a brain MRI to further assess for possible acute infarct", and the Discharge Summary documents TIA and documents, "MRI brain without acute findings". Please specify below, in your clinical opinion, regarding, possible recurrent right hemispheric ischemic infarct: ( ) Possible recurrent right hemispheric ischemic infarct ( ) Ruled-out for possible recurrent right hemispheric ischemic infarct, and likely TIA ( x ) Other: Please specify_Ruled out for possible right hemispheric ischemic infarct; likely generalized weakness from vomiting prior to arrival. Physician's Response(s): Thank you Amanda Burger Principal Diagnosis: "that condition established after study, to be chiefly responsible for occasioning the admission of the patient to the hospital for care." Co-Existing Principal Diagnosis: "when two or more diagnoses equally meet the criteria for principal diagnosis as determined by the circumstances of admission, diagnostic work up, and/or therapy provided, and the Alphabetic Index, Tabular List, or another coding guideline does not provide sequencing direction, any one of the diagnoses may be sequenced first." "When the physician has documented what appears to be a current diagnosis in the body of the record, but has not included the diagnosis in the final diagnostic statement, the physician should be asked whether the diagnosis should be added." (Source [facility] 2 QTR90. p3-4) SHIRLEY
--- NOTE | 2022-06-14 06:21 | Coding Query ---
CODING QUERY To promote full compliance with coding requirements relating to patient care, provider participation is requested in all cases of marketing analytics manager uncertainty. Please assist us with the question(s) below: Coding Question(s): TIA is documented on the H&P and on the Discharge Summary, however, on the previous query that was clarifying the documentation by Neurology of possible recurrent right hemispheric ischemic infarct (with left sided weakness), you had answered ruled out for possible right hemispheric ischemic infarct: likely generalized weakness from vomiting prior to arrival, and it is not clear if the TIA was still possible or if the TIA is ruled out. My apologies for needing to ask, and your help is very much appreciated. 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 Physician's Response(s): Thank you Amanda Burger Principal Diagnosis: "that condition established after study, to be chiefly responsible for occasioning the admission of the patient to the hospital for care." Co-Existing Principal Diagnosis: "when two or more diagnoses equally meet the criteria for principal diagnosis as determined by the circumstances of admission, diagnostic work up, and/or therapy provided, and the Alphabetic Index, Tabular List, or another coding guideline does not provide sequencing direction, any one of the diagnoses may be sequenced first." "When the physician has documented what appears to be a current diagnosis in the body of the record, but has not included the diagnosis in the final diagnostic statement, the physician should be asked whether the diagnosis should be added." ([facility] 2 QTR90. p3-4) SHIRLEY
== END 2022-06-01 16:27 | disposition home health service (06) | DRG 69 ==
LOC: ED 18:43 → SUATTDRO 22:38 → 2N 22:38

== ENCOUNTER 2022-06-06 04:54 | Observation (INO) ==
--- NOTE | 2022-06-06 05:08 | Emergency Department Note ---
History of Present Illness General Chief complaint: Stroke Alert Time Seen by Provider: 06/06/22 05:00 Source: patient and EMS Mode of arrival: EMS Limitations: no limitations History of Present Illness Provider complaint: stroke alert This is a 49-year-old female who presents with headache and left-sided weakness. Stroke alert called prehospital and patient went immediately to CT. Per EMS report patient was last seen well at 4 AM. Family who live with patient states she had slurred speech, complained of a headache and dizziness, and she had increased left-sided weakness. Patient did previously have a stroke in March 2021. Patient recently admitted to the hospital with strokelike symptoms including left-sided weakness and was discharged home on aspirin and Plavix. Patient has a history of high blood pressure, and diabetes. She is also a prior smoker. Patient went immediately for CT/CTA per stroke protocol. Home Medications Medication Instructions Recorded Confirmed Type acetaminophen 500 mg tablet 1,000 mg PO Q6H PRN Fever Or Pain 04/08/21 05/31/22 History (Tylenol Extra Strength) albuterol sulfate 2.5 mg/3 mL 2.5 mg inhalation Q4 PRN Wheezing 04/08/21 05/31/22 History (0.083 %) solution for nebulization albuterol sulfate 90 mcg/actuation 2 puff inhalation QID PRN 04/08/21 05/31/22 History aerosol inhaler Shortness Of Breath clonazepam 0.5 mg tablet 0.5 mg PO TID PRN Anxiety 04/08/21 05/31/22 History fluticasone propionate 50 2 spray intranasal QAM 04/08/21 05/31/22 History mcg/actuation nasal spray,suspension duloxetine 30 mg capsule,delayed 30 mg PO DAILY 01/16/22 05/31/22 History release sprinkle duloxetine 60 mg capsule,delayed 60 mg PO DAILY 01/16/22 05/31/22 History release sprinkle omeprazole 40 mg capsule,delayed 40 mg PO DAILYBB 01/16/22 05/31/22 History release celecoxib 100 mg capsule 100 mg PO QAM 05/31/22 05/31/22 History prazosin 1 mg capsule 1 mg PO HS 05/31/22 05/31/22 History aspirin 81 mg tablet,delayed 81 mg PO QAM #30 tabs 06/01/22 Rx release atorvastatin 40 mg tablet 40 mg PO QAM #30 tabs 06/01/22 Rx clopidogrel 75 mg tablet 75 mg PO QAM 20 days #20 tabs 06/01/22 Rx hydrochlorothiazide 25 mg tablet 12.5 mg PO QAM #15 tabs 06/01/22 Rx Allergies Allergy/AdvReac Type Severity Reaction Status Date / Time No Known Allergies Allergy Verified 05/31/22 20:18 Past Med/Surg History Medical History Anxiety CVA (cerebral vascular accident) Depression with anxiety GERD (gastroesophageal reflux disease) HLD (hyperlipidemia) Hypertension Pre-diabetes Surgical History History of tubal ligation Family History Other No significant family history Social History Smoking Status: Former smoker Hx Alcohol Use: Yes Alcohol type: beer, wine and hard liquor Hx Substance Use: Yes Prescribed Medications: Marijuana Last Used Substance: Unknown Preferred Language: [place] Islander Communication Ability: Effective Law Office Assistant Required: No Beliefs That Will Affect Care: None marital status: Single Current Living Situation: Family Current Living Situation Comment: Adult children live with her current occupational status: unemployed Feels Safe at Home: Yes Assistive Devices: None Review of Systems A total of 10 systems reviewed and were otherwise negative All systems reviewed & are unremarkable except as noted in HPI & below Physical Exam Vital Signs Vital Signs - 24 hr 06/06/22 05:24 06/06/22 05:30 06/06/22 05:45 Temperature 36.8 C Temperature Source Oral Pulse Rate 80 74 71 Pulse Rate from SpO2 Sensor 75 71 Respiratory Rate 17 22 19 Blood Pressure 150/97 H 138/95 118/86 Blood Pressure Mean 114 109 96 Pulse Oximetry 100 95 95 Oxygen Delivery Method Room Air Sepsis Recent Fever Within 48 Hours No Sepsis New/Unexplained Change in Mental Status Yes Sepsis Action Taken by Nursing No Action Required 06/06/22 06:00 06/06/22 06:15 06/06/22 06:20 Temperature Temperature Source Pulse Rate 74 70 66 Pulse Rate from SpO2 Sensor 73 69 64 Respiratory Rate 22 22 19 Blood Pressure 135/98 142/79 H Blood Pressure Mean 110 100 Pulse Oximetry 96 94 98 Oxygen Delivery Method Sepsis Recent Fever Within 48 Hours Sepsis New/Unexplained Change in Mental Status Sepsis Action Taken by Nursing 06/06/22 06:20 Temperature Temperature Source Pulse Rate Pulse Rate from SpO2 Sensor Respiratory Rate Blood Pressure 142/79 H Blood Pressure Mean 100 Pulse Oximetry Oxygen Delivery Method Sepsis Recent Fever Within 48 Hours Sepsis New/Unexplained Change in Mental Status Sepsis Action Taken by Nursing GENERAL: alert, well appearing, well nourished, no distress, non-toxic EYE EXAM: normal conjunctiva, PERRL and EOM's grossly intact, no gaze deviation OROPHARYNX: no exudate, no erythema, lips, buccal mucosa, and tongue normal and mucous membranes are moist NECK: supple, no nuchal rigidity, no adenopathy, non-tender LUNGS: Clear to auscultation. Normal chest wall mechanics, no w/r/r HEART: no murmurs, S1 normal and S2 normal ABDOMEN: abdomen soft, non-tender, normo-active bowel sounds, no masses, no rebound or guarding. BACK: Back is symmetrical on inspection and there is no deformity, no midline tenderness, no CVA tenderness. SKIN: no rashes and no bruising UPPER EXTREMITIES: upper extremities are grossly normal. FROM, nml pulses b/l. LOWER EXTREMITIES: No pitting edema. FROM, nml pulses b/l. NEURO EXAM: Normal sensorium, cranial nerves II-XII grossly intact, normal speech, no facial droop, LUE and LLE weakness - minimal effort against gravity. Gross sensation intact. Course Course 0452: Discussed with Dr. Meek - [facility] [place] neurology. 0515: Daughter at bedside states that he had been up watching a movie and patient fell asleep shortly after 4 AM. When she awoke she had symptoms. She states she has been having intermittent headaches over the last week. She also complains of intermittent dizziness. 0519: Dr. Meek now on monitor for evaluation. 0525: Dr. Meek recommended if CT/CTA negative, admit to the hospitalist for additional evaluation. States actual last known well based on his conversation with the patient and daughter at bedside was midnight which means she is not a candidate at this time for TNK. 0553: Discussed with hospitalist. Administered Medications Discontinued Medications Acetaminophen (Acetaminophen 325 Mg Tab) 650 mg PO NOW STA Stop: 06/06/22 06:14 Last Admin: 06/06/22 06:17 Dose: 650 mg Documented By: ELOY Diphenhydramine HCl (Diphenhydramine 50 Mg/Ml Vial) 25 mg IV NOW STA Stop: 06/06/22 06:29 Last Admin: 06/06/22 06:49 Dose: 25 mg Documented By: CHAD Sodium Chloride (Nss 1000ml) 1,000 mls @ 125 mls/hr IV .Q8H STEVE Stop: 07/06/22 05:59 Last Infusion: 06/06/22 07:54 Dose: 0 mls/hr Documented By: Admin: 06/06/22 06:17 Dose: 125 mls/hr Documented By: ELOY Potassium Chloride/Sodium Chloride (Normal Saline W/20 Meq Kcl) 20 meq in 1,000 mls @ 60 mls/hr IV .[id number]; Protocol Stop: 06/06/22 23:04 Last Infusion: 06/06/22 07:36 Dose: 0 mls/hr Documented By: Admin: 06/06/22 06:56 Dose: 60 mls/hr Documented By: CHAD Prochlorperazine (Compazine) 1 mls @ 1 mls/min IV ONE ONE Stop: 06/06/22 06:29 Last Admin: 06/06/22 06:53 Dose: 1 mls/min Documented By: CHAD Pantoprazole Sodium 40 mg/ (Syringe) 10 mls @ 5 mls/min IV NOW ONE Stop: 06/06/22 07:46 Last Admin: 06/06/22 08:11 Dose: 5 mls/min Documented By: MARTÍN Ioversol (Optiray 320 500ml) 110 ml IV ONCE ONE Stop: 06/06/22 05:21 Last Admin: 06/06/22 05:20 Dose: 110 ml Documented By: SALVADOR Loratadine (Loratadine 10 Mg Tab) 10 mg PO NOW ONE Stop: 06/06/22 07:46 Last Admin: 06/06/22 07:44 Dose: 10 mg Documented By: MARTÍN Oxycodone HCl (Oxycodone Hcl Ir 5 Mg Tab (Immediate Release)) 5 mg PO NOW STA Stop: 06/06/22 07:10 Last Admin: 06/06/22 07:44 Dose: 5 mg Documented By: MARTÍN Potassium Chloride (Potassium Chloride Pwd 20 Meq Pack) 40 meq PO NOW STA Stop: 06/06/22 06:07 Last Admin: 06/06/22 06:24 Dose: 40 meq Documented By: CHAD Critical Care Time Critical Care Time: Yes Total Critical Care Time: 35 Critical care of 35 min performed to assess and manage high likelihood of life- threatening CVA, involving labs and imaging performed with assessment to evaluate acute left-sided weakness diagnosis with frequent reassessment. This time includes bedside time, treatment discussions with patien t/family/consultants, documentation time and excludes procedure time. Medical Decision Making Differential Diagnosis Differential Diagnosis includes but is not limited to ischemic Stroke, hemorrhagic stroke, bells palsy, mass, neoplasm, migraine headache, seizure, subarachnoid hemorrhage, TIA, and transient global amnesia. Medical Records Attestation: I reviewed the patient's medical records. Home Medications Current Medication List: was personally reviewed by me Laboratory Data Attestation: I reviewed the patient's lab results. Result diagrams: 06/06/22 05:24 06/06/22 05:24 Lab Results 06/06/22 06/06/22 06/06/22 Range/Units 05:23 05:24 05:24 WBC 5.91 (4.8-10.8) K/ul RBC 3.64 L (3.93-5.22) M/uL Hgb 10.9 L (12.0-16.0) g/dl Hct 32.7 L (34.1-44.9) % MCV 89.8 (80.0-100.0) fL MCH 29.9 (25.0-34.0) pg MCHC 33.3 (32.0-36.0) g/dL RDW Std Deviation 41.1 (36.4-46.3) fL RDW Coeff of Magdiel 12.5 (11.5-14.5) % Plt Count 171 (130-400) K/uL MPV 10.0 (9.4-12.3) fL Immature Gran % (Auto) 0.2 % Neut % (Auto) 63.3 % Lymph % (Auto) 27.9 % Towner % (Auto) 7.4 % Eos % (Auto) 1.0 % Baso % (Auto) 0.2 % Neut # (Auto) 3.74 (1.4-6.5) K/uL Lymph # (Auto) 1.65 (1.2-3.4) K/uL Towner # (Auto) 0.44 (0.24-0.82) K/uL Eos # (Auto) 0.06 (0-0.50) K/uL Baso # (Auto) 0.01 (0-0.2) K/uL Immature Gran # (Auto) 0.01 (0.00-0.02) K/uL PT (9.0-12.0) Seconds INR (0.9-1.1) APTT (21.0-31.0) Seconds PTT Ratio Sodium (136-145) mmol/L Potassium (3.5-5.1) mmol/L Chloride (98-107) mmol/L Carbon Dioxide (21-32) mmol/L Anion Gap (3-11) BUN (6-23) mg/dl Creatinine (0.6-1.2) mg/dl Est Cr Clr Drug Dosing ml/min Est GFR ( Amer) ml/min Est GFR (Non-Af Amer) ml/min BUN/Creatinine Ratio (10-20) Glucose (70-99(Fasting)) mg/dl POC Glucose 100 H (70-99) mg/dl Calcium (8.5-10.1) mg/dl Magnesium (1.7-2.4) mg/dl Total Bilirubin (0.2-1.0) mg/dl AST (13-39) U/L ALT (7-52) U/L Alkaline Phosphatase (34-104) U/L Troponin I High Sens (0-14) pg/ml Total Protein (6.0-8.3) gm/dl Albumin (3.4-5.0) gm/dl Globulin (2.5-4.0) gm/dl Albumin/Globulin Ratio (0.9-2) TSH (0.300-4.500) uIu/ml Urine Color Urine Appearance (Clear) Urine pH (4.5-7.5) Ur Specific [place] (1.000-1.030) Urine Protein (Negative) Urine Glucose (UA) (Negative) Urine Ketones (Negative) Urine Blood (Negative) Urine Nitrite (Negative) Urine Bilirubin (Negative) Urine Urobilinogen (Negative) Ur Leukocyte Esterase (Negative) SARS-CoV-2, RNA, NAAT (NEGATIVE) Blood Type A Positive Antibody Screen NEGATIVE 06/06/22 06/06/22 06/06/22 Range/Units 05:24 05:24 05:24 WBC (4.8-10.8) K/ul RBC (3.93-5.22) M/uL Hgb (12.0-16.0) g/dl Hct (34.1-44.9) % MCV (80.0-100.0) fL MCH (25.0-34.0) pg MCHC (32.0-36.0) g/dL RDW Std Deviation (36.4-46.3) fL RDW Coeff of Magdiel (11.5-14.5) % Plt Count (130-400) K/uL MPV (9.4-12.3) fL Immature Gran % (Auto) % Neut % (Auto) % Lymph % (Auto) % Towner % (Auto) % Eos % (Auto) % Baso % (Auto) % Neut # (Auto) (1.4-6.5) K/uL Lymph # (Auto) (1.2-3.4) K/uL Towner # (Auto) (0.24-0.82) K/uL Eos # (Auto) (0-0.50) K/uL Baso # (Auto) (0-0.2) K/uL Immature Gran # (Auto) (0.00-0.02) K/uL PT 10.9 (9.0-12.0) Seconds INR 1.0 (0.9-1.1) APTT 23.3 (21.0-31.0) Seconds PTT Ratio 0.8 Sodium 135 L (136-145) mmol/L Potassium 3.4 L (3.5-5.1) mmol/L Chloride 103 (98-107) mmol/L Carbon Dioxide 28 (21-32) mmol/L Anion Gap 4 (3-11) BUN 11 (6-23) mg/dl Creatinine 0.67 (0.6-1.2) mg/dl Est Cr Clr Drug Dosing 101.1 ml/min Est GFR ( Amer) 116.3 ml/min Est GFR (Non-Af Amer) 100.4 ml/min BUN/Creatinine Ratio 16.4 (10-20) Glucose 93 (70-99(Fasting)) mg/dl POC Glucose (70-99) mg/dl Calcium 8.3 L (8.5-10.1) mg/dl Magnesium 2.0 (1.7-2.4) mg/dl Total Bilirubin 0.3 (0.2-1.0) mg/dl AST 16 (13-39) U/L ALT 15 (7-52) U/L Alkaline Phosphatase 61 (34-104) U/L Troponin I High Sens 3.9 (0-14) pg/ml Total Protein 5.9 L (6.0-8.3) gm/dl Albumin 3.5 (3.4-5.0) gm/dl Globulin 2.4 L (2.5-4.0) gm/dl Albumin/Globulin Ratio 1.5 (0.9-2) TSH 4.474 (0.300-4.500) uIu/ml Urine Color Urine Appearance (Clear) Urine pH (4.5-7.5) Ur Specific [place] (1.000-1.030) Urine Protein (Negative) Urine Glucose (UA) (Negative) Urine Ketones (Negative) Urine Blood (Negative) Urine Nitrite (Negative) Urine Bilirubin (Negative) Urine Urobilinogen (Negative) Ur Leukocyte Esterase (Negative) SARS-CoV-2, RNA, NAAT (NEGATIVE) Blood Type Antibody Screen 06/06/22 06/06/22 06/06/22 Range/Units 06:10 06:10 08:14 WBC (4.8-10.8) K/ul RBC (3.93-5.22) M/uL Hgb (12.0-16.0) g/dl Hct (34.1-44.9) % MCV (80.0-100.0) fL MCH (25.0-34.0) pg MCHC (32.0-36.0) g/dL RDW Std Deviation (36.4-46.3) fL RDW Coeff of Magdiel (11.5-14.5) % Plt Count (130-400) K/uL MPV (9.4-12.3) fL Immature Gran % (Auto) % Neut % (Auto) % Lymph % (Auto) % Towner % (Auto) % Eos % (Auto) % Baso % (Auto) % Neut # (Auto) (1.4-6.5) K/uL Lymph # (Auto) (1.2-3.4) K/uL Towner # (Auto) (0.24-0.82) K/uL Eos # (Auto) (0-0.50) K/uL Baso # (Auto) (0-0.2) K/uL Immature Gran # (Auto) (0.00-0.02) K/uL PT (9.0-12.0) Seconds INR (0.9-1.1) APTT (21.0-31.0) Seconds PTT Ratio Sodium (136-145) mmol/L Potassium (3.5-5.1) mmol/L Chloride (98-107) mmol/L Carbon Dioxide (21-32) mmol/L Anion Gap (3-11) BUN (6-23) mg/dl Creatinine (0.6-1.2) mg/dl Est Cr Clr Drug Dosing ml/min Est GFR ( Amer) ml/min Est GFR (Non-Af Amer) ml/min BUN/Creatinine Ratio (10-20) Glucose (70-99(Fasting)) mg/dl POC Glucose 113 H (70-99) mg/dl Calcium (8.5-10.1) mg/dl Magnesium (1.7-2.4) mg/dl Total Bilirubin (0.2-1.0) mg/dl AST (13-39) U/L ALT (7-52) U/L Alkaline Phosphatase (34-104) U/L Troponin I High Sens (0-14) pg/ml Total Protein (6.0-8.3) gm/dl Albumin (3.4-5.0) gm/dl Globulin (2.5-4.0) gm/dl Albumin/Globulin Ratio (0.9-2) TSH (0.300-4.500) uIu/ml Urine Color Yellow Urine Appearance Clear (Clear) Urine pH 7.5 (4.5-7.5) Ur Specific [place] > 1.045 H (1.000-1.030) Urine Protein Negative (Negative) Urine Glucose (UA) Negative (Negative) Urine Ketones Negative (Negative) Urine Blood Negative (Negative) Urine Nitrite Negative (Negative) Urine Bilirubin Negative (Negative) Urine Urobilinogen Negative (Negative) Ur Leukocyte Esterase Negative (Negative) SARS-CoV-2, RNA, NAAT NEGATIVE (NEGATIVE) Blood Type Antibody Screen Imaging Data Radiologist's Impression: Chest X-Ray 06/06/22 04:52 XR chest 1V portable HISTORY: 52 years-old Female neuro deficit, acute stroke suspected acute strokelike symptoms COMPARISON: CTA neck 06/06/2022 TECHNIQUE: AP view of the chest FINDINGS: Cardiac mediastinal and hilar silhouettes are within normal limits. No pneumothorax, pleural effusion, airspace consolidation or overt pulmonary edema. Degenerative changes of the shoulders and spine. IMPRESSION: No acute process. ACT 112: Negative or not required by law. The above report was generated using voice recognition software. It may contain grammatical, syntax or spelling errors. Electronically signed by: Griffin Sarabia M.D. 06/06/2022 6:[address] 06/06/22 04:[address] OF THE BRAIN; CT ANGIOGRAM OF THE BRAIN; CT ANGIOGRAM OF THE NECK CLINICAL HISTORY: Strokelike symptoms. COMPARISON STUDY: CT angiogram of the head and neck dated 05/31/2022. TECHNIQUE: Unenhanced axial CT scan of the brain is performed. Subsequently, following the IV administration of 110 of Optiray 320, CT angiogram of the head and neck was performed from the aortic arch to the vertex. Images are reviewed in the axial, sagittal, and coronal planes. 3-D MIPS images are created and assessed. IV contrast was administered without complication. All measurements we re calculated based on NASCET criteria. A dose lowering technique was utilized adhering to the principles of ALARA. CT DOSE: 1306.49 mGy.cm FINDINGS: Brain parenchyma: There is minimal microangiopathic change. There is no hemorrhage, mass effect, or evidence of acute territorial ischemia by CT criteria. There is no evidence of enhancing mass lesion on the angiogram phase images. The ventricles, sulci, and cisterns are normal in configuration. Robert- white matter differentiation is preserved. No extra-axial fluid collection is seen. Thoracic aorta: Visualized portions of the thoracic aorta are normal in caliber. The aortic arch demonstrates standard 3-vessel anatomy. Right carotid arterial system: The right common carotid artery is widely patent, as are the right internal and external carotid arteries. Mild plaque is seen in the carotid bulb. Left carotid arterial system: The left common carotid artery is widely patent, as are the left internal and external carotid arteries. Vertebral arteries: The vertebral arteries are widely patent bilaterally and codominant. Subclavian arteries: Widely patent bilaterally. Intracranial vasculature: There is atherosclerotic calcification of the cavernous carotid arteries. The internal carotid arteries are patent at the skull base, as are the anterior and middle cerebral arteries bilaterally. There is origin of the right posterior cerebral artery. The vertebrobasilar system and posterior cerebral arteries are widely patent. The vertebral arteries are codominant. There is no aneurysm, high-grade stenosis, or focal vessel cut off seen throughout the intracranial circulation. Jugular veins: Patent bilaterally. Dural sinuses: Patent. Lung apices: Partially visualized upper lobe lung parenchyma appears clear. Soft tissues: The visualized pharyngeal soft tissues are normal in appearance noting angiographic phase technique. The oropharyngeal airway appears widely patent. The thyroid gland is heterogeneous. The salivary glands are normal in appearance. No cervical lymphadenopathy is seen. Skeletal structures: The calvarium appears intact. The cervical spine is maintai mey noting mild multilevel spondylosis. No lytic or blastic lesion is seen. Orbits: The bony orbits are intact. Orbital contents are normal as visualized. Sinuses and mastoids: The paranasal sinuses are clear. The mastoid air cells are well pneumatized. IMPRESSION: 1 There is no hemorrhage, mass effect, or evidence of acute territorial ischemia by CT criteria. 2. Unremarkable CT angiogram of the brain. No change from 05/31/2022. 3. Unremarkable CT angiogram of the neck. No change from 05/31/2022. ACT 112: Negative or not required by law. Electronically signed by: Riky Velasco M.D. 06/06/2022 6:52 AM Head CTA 06/06/22 04:[address] OF THE BRAIN; CT ANGIOGRAM OF THE BRAIN; CT ANGIOGRAM OF THE NECK CLINICAL HISTORY: Strokelike symptoms. COMPARISON STUDY: CT angiogram of the head and neck dated 05/31/2022. TECHNIQUE: Unenhanced axial CT scan of the brain is performed. Subsequently, following the IV administration of 110 of Optiray 320, CT angiogram of the head and neck was performed from the aortic arch to the vertex. Images are reviewed in the axial, sagittal, and coronal planes. 3-D MIPS images are created and assessed. IV contrast was administered without complication. All measurements were calculated based on NASCET criteria. A dose lowering technique was utilized adhering to the principles of ALARA. CT DOSE: 1306.49 mGy.cm FINDINGS: Brain parenchyma: There is minimal microangiopathic change. There is no hemorrhage, mass effect, or evidence of acute territorial ischemia by CT criteria. There is no evidence of enhancing mass lesion on the angiogram phase images. The ventricles, sulci, and cisterns are normal in configuration. Robert- white matter differentiation is preserved. No extra-axial fluid collection is seen. Thoracic aorta: Visualized portions of the thoracic aorta are normal in caliber. The aortic arch demonstrates standard 3-vessel anatomy. Right carotid arterial system: The right common carotid artery is widely patent, as are the right internal and external carotid arteries. Mild plaque is seen in the carotid bulb. Left carotid arterial system: The left common carotid artery is widely patent, as are the left internal and external carotid arteries. Vertebral arteries: The vertebral arteries are widely patent bilaterally and codominant. Subclavian arteries: Widely patent bilaterally. Intracranial vasculature: There is atherosclerotic calcification of the cavernous carotid arteries. The internal carotid arteries are patent at the skull base, as are the anterior and middle cerebral arteries bilaterally. There is origin of the right posterior cerebral artery. The vertebrobasilar system and posterior cerebral arteries are widely patent. The vertebral arteries are codominant. There is no aneurysm, high-grade stenosis, or focal vessel cut off seen throughout the intracranial circulation. Jugular veins: Patent bilaterally. Dural sinuses: Patent. Lung apices: Partially visualized upper lobe lung parenchyma appears clear. Soft tissues: The visualized pharyngeal soft tissues are normal in appearance noting angiographic phase technique. The oropharyngeal airway appears widely p atent. The thyroid gland is heterogeneous. The salivary glands are normal in appearance. No cervical lymphadenopathy is seen. Skeletal structures: The calvarium appears intact. The cervical spine is maintained noting mild multilevel spondylosis. No lytic or blastic lesion is seen. Orbits: The bony orbits are intact. Orbital contents are normal as visualized. Sinuses and mastoids: The paranasal sinuses are clear. The mastoid air cells are well pneumatized. IMPRESSION: 1 There is no hemorrhage, mass effect, or evidence of acute territorial ischemia by CT criteria. 2. Unremarkable CT angiogram of the brain. No change from 05/31/2022. 3. Unremarkable CT angiogram of the neck. No change from 05/31/2022. ACT 112: Negative or not required by law. Electronically signed by: Riky Velasco M.D. 06/06/2022 6:52 AM Neck CTA 06/06/22 04:[address] OF THE BRAIN; CT ANGIOGRAM OF THE BRAIN; CT ANGIOGRAM OF THE NECK CLINICAL HISTORY: Strokelike symptoms. COMPARISON STUDY: CT angiogram of the head and neck dated 05/31/2022. TECHNIQUE: Unenhanced axial CT scan of the brain is performed. Subsequently, following the IV administration of 110 of Optiray 320, CT angiogram of the head and neck was performed from the aortic arch to the vertex. Images are reviewed in the axial, sagittal, and coronal planes. 3-D MIPS images are created and assessed. IV contrast was administered without complication. All measurements were calculated based on NASCET criteria. A dose lowering technique was utilized adhering to the principles of ALARA. CT DOSE: 1306.49 mGy.cm FINDINGS: Brain parenchyma: There is minimal microangiopathic change. There is no hemorrhage, mass effect, or evidence of acute territorial ischemia by CT criteria. There is no evidence of enhancing mass lesion on the angiogram phase images. The ventricles, sulci, and cisterns are normal in configuration. Robert-white matter differentiation is preserved. No extra-axial fluid collection is seen. Thoracic aorta: Visualized portions of the thoracic aorta are normal in caliber. The aortic arch demonstrates standard 3-vessel anatomy. Right carotid arterial system: The right common carotid artery is widely patent, as are the right internal and external carotid arteries. Mild plaque is seen in the carotid bulb. Left carotid arterial system: The left common carotid artery is widely patent, as are the left internal and external carotid arteries. Vertebral arteries: The vertebral arteries are widely patent bilaterally and codominant. Subclavian arteries: Widely patent bilaterally. Intracranial vasculature: There is atherosclerotic calcification of the edith nous carotid arteries. The internal carotid arteries are patent at the skull base, as are the anterior and middle cerebral arteries bilaterally. There is origin of the right posterior cerebral artery. The vertebrobasilar system and posterior cerebral arteries are widely patent. The vertebral arteries are codominant. There is no aneurysm, high-grade stenosis, or focal vessel cut off seen throughout the intracranial circulation. Jugular veins: Patent bilaterally. Dural sinuses: Patent. Lung apices: Partially visualized upper lobe lung parenchyma appears clear. Soft tissues: The visualized pharyngeal soft tissues are normal in appearance noting angiographic phase technique. The oropharyngeal airway appears widely patent. The thyroid gland is heterogeneous. The salivary glands are normal in appearance. No cervical lymphadenopathy is seen. Skeletal structures: The calvarium appears intact. The cervical spine is maintained noting mild multilevel spondylosis. No lytic or blastic lesion is seen. Orbits: The bony orbits are intact. Orbital contents are normal as visualized. Sinuses and mastoids: The paranasal sinuses are clear. The mastoid air cells are well pneumatized. IMPRESSION: 1 There is no hemorrhage, mass effect, or evidence of acute territorial ischemia by CT criteria. 2. Unremarkable CT angiogram of the brain. No change from 05/31/2022. 3. Unremarkable CT angiogram of the neck. No change from 05/31/2022. ACT 112: Negative or not required by law. Electronically signed by: Riky Velasco M.D. 06/06/2022 6:52 AM Abdomen/Pelvis CT 06/06/22 06:[address] WITHOUT CONTRAST CT DOSE: 913.42 mGycm HISTORY: Acute generalized abdominal pain with weakness abd pain TECHNIQUE: Multiaxial CT images of the abdomen and pelvis were performed without contrast. A dose lowering technique was utilized adhering to the principles of ALARA. COMPARISON STUDY: None. FINDINGS: Clear lung bases. No pneumatosis or pneumoperitoneum. A small moderate hiatal hernia is predominantly fat filled. Unremarkable spleen, pancreas and right adrenal gland. 2.3 cm left adrenal adenoma. Mildly contracted gallbladder with hyperattenuation of the gallbladder fundus. This finding favors adenomyomatosis. Unremarkable liver. Contrast is noted within the renal collecting systems from the CT exams obtained a few hours earlier. This limits evaluation for an underlying urolith. No hydronephrosis. Mild bladder wall thickening with contrast present within the urinary bladder lumen. 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 Atherosclerosis of the aorta without aneurysm. There is no lymphadenopathy identified. No bowel obstruction or bowel wall thickening. Mild colonic diverticulosis. Mild colonic fecal retention. Normal appendix. No ascites or mesenteric inflammation. Unremarkable soft tissues. No acute fracture. IMPRESSION: 1. No acute intra-abdominal or intrapelvic abnormality. 2. No bowel obstruction or bowel wall thickening. Normal appendix. 3. Probable fundal adenomyomatosis of the gallbladder. 4. Additional findings as above. ACT 112: Negative or not required by law. The above report was generated using voice recognition software. It may contain grammatical, syntax or spelling errors. Electronically signed by: Griffin Sarabia M.D. 06/06/2022 7:[address] head: No evidence of acute intracranial pathology. Mild nonspecific white matter changes. Comparison made to prior brain MRI from June 01/2022. Radiologist: Марина Cummins MD CTA head: Negative CTA angiogram of the head. Comparison made to prior CT angiogram of the head from May 31, 2022. Radiologist: Марина Cummins MD CTA neck: Negative CT angiogram of the neck. Comparison made to prior CT angiogram of the neck from May 31, 2022. Right thyroid nodule. Findings concerning for bronchitis. Moderate disc degeneration at C3-4, C4-5 and C5-6. Findings concerning for thyroid ophthalmopathy, which can be seen in the setting of Graves' disease. Enlarged faucial tonsils. Cervical lymphadenopathy. Radiologist: Марина Cummins MD MDM Narrative An order was placed for continuous cardiac monitoring. The monitor shows a rate of _68_ with _normal sinus__ rhythm. This is a 52-year-old female who presents via EMS as a stroke alert. Per their report patient with abrupt onset of left-sided weakness with accompanying heada zulema and slurred speech. Patient was taken immediately for CT imaging. Case discussed with on-call [place] telemetry neurologist who did evaluate the patient at bedside via the stroke cart. Patient afebrile and hemodynamically stable. No significant hypertension noted. Patient did have appreciable left- sided weakness on my exam while walking to CT. No obvious facial droop or slurred speech. Patient seen and evaluated and after discussion was not deemed to be a TNKase candidate. Patient was recently discharged after a inpatient evaluation for left-sided weakness on aspirin and Plavix, and had a negative MRI at that time. Patient does have multiple risk factors for CVA and does have a history of noncompliance. Per recommendation of [place] telemetry neurologist, case discussed with hospitalist for additional evaluation and management after CT/CTA were read as negative. Patient did complain of headache here, she was initially given Tylenol and then additional Benadryl and Compazine for possible migraine. Impression & Plan Stroke-like symptoms, Anemia, Headache Discharge Plan Visit Data Chief Complaint: Stroke Alert ED Provider: Chela Barlow Discharge Problem: Stroke-like symptoms, Anemia, Headache Forms Stand Alone Forms: [facility] Not iT Prescriptions Prescriptions: No Action albuterol sulfate 2.5 mg /3 mL (0.083 %) solution for nebulization 2.5 mg inhalation Q4 PRN (Reason: Wheezing) clonazepam 0.5 mg tablet 0.5 mg PO TID PRN (Reason: Anxiety) acetaminophen [Tylenol Extra Strength] 500 mg Tablet 1,000 mg PO Q6H PRN (Reason: Fever Or Pain) albuterol sulfate 90 mcg/actuation HFA aerosol inhaler 2 puff INHALATION QID PRN (Reason: Shortness Of Breath) fluticasone propionate 50 mcg/actuation spray,suspension 2 spray INTRANASAL QAM omeprazole 40 mg Capsule,Delayed Release(Dr/Ec) 40 mg PO DAILYBB duloxetine 30 mg Capsule, Delayed Rel Sprinkle 30 mg PO DAILY Rx Instructions: TOTAL DOSE 90 MG--TAKES WITH 60 MG CAP. duloxetine 60 mg Capsule, Delayed Rel Sprinkle 60 mg PO DAILY Rx Instructions: TOTAL DOSE 90 MG--TAKES WITH 30 MG CAP. prazosin 1 mg Capsule 1 mg PO HS celecoxib 100 mg Capsule 100 mg PO QAM clopidogrel 75 mg Tablet 75 mg PO QAM 20 Days Qty: 20 0RF atorvastatin 40 mg Tablet 40 mg PO QAM Qty: 30 0RF hydrochlorothiazide 25 mg Tablet 12.5 mg PO QAM Qty: 15 0RF aspirin 81 mg Tablet,Delayed Release (Dr/Ec) 81 mg PO QAM Qty: 30 0RF Rx Instructions: Take one tablet by mouth daily Referrals Referrals: Brad Dsuoza MD [Primary Care Provider] -
[2022-06-06] MEDS ORDERED: OPTIRAY 320 500ml IV ONE (05:20)
[2022-06-06 05:42] LABS: Basophils # (auto) 0.01 K/uL (0-0.2); Basophils % (auto) 0.2 %; Eosinophils # (auto) 0.06 K/uL (0-0.50); Hematocrit (blood only) 32.7 % (34.1-44.9); Hemoglobin 10.9 g/dl (12.0-16.0); Immature Granulocytes # (auto) 0.01 K/uL (0.00-0.02); Immature Granulocytes % (auto) 0.2 %; Lymphocytes # (auto) 1.65 K/uL (1.2-3.4); Lymphocytes % (auto) 27.9 %; Mean Corpuscular Hemoglobin 29.9 pg (25.0-34.0); Mean Corpuscular Hgb Conc 33.3 g/dL (32.0-36.0); Mean Corpuscular Volume 89.8 fL (80.0-100.0); Monocytes # (auto) 0.44 K/uL (0.24-0.82); Monocytes % (auto) 7.4 %; Neutrophils # (auto) 3.74 K/uL (1.4-6.5); Neutrophils % (auto) 63.3 %; Platelet Count 171 K/uL (130-400); RDW Coefficient of Variation 12.5 % (11.5-14.5); RDW Standard Deviation 41.1 fL (36.4-46.3); Red Blood Count 3.64 M/uL (3.93-5.22); White Blood Count 5.91 K/ul (4.8-10.8)
[2022-06-06] MEDS ORDERED: SODIUM CHLORIDE 0.9% 1000ML 1,000 ML IV SCH (06:00)
[2022-06-06 06:03] LABS: Albumin Globulin Ratio 1.5 (0.9-2); Albumin Level 3.5 gm/dl (3.4-5.0); BUN Creatinine Ratio 16.4 (10-20); Bilirubin,Total 0.3 mg/dl (0.2-1.0); Calcium 8.3 mg/dl (8.5-10.1); Creatinine Clr Calc Pharmacy 101.1 ml/min; Est GFR (African American) 116.3 ml/min; Est GFR (Non-African American) 100.4 ml/min; Globulin 2.4 gm/dl (2.5-4.0); Potassium 3.4 mmol/L (3.5-5.1); Total Protein 5.9 gm/dl (6.0-8.3)
--- NOTE | 2022-06-06 06:05 | History & Physical Report ---
Date of Service June 06, 2022 Assessment & Plan (1) Anemia: Plan: New onset hx GERD Rule UGI bleed given epigastric pain and concomitant antiplatelet, NSAID Rx FOBT done at the ER was negative Headache symptoms worsened by light ? Complicated migraine hx CVA, patient presenting chronic left-sided deficit hypertension, slightly elevated hyperlipidemia on statin Rx anxiety/mood disorder, at baseline DM2 diet-controlled, well-controlled as of recent hemoglobin A1c of 5.08 May 2022 thyroid nodules on imaging Hypokalemia secondary to diuretic Rx past tobacco abuse OBS Medical telemetry Anemia work-up, transfuse PRBC if hemoglobin less than 8 and for symptomatic anemia (Patient refusing to sign blood consent for now.) CT abdomen pelvis Re: Abdominal pain Repeat FOBT N.p.o. hold antiplatelet and NSAID Rx until CT results known IV PPI 1 dose for now for presumptive UGI B May need GI evaluation pending work-up results Analgesia Replace potassium, hold home diuretic for now ISS BG goal 1 10-1 40 neurochecks Outpatient work-up for thyroid nodules DVT prophylaxis, SCDs Re: New onset anemia, possible GI bleed Full code Text document was generated using Getting-[employer] voice recognition software. It may contain grammatical or spelling errors. Kindly contact undersigned for clarification of any documentation item in question. History of Present Illness Chief Complaint: Headache Primary Care Provider: Brad Dsouza MD History obtained from patient, family, and records. Medical history significant for CVA, hypertension, hyperlipidemia, GERD, anxiety/mood disorder, DM2 diet-controlled, thyroid nodules, past tobacco abuse. Last confinement May [id number] for TIA. Brain MRI negative for new stroke. Neurology recommended dual antiplatelet therapy for 21 days followed by aspirin daily. Patient discharged on new HCTZ and statin medications. Patient with headache symptoms since being home. Headache worsened by lights. SBP 140s to 160s. Patient compliant with home medications. Last night, patient noted epigastric discomfort without black/bloody stools. This morning around 4 AM, patient woke up with worsening headache symptoms all over. No new weakness as per patient. Patient daughter thought patient looked pale and somewhat imbalanced. Patient brought to the ER. Stroke alert called. Patient not felt to be a candidate for tPA as per [facility] neurologist. Medical Historyas above No prior endoscopies Surgical History : Breast biopsy, BTL Family History : Unknown as patient was adopted Personal/Social history : Past tobacco abuse, occasional EtOH intake, home care Allergies Allergy/AdvReac Type Severity Reaction Status Date / Time No Known Allergies Allergy Verified 05/31/22 20:18 Home Medications Medication Instructions Recorded Confirmed Type acetaminophen 500 mg tablet 1,000 mg PO Q6H PRN Fever Or Pain 04/08/21 05/31/22 History (Tylenol Extra Strength) albuterol sulfate 2.5 mg/3 mL 2.5 mg inhalation Q4 PRN Wheezing 04/08/21 05/31/22 History (0.083 %) solution for nebulization albuterol sulfate 90 mcg/actuation 2 puff inhalation QID PRN 04/08/21 05/31/22 History aerosol inhaler Shortness Of Breath clonazepam 0.5 mg tablet 0.5 mg PO TID PRN Anxiety 04/08/21 05/31/22 History fluticasone propionate 50 2 spray intranasal QAM 04/08/21 05/31/22 History mcg/actuation nasal spray,suspension duloxetine 30 mg capsule,delayed 30 mg PO DAILY 01/16/22 05/31/22 History release sprinkle duloxetine 60 mg capsule,delayed 60 mg PO DAILY 01/16/22 05/31/22 History release sprinkle omeprazole 40 mg capsule,delayed 40 mg PO DAILYBB 01/16/22 05/31/22 History release celecoxib 100 mg capsule 100 mg PO QAM 05/31/22 05/31/22 History prazosin 1 mg capsule 1 mg PO HS 05/31/22 05/31/22 History aspirin 81 mg tablet,delayed 81 mg PO QAM #30 tabs 06/01/22 Rx release atorvastatin 40 mg tablet 40 mg PO QAM #30 tabs 06/01/22 Rx clopidogrel 75 mg tablet 75 mg PO QAM 20 days #20 tabs 06/01/22 Rx hydrochlorothiazide 25 mg tablet 12.5 mg PO QAM #15 tabs 06/01/22 Rx Past Med/Surg History Medical History Anxiety CVA (cerebral vascular accident) Depression with anxiety GERD (gastroesophageal reflux disease) HLD (hyperlipidemia) Hypertension Pre-diabetes Surgical History History of tubal ligation Family History Other No significant family history Social History Smoking Status: Former smoker Hx Alcohol Use: Yes Alcohol type: beer, wine and hard liquor Hx Substance Use: Yes Prescribed Medications: Marijuana Last Used Substance: Unknown Preferred Language: [place] Communication Ability: Effective 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 Safety Auditor Required: No Beliefs That Will Affect Care: None marital status: Single Current Living Situation: Family Current Living Situation Comment: Adult children live with her current occupational status: unemployed Feels Safe at Home: Yes Assistive Devices: None Review of Systems Review of Systems: As per HPI, all other systems reviewed and negative Physical Exam Physical Exam: GENERAL: uncomfortable, obese, no respiratory distress SKIN: Pallor, warm HEENT: Pale palpebral conjunctivae, no ptosis, moist buccal mucosa NECK : Supple, short neck, no tenderness CHEST : CTA, no tenderness HEART : RRR, no obvious murmurs ABDOMEN: Some distention, minimal epigastric tenderness RECTAL : Intact sphincter, brown stool (FOBT negative) EXTREMITIES : Minimal LE swelling, no LE tenderness, no other conspicuous deformities noted NEUROLOGIC : Coherent, no facial asymmetry, MMTS RUE/RLE 5/5, LUE/LLE 3/5 (chronic as per patient) Results & Data Results & Data ([facility]) Vital Signs (Past 12 Hours) Vital Signs Temp Pulse Resp BP Pulse Ox O2 Del Method 06/06/22 05:30 74 22 138/95 95 06/06/22 05:24 36.8 C 80 17 150/97 H 100 Room Air Laboratory Results Laboratory Results WBC 5.91 K/ul (4.8-10.8) 06/06/22 05:24 RBC 3.64 M/uL (3.93-5.22) L 06/06/22 05:24 Hgb 10.9 g/dl (12.0-16.0) L 06/06/22 05:24 Hct 32.7 % (34.1-44.9) L 06/06/22 05:24 MCV 89.8 fL (80.0-100.0) 06/06/22 05:24 MCH 29.9 pg (25.0-34.0) 06/06/22 05:24 MCHC 33.3 g/dL (32.0-36.0) 06/06/22 05:24 RDW Std Deviation 41.1 fL (36.4-46.3) 06/06/22 05:24 RDW Coeff of Magdiel 12.5 % (11.5-14.5) 06/06/22 05:24 Plt Count 171 K/uL (130-400) 06/06/22 05:24 MPV 10.0 fL (9.4-12.3) 06/06/22 05:24 Immature Gran % (Auto) 0.2 % 06/06/22 05:24 Neut % (Auto) 63.3 % 06/06/22 05:24 Lymph % (Auto) 27.9 % 06/06/22 05:24 [place] % (Auto) 7.4 % 06/06/22 05:24 Eos % (Auto) 1.0 % 06/06/22 05:24 Baso % (Auto) 0.2 % 06/06/22 05:24 Neut # (Auto) 3.74 K/uL (1.4-6.5) 06/06/22 05:24 Lymph # (Auto) 1.65 K/uL (1.2-3.4) 06/06/22 05:24 [place] # (Auto) 0.44 K/uL (0.24-0.82) 06/06/22 05:24 Eos # (Auto) 0.06 K/uL (0-0.50) 06/06/22 05:24 Baso # (Auto) 0.01 K/uL (0-0.2) 06/06/22 05:24 Immature Gran # (Auto) 0.01 K/uL (0.00-0.02) 06/06/22 05:24 POC Glucose 100 mg/dl (70-99) H 06/06/22 05:[address] head initial read: No evidence of acute intracranial pathology. Mild nonspecificwhite matter changes. [facility]io head initial read: Negative CTAangiogramof the head. Comparison made to prior CT angiogramof the head from May 31, 2022. CT angio neck initial read: Negative CT angiogramof the neck. Comparison made to prior CT angiogramof the neck from May 31, 2022. Right thyroid nodule. Findings concerning for bronchitis. Moderate disc degeneration at C3-4, C4-5 and C5-6. Findings concerning for thyroid ophthalmopathy, which can be seen in the setting of Graves' disease. Enlarged faucial tonsils. Cervical lymphadenopathy. Chest x-ray as per my interpretation no congestion EKG as per my interpretation : Rate 80, NSR, normal axis, T wave flattening lateral leads
[2022-06-06] MEDS ORDERED: POTASSIUM CHLORIDE PWD 20 MEQ PACK PO STA (06:06)
[2022-06-06 06:07] LABS: Troponin I High Sensitivity 3.9 pg/ml (0-14)
[2022-06-06] MEDS ORDERED: ACETAMINOPHEN 325 MG TAB PO STA (06:13)
[2022-06-06] MEDS ORDERED: NSS + 20MEQ KCL 20 MEQ/1,000 ML BAG IV ONE (06:25)
[2022-06-06 06:27] LABS: Partial Thromboplastin Ratio 0.8; Partial Thromboplastin Time 23.3 Seconds (21.0-31.0); Prothrombin Time 10.9 Seconds (9.0-12.0)
[2022-06-06] MEDS ORDERED: diphenhydrAMINE 50 MG/ML VIAL IV STA (06:28)
[2022-06-06] MEDS ORDERED: PROCHLORPERAZINE 1 ML IV ONE (06:28)
--- NOTE | 2022-06-06 06:54 | CT Scan Report ---
UNENHANCED CT OF THE BRAIN; CT ANGIOGRAM OF THE BRAIN; CT ANGIOGRAM OF THE NECK CLINICAL HISTORY: Strokelike symptoms. COMPARISON STUDY: CT angiogram of the head and neck dated 05/31/2022. TECHNIQUE: Unenhanced axial CT scan of the brain is performed. Subsequently, following the IV adminis tration of 110 of [address] 320, CT angiogram of the head and neck was performed from the aortic arch t o the vertex. Images are reviewed in the axial, sagittal, and coronal planes. 3-D MIPS images are cre ated and assessed. IV contrast was administered without complication. All measurements were calculate d based on NASCET criteria. A dose lowering technique was utilized adhering to the principles of ALA RA. CT DOSE: 1306.49 mGy.cm FINDINGS: Brain parenchyma: There is minimal microangiopathic change. There is no hemorrhage, mass effect, or e vidence of acute territorial ischemia by CT criteria. There is no evidence of enhancing mass lesion o n the angiogram phase images. The ventricles, sulci, and cisterns are normal in configuration. Robert-w avi matter differentiation is preserved. No extra-axial fluid collection is seen. Thoracic aorta: Visualized portions of the thoracic aorta are normal in caliber. The aortic arch demo nstrates standard 3-vessel anatomy. Right carotid arterial system: The right common carotid artery is widely patent, as are the right int ernal and external carotid arteries. Mild plaque is seen in the carotid bulb. Left carotid arterial system: The left common carotid artery is widely patent, as are the left agriculture intern al and external carotid arteries. Vertebral arteries: The vertebral arteries are widely patent bilaterally and codominant. Subclavian arteries: Widely patent bilaterally. Intracranial vasculature: There is atherosclerotic calcification of the cavernous carotid arteries. T he internal carotid arteries are patent at the skull base, as are the anterior and middle cerebral ar teries bilaterally. There is origin of the right posterior cerebral artery. The vertebrobasila r system and posterior cerebral arteries are widely patent. The vertebral arteries are codominant. Th ere is no aneurysm, high-grade stenosis, or focal vessel cut off seen throughout the intracranial cir culation. Jugular veins: Patent bilaterally. Dural sinuses: Patent. Lung apices: Partially visualized upper lobe lung parenchyma appears clear. Soft tissues: The visualized pharyngeal soft tissues are normal in appearance noting angiographic pha se technique. The oropharyngeal airway appears widely patent. The thyroid gland is heterogeneous. The salivary glands are normal in appearance. No cervical lymphadenopathy is seen. Skeletal structures: The calvarium appears intact. The cervical spine is maintained noting mild multi level spondylosis. No lytic or blastic lesion is seen. Orbits: The bony orbits are intact. Orbital contents are normal as visualized. Sinuses and mastoids: The paranasal sinuses are clear. The mastoid air cells are well pneumatized. IMPRESSION: 1 There is no hemorrhage, mass effect, or evidence of acute territorial ischemia by CT criteria. 2. Unremarkable CT angiogram of the brain. No change from 05/31/2022. 3. Unremarkable CT angiogram of the neck. No change from 05/31/2022. ACT 112: Negative or not required by law. Electronically signed by: Riky Velasco M.D. 06/06/2022 6:52 AM
--- NOTE | 2022-06-06 06:55 | XRay Report ---
XR chest 1V portable HISTORY: 52 years-old Female neuro deficit, acute stroke suspected acute strokelike symptoms COMPARISON: CTA neck 06/06/2022 TECHNIQUE: AP view of the chest FINDINGS: Cardiac mediastinal and hilar silhouettes are within normal limits. No pneumothorax, pleural effusion , airspace consolidation or overt pulmonary edema. Degenerative changes of the shoulders and spine. IMPRESSION: No acute process. ACT 112: Negative or not required by law. The above report was generated using voice recognition software. It may contain grammatical, syntax o r spelling errors. Electronically signed by: Griffin Sarabia M.D. 06/06/2022 6:53 AM
[2022-06-06] MEDS ORDERED: MoRPHine SULFATE 4 MG/ML 1 ML CARP\\VIAL IV PRN (07:09)
[2022-06-06] MEDS ORDERED: oxyCODONE HCL IR 5 MG TAB (IMMEDIATE RELEASE) PO STA (07:09)
[2022-06-06] MEDS ORDERED: oxyCODONE HCL IR 5 MG TAB (IMMEDIATE RELEASE) PO PRN (07:09)
[2022-06-06] MEDS ORDERED: PROMETHAZINE HCL 12.5 MG in SODIUM CHLORIDE 0.9% 50 ML IV PRN (07:09)
[2022-06-06 07:11] LABS: Appearance Urine Clear (Clear); Bilirubin Urine Negative (Negative); Blood Urine Negative (Negative); Color Urine Yellow; Glucose Urine UA Negative (Negative); Ketones Urine Negative (Negative); Leukocyte Esterase Urine Negative (Negative); Nitrite Urine Negative (Negative); Protein Urine Negative (Negative); Specific Gravity Urine > 1.045 (1.000-1.030); Urobilinogen Urine Negative (Negative); pH Urine 7.5 (4.5-7.5)
[2022-06-06] MEDS ORDERED: CARBOHYDRATES FOR HYPOGLYCEMIA PO PRN (07:37)
[2022-06-06] MEDS ORDERED: GLUCOSE 10 TAB/TUBE PO PRN (07:37)
[2022-06-06] MEDS ORDERED: GLUCOSE 40% GEL 15 GM TUBE PO PRN (07:37)
[2022-06-06] MEDS ORDERED: DEXTROSE 50% 50 ML SYRINGE IV PRN (07:37)
[2022-06-06] MEDS ORDERED: GLUCAGON FOR INJ 1 MG VIAL SQ PRN (07:37)
[2022-06-06] MEDS ORDERED: PANTOprazole 40 MG in SYRINGE 0 ML IV ONE (07:45)
[2022-06-06] MEDS ORDERED: LORATADINE 10 MG TAB PO ONE (07:45)
[2022-06-06] MEDS: LACTATED RINGER'S 1,000 ML IV SCH (07:45)
--- NOTE | 2022-06-06 07:52 | CT Scan Report ---
ABDOMEN AND PELVIS CT WITHOUT CONTRAST CT DOSE: 913.42 mGycm HISTORY: Acute generalized abdominal pain with weakness abd pain TECHNIQUE: Multiaxial CT images of the abdomen and pelvis were performed without contrast. A dose lo wering technique was utilized adhering to the principles of ALARA. COMPARISON STUDY: None. FINDINGS: Clear lung bases. No pneumatosis or pneumoperitoneum. A small moderate hiatal hernia is pre dominantly fat filled. Unremarkable spleen, pancreas and right adrenal gland. 2.3 cm left adrenal conchita noma. Mildly contracted gallbladder with hyperattenuation of the gallbladder fundus. This finding fav ors adenomyomatosis. Unremarkable liver. Contrast is noted within the renal collecting systems from t he CT exams obtained a few hours earlier. This limits evaluation for an underlying urolith. No hydron ephrosis. Mild bladder wall thickening with contrast present within the urinary bladder lumen. Fibroi d uterus probable bicornuate morphology. Atherosclerosis of the aorta without aneurysm. There is no l ymphadenopathy identified. No bowel obstruction or bowel wall thickening. Mild colonic diverticulosis. Mild colonic fecal retent ion. Normal appendix. No ascites or mesenteric inflammation. Unremarkable soft tissues. No acute frac ture. IMPRESSION: 1. No acute intra-abdominal or intrapelvic abnormality. 2. No bowel obstruction or bowel wall thickening. Normal appendix. 3. Probable fundal adenomyomatosis of the gallbladder. 4. Additional findings as above. ACT 112: Negative or not required by law. The above report was generated using voice recognition software. It may contain grammatical, syntax o r spelling errors. Electronically signed by: Griffin Sarabia M.D. 06/06/2022 7:50 AM
[2022-06-06] MEDS: ATORVASTATIN 40 MG TAB PO SCH (10:06)
[2022-06-06] MEDS: DULoxetine HCL 30 MG CAP PO SCH (10:07)
[2022-06-06] MEDS: FLUTICASONE PROPIONATE NA SPR 16 GM BTL SCH (10:09)
--- NOTE | 2022-06-06 10:11 | Surgery Consultation ---
Date of Consultation June 06, 2022 Assessment & Plan (1) Gallbladder polyp: pt is a 52 year-old female who presents to Er with headache, CT scan finding gallbladder polyp, IMP; gallbladder polyp, no emergent surgery indication now, F/U out-patient, F/U me 2-4 weeks, , sign off today, thanks, please call with questions, History of Present Illness Reason for Consultation: gallbladder polyp Requesting Physician: Charlie Jefferson MD Attending Physician: Charlie Jefferson MD History of Present Illness Chief Complaint: Headache Primary Care Provider: Brad Dsouza MD History obtained from patient, family, and records. Medical history significant for CVA, hypertension, hyperlipidemia, GERD, anxiety/mood disorder, DM2 diet-controlled, thyroid nodules, past tobacco abuse. Last confinement May 31-2021 for TIA. Brain MRI negative for new stroke. Neurology recommended dual antiplatelet therapy for 21 days followed by aspirin daily. Patient discharged on new HCTZ and statin medications. Patient with headache symptoms since being home. Headache worsened by lights. SBP 140s to 160s. Patient compliant with home medications. Last night, patient noted epigastric discomfort without black/bloody stools. This morning around 4 AM, patient woke up with worsening headache symptoms all over. No new weakness as per patient. Patient daughter thought patient looked pale and somewhat imbalanced. Patient brought to the ER. Stroke alert called. Patient not felt to be a candidate for tPA as per [facility] neurologist. I ( Tejinder Faith MD ) got a call for consult gallbladder polyp, I reviewed pt's H/P, labs , and CT scan with pt, Medical Historyas above No prior endoscopies Surgical History : Breast biopsy, BTL Family History : Unknown as patient was adopted Personal/Social history : Past tobacco abuse, occasional EtOH intake, home care Allergies Allergy/AdvReac Type Severity Reaction Status Date / Time No Known Allergies Allergy Verified 05/31/22 20:18 Home Medications Medication Instructions Recorded Confirmed Type acetaminophen 500 mg tablet 1,000 mg PO Q6H PRN Fever Or Pain 04/08/21 05/31/22 History (Tylenol Extra Strength) albuterol sulfate 2.5 mg/3 mL 2.5 mg inhalation Q4 PRN Wheezing 04/08/21 05/31/22 History (0.083 %) solution for nebulization albuterol sulfate 90 mcg/actuation 2 puff inhalation QID PRN 04/08/21 05/31/22 History aerosol inhaler Shortness Of Breath clonazepam 0.5 mg tablet 0.5 mg PO TID PRN Anxiety 04/08/21 05/31/22 History fluticasone propionate 50 2 spray intranasal QAM 04/08/21 05/31/22 Hi story mcg/actuation nasal spray,suspension duloxetine 30 mg capsule,delayed 30 mg PO DAILY 01/16/22 2 History release sprinkle duloxetine 60 mg capsule,delayed 60 mg PO DAILY 01/16/22 2 History release sprinkle omeprazole 40 mg capsule,delayed 40 mg PO DAILYBB 01/16/22 2 History release celecoxib 100 mg capsule 100 mg PO QAM 05/31/22 05/31/22 Histor y prazosin 1 mg capsule 1 mg PO HS 05/31/22 05/31/22 History aspirin 81 mg tablet,delayed 81 mg PO QAM #30 tabs 06/01/22 Rx release atorvastatin 40 mg tablet 40 mg PO QAM #30 tabs 06/01/22 Rx clopidogrel 75 mg tablet 75 mg PO QAM 20 days #20 tabs 06/01/22 Rx hydrochlorothiazide 25 mg tablet 12.5 mg PO QAM #15 tabs 06/01/22 Rx Past Med/Surg History Medical History Anxiety CVA (cerebral vascular accident) Depression with anxiety GERD (gastroesophageal reflux disease) HLD (hyperlipidemia) Hypertension Pre-diabetes Surgical History History of tubal ligation Family History Other No significant family history Social History Smoking Status: Former smoker Hx Alcohol Use: Yes Alcohol type: beer, wine and hard liquor Hx Substance Use: Yes Prescribed Medications: Marijuana Last Used Substance: Unknown Preferred Language: Lebanese Communication Ability: Effective Ag Service Manager Required: No Beliefs That Will Affect Care: None marital status: Single Current Living Situation: Family Current Living Situation Comment: Adult children live with her current occupational status: unemployed Feels Safe at Home: Yes Assistive Devices: None Review of Systems Review of Systems: As per HPI, all other systems reviewed and negative Allergies Allergy/AdvReac Type Severity Reaction Status Date / Time No Known Allergies Allergy Verified 05/31/22 20:18 Home Medications Medication Instructions Recorded Confirmed Type acetaminophen 500 mg tablet 1,000 mg PO Q6H PRN Fever Or Pain 04/08/21 05/31/22 History (Tylenol Extra Strength) albuterol sulfate 2.5 mg/3 mL 2.5 mg inhalation Q4 PRN Wheezing 04/08/21 05/31/22 History (0.083 %) solution for nebulization albuterol sulfate 90 mcg/actuation 2 puff inhalation QID PRN 04/08/21 05/31/22 History aerosol inhaler Shortness Of Breath clonazepam 0.5 mg tablet 0.5 mg PO TID PRN Anxiety 04/08/21 05/31/22 History fluticasone propionate 50 2 spray intranasal QAM 04/08/21 05/31/22 History mcg/actuation nasal spray,suspension duloxetine 30 mg capsule,delayed 30 mg PO DAILY 01/16/22 05/31/22 History release sprinkle duloxetine 60 mg capsule,delayed 60 mg PO DAILY 01/16/22 05/31/22 History release sprinkle omeprazole 40 mg capsule,delayed 40 mg PO DAILYBB 01/16/22 05/31/22 History release celecoxib 100 mg capsule 100 mg PO QAM 05/31/22 05/31/22 History prazosin 1 mg capsule 1 mg PO HS 05/31/22 05/31/22 History aspirin 81 mg tablet,delayed 81 mg PO QAM #30 tabs 06/01/22 Rx release atorvastatin 40 mg tablet 40 mg PO QAM #30 tabs 06/01/22 Rx clopidogrel 75 mg tablet 75 mg PO QAM 20 days #20 tabs 06/01/22 Rx hydrochlorothiazide 25 mg tablet 12.5 mg PO QAM #15 tabs 06/01/22 Rx Patient History Medical History Anxiety CVA (cerebral vascular accident) Depression with anxiety GERD (gastroesophageal reflux disease) HLD (hyperlipidemia) Hypertension Pre-diabetes Surgical History History of tubal ligation Family History Other No significant family history Social History Smoking Status: Former smoker Hx Alcohol Use: Yes Alcohol type: beer, wine and hard liquor Hx Substance Use: Yes Prescribed Medications: Marijuana Last Used Substance: Unknown Preferred Language: Lebanese Communication Ability: Effective Ag Service Manager Required: No Beliefs That Will Affect Care: None marital status: Single Current Living Situation: Family Current Living Situation Comment: Adult children live with her current occupational status: unemployed Feels Safe at Home: Yes Assistive Devices: None Review of Systems Constitutional: as per Subjective / HPI Eyes: as per Subjective / HPI Respiratory: as per Subjective / HPI Cardiovascular: as per Subjective / HPI Additional Comments: HTN Gastrointestinal: as per Subjective / HPI (GERD) Neurologic: stroke- like symptoms, CVA Psychiatric: depression Physical Exam Constitutional: WD/WN, vitals as above Eyes: PERRL, conjunctivae normal, anicteric sclerae Neck: trachea midline, no thyromegaly Respiratory: normal respiratory effort, lungs clear to auscultation Cardiovascular: RRR, no murmur, no edema Gastrointestinal (Abdomen): normal bowel sounds, soft, nontender, no hepatosplenomegaly Musculoskeletal: no cyanosis or clubbing, extremities motor strength 5/5 Neurologic: patellar DTR's 2+ bilat, sensation intact Psychiatric: A+Ox3, euthymic affect Results & Data ([facility]) Vital Signs (Past 12 Hours) Vital Signs Temp Pulse Resp BP Pulse Ox O2 Del Method 06/06/22 06:20 142/79 H 06/06/22 06:20 66 19 98 06/06/22 06:15 70 22 142/79 H 94 06/06/22 06:00 74 22 135/98 96 06/06/22 05:45 71 19 118/86 95 06/06/22 05:30 74 22 138/95 95 06/06/22 05:24 36.8 C 80 17 150/97 H 100 Room Air Laboratory Results Abnormal lab results 06/06/22 06/06/22 06/06/22 Range/Units 05:23 05:24 05:24 RBC 3.64 L (3.93-5.22) M/uL Hgb 10.9 L (12.0-16.0) g/dl Hct 32.7 L (34.1-44.9) % Sodium 135 L (136-145) mmol/L Potassium 3.4 L (3.5-5.1) mmol/L POC Glucose 100 H (70-99) mg/dl Calcium 8.3 L (8.5-10.1) mg/dl Total Protein 5.9 L (6.0-8.3) gm/dl Globulin 2.4 L (2.5-4.0) gm/dl Ur Specific [place] (1.000-1.030) 06/06/22 06/06/22 Range/Units 06:10 08:14 RBC (3.93-5.22) M/uL Hgb (12.0-16.0) g/dl Hct (34.1-44.9) % Sodium (136-145) mmol/L Potassium (3.5-5.1) mmol/L POC Glucose 113 H (70-99) mg/dl Calcium (8.5-10.1) mg/dl Total Protein (6.0-8.3) gm/dl Globulin (2.5-4.0) gm/dl Ur Specific [place] > 1.045 H (1.000-1.030) Diagnostic Findings ABDOMEN AND PELVIS CT WITHOUT CONTRAST CT DOSE: 913.42 mGycm HISTORY: Acute generalized abdominal pain with weakness abd pain TECHNIQUE: Multiaxial CT images of the abdomen and pelvis were performed without contrast. A dose lowering technique was utilized adhering to the principles of ALARA. COMPARISON STUDY: None. FINDINGS: Clear lung bases. No pneumatosis or pneumoperitoneum. A small moderate hiatal hernia is predominantly fat filled. Unremarkable spleen, pancreas and right adrenal gland. 2.3 cm left adrenal adenoma. Mildly contracted gallbladder with hyperattenuation of the gallbladder fundus. This finding favors adenomyomatosis. Unremarkable liver. Contrast is noted within the renal collecting systems from the CT exams obtained a few hours earlier. This limits evaluation for an underlying urolith. No hydronephrosis. Mild bladder wall thickening with contrast present within the urinary bladder lumen. 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 Atherosclerosis of the aorta without aneurysm. There is no lymphadenopathy identified. No bowel obstruction or bowel wall thickening. Mild colonic diverticulosis. Mild colonic fecal retention. Normal appendix. No ascites or mesenteric inflammation. Unremarkable soft tissues. No acute fracture. IMPRESSION: 1. No acute intra-abdominal or intrapelvic abnormality. 2. No bowel obstruction or bowel wall thickening. Normal appendix. 3. Probable fundal adenomyomatosis of the gallbladder. 4. Additional findings as above. ACT 112: Negative or not required by law. The above report was generated using voice recognition software. It may contain grammatical, syntax or spelling errors.
[2022-06-06 10:38] LABS: Hematocrit (blood only) 40.9 % (34.1-44.9); Hemoglobin 13.7 g/dl (12.0-16.0); Reticulocyte % 1.3 % (0.5-2.0); Reticulocytes # 0.06 10^6/uL (0.02-0.10)
[2022-06-06 12:54] LABS: Ferritin 55.6 ng/ml (8-388)
[2022-06-06] MEDS: INSULIN ASPART PER UNIT SC SCH ×3 (14:05→20:57)
[2022-06-06] MEDS: CLOPIDOGREL BISULFATE 75 MG TAB PO SCH (15:04)
[2022-06-06] MEDS: ASPIRIN 81 MG ECTAB PO SCH (15:04)
--- NOTE | 2022-06-06 15:04 | Hospitalist Progress Note ---
Date of Service June 06, 2022 Assessment & Plan (1) History of CVA (cerebrovascular accident): (2) Anemia: Plan 52-year-old lady with PMH of CVA, TIA, HTN, HLD, GERD, anxiety/mood disorder, DM2 diet controlled, thyroid nodules, past tobacco abuse, medication noncompliance with BP meds and aspirin presented to the ED 06/06 with complaint of feeling generalized weak, "wobbly" while walking, and blurry vision bilateral eyes. Patient's daughter who was at bedside on 06/06/2022 stated that she did not have any slurred speech or facial deviation but she was especially weak on her left side. Of note, pt was minimally weak on left side (4-5/5)on discharge. She is being managed for the following: History of recurrent TIA rule out stroke Patient seen weak on the left side, patient reports no new neurological signs or symptoms [see above] Stroke alert was called at presentation to ED, CTA head and neck, CT head was obtained. All images reviewed. Will continue with aspirin and Plavix, increase PPI to pantoprazole 40 mg twice daily. Discontinue omeprazole. Will get MRI brain, follow. Neurochecks, telemetry monitoring, orthostatic vitals. PT/OT. Monitor and replete electrolytes. Concern for anemia: Patient was noted to be pale by patient's family, hemoglobin at admission was 10.9, but the next hemoglobin was back to her baseline at 13.7. Patient denied black/bloody stools, FOBT at the ED was negative. Patient is on Celebrex at home, will discontinue Celebrex in favor of aspirin/Plavix which she is on for stroke prevention. Will increase her PPI to Protonix 40 mg twice daily for 4 weeks. Patient to follow-up with PCP for ongoing management. Iron profile with ferritin of 55.5 and iron of 84, low normal folate level and adequate vitamin B12 level. Will start iron supplementation and folate supplementation. Clear liquid diet, advance as tolerated. Labs in AM. Concern for gallbladder polyp: Admitting CTAP 06/06 reviewed. Probable fundal adenomyomatosis of the gallbladder, otherwise normal. General surgery consulted, outpatient follow-up with surgery in 2 to 4 weeks. No acute intervention. Other chronic medical conditions: HTN,, HLD, thyroid nodules, GERD, DM2 --> resume home meds as able. Sliding scale insulin. Follow-up PCP outpatient for thyroid nodule work-up. DVT prophylaxis: SCDs Full code Text document was generated using voice recognition software. It may contain grammatical or spelling errors. Kindly contact undersigned for clarification of any documentation item in question. Admission and Anticipated Discharge Date Admission Date: June 06, 2022 Subjective Patient seen and examined at bedside as a follow-up of concern for anemia, concern for strokelike symptoms. Patient was lying in bed, sleeping, woke up for examination, NAD, on room air, reports no new acute event overnight, denies any weakness or numbness or tingling anywhere in the body, denies any dizziness or chest pain or palpitation, reports feeling sleepy. Patient's daughter Starla was at bedside, who stated that patient did not have any slurred speech or facial drooping yesterday but she was weak and imbalance with walking and especially weak on her left side. Patient states that she felt generalized weakness, blurry vision from both eyes, but no new focal new weakness or numbness or tingling sensation. Physical Exam Physical Exam: GENERAL: Alert and oriented x3. NAD, on RA. HEENT: No pallor, no icterus. Pupils equal, round and reactive to light. Oral mucosa moist. NECK: No JVD, no neck masses. HEART: S1 and S2 heard. Regular rate and rhythm. No murmur, no gallop. RESPIRATORY SYSTEM: Normal AP diameter. No accessory muscle use. No wheezing, no crackles. ABDOMEN: Soft, bowel sounds present, nontender, no distention. CENTRAL NERVOUS SYSTEM: No facial droop. Speech is clear. Obeys simple commands. Moves extremities. EXTREMITIES: No edema, no erythema seen. Results & Data Results & Data ([facility]) Vital Signs (Past 12 Hours) Vital Signs Temp Pulse Resp BP Pulse Ox O2 Del Method 06/06/22 06:20 142/79 H 06/06/22 06:20 66 19 98 06/06/22 06:15 70 22 142/79 H 94 06/06/22 06:00 74 22 135/98 96 06/06/22 05:45 71 19 118/86 95 06/06/22 05:30 74 22 138/95 95 06/06/22 05:24 36.8 C 80 17 150/97 H 100 Room Air
[2022-06-06] MEDS: clonazePAM 0.5 MG TAB PO PRN (16:44)
[2022-06-06] MEDS: FERROUS GLUCONATE 324 MG TAB PO SCH (17:05)
[2022-06-06] MEDS: FOLIC ACID 1 MG TAB PO SCH (17:05)
--- NOTE | 2022-06-06 17:52 | Magnetic Resonance Report ---
MR brain wo con CLINICAL HISTORY: left sided weakness at presentation, r/o stroke TECHNIQUE: Multiplanar and multisequence MR images of the brain were obtained without intravenous con trast. Comparison: Comparison is made to CTA head and neck 06/06/2022 and MRI head 06/01/2022 FINDINGS: No abnormal restricted diffusion is identified. The white matter is unremarkable. The ventricular sys tem is normal in appearance. No mass is seen. There is no mass effect or midline shift. There is no e vidence of acute intraparenchymal hemorrhage. No extra axial fluid collections are seen. The corpus c allosum, pituitary gland, and cerebellar tonsils appear grossly unremarkable. Flow voids of the major intracranial arterial vessels are identified. The imaged portions of the para nasal sinuses, mastoid air cells, and orbits are unremarkable. IMPRESSION: No acute abnormality and in particular no evidence of acute infarct. ACT 112: Negative or not required by law. Electronically signed by: Mina Sharpe M.D. 06/06/2022 5:50 PM
[2022-06-06] MEDS: PANTOprazole 40 MG TAB PO SCH (20:51)
[2022-06-06 20:52] LABS: Hematocrit (blood only) 42.2 % (34.1-44.9); Hemoglobin 14.2 g/dl (12.0-16.0)
[2022-06-06] MEDS ORDERED: PRAZOSIN HCL 1 MG CAP PO SCH (21:00)
[2022-06-06] MEDS: ACETAMINOPHEN 325 MG TAB PO PRN (23:58)
[2022-06-07] MEDS: LACTATED RINGER'S 1,000 ML IV SCH (05:33)
--- NOTE | 2022-06-07 06:22 | Electrocardiogram Report ---
Test Reason : Blood Pressure : / mmHG Vent. Rate : 078 BPM Atrial Rate : 078 BPM P-R Int : 190 ms QRS Dur : 076 ms QT Int : 384 ms P-R-T Axes : 070 026 062 degrees QTc Int : 437 ms Normal sinus rhythm When compared with ECG of 31-MAY-2022 18:56, No significant change was found Confirmed by Martin Amezquita ([id number]) on 06/07/2022 6:21:43 AM Referred By: REFERRED SELF Confirmed By:Martin Amezquita
[2022-06-07 07:09] LABS: Basophils # (auto) 0.01 K/uL (0-0.2); Basophils % (auto) 0.3 %; Eosinophils # (auto) 0.05 K/uL (0-0.50); Eosinophils % (auto) 1.6 %; Hematocrit (blood only) 39.3 % (34.1-44.9); Hemoglobin 13.2 g/dl (12.0-16.0); Mean Corpuscular Hemoglobin 29.6 pg (25.0-34.0); Mean Corpuscular Hgb Conc 33.6 g/dL (32.0-36.0); Mean Corpuscular Volume 88.1 fL (80.0-100.0); Mean Platelet Volume 9.6 fL (9.4-12.3); Monocytes # (auto) 0.36 K/uL (0.24-0.82); Monocytes % (auto) 11.6 %; Neutrophils # (auto) 1.29 K/uL (1.4-6.5); Neutrophils % (auto) 41.5 %; Platelet Count 186 K/uL (130-400); RDW Coefficient of Variation 12.5 % (11.5-14.5); RDW Standard Deviation 40.7 fL (36.4-46.3); Red Blood Count 4.46 M/uL (3.93-5.22); White Blood Count 3.11 K/ul (4.8-10.8)
[2022-06-07 07:31] LABS: BUN Creatinine Ratio 15.4 (10-20); Calcium 9.1 mg/dl (8.5-10.1); Creatinine Clr Calc Pharmacy 104.2 ml/min; Est GFR (African American) 117.5 ml/min; Est GFR (Non-African American) 101.4 ml/min
[2022-06-07] MEDS ORDERED: amLODIPine BESYLATE 5 MG TAB PO SCH (09:00)
[2022-06-07] MEDS: DULoxetine HCL 30 MG CAP PO SCH (09:50)
[2022-06-07] MEDS: FOLIC ACID 1 MG TAB PO SCH (09:50)
[2022-06-07] MEDS: PANTOprazole 40 MG TAB PO SCH (09:50)
[2022-06-07] MEDS: ATORVASTATIN 40 MG TAB PO SCH (09:50)
[2022-06-07] MEDS: CLOPIDOGREL BISULFATE 75 MG TAB PO SCH (09:50)
[2022-06-07] MEDS: ASPIRIN 81 MG ECTAB PO SCH (09:51)
[2022-06-07] MEDS: FERROUS GLUCONATE 324 MG TAB PO SCH (09:51)
[2022-06-07] MEDS: INSULIN ASPART PER UNIT SC SCH ×2 (09:54→12:37)
[2022-06-07] MEDS: FLUTICASONE PROPIONATE NA SPR 16 GM BTL SCH (09:54)
[2022-06-07] MEDS: ACETAMINOPHEN 325 MG TAB PO PRN (11:42)
[2022-06-07] MEDS: clonazePAM 0.5 MG TAB PO PRN (11:47)
--- NOTE | 2022-06-07 13:06 | Discharge Summary ---
Date of Service June 07, 2022 Admission HPI Per Admitting Provider History obtained from patient, family, and records. Medical history significant for CVA, hypertension, hyperlipidemia, GERD, anxiety/mood disorder, DM2 diet-controlled, thyroid nodules, past tobacco abuse. Last confinement May 31-2021 for TIA. Brain MRI negative for new stroke. Neurology recommended dual antiplatelet therapy for 21 days followed by aspirin daily. Patient discharged on new HCTZ and statin medications. Patient with headache symptoms since being home. Headache worsened by lights. SBP 140s to 160s. Patient compliant with home medications. Last night, patient noted epigastric discomfort without black/bloody stools. This morning around 4 AM, patient woke up with worsening headache symptoms all over. No new weakness as per patient. Patient daughter thought patient looked pale and somewhat imbalanced. Patient brought to the ER. Stroke alert called. Patient not felt to be a candidate for tPA as per [facility] neurologist. Medical Historyas above No prior endoscopies Surgical History : Breast biopsy, BTL Family History : Unknown as patient was adopted Personal/Social history : Past tobacco abuse, occasional EtOH intake, home care Admission Exam Per Admitting Provider GENERAL: uncomfortable, obese, no respiratory distress SKIN: Pallor, warm HEENT: Pale palpebral conjunctivae, no ptosis, moist buccal mucosa NECK : Supple, short neck, no tenderness CHEST : CTA, no tenderness HEART : RRR, no obvious murmurs ABDOMEN: Some distention, minimal epigastric tenderness RECTAL : Intact sphincter, brown stool (FOBT negative) EXTREMITIES : Minimal LE swelling, no LE tenderness, no other conspicuous deformities noted NEUROLOGIC : Coherent, no facial asymmetry, MMTS RUE/RLE 5/5, LUE/LLE 3/5 (chronic as per patient) Principal Diagnosis Generalized Weakness, likely 2/2 vomiting x 1 [employer] Gallbladder polyp Concern for gastritis and anemia Discharge Exam GENERAL: Alert and oriented x3. NAD, on RA. HEENT: No pallor, no icterus. Pupils equal, round and reactive to light. Oral mucosa moist. NECK: No JVD, no neck masses. HEART: S1 and S2 heard. Regular rate and rhythm. No murmur, no gallop. RESPIRATORY SYSTEM: Normal AP diameter. No accessory muscle use. No wheezing, no crackles. ABDOMEN: Soft, bowel sounds present, nontender, no distention. CENTRAL NERVOUS SYSTEM: No facial droop. Speech is clear. Obeys simple commands. Moves extremities. LLE 4-5/5, rle 5/5. EXTREMITIES: No edema, no erythema seen. Discharge Data Allergies Allergy/AdvReac Type Severity Reaction Status Date / Time No Known Allergies Allergy Verified 06/06/22 16:41 Consultations 06/06/22 06:08 ED Decision to Admit Stat 06/06/22 08:58 Consult General Surgery Routine Ordered Studies 06/06/22 04:52 CT angio head w con Stat CT angio neck with con Stat CT head/brain wo con Stat 06/06/22 06:46 CT Abd and Pelvis [CT abd pelvis wo con] Stat 06/06/22 12:37 MRI Brain [MR brain wo con] Routine Hospital Course (1) History of CVA (cerebrovascular accident): (2) Anemia: Plan 52-year-old lady with PMH of CVA, TIA, HTN, HLD, GERD, anxiety/mood disorder, D M2 diet controlled, thyroid nodules, past tobacco abuse, medication noncompliance with BP meds and aspirin presented to the ED 06/06 with complaint of feeling generalized weak, "wobbly" while walking, and blurry vision bilateral eyes. Theses things happened after she woke up around 4 am and had vomiting x 1; she reported eating different food than usual the night prior. Patient's daughter who was at bedside on 06/06/2022 stated that she did not have any slurred speech or facial deviation but she was especially weak on her left side. Of note, pt was minimally weak on left side (4-5/5)on discharge. She is being managed for the following: History of recurrent TIA rule out stroke Patient seen weak on the left side, patient reports no new neurological signs or symptoms [see above] Stroke alert was called at presentation to ED, CTA head and neck, CT head was obtained. All images reviewed. Will continue with aspirin and Plavix, increase PPI to pantoprazole 40 mg twice daily. Discontinue omeprazole. 06/06 [facility]ain MRI w/ no acute abnormality/no evidence of acute infarct. Ortho vitals negative, PT/OT evaled, pt to continue w/ her prior HH PT. Pt to f/u w/ neuro as OP for stroke and RUE carpal tunnel syndrome. Pt to f/u w/ PCP in a week time. Concern for anemia: Patient was noted to be pale by patient's family, hemoglobin at admission was 10.9, but the rest of other hemoglobin above 13.0. Patient denied black/bloody stools, FOBT at the ED was negative. Patient is on Celebrex at home, will discontinue Celebrex in favor of aspirin/Plavix which she is on for stroke prevention. Will increase her PPI to Protonix 40 mg twice daily for 4 weeks. Patient to follow-up with PCP for ongoing management. Iron profile with ferritin of 55.5 and iron of 84, low normal folate level and adequate vitamin B12 level. Will start iron supplementation and folate supplementation. Pt tolerating diet well, Hb stable. Concern for gallbladder polyp: Admitting CTAP 06/06 reviewed. Probable fundal adenomyomatosis of the gallbladder, otherwise normal. General surgery consulted, outpatient follow-up with surgery in 2 to 4 weeks. No acute intervention. Other chronic medical conditions: HTN,, HLD, thyroid nodules, GERD, DM2 --> resume home meds as able. Sliding scale insulin. Rt Thyroid nodule mentioned in prelim reading is reported normal throid in final read. For BP control, amlod 2.5 mg in evenig and HCTZ in Am. DVT prophylaxis: SCDs Full code Pt is being discharged to home w/ home health w/ following instructions at the point of discharge: Follow-up with your primary care physician within a week time and likely you will need blood test CBC/CMP/magnesium/phosphorus levels. Maintain your blood pressure log, measure your blood pressure 2 times a day, take it to your primary care physician for adjustment of your blood pressure medication. If you have not done already, establish and follow up with neurology as outpatient. Take your blood pressure medication with hydrochlorothiazide in the morning and amlodipine in the evening as prescribed. For your prediabetes, close follow-up with your primary care physician for ongoing management. Recommend weight loss and heart healthy diet. You will need a formal sleep study to rule out sleep apnea, coordinate with your PCP for setting up the test. You will also benefit from right upper extremity EMG/NCS as an outpatient, follow-up with your neurology for right carpal tunnel syndrome. Can discontinue your celebrex, donot use omeprazole, use pantoprazole bid for 4 weeks, then once daily. Continue to take your aspirin and Plavix as prescribed as prior. Plavix for 21 days from 05/31/22. Then can discontinue Plavix. Continue to take low dose aspirin daily. Follow with surgery doctor as outpatient for evaluation of your gall bladder polyp. Follow-up PCP outpatient for thyroid nodule work-up. Take your meds as prescribed. Please make sure that you are able to get your medications today by calling your pharmacy before you leave the hospital so that your treatment continuity is not broken. Text document was generated using voice recognition software. It may contain grammatical or spelling errors. Kindly contact undersigned for clarification of any documentation item in question. Home Health Attestation I certify that this patient is under my care and that I, or a physicians assistant merchandise manager working with me, had a face to-face encounter that meets the home health [id number] encounter requirements with this patient. The encounter with the patient was in whole, or in part, for the following medical condition, which is the primary reason for home health care (list medical condition): I certify that, based on my findings, the following services are medically necessary home health services: My clinical findings support the need for the above services because: Further, I certify that my clinical findings support that this patient is homebound (i.e. absences from home require considerable and taxing effort and are for medical reasons or nondenominational services or infrequently or of short duration when for other reasons) because: Certification for Home Health Services: Based on the above findings, I certify that this patient is confined to the home and needs intermittent group home care, physical therapy and/or speech therapy or continues to need occupational therapy. The patient is under my care, and I have initiated the establishment of the plan of care. This patient will be followed by a physician who will periodically review the plan of care. Total Time Total Time Spent Total Time Spent (In Minutes): 45 Discharge Plan Discharge Items Patient Disposition: Home - Home Health Services Reason For Visit: ANEMIA, ABD PAIN Discharge Diagnosis: Generalized Weakness, likely 2/2 vomiting x 1 [employer] Gallbladder polyp Concern for gastritis and anemia Activity: Resume your previous activity Non-emergency contact: Primary Care Provider Call non-emergency contact if: you have any medication questions, your symptoms worsen and your temperature is above 101.5 Follow-up/Referrals: Karis Chisholm PA-C [Physician Cmo & President] - (Date & Time 07/09/2022 11:20 AM Provider Karis Chisholm PA-C Department Neurology [facility] ) Brad Dsouza MD [Primary Care Provider] - (Date & Time 06/14/2022 11:00 AM Provider Brad Dsouza MD Department Family Practice [facility] ) Diet: Heart Healthy Addtl Attending Provider Instructions: Follow-up with your primary care physician within a week time and likely you will need blood test CBC/CMP/magnesium/phosphorus levels. Maintain your blood pressure log, measure your blood pressure 2 times a day, take it to your primary care physician for adjustment of your blood pressure medication. If you have not done already, establish and follow up with neurology as outpatient. Take your blood pressure medication with hydrochlorothiazide in the morning and amlodipine in the evening as prescribed. For your prediabetes, close follow-up with your primary care physician for ongoing management. Recommend weight loss and heart healthy diet. You will need a formal sleep study to rule out sleep apnea, coordinate with your PCP for setting up the test. You will also benefit from right upper extremity EMG/NCS as an outpatient, follow-up with your neurology for right carpal tunnel syndrome. Can discontinue your celebrex, donot use omeprazole, use pantoprazole bid for 4 weeks, then once daily. Continue to take your aspirin and Plavix as prescribed as prior. Plavix for 21 days from 05/31/22. Then can discontinue Plavix. Continue to take low dose aspirin daily. Follow with surgery doctor as outpatient for evaluation of your gall bladder polyp. Take your meds as prescribed. Please make sure that you are able to get your medications today by calling your pharmacy before you leave the hospital so that your treatment continuity is not broken. Pending Studies at Discharge: No Stand-Alone Forms: [employer], Smoking Cessation Medications and DC Order Prescriptions: New ferrous gluconate 324 mg (38 mg iron) Tablet 324 mg PO QAM Qty: 30 0RF amlodipine [Norvasc] 5 mg Tablet 2.5 mg PO HS Qty: 30 0RF pantoprazole 40 mg Tablet,Delayed Release (Dr/Ec) 40 mg PO BID Qty: 60 0RF folic acid 1 mg Tablet 1 mg PO QAM Qty: 30 0RF Continued albuterol sulfate 2.5 mg /3 mL (0.083 %) solution for nebulization 2.5 mg inhalation Q4 PRN (Reason: Wheezing) clonazepam 0.5 mg tablet 0.5 mg PO TID PRN (Reason: Anxiety) acetaminophen [Tylenol Extra Strength] 500 mg Tablet 1,000 mg PO Q6H PRN (Reason: Fever Or Pain) albuterol sulfate 90 mcg/actuation HFA aerosol inhaler 2 puff INHALATION QID PRN (Reason: Shortness Of Breath) fluticasone propionate 50 mcg/actuation spray,suspension 2 spray INTRANASAL QAM duloxetine 30 mg Capsule, Delayed Rel Sprinkle 30 mg PO DAILY Rx Instructions: TOTAL DOSE 90 MG--TAKES WITH 60 MG CAP. duloxetine 60 mg Capsule, Delayed Rel Sprinkle 60 mg PO DAILY Rx Instructions: TOTAL DOSE 90 MG--TAKES WITH 30 MG CAP. prazosin 1 mg Capsule 1 mg PO HS clopidogrel 75 mg Tablet 75 mg PO QAM 20 Days Qty: 20 0RF atorvastatin 40 mg Tablet 40 mg PO QAM Qty: 30 0RF hydrochlorothiazide 25 mg Tablet 12.5 mg PO QAM Qty: 15 0RF aspirin 81 mg Tablet,Delayed Release (Dr/Ec) 81 mg PO QAM Qty: 30 0RF Rx Instructions: Take one tablet by mouth daily Discontinued omeprazole 40 mg Capsule,Delayed Release(Dr/Ec) 40 mg PO DAILYBB celecoxib 100 mg Capsule 100 mg PO QAM Discharge Orders: Discharge Order (Routine); Ordered 06/07/22 Ordered By: Charlie Jefferson Admission Data Admit Date/Time: 06/06/22 07:07 Attending Provider: Charlie Jefferson Admit Provider: Denver Garcia Primary Care Provider: Brad Dsouza Other Providers: Denver Garcia ; Tejinder Faith ; [facility]
[2022-06-08] MEDS ORDERED: PANTOprazole 40 MG TAB PO SCH (06:30)
== END 2022-06-07 16:01 | disposition home health service (06) ==
LOC: EDINP 04:54 → ED 04:54 → 2N 23:01

== ENCOUNTER 2023-08-22 05:47 | Inpatient (IN) ==
--- NOTE | 2023-08-22 06:09 | Emergency Department Note ---
Impression & Plan TIA (transient ischemic attack), Headache, Acute hypokalemia ED Provider Note Name: HERMINIO FERNÁNDEZ Age: 53 Sex: Female Arrives Via: Walk-In Informant: Patient, and patient's 2 sons ED Provider: Alex Horta MD Chief Complaint: Strokelike symptoms Impression: As per impressions above Medical Decision Makin-year-old female with history of CVA, strokelike symptoms, headaches, migraines, hypertension and anxiety arrives for evaluation of worsening headaches over the last few days and development of left-sided weakness slurred speech and difficulty walking. Symptoms have improved somewhat over the last few hours. Last known well was at least yesterday if not possibly longer. She is not a tPA candidate and examination is not completely consistent with a large vessel occlusion either. Initially offered meds for headache which she declines. IV established and patient was sent emergently to CT for neuroimaging with CT angio of head and neck as well. Unfortunately getting the IV was quite difficult and we required 2 attempts prior to being able to be going over to CT. During this time patient was given some IV meds for headache. This seemed to actually greatly improve her symptoms and her symptoms have essentially resolved. While it could be complex migraine which she has had in the past I think given the severity of her initial symptoms and her history of CVA TIA is diagnosis of exclusion at this point. Laboratory work remarkable for mild hypokalemia. Signed out to Dr. Collins morning ER provider pending CT imaging results and planned hospitalization for TIA. Triage/Nursing Notes reviewed by Me Differential:Infection, dehydration, metabolic abnormality, hypo/hyperglycemia, electrolyte disturbance, anemia, hypoxia, cardiac sources, intracerebral event, toxicologic, neurologic, as well as other pathologies. Vital Signs: reviewed and remarkable for no significant abnormalities Interventions: Magnesium IV, Decadron IV, morphine 6 mg IV, normal saline bolus, Zofran IV Labs:ED labs Reviewed by me and remarkable for mild hypokalemia Imaging: CT of the head and neck with angiography pending EKG:As per my interpretation. Indication strokelike symptoms. Sinus bradycardia 58 bpm QTc of 355. There is no ectopy nor ischemia. When compared to EKG of August 24, 2022 no significant change. Cardiac/Tele Monitoring: Cardiac Monitoring: An Order was placed for continuous cardiac monitoring. The monitor shows a rate of 60 with a normal sinus rhythm. Consults:Signed out to Dr Collins pending imaging Plan: Disposition: Signed Out to morning ED provider Condition: Good History of Present Illness: 53-year-old female with a history of stroke arrives for evaluation of worsening weakness. Patient notes she has had a mild headache for the last few days and was seen by her PCP yesterday noting to have elevated blood pressures. She was restarted on amlodipine but has not yet started it. Patient reports that worsening headache throughout the night questionable slurred speech yesterday evening. This morning awoke a few hours ago with significant worsening headache, left-sided weakness, slurred speech and left facial droop. She tried taking a shower but due to weakness eventually had her sons bring her to the ER. Patient notes slurred speech and facial weakness has gotten a bit better. She does note a continued headache. She declines any medications for it. Has not taken any medication this morning yet. Denies any falls, trauma, injuries. Headache is posterior and left-sided. Denies any visual changes but does not have her glasses. Past Medical History:CVA, hypertension, dyslipidemia, anxiety Home Medications:See Below Allergies:dust Vitals:Blood Pressure: 139/82, Pulse 63, RR 16, T 36.5C, O2 99% on RA Physical Exam: GENERAL: Patient is anxious/crying appearing and in moderate distress. HEAD: AT/NC RESPIRATORY: No dyspnea. Clear to auscultation and equal bilaterally. CARDIOVASCULAR: Regular rate and rhythm.No murmur appreciated. GASTROINTESTINAL: Abdomen soft, non-tender, no peritonitis. EXTREMITIES: Normal motion all extremities, no cyanosis, no edema. NEUROLOGIC: Patient is awake and oriented. She has slightly slurred speech with word finding difficulty, weakness of left hand and arm 4-5 strength compared to right which is 5 out of 5. No facial weakness appreciated. No significant weakness in legs appreciated. Slight ataxia in the left arm as well. SKIN: No rash, no jaundice, no diaphoresis. PSYCH: Appropriate though crying intermittently. GCS: 15 ED Course: Times/Reassessments: Patient vastly improved following migraine cocktail. Alex Horta MD Past Med/Surg History Medical History CVA (cerebral vascular accident) HLD (hyperlipidemia) Pre-diabetes Depression with anxiety GERD (gastroesophageal reflux disease) Hypertension Anxiety Surgical History History of tubal ligation Family History Other No significant family history Social History Smoking Status: Never smoker Hx Alcohol Use: No Hx Substance Use: Yes Prescribed Medications: Marijuana Last Used Substance: Days (ago) Preferred Language: [place]ian Communication Ability: Effective Oyster Floater Required: No Beliefs That Will Affect Care: None marital status: Single Current Living Situation: Family Current Living Situation Comment: Adult children live with her current occupational status: unemployed Other Information That Helps Us Care for You: No Feels Safe at Home: No Is there a partner from a previous relationship who is making you feel unsafe now?: No Any Concerns about Your Family Situation: No Would You Like to Speak to Someone About Your Situation: No Safety Concerns: Feels Safe At This Time Assistive Devices: Cane Allergies Allergies Allergy/AdvReac Type Severity Reaction Status Date / Time house dust Allergy Intermediate CONGESTION Verified 08/22/23 10:17 Home Meds Home Medications Medication Instructions Recorded Confirmed acetaminophen 500 mg tablet 1,000 mg PO Q6H PRN Fever Or Pain 04/08/21 08/22/23 (Tylenol Extra Strength) albuterol sulfate 2.5 mg/3 mL 2.5 mg inhalation Q4 PRN Wheezing 04/08/21 08/22/23 (0.083 %) solution for nebulization albuterol sulfate 90 mcg/actuation 2 puff inhalation QID PRN 04/08/21 08/22/23 aerosol inhaler Shortness Of Breath Or Wheezing fluticasone propionate 50 2 spray intranasal QAM 04/08/21 08/22/23 mcg/actuation nasal spray,suspension prazosin 1 mg capsule 1 mg PO HS 05/31/22 08/22/23 hydrochlorothiazide 25 mg tablet 25 mg PO QAM 08/24/22 08/22/23 clobetasol 0.05 % topical cream 1 applic topical UD 04/02/23 08/22/23 aspirin 81 mg tablet 81 mg PO DAILY 02/23/24 02/23/24 atorvastatin 40 mg tablet 20 mg PO DAILY 08/22/23 08/22/23 Results & Data (ED) Vital Signs Vital Signs - 24 hr 08/22/23 05:47 08/22/23 05:47 08/22/23 05:48 Temperature 36.5 C Temperature Source Temporal Artery Scan Pulse Rate 67 Pulse Rate [Right Finger] Pulse Rate from SpO2 Sensor Respiratory Rate 16 Respiratory Effort / Characteristics Non-Labored Spontaneous Respiratory Depth Normal Respiratory Pattern Blood Pressure 139/82 Blood Pressure [Left Arm] Blood Pressure Mean 101 Blood Pressure Mean [Left Arm] Blood Pressure Position [Left Arm] Pulse Oximetry 95 99 Oxygen Delivery Method Room Air Room Air Sepsis Recent Fever Within 48 Hours No Sepsis New/Unexplained Change in Mental Status No Sepsis Action Taken by Nursing No Action Required 08/22/23 06:07 08/22/23 07:45 08/22/23 07:46 Temperature Temperature Source Pulse Rate 63 Pulse Rate [Right Finger] 62 Pulse Rate from SpO2 Sensor 57 L Respiratory Rate 18 Respiratory Effort / Characteristics Non-Labored Respiratory Depth Normal Respiratory Pattern Regular Blood Pressure 147/89 H Blood Pressure [Left Arm] 147/89 H Blood Pressure Mean 108 Blood Pressure Mean [Left Arm] 108 Blood Pressure Position [Left Arm] Sitting Pulse Oximetry 100 96 Oxygen Delivery Method Room Air Sepsis Recent Fever Within 48 Hours Sepsis New/Unexplained Change in Mental Status Sepsis Action Taken by Nursing 08/22/23 08:11 08/22/23 08:30 08/22/23 09:02 Temperature Temperature Source Pulse Rate 70 67 59 L Pulse Rate [Right Finger] Pulse Rate from SpO2 Sensor 71 66 60 Respiratory Rate 19 11 L 19 Respiratory Effort / Characteristics Respiratory Depth Respiratory Pattern Blood Pressure 161/91 H 138/89 186/108 H Blood Pressure [Left Arm] Blood Pressure Mean 114 105 134 Blood Pressure Mean [Left Arm] Blood Pressure Position [Left Arm] Pulse Oximetry 99 98 94 Oxygen Delivery Method Sepsis Recent Fever Within 48 Hours Sepsis New/Unexplained Change in Mental Status Sepsis Action Taken by Nursing 08/22/23 09:30 08/22/23 09:46 08/22/23 10:00 Temperature Temperature Source Pulse Rate 70 75 72 Pulse Rate [Right Finger] Pulse Rate from SpO2 Sensor 68 73 72 Respiratory Rate 17 23 21 Respiratory Effort / Characteristics Respiratory Depth Respiratory Pattern Blood Pressure 182/109 H 170/95 H 164/99 H Blood Pressure [Left Arm] Blood Pressure Mean 133 120 120 Blood Pressure Mean [Left Arm] Blood Pressure Position [Left Arm] Pulse Oximetry 95 98 98 Oxygen Delivery Method Sepsis Recent Fever Within 48 Hours Sepsis New/Unexplained Change in Mental Status Sepsis Action Taken by Nursing 08/22/23 10:04 Temperature Temperature Source Pulse Rate 72 Pulse Rate [Right Finger] Pulse Rate from SpO2 Sensor Respiratory Rate Respiratory Effort / Characteristics Respiratory Depth Respiratory Pattern Blood Pressure Blood Pressure [Left Arm] Blood Pressure Mean Blood Pressure Mean [Left Arm] Blood Pressure Position [Left Arm] Pulse Oximetry Oxygen Delivery Method Sepsis Recent Fever Within 48 Hours Sepsis New/Unexplained Change in Mental Status Sepsis Action Taken by Nursing Laboratory Data 08/23/23 04:28 08/22/23 06:22 Lab Results 08/22/23 08/22/23 Range/Units 06:14 06:22 WBC 4.43 L (4.8-10.8) K/ul RBC 4.79 (4.20-5.40) M/uL Hgb 13.8 (12.0-16.0) g/dl Hct 41.5 (37.0-47.0) % MCV 86.6 (80.0-100.0) fL MCH 28.8 (25.0-34.0) pg MCHC 33.3 (32.0-36.0) g/dL RDW Std Deviation 39.8 (36.4-46.3) fL RDW Coeff of Magdiel 12.5 (11.5-14.5) % Plt Count 207 (130-400) K/uL MPV 10.1 (9.4-12.4) fL Immature Gran % (Auto) 0.2 % Neut % (Auto) 48.0 % Lymph % (Auto) 42.7 % [place] % (Auto) 7.9 % Eos % (Auto) 0.7 % Baso % (Auto) 0.5 % Neut # (Auto) 2.13 (1.40-6.50) K/uL Lymph # (Auto) 1.89 (1.20-3.40) K/uL [place] # (Auto) 0.35 (0.11-0.59) K/uL Eos # (Auto) 0.03 (0.00-0.50) K/uL Baso # (Auto) 0.02 (0.00-0.20) K/uL Immature Gran # (Auto) 0.01 (0.01-0.20) K/uL PT 10.6 (9.0-12.0) Seconds INR 1.0 (0.9-1.1) APTT 24 (21-31) Seconds PTT Ratio 0.9 Sodium 140 (136-145) mmol/L Potassium 3.3 L (3.5-5.1) mmol/L Chloride 105 (98-107) mmol/L Carbon Dioxide 27 (21-32) mmol/L Anion Gap 8 (3-11) BUN 10 (6-23) mg/dl Creatinine 0.62 (0.6-1.2) mg/dl Est Cr Clr Drug Dosing Not Reportable Est GFR ( Amer) 118.5 ml/min Est GFR (Non-Af Amer) 102.2 ml/min BUN/Creatinine Ratio 16.1 (10-20) Glucose 107 H (70-99(Fasting)) mg/dl POC Glucose 103 H (70-99) mg/dl Calcium 9.6 (8.6-10.3) mg/dl Magnesium 2.1 (1.7-2.4) mg/dl Total Bilirubin 0.5 (0.2-1.0) mg/dl AST 16 (13-39) U/L ALT 13 (7-52) U/L Alkaline Phosphatase 78 (34-104) U/L Troponin I High Sens 4.1 (0-14) pg/ml Total Protein 7.4 (6.0-8.3) gm/dl Albumin 4.4 (3.4-5.0) gm/dl Globulin 3.0 (2.5-4.0) gm/dl Albumin/Globulin Ratio 1.5 (0.9-2) Administered Medications Acetaminophen (Acetaminophen 325 Mg Tab) 650 mg PO Q4H PRN PRN Reason: Pain or Fever Stop: 09/21/23 10:20 Last Admin: 08/23/23 02:17 Dose: 650 mg Documented By: Admin: 08/22/23 20:29 Dose: 650 mg Documented By: Admin: 08/22/23 15:15 Dose: 650 mg Documented By: LEONILA Amlodipine Besylate (Amlodipine Besylate 5 Mg Tab) 5 mg PO QPM STEVE Stop: 09/21/23 20:59 Last Admin: 08/22/23 21:38 Dose: 5 mg Documented By: MELISSA Aspirin (Aspirin 81 Mg Ectab) 81 mg PO QAM STEVE Stop: 09/21/23 11:59 Last Admin: 08/22/23 13:34 Dose: 81 mg Documented By: CARLY Melatonin (Melatonin 3 Mg Tab) 3 mg PO HS PRN PRN Reason: Sleep Stop: 09/21/23 21:40 Last Admin: 08/23/23 00:50 Dose: 3 mg Documented By: MELISSA Oxycodone HCl (Oxycodone Hcl Ir 5 Mg Tab (Immediate Release)) 5 mg PO Q4H PRN PRN Reason: Pain Stop: 09/05/23 19:31 Last Admin: 08/23/23 00:42 Dose: 5 mg Documented By: MELISSA Discontinued Medications Dexamethasone Sodium Phosphate (DexamethasonePf 10 Mg/Ml Vial) 10 mg IV NOW ONE Stop: 08/22/23 06:58 Last Admin: 08/22/23 07:39 Dose: 10 mg Documented By: JUSTIN Magnesium Sulfate/Dextrose (Magnesium Sulfate / D5w) 1 gm in 100 mls @ 100 mls/hr IV NOW STA Stop: 08/22/23 07:56 Last Infusion: 08/22/23 09:12 Dose: Infused Documented By: Admin: 08/22/23 08:12 Dose: 100 mls/hr Documented By: JUSTIN Sodium Chloride (Nss) 1,000 mls @ 999 mls/hr IV .Q1H1M ONE Stop: 08/22/23 07:57 Last Infusion: 08/22/23 10:10 Dose: Infused Documented By: Admin: 08/22/23 08:11 Dose: 999 mls/hr Documented By: JUSTIN Ioversol (Optiray 320 125ml) 112 ml IV ONCE ONE Stop: 08/22/23 07:55 Last Admin: 08/22/23 07:55 Dose: 112 ml Documented By: NOE Lorazepam (Lorazepam 1 Mg/1 Ml Syr Ed Inj Use) 1 mg IV ONE STA Stop: 08/22/23 09:45 Last Admin: 08/22/23 11:28 Dose: 1 mg Documented By: JUSTIN Morphine Sulfate (Morphine Sulfate 10 Mg/Ml Carp/Vial) 6 mg IV NOW STA Stop: 08/22/23 06:58 Last Admin: 08/22/23 07:39 Dose: 6 mg Documented By: [facility] [place] Ondansetron HCl (Ondansetron Inj 2 Mg/Ml 2 Ml Vial) 4 mg IV NOW STA Stop: 08/22/23 06:58 Last Admin: 08/22/23 07:27 Dose: 4 mg Documented By: [facility] [place] Oxycodone HCl (Oxycodone Hcl Ir 5 Mg Tab (Immediate Release)) 5 mg PO NOW STA Stop: 08/22/23 19:33 Last Admin: 08/22/23 19:42 Dose: 5 mg Documented By: MELISSA Potassium Chloride (Potassium Chloride Crtab 20 Meq Tabcr) 40 meq PO NOW STA Stop: 08/22/23 11:50 Last Admin: 08/22/23 13:34 Dose: 40 meq Documented By: MNManuela Prazosin HCl (Prazosin Hcl 1 Mg Cap) 1 mg PO NOW STA Stop: 08/22/23 19:41 Last Admin: 08/22/23 20:26 Dose: 1 mg Documented By: MELISSA Imaging Data Radiologist's Impression: Head CT 08/22/23 06:[address] DOSE: HISTORY: Dizziness. neuro deficit, acute stroke suspected TECHNIQUE: Multiaxial CT images of the head were performed without the use of intravenous contrast. Automated exposure control was utilized for this study. A dose lowering technique was utilized adhering to the principles of ALARA. Comparison: Head CT 08/24/2022. Findings: The paranasal sinuses and mastoid air cells are clear. The calvarium and skull base are intact. The ventricles and sulci are within normal limits. There is no mass, hematoma, midline shift, or acute infarct. Impression: No acute intracranial abnormality. ACT 112: Negative or not required by law. Electronically signed by: Christopher Lindsey M.D. 08/22/2023 8:39 AM Head CTA 08/22/23 06:04 HEAD CTA HISTORY: neuro deficit, acute stroke suspected TECHNIQUE: Multiaxial CT images of the head were performed following the intravenous administration of contrast to evaluate the major cerebral vessels. 3D/MIP images were also obtained. Sagittal and coronal reformats were reviewed. A dose lowering technique was utilized adhering to the principles of ALARA. COMPARISON: Head CTA 06/06/2022.. FINDINGS: There is no mass, hematoma, midline shift, or acute infarct. Visualized intracranial internal carotid arteries, distal vertebral arteries, and basilar artery are widely patent. There is no significant stenosis, occlusion, or aneurysm seen within the bilateral ACAs, MCAs, or general activities therapist. The major dural venous sinuses are patent. 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 This remains unchanged. Persistent right posterior circulation again noted. IMPRESSION: No significant stenosis, occlusion, or aneurysm within the [place]. ACT 112: Negative or not required by law. Electronically signed by: Christopher Lindsey M.D. 08/22/2023 8:43 AM Neck CTA 08/22/23 06:04 CT ANGIOGRAPHY OF THE NECK WITH CONTRAST CLINICAL HISTORY: neuro deficit, acute stroke suspected COMPARISON STUDY: CTA of the neck June 06, 2022. Technique: CT angiography of the carotid and vertebral arteries was obtained using Optiray and 3D reconstruction on an independent workstation. NASCET criteria was utilized. Automated exposure control was utilized for the study. A dose lowering technique was utilized adhering to the principles of ALARA. CT DOSE: 1026.1 mGy.cm Findings: Visualized portions of the lung apices are unremarkable. There is no cervical lymphadenopathy. No acute cervical spine fractures are present. There is mild plaque within the proximal bilateral cervical internal carotid arteries without significant stenosis. Bilateral vertebral arteries are patent. There is no aneurysm or dissection within the neck. IMPRESSION: Mild atherosclerotic plaque within the proximal bilateral cervical internal carotid arteries without significant stenosis. ACT 112: Negative or not required by law. Electronically signed by: Tai Salazar M.D. 08/22/2023 8:21 AM Brain MRI 08/22/23 07:20 MRI OF THE BRAIN WITHOUT CONTRAST CLINICAL HISTORY: L arm weakness; slurred speech; gait instability COMPARISON STUDY: Head CT and CTA of the head performed earlier today. MRI of the brain June 06, 2022. TECHNIQUE: Utilizing a 1.5 Pam magnet and dedicated coil, multiplanar, multiecho imaging of the brain was performed without IV contrast. FINDINGS: There are no foci of restricted diffusion to suggest acute infarct. No acute intracranial hemorrhage, midline shift or mass effect is present. Ventricular system is unremarkable. Basal cisterns are patent. There are no extra-axial collections. Flow-voids for the major intracranial vessels are present. No intracranial masses are identified on unenhanced exam. T2 hyperintense focus within the right koo radiata is unchanged. Suspected old small right frontal lobe infarct is unchanged. The appearance of the brain is unchanged. IMPRESSION: No acute intracranial findings. ACT 112: Negative or not required by law. Electronically signed by: Tai Salazar M.D. 08/22/2023 12:16 PM Discharge Plan Visit Data Chief Complaint: Stroke/CVA Symptoms Stated Complaint: SLURRED SPEECH,NAUSEA,FACIAL DROOP ED Provider: Jessica Collins Discharge Problem: TIA (transient ischemic attack), Headache, Acute hypokalemia Patient Disposition: Admitted As Inpatient Discharge Instructions Interventions: ED Discharge Assessment Last Done: 08/22/23 10:37
[2023-08-22 06:53] LABS: Basophils # (auto) 0.02 K/uL (0.00-0.20); Basophils % (auto) 0.5 %; Eosinophils # (auto) 0.03 K/uL (0.00-0.50); Eosinophils % (auto) 0.7 %; Hematocrit (blood only) 41.5 % (37.0-47.0); Hemoglobin 13.8 g/dl (12.0-16.0); Immature Granulocytes # (auto) 0.01 K/uL (0.01-0.20); Immature Granulocytes % (auto) 0.2 %; Lymphocytes # (auto) 1.89 K/uL (1.20-3.40); Lymphocytes % (auto) 42.7 %; Mean Corpuscular Hemoglobin 28.8 pg (25.0-34.0); Mean Corpuscular Hgb Conc 33.3 g/dL (32.0-36.0); Mean Corpuscular Volume 86.6 fL (80.0-100.0); Mean Platelet Volume 10.1 fL (9.4-12.4); Monocytes # (auto) 0.35 K/uL (0.11-0.59); Monocytes % (auto) 7.9 %; Neutrophils # (auto) 2.13 K/uL (1.40-6.50); Platelet Count 207 K/uL (130-400); RDW Coefficient of Variation 12.5 % (11.5-14.5); RDW Standard Deviation 39.8 fL (36.4-46.3); Red Blood Count 4.79 M/uL (4.20-5.40); White Blood Count 4.43 K/ul (4.8-10.8)
[2023-08-22 07:11] LABS: Alanine Aminotransferase 13 U/L (7-52); Albumin Globulin Ratio 1.5 (0.9-2); Albumin Level 4.4 gm/dl (3.4-5.0); Alkaline Phosphatase 78 U/L (34-104); Anion Gap 8 (3-11); Aspartate Aminotransferase 16 U/L (13-39); BUN Creatinine Ratio 16.1 (10-20); Bilirubin,Total 0.5 mg/dl (0.2-1.0); Blood Urea Nitrogen 10 mg/dl (6-23); Calcium 9.6 mg/dl (8.6-10.3); Carbon Dioxide 27 mmol/L (21-32); Chloride 105 mmol/L (98-107); Est GFR (African American) 118.5 ml/min; Est GFR (Non-African American) 102.2 ml/min; Glucose 107 mg/dl (70-99(Fasting)); Magnesium 2.1 mg/dl (1.7-2.4); Potassium 3.3 mmol/L (3.5-5.1); Sodium 140 mmol/L (136-145); Total Protein 7.4 gm/dl (6.0-8.3)
[2023-08-22 07:17] LABS: Troponin I High Sensitivity 4.1 pg/ml (0-14)
[2023-08-22 07:25] LABS: Partial Thromboplastin Ratio 0.9; Partial Thromboplastin Time 24 Seconds (21-31); Prothrombin Time 10.6 Seconds (9.0-12.0)
[2023-08-22] MEDS: ONDANSETRON INJ 2 MG/ML 2 ML VIAL IV STA (07:27)
[2023-08-22] MEDS: MoRPHine SULFATE 10 MG/ML CARP/VIAL IV STA (07:39)
[2023-08-22] MEDS: dexAMETHasone**PF** 10 MG/ML VIAL IV ONE (07:39)
[2023-08-22] MEDS: OPTIRAY 320 125ml IV ONE (07:55)
[2023-08-22] MEDS: SODIUM CHLORIDE 0.9% 1,000 ML IV ONE (08:11)
[2023-08-22] MEDS: MAGNESIUM SULFATE / D5W 1 GM/100 ML BAG IV STA (08:12)
--- NOTE | 2023-08-22 08:17 | Emergency Department Note ---
ED Visit Note HISTORY: Patient signed out to me by Dr. Horta at change of shift. Due to unforeseen circumstances with IV attempts, CT scans were delayed. In summary, the patient is a 53-year-old female presenting with dizziness and strokelike symptoms. She reportedly has had several days of headache. She had some slurred speech yesterday and went to bed and woke up today and was having left arm weakness. She has a history of migraines but states that this headache is not the same as her previous migraines. Last known well was at 1430 on 08/21/2022. MDM: - Chronic conditions affecting care: hx of CVA; complicated migraines; HLD; HTN; pre-diabetes - Differential diagnoses include, but are not limited to: CVA; intracranial hemorrhage; complex migraine; dehydration; electrolyte abnormality; ACS - Order placed for continuous cardiac monitoring. At this time, monitor showed rate of 62 bpm with normal sinus rhythm, per my interpretation. - External medical records reviewed. Discharge summary dated 06/07/2022 was reviewed. Patient had been admitted at that time for TIA workup. She had presented with headache symptoms that night with gait instability. She was also noted to be weak on her left side. - EKG interpreted by myself showed normal sinus rhythm. Rate bradycardic at 58 bpm. QTc 362. No acute ischemic changes - Laboratory workup interpreted by myself showed normal WBC; slight hypokalemia (K 3.3); normal troponin - CT head wo contrast negative for acute pathology - CTA head/neck grossly unremarkable. - Patient given 1L NS, 4 mg IV morphine, 6 mg IV morphine, 10 mg IV dexamethasone and 1g IV magnesium per Dr. Horta. On reassessment at 8:10 AM, patient feeling slightly improved. - MRI brain wo contrast ordered. Patient reports significant claustrophobia so 1 mg of Ativan was ordered to facilitate MRI being obtained. - Patient's symptoms have completely resolved in the emergency department. However, given her past medical history as well as her presenting history today, do feel that workup for TIA is further warranted. She is not currently on any anticoagulation. Her symptoms may be secondary to a complex migraine, but she does have significant risk factors for CVA. - Discussion was had with director critical care about patient's case and need for admission - Hospitalist consulted for admission - Patient admitted to [facility] hospitalist service for further evaluation and management. ASSESSMENT AND PLAN: Diagnosis: TIA; hypokalemia; headache Plan: admit .
--- NOTE | 2023-08-22 08:24 | CT Scan Report ---
CT ANGIOGRAPHY OF THE NECK WITH CONTRAST CLINICAL HISTORY: neuro deficit, acute stroke suspected COMPARISON STUDY: CTA of the neck June 06, 2022. Technique: CT angiography of the carotid and vertebral arteries was obtained using Optiray and 3D rec onstruction on an independent workstation. NASCET criteria was utilized. Automated exposure control was utilized for the study. A dose lowering technique was utilized adhering to the principles of ALA RA. CT DOSE: 1026.1 mGy.cm Findings: Visualized portions of the lung apices are unremarkable. There is no cervical lymphadenopat hy. No acute cervical spine fractures are present. There is mild plaque within the proximal bilateral cervical internal carotid arteries without significant stenosis. Bilateral vertebral arteries are pa tent. There is no aneurysm or dissection within the neck. IMPRESSION: Mild atherosclerotic plaque within the proximal bilateral cervical internal carotid arter ies without significant stenosis. ACT 112: Negative or not required by law. Electronically signed by: Tai Salazar M.D. 08/22/2023 8:21 AM
--- NOTE | 2023-08-22 08:41 | CT Scan Report ---
HEAD CT NONCONTRAST CT DOSE: HISTORY: Dizziness. neuro deficit, acute stroke suspected TECHNIQUE: Multiaxial CT images of the head were performed without the use of intravenous contrast. A utomated exposure control was utilized for this study. A dose lowering technique was utilized adheri ng to the principles of ALARA. Comparison: Head CT 08/24/2022. Findings: The paranasal sinuses and mastoid air cells are clear. The calvarium and skull base are int act. The ventricles and sulci are within normal limits. There is no mass, hematoma, midline shift, or acute infarct. Impression: No acute intracranial abnormality. ACT 112: Negative or not required by law. Electronically signed by: Christopher Lindsey M.D. 08/22/2023 8:39 AM
--- NOTE | 2023-08-22 08:45 | CT Scan Report ---
HEAD CTA HISTORY: neuro deficit, acute stroke suspected TECHNIQUE: Multiaxial CT images of the head were performed following the intravenous administration o f contrast to evaluate the major cerebral vessels. 3D/MIP images were also obtained. Sagittal and co daniele reformats were reviewed. A dose lowering technique was utilized adhering to the principles of A LOYDA. COMPARISON: Head CTA 06/06/2022.. FINDINGS: There is no mass, hematoma, midline shift, or acute infarct. Visualized intracranial internet designer al carotid arteries, distal vertebral arteries, and basilar artery are widely patent. There is no sig nificant stenosis, occlusion, or aneurysm seen within the bilateral ACAs, MCAs, or aluminum siding applicator. The major du ral venous sinuses are patent. Incidental note is again noted a tiny focal fenestration at the proxim al basilar artery. This remains unchanged. Persistent right posterior circulation again noted. IMPRESSION: No significant stenosis, occlusion, or aneurysm within the [place]. ACT 112: Negative or not required by law. Electronically signed by: Christopher Lindsey M.D. 08/22/2023 8:43 AM
[2023-08-22] MEDS ORDERED: POLYETHYLENE (MIRALAX) 17 GM PACK PO PRN (10:21)
[2023-08-22] MEDS ORDERED: ALUMINUM/MAGNESIUM SUSP 30 ML UDC PO PRN (10:21)
[2023-08-22] MEDS ORDERED: MAGNESIUM HYDROXIDE SUSP 30 ML UDC PO PRN (10:21)
[2023-08-22] MEDS ORDERED: ONDANSETRON INJ 2 MG/ML 2 ML VIAL IV PRN (10:21)
--- NOTE | 2023-08-22 10:31 | History & Physical Report ---
Date of Service August 22, 2023 Assessment & Plan (1) Stroke-like symptoms: (2) History of CVA (cerebrovascular accident): (3) Acute hypokalemia: (4) HLD (hyperlipidemia): (5) Pre-diabetes: (6) HTN (hypertension): (7) Anxiety: Plan Ms. Bautista is a 53 year old female that presented to the ED today with left sided weakness and headaches that have been occurring over the past few days and up to a week. Last night she laid down and started to see floaters and have diaphoresis. This morning she woke up and tried to go to the bathroom and felt weakness on her left side along with reporting slurred speech. She has recently lost 30 pounds intentionally. She also has complaints of tingling in her fingers and feet. Known prediabetic with most recent A1c from June 2023 5.8. She has known risk factors for CVA including HTN, HLD, prediabetes and a history of CVA/TIA? (not on anticoagulation/antiplt). She is prescribed aspirin but admits to discontinuing it on her own due to risk factor she found on line. No leukocytosis or infectious concerns, serum K+ 3.3; otherwise electrolytes unremarkable. Head CT negative for ICH, midline shift or SDH. Head CTA negative, Neck CTA indicates slight atherosclerosis proximal bilateral internal carotids without significant stenosis. Brain MRI Suspected old small right frontal lobe infarct is unchanged. The appearance of the brain is unchanged. Patient reports that she is adopted so is unaware of her family medical history. Suspect patient having left-sided weakness related to TIA. Will order baby aspirin, echocardiogram due to atherosclerosis of internal carotid, continue statin, replace potassium, formal neurology consultation. Will check B12 and TSH for neuropathy symptoms. Stroke-like symptoms: History of TIA/CVA? Acute left sided weakness. On examination LUE/LLE 4/5 strength. Otherwise CN II-XII grossly intact. NIH [address] negative for ICH, midline shift or SDH. Head CTA negative, Neck CTA indicates slight atherosclerosis proximal bilateral internal carotids without significant stenosis. Brain MRI Suspected old small right frontal lobe infarct is unchanged. The appearance of the brain is unchanged. stopped taking baby ASA on her own Start baby aspirin Continue atorvastatin 20 mg; consider increasing dosage for high dose coverage Obtain echocardiogram Neurology consult placed Acute hypokalemia: Acute Serum potassium 3.3; replaced with 40 p.o. and recheck in a.m. No ectopy on heart monitor HLD: Chronic Takes atorvastatin; continue No lipid panel noted as outpatient recently; fasting lipid panel in a.m. Prediabetes: Chronic Diet controlled and weight modifications Recent weight loss of 30 pounds intentionally with dieting Most recent A1c 5.8 07/03/2023 HTN: Chronic Takes HCTZ and prazosin; continue Anxiety: Chronic Does not take any formal medications for her anxiety Disposition: PCP: Dr. Dodge CODE STATUS: Full code VTE prophylaxis: Lovenox subcu I spent a total of 87 minutes coordinating, documenting, and providing care for this patient excluding time spent in the performance of separately billed services. All of the aforementioned completed while collaborating with the assigned attending physician for a full treatment plan. Please see their addendum for further details. History of Present Illness Chief Complaint: stroke like symptoms Primary Care Provider: Brad Dsouza MD Ms. Bautista presented to the ED today with left sided weakness and headaches that have been occurring over the past few days and up to a week. She reports increased stress at home. Last night she laid down and started to see floaters and have diaphoresis. This morning she woke up and tried to go to the bathroom and felt weakness on her left side along with reporting slurred speech. She has recently lost 30 pounds intentionally. She also has complaints of tingling in her fingers and feet. Known prediabetic with most recent A1c from June 2023 5.8. She has known risk factors for CVA including HTN, HLD, prediabetes and a history of CVA/TIA? (not on anticoagulation). She is prescribed aspirin but admits to discontinuing it on her own due to risk factor she found on line. No leukocytosis or infectious concerns, serum K+ 3.3; otherwise electrolytes unremarkable. Head CT negative for ICH, midline shift or SDH. Head CTA negative, Neck CTA indicates slight atherosclerosis proximal bilateral internal carotids without significant stenosis. Brain MRI Suspected old small right frontal lobe infarct is unchanged. The appearance of the brain is unchanged. Patient denies dizziness, chest pain, shortness of breath, palpitations, abdominal pain or tenderness, dysuria or any other urine changes, bowel changes, appetite changes, recent falls or trauma. Patient quit smoking more than 5 years ago, no alcohol use, reports daily marijuana use. Patient reports that she is adopted so is unaware of her family medical history. Suspect patient having left-sided weakness related to TIA. Will order baby aspirin, echocardiogram due to atherosclerosis of internal carotid, continue statin, replace potassium, formal neurology consultation. Will check B12 and TSH for neuropathy symptoms. Patient will be admitted for further evaluation and management. Please see A/P for further details. Allergies Allergy/AdvReac Type Severity Reaction Status Date / Time house dust Allergy Intermediate CONGESTION Verified 08/22/23 10:17 Home Medications Medication Instructions Recorded Confirmed Type acetaminophen 500 mg tablet 1,000 mg PO Q6H PRN Fever Or Pain 04/08/21 08/22/23 History (Tylenol Extra Strength) albuterol sulfate 2.5 mg/3 mL 2.5 mg inhalation Q4 PRN Wheezing 04/08/21 08/22/23 History (0.083 %) solution for nebulization albuterol sulfate 90 mcg/actuation 2 puff inhalation QID PRN 04/08/21 08/22/23 History aerosol inhaler Shortness Of Breath Or Wheezing fluticasone propionate 50 2 spray intranasal QAM 04/08/21 08/22/23 History mcg/actuation nasal spray,suspension prazosin 1 mg capsule 1 mg PO HS 05/31/22 08/22/23 History hydrochlorothiazide 25 mg tablet 25 mg PO QAM 08/24/22 08/22/23 History clobetasol 0.05 % topical cream 1 applic topical UD 04/02/23 08/22/23 History aspirin 81 mg tablet 81 mg PO DAILY 08/22/23 08/22/23 History atorvastatin 40 mg tablet 20 mg PO DAILY 08/22/23 08/22/23 History Past Med/Surg History Medical History CVA (cerebral vascular accident) HLD (hyperlipidemia) Pre-diabetes Depression with anxiety GERD (gastroesophageal reflux disease) Hypertension Anxiety Surgical History History of tubal ligation Family History Other No significant family history Social History (Reviewed 08/22/23 @ 15:10 by WAQAR Fuchs Smoking Status: Never smoker Hx Alcohol Use: No Hx Substance Use: Yes Prescribed Medications: Marijuana Last Used Substance: Days (ago) Preferred Language: Divehi Communication Ability: Effective Portfolio Management Marketing Required: No Beliefs That Will Affect Care: None marital status: Single Current Living Situation: Family Current Living Situation Comment: Adult children live with her current occupational status: unemployed Other Information That Helps Us Care for You: No Feels Safe at Home: No Is there a partner from a previous relationship who is making you feel unsafe now?: No Any Concerns about Your Family Situation: No Would You Like to Speak to Someone About Your Situation: No Safety Concerns: Feels Safe At This Time Assistive Devices: Cane Review of Systems Review of Systems: Neuro: (-) Falls, trauma, slurred speech HEENT: (-) DOLAN, dizziness, dysphagia, visual or auditory changes CV: (-) CP, palpitations, swelling Resp: (-) SOB GI: (-) appetite changes, N/V/D, bowel changes : (-) urinary changes Skin: (-) rashes Psych: (-) anxiety, depression Physical Exam Physical Exam: Neuro: AAOx4, PERRLA, no aphagia, memory changes, CNII-XII grossly intact HEENT: head normocephalic, moist mucus membranes CV: S1/S2, (-) M/G/R, (-) edema, cap refill < 3 seconds Resp: Lungs CTA in all garces. On RA GI: Abdomen S/NT/ND, Ax4 bowel sounds, (-) CVA tenderness Musculoskeletal: 5/5 B/L UE strength, 5/5 B/L LE strength. No gait disturbance Skin: (-) rashes , (-) erythema. Psych: euthymic mood Results & Data Results & Data Vital Signs (Past 12 Hours) Vital Signs Temp Pulse Pulse Resp BP BP Pulse Ox 08/22/23 10:04 72 08/22/23 10:00 72 21 164/99 H 98 08/22/23 09:46 75 23 170/95 H 98 08/22/23 09:30 70 17 182/109 H 95 08/22/23 09:02 59 L 19 186/108 H 94 08/22/23 08:30 67 11 L 138/89 98 08/22/23 08:11 70 19 161/91 H 99 08/22/23 07:46 62 18 147/89 H 96 08/22/23 07:45 147/89 H 100 08/22/23 06:07 63 08/22/23 05:48 36.5 C 67 16 139/82 99 08/22/23 05:47 95 O2 Del Method 08/22/23 10:04 08/22/23 10:00 08/22/23 09:46 08/22/23 09:30 08/22/23 09:02 08/22/23 08:30 08/22/23 08:11 08/22/23 07:46 Room Air 08/22/23 07:45 08/22/23 06:07 08/22/23 05:48 Room Air 08/22/23 05:47 Room Air Laboratory Results Short CBC 08/22/23 Range/Units 06:22 WBC 4.43 L (4.8-10.8) K/ul Hgb 13.8 (12.0-16.0) g/dl Hct 41.5 (37.0-47.0) % Plt Count 207 (130-400) K/uL BMP 08/22/23 06:22 Sodium 140 Potassium 3.3 L Chloride 105 Carbon Dioxide 27 BUN 10 Creatinine 0.62 Glucose 107 H Calcium 9.6 Liver Function 08/22/23 Range/Units 06:22 Total Bilirubin 0.5 (0.2-1.0) mg/dl AST 16 (13-39) U/L ALT 13 (7-52) U/L Alkaline Phosphatase 78 (34-104) U/L Albumin 4.4 (3.4-5.0) gm/dl Diagnostic Findings Head CT 08/22/23 06:[address] DOSE: HISTORY: Dizziness. neuro deficit, acute stroke suspected TECHNIQUE: Multiaxial CT images of the head were performed without the use of intravenous contrast. Automated exposure control was utilized for this study. A dose lowering technique was utilized adhering to the principles of ALARA. Comparison: Head CT 08/24/2022. Findings: The paranasal sinuses and mastoid air cells are clear. The calvarium and skull base are intact. The ventricles and sulci are within normal limits. There is no mass, hematoma, midline shift, or acute infarct. Impression: No acute intracranial abnormality. ACT 112: Negative or not required by law. Electronically signed by: Christopher Lindsey M.D. 08/22/2023 8:39 AM Head CTA 08/22/23 06:04 HEAD CTA HISTORY: neuro deficit, acute stroke suspected TECHNIQUE: Multiaxial CT images of the head were performed following the intravenous administration of contrast to evaluate the major cerebral vessels. 3D/MIP images were also obtained. Sagittal and coronal reformats were reviewed. A dose lowering technique was utilized adhering to the principles of ALARA. COMPARISON: Head CTA 06/06/2022.. FINDINGS: There is no mass, hematoma, midline shift, or acute infarct. Visualized intracranial internal carotid arteries, distal vertebral arteries, and basilar artery are widely patent. There is no significant stenosis, occlusion, or aneurysm seen within the bilateral ACAs, MCAs, or computer methods analyst. The major dural venous sinuses are patent. 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 This remains unchanged. Persistent right posterior circulation again noted. IMPRESSION: No significant stenosis, occlusion, or aneurysm within the [place]. ACT 112: Negative or not required by law. Electronically signed by: Christopher Lindsey M.D. 08/22/2023 8:43 AM Neck CTA 08/22/23 06:04 CT ANGIOGRAPHY OF THE NECK WITH CONTRAST CLINICAL HISTORY: neuro deficit, acute stroke suspected COMPARISON STUDY: CTA of the neck June 06, 2022. Technique: CT angiography of the carotid and vertebral arteries was obtained using Optir[employer] and 3D reconstruction on an independent workstation. NASCET criteria was utilized. Automated exposure control was utilized for the study. A dose lowering technique was utilized adhering to the principles of ALARA. CT DOSE: 1026.1 mGy.cm Findings: Visualized portions of the lung apices are unremarkable. There is no cervical lymphadenopathy. No acute cervical spine fractures are present. There is mild plaque within the proximal bilateral cervical internal carotid arteries without significant stenosis. Bilateral vertebral arteries are patent. There is no aneurysm or dissection within the neck. IMPRESSION: Mild atherosclerotic plaque within the proximal bilateral cervical internal carotid arteries without significant stenosis. ACT 112: Negative or not required by law. Electronically signed by: Tai Salazar M.D. 08/22/2023 8:21 AM Code Status & VTE Plan Code Status Full Code in the event of cardiac or respiratory arrest VTE Prophylaxis Plan VTE Prophylaxis will be ordered: Yes Supervising Physician Co-Signing Physician Notes Pt was seen and examined. Agreed with Gabrielle BRUNNER's exam, assessment and plan. Ms. Bautista is a 53 year old female that presented to the ED with left sided weakness, dizziness and headaches. Pt said that she has been having headache for the last few days. Last night she laid down and started to see floaters and have diaphoresis. This morning when she woke up she felt weak on her left side and slurred speech. She also complaints of tingling in her fingers and feet that is not new. She stopped taking her aspirin because she read that can cause bleeding. She said that she hates taking medications. She said that she changed her lifestyles and she has been watching her diet and exercise. CTA head and neck showed mild atherosclerotic plaque within the proximal bilateral cervical internal carotid arteries without significant stenosis. CT head showed no acute intracranial abnormality. MRI head showed no acute intracranial finding. Will start her back on aspirin 81mg. Will get an echo. Will consult neurology. Will defer to neurology if she needs plavix. BP elevated, will allow permissive hypertensive for now. PT/OT eval. Will restart on Amlodipine 5mg if BP remains elevating. Will check TSH, B12, folate, lipid and A1c. Potassium replaced. Educated pt about the risks of medication non compliance. will monitor closely in telemetry. MD Vlad
[2023-08-22] MEDS: LORazepam 1 MG/1 ML SYR ED Inj Use IV STA (11:28)
--- NOTE | 2023-08-22 12:18 | Magnetic Resonance Report ---
MRI OF THE BRAIN WITHOUT CONTRAST CLINICAL HISTORY: L arm weakness; slurred speech; gait instability COMPARISON STUDY: Head CT and CTA of the head performed earlier today. MRI of the brain June 06. TECHNIQUE: Utilizing a 1.5 Pam magnet and dedicated coil, multiplanar, multiecho imaging of the bra in was performed without IV contrast. FINDINGS: There are no foci of restricted diffusion to suggest acute infarct. No acute intracranial h emorrhage, midline shift or mass effect is present. Ventricular system is unremarkable. Basal cistern s are patent. There are no extra-axial collections. Flow-voids for the major intracranial vessels are present. No intracranial masses are identified on unenhanced exam. T2 hyperintense focus within the right [place] radiata is unchanged. Suspected old small right frontal lobe infarct is unchanged. The a ppearance of the brain is unchanged. IMPRESSION: No acute intracranial findings. ACT 112: Negative or not required by law. Electronically signed by: Tai Salazar M.D. 08/22/2023 12:16 PM
[2023-08-22] MEDS: POTASSIUM CHLORIDE CRTAB 20 MEQ TABCR PO STA (13:34)
[2023-08-22] MEDS: ASPIRIN 81 MG ECTAB PO SCH (13:34)
[2023-08-22] MEDS: ACETAMINOPHEN 325 MG TAB PO PRN (15:15)
--- NOTE | 2023-08-22 17:06 | Electrocardiogram Report ---
Test Reason : Blood Pressure : / mmHG Vent. Rate : 058 BPM Atrial Rate : 058 BPM P-R Int : 188 ms QRS Dur : 078 ms QT Int : 362 ms P-R-T Axes : 071 015 048 degrees QTc Int : 355 ms Sinus bradycardia Possible Left atrial enlargement Nonspecific ST abnormality Abnormal ECG When compared with ECG of 24-AUG-2022 01:22, Nonspecific T wave abnormality now evident in Inferior leads Nonspecific T wave abnormality now evident in Anterolateral leads QT has shortened Confirmed by Tor Schmitz ([id number]) on 08/22/2023 5:06:26 PM Referred By: REFERRED SELF Confirmed By:Rex Schmitz
--- NOTE | 2023-08-22 19:34 | Neurology Consultation ---
Date of Consultation August 22, 2023 Assessment & Plan (1) Stroke-like symptoms: Suspect that her strokelike symptoms are related to hypertensive encephalopathy. Plan Recommend risk factor modifications including strict blood pressure control, and educating the patient about the need for compliance, reported for clarity about her medications, and we will prescribe the medications to her when she leaves the hospital, explained to the patient that she should have a copy of her discharge summary and show to the primary care practitioner, and they will be prescribing her medications NIH:0 MRI was reviewed and there is no evidence of acute ischemia. CTA with a right ICA plaque with no significant stenosis. Recommend aspirin 81 mg on a daily basis , the patient was educated to take on a full stomach Atorvastatin 40 mg and adjust to LDL, educated the patient about the need to be on statins to help with plaque stabilization. Follow the result echocardiogram Telemetry monitoring PT OT. Healthy lifestyle with diet and exercise was advised. The patient can be discharged if there was no concerning findings on echocardiogram. Follow-up with neurology as outpatient Telehealth Consultation Telehealth Information Telehealth Information: I performed this visit using a real-time telehealth connection between my location and the patients location ([facility]). After connecting through interactive tele-video, patient was identified by name and date of and/or wristband check.Patient (or authorized healthcare signs and displays sales representative) was informed that this was a telemedicine visit and it was being conducted confidentially over secure lines. My office door was closed and no one else was present in the room with me.Patient (or authorized healthcare signs and displays sales representative) provided consent to proceed with the visit, expressed an understanding of privacy and security of the telemedicine visit, and gave permission to have a hospital signs and displays sales representative in the room in order to assist with the visit and to conduct portions of the visit, as needed. I informed the patient (or authorized healthcare signs and displays sales representative) that I reviewed their record and presented the opportunity for them to ask any questions regarding the visit today. The patient agreed to participate. History of Present Illness Reason for Consultation: Suspected stroke Requesting Physician: Phillip Chu MD Attending Physician: Phillip Chu MD History of Present Illness Patient is a 53-year-old female patient with PMH of a prior right frontal stroke, about a year ago, refractory hypertension, obesity, prediabetes, HLD, and anxiety who presents with a half to the hospital with an episode of slurred speech dizziness and weakness. The patient reports that she went to bed with an elevated blood pressure she took some of her blood pressure medications but could not fill the rest that are prescribed to her. She woke up at around 4 AM in the morning seeing spots and feeling hot she went into the bathroom and got cold water on her and then went into the shower when she got out she started walking to her room she was still seeing dots with her vision, and then she fell does not report losing consciousness but she was weak, she crawled to bed and called for her kids who noticed that her speech was not altered. And her previous symptoms of acute stroke with some weakness on the left side came back. She denies any recent illnesses or fever or chills. She has not been compliant with her blood pressure medications because she has not had a good understanding of which medications to use. She has not been taking aspirin because of the concerns for stomach ulcers, she did not understand that she has to take it for lifetime. Allergies Allergy/AdvReac Type Severity Reaction Status Date / Time house dust Allergy Intermediate CONGESTION Verified 08/22/23 10:17 Home Medications Medication Instructions Recorded Confirmed Type acetaminophen 500 mg tablet 1,000 mg PO Q6H PRN Fever Or Pain 04/08/21 08/22/23 History (Tylenol Extra Strength) albuterol sulfate 2.5 mg/3 mL 2.5 mg inhalation Q4 PRN Wheezing 04/08/21 08/22/23 History (0.083 %) solution for nebulization albuterol sulfate 90 mcg/actuation 2 puff inhalation QID PRN 04/08/21 08/22/23 History aerosol inhaler Shortness Of Breath Or Wheezing fluticasone propionate 50 2 spray intranasal QAM 04/08/21 08/22/23 History mcg/actuation nasal spray,suspension prazosin 1 mg capsule 1 mg PO HS 05/31/22 08/22/23 History hydrochlorothiazide 25 mg tablet 25 mg PO QAM 08/24/22 08/22/23 History clobetasol 0.05 % topical cream 1 applic topical UD 04/02/23 08/22/23 History aspirin 81 mg tablet 81 mg PO DAILY 08/22/23 08/22/23 History atorvastatin 40 mg tablet 20 mg PO DAILY 08/22/23 08/22/23 History Patient History Medical History CVA (cerebral vascular accident) HLD (hyperlipidemia) Pre-diabetes Depression with anxiety GERD (gastroesophageal reflux disease) Hypertension Anxiety Surgical History History of tubal ligation Family History Other No significant family history Social History Smoking Status: Never smoker Hx Alcohol Use: No Hx Substance Use: Yes Prescribed Medications: Marijuana Last Used Substance: Days (ago) Preferred Language: Czech Communication Ability: Effective 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 Beliefs That Will Affect Care: None marital status: Single Current Living Situation: Family Current Living Situation Comment: Adult children live with her current occupational status: unemployed Other Information That Helps Us Care for You: No Feels Safe at Home: No Is there a partner from a previous relationship who is making you feel unsafe now?: No Any Concerns about Your Family Situation: No Would You Like to Speak to Someone About Your Situation: No Safety Concerns: Feels Safe At This Time Assistive Devices: Cane Review of Systems Constitutional: Patient denies weight loss, fever, chills, and night sweats Eyes: Patient denies change in vision, tearing, pain, and redness ENT: Patient denies pain, bleeding, rhinorrhea, and dysphagia Cardiovascular: Patient denies chest pain, palpitation, dyspnea at rest, and dyspnea with exertion Respiratory: Patient denies shortness of breath, cough, wheezing, and productive cough GI: Patient denies reflux, pain, constipation, and diarrhea Skin: Patient denies rash, dryness, and itching Allergies/Immune System: Patient denies rhinorrhea, seasonal allergies, reaction to current MEDS, and joint swelling Endocrine: Patient denies weight loss, weight gain, temperature intolerance, and excessive thirst Neurological: All negative unless mentioned in the HPI Physical Exam General Constitutional: Appearance normally developed Head and face: normocephalic and atraumatic Eyes: no ptosis, no anisocoria, and no dysconjugate gaze Respiratory: normal effort Cardiovascular: regular rhythm and regular rate Abdomen: non distended Skin: no rashes, lesions, or ulcers noted Psychiatric: normal judgement and insight, normal mood, and normal affect NEUROLOGIC EXAMINATION: Mental Status:alert, oriented to time, place, person, normal recent memory, normal remote memory, normal attention span, normal concentration, normal language and normal fund of knowledge Cranial Nerves: CN 2 - no visual defect on confrontation and pupils round, equal, reactive to light CN 3, 4, 6 - extra-ocular movements intact and no nystagmus CN 5 - facial sensation intact CN 7 - no facial asymmetry CN 8 - intact hearing CN 9, 10 - palate symmetric, normal gag CN 11 - good shoulder shrug CN 12 - tongue midline MOTOR: Strength was at least antigravity throughout, Pronator drift was absent and There were no abnormal movements SENSATION: intact and symmetric to pinprick, light touch, vibration and joint position GAIT: stable, no ataxia and can perform tandem walking COORDINATION: no ataxia with finger to nose testing and heel to degroot testing REFLEXES: cannot assess over telemedicine Results & Data Vital Signs (Past 12 Hours) Vital Signs Pulse Pulse Resp BP BP Pulse Ox Pulse Ox 08/22/23 18:12 75 08/22/23 14:59 83 16 160/87 H 95 08/22/23 13:34 80 20 179/100 H 98 08/22/23 13:11 97 08/22/23 11:00 63 17 158/113 H 97 08/22/23 10:30 76 15 165/86 H 08/22/23 10:04 72 08/22/23 10:00 72 21 164/99 H 98 08/22/23 09:46 75 23 170/95 H 98 08/22/23 09:30 70 17 182/109 H 95 08/22/23 09:02 59 L 19 186/108 H 94 08/22/23 08:30 67 11 L 138/89 98 08/22/23 08:11 70 19 161/91 H 99 08/22/23 07:46 62 18 147/89 H 96 08/22/23 07:45 147/89 H 100 O2 Del Method O2 Del Method 08/22/23 18:12 08/22/23 14:59 Room Air 08/22/23 13:34 08/22/23 13:11 Room Air 08/22/23 11:00 08/22/23 10:30 08/22/23 10:04 08/22/23 10:00 08/22/23 09:46 08/22/23 09:30 08/22/23 09:02 08/22/23 08:30 08/22/23 08:11 08/22/23 07:46 Room Air 08/22/23 07:45 Laboratory Results Laboratory Results - last 24 hr 08/22/23 08/22/23 08/22/23 06:14 06:22 10:37 WBC 4.43 L RBC 4.79 Hgb 13.8 Hct 41.5 MCV 86.6 MCH 28.8 MCHC 33.3 RDW Std Deviation 39.8 RDW Coeff of Magdiel 12.5 Plt Count 207 MPV 10.1 Immature Gran % (Auto) 0.2 Neut % (Auto) 48.0 Lymph % (Auto) 42.7 Sargent % (Auto) 7.9 Eos % (Auto) 0.7 Baso % (Auto) 0.5 Neut # (Auto) 2.13 Lymph # (Auto) 1.89 Sargent # (Auto) 0.35 Eos # (Auto) 0.03 Baso # (Auto) 0.02 Immature Gran # (Auto) 0.01 PT 10.6 INR 1.0 APTT 24 PTT Ratio 0.9 Sodium 140 Potassium 3.3 L Chloride 105 Carbon Dioxide 27 Anion Gap 8 BUN 10 Creatinine 0.62 Est Cr Clr Drug Dosing Not Reportable Est GFR ( Amer) 118.5 Est GFR (Non-Af Amer) 102.2 BUN/Creatinine Ratio 16.1 Glucose 107 H POC Glucose 103 H Calcium 9.6 Magnesium 2.1 2.5 H Total Bilirubin 0.5 AST 16 ALT 13 Alkaline Phosphatase 78 Troponin I High Sens 4.1 Total Protein 7.4 Albumin 4.4 Globulin 3.0 Albumin/Globulin Ratio 1.[address] 08/22/23 06:[address] DOSE: HISTORY: Dizziness. neuro deficit, acute stroke suspected TECHNIQUE: Multiaxial CT images of the head were performed without the use of intravenous contrast. Automated exposure control was utilized for this study. A dose lowering technique was utilized adhering to the principles of ALARA. Comparison: Head CT 08/24/2022. Findings: The paranasal sinuses and mastoid air cells are clear. The calvarium and skull base are intact. The ventricles and sulci are within normal limits. There is no mass, hematoma, midline shift, or acute infarct. Impression: No acute intracranial abnormality. ACT 112: Negative or not required by law. Electronically signed by: Christopher Lindsey M.D. 08/22/2023 8:39 AM Head CTA 08/22/23 06:04 HEAD CTA HISTORY: neuro deficit, acute stroke suspected TECHNIQUE: Multiaxial CT images of the head were performed following the intravenous administration of contrast to evaluate the major cerebral vessels. 3D/MIP images were also obtained. Sagittal and coronal reformats were reviewed. A dose lowering technique was utilized adhering to the principles of ALARA. COMPARISON: Head CTA 06/06/2022.. FINDINGS: There is no mass, hematoma, midline shift, or acute infarct. Visualized intracranial internal carotid arteries, distal vertebral arteries, and basilar artery are widely patent. 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 The major dural venous sinuses are patent. 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 This remains unchanged. Persistent right posterior circulation again noted. IMPRESSION: No significant stenosis, occlusion, or aneurysm within the [place] of [place]. ACT 112: Negative or not required by law. Electronically signed by: Christopher Lindsye M.D. 08/22/2023 8:43 AM Neck CTA 08/22/23 06:04 CT ANGIOGRAPHY OF THE NECK WITH CONTRAST CLINICAL HISTORY: neuro deficit, acute stroke suspected COMPARISON STUDY: CTA of the neck June 06, 2022. Technique: CT angiography of the carotid and vertebral arteries was obtained using Optir[employer] and 3D reconstruction on an independent workstation. NASCET criteria was utilized. Automated exposure control was utilized for the study. A dose lowering technique was utilized adhering to the principles of ALARA. CT DOSE: 1026.1 mGy.cm Findings: Visualized portions of the lung apices are unremarkable. There is no cervical lymphadenopathy. No acute cervical spine fractures are present. There is mild plaque within the proximal bilateral cervical internal carotid arteries without significant stenosis. Bilateral vertebral arteries are patent. There is no aneurysm or dissection within the neck. IMPRESSION: Mild atherosclerotic plaque within the proximal bilateral cervical internal carotid arteries without significant stenosis. ACT 112: Negative or not required by law. Electronically signed by: Tai Salazar M.D. 08/22/2023 8:21 AM Brain MRI 08/22/23 07:20 MRI OF THE BRAIN WITHOUT CONTRAST CLINICAL HISTORY: L arm weakness; slurred speech; gait instability COMPARISON STUDY: Head CT and CTA of the head performed earlier today. MRI of the brain June 06, 2022. TECHNIQUE: Utilizing a 1.5 Pam magnet and dedicated coil, multiplanar, mu ltiecho imaging of the brain was performed without IV contrast. FINDINGS: There are no foci of restricted diffusion to suggest acute infarct. No acute intracranial hemorrhage, midline shift or mass effect is present. Ventricular system is unremarkable. Basal cisterns are patent. There are no extra-axial collections. Flow-voids for the major intracranial vessels are present. No intracranial masses are identified on unenhanced exam. T2 hyperintense focus within the right koo radiata is unchanged. Suspected old small right frontal lobe infarct is unchanged. The appearance of the brain is un changed. IMPRESSION: No acute intracranial findings. ACT 112: Negative or not required by law. Electronically signed by: Tai Salazar M.D. 08/22/2023 12:16 PM Medications Administered Home Medications Medication Instructions Recorded Confirmed Last Taken acetaminophen 500 mg tablet 1,000 mg PO Q6H PRN Fever Or Pain 04/08/21 08/22/23 Unknown (Tylenol Extra Strength) albuterol sulfate 2.5 mg/3 mL 2.5 mg inhalation Q4 PRN Wheezing 04/08/21 08/22/23 Unknown (0.083 %) solution for nebulization albuterol sulfate 90 mcg/actuation 2 puff inhalation QID PRN 04/08/21 08/22/23 Unknown aerosol inhaler Shortness Of Breath Or Wheezing fluticasone propionate 50 2 spray intranasal QAM 04/08/21 08/22/23 01/16/22 mcg/actuation nasal spray,suspension prazosin 1 mg capsule 1 mg PO HS 05/31/22 08/22/23 08/21/23 hydrochlorothiazide 25 mg tablet 25 mg PO QAM 08/24/22 08/22/23 08/21/23 clobetasol 0.05 % topical cream 1 applic topical UD 04/02/23 08/22/23 Unknown aspirin 81 mg tablet 81 mg PO DAILY 08/22/23 08/22/23 08/21/23 atorvastatin 40 mg tablet 20 mg PO DAILY 08/22/23 08/22/23 Unknown Active Medications Generic Name Dose Route Start Last Admin Trade Name Freq PRN Reason Stop Dose Admin Acetaminophen 650 mg 08/22/23 10:21 08/22/23 15:15 Acetaminophen 325 Mg Tab PO 09/21/23 10:20 650 mg Q4H PRN Administration Pain or Fever Aspirin 81 mg 08/22/23 12:00 08/22/23 13:34 Aspirin 81 Mg Ectab PO 09/21/23 11:59 81 mg QAM STEVE Administration
[2023-08-22] MEDS: oxyCODONE HCL IR 5 MG TAB (IMMEDIATE RELEASE) PO STA (19:42)
[2023-08-22] MEDS: PRAZOSIN HCL 1 MG CAP PO STA (20:26)
[2023-08-22] MEDS: amLODIPine BESYLATE 5 MG TAB PO SCH (21:38)
[2023-08-23] MEDS: oxyCODONE HCL IR 5 MG TAB (IMMEDIATE RELEASE) PO PRN (00:42)
[2023-08-23] MEDS: MELATONIN 3 MG TAB PO PRN (00:50)
[2023-08-23 05:02] LABS: Hematocrit (blood only) 39.3 % (37.0-47.0); Hemoglobin 13.3 g/dl (12.0-16.0); Mean Corpuscular Hemoglobin 29.1 pg (25.0-34.0); Mean Corpuscular Hgb Conc 33.8 g/dL (32.0-36.0); Mean Platelet Volume 10.1 fL (9.4-12.4); Platelet Count 222 K/uL (130-400); RDW Coefficient of Variation 12.6 % (11.5-14.5); RDW Standard Deviation 39.6 fL (36.4-46.3); Red Blood Count 4.57 M/uL (4.20-5.40); White Blood Count 5.24 K/ul (4.8-10.8)
[2023-08-23 05:42] LABS: Folate (Folic Acid),Ser orPlas 11.03 ng/ml (>5.38)
[2023-08-23 07:58] LABS: Albumin Level 4.5 gm/dl (3.4-5.0); Bilirubin,Total 0.4 mg/dl (0.2-1.0); Calcium 9.8 mg/dl (8.6-10.3); Potassium 3.9 mmol/L (3.5-5.1)
[2023-08-23 08:04] LABS: Albumin Globulin Ratio 1.5 (0.9-2); BUN Creatinine Ratio 18.6 (10-20); Chol HDL Ratio 3.2 (0-5); Creatinine Clr Calc Pharmacy 108.7 ml/min; Est GFR (African American) 120.4 ml/min; Est GFR (Non-African American) 103.9 ml/min; Phosphorus 3.2 mg/dl (2.5-4.9); Total Protein 7.5 gm/dl (6.0-8.3)
[2023-08-23 08:17] LABS: Thyroid Stimulating Hormone 0.49 uIu/ml (0.300-4.500)
[2023-08-23] MEDS: ATORVASTATIN 40 MG TAB PO SCH (09:28)
--- OUTSIDE RECORDS SUMMARY | 2023-08-23 09:40 | External Medical Summary | Summary of Care ---
Author Name Unknown Organization [facility] Address [address] [place] [address] Phone [phone] Care Team Providers Care Stripe Marker Name Role Phone Brad Dsouza MD Primary Care Provider [phone] Reason for Referral * Evaluate & Treat - Unlimited Visits (Within 10 days (routine)) - Authorized Specialty Diagnoses / Procedures Referred By Contac t Referred To Contact Psychiatry Diagnoses Depression with anxiety Brad Dsouza MD [address] [place] [address] Referral ID Status Reason Start Date Expiration Date Visits Requested Visits Authorized [id number] Authorized Specialty Services Required 08/20/2023 999 999 Question Answer Referral Priority Within 10 days (routine) Where should this appointment be scheduled? [facility] Is this referral for medication management? Yes Reason for Referral Anxiety Reason for Visit * Reason Onset Date Comments Advice 08/20/2023 Medication Refil l and BH Referral Encounter Details Date Type Department Care Team (Late st Contact Info) Description 08/20/2023 Telephone Family Practice [facility] [address] [place] [address] Brad Dsouza MD [address] [place] [address] Advice (Medication Refill and BH Referral ) Allergies Active Allergy Reactions Criticality Noted Date Comments Dust 07/30/2019 documented as of this encounter (statuses as of 08/20/2023) Medications Medication Sig Dispensed Refills Start Date End Date Status Albuterol Sulfate (2.5 MG/3ML) 0.083% Inhalation Nebulization Solution (Proventil) Inhale 1 Vial via nebulizer every 4 hours as needed for Wheezing. 120 mL 3 04/02/2023 Active Diclofenac Sodium 1 % External Gel (Voltaren) Apply topically to affected area 2 times a day as needed for Pain. 100 g 1 04/14/2023 Active hydroCHLOROthiazid e 25 MG Oral Tablet (Hydrodiuril)Indic ations:HTN, goal below 130/80 Take 1 Tablet by mouth in the morning. 90 Tablet 3 04/14/2023 Active Fluticasone Propionate 50 MCG/ACT Nasal Suspension (Flonase)Indicatio ns:Seasonal allergic rhinitis due to pollen Administer 2 Sprays into each nostril in the morning. 48 g 2 05/27/2023 Active ProAir HFA 108 (90 Base) MCG/ACT Inhalation Aerosol SolutionIndication s:Bronchitis, complicated Inhale 2 Puffs by mouth in the morning and 2 Puffs at noon and 2 Puffs in the evening and 2 Puffs before bedtime. 51 g 1 05/27/2023 Active Clobetasol Propionate 0.05 % External Cream (Temovate)Indicati ons:Dyshydrosis Apply topically to affected area 2 times a day. To affected area for up to two weeks. 30 g 3 06/09/2023 Active clonazePAM 1 MG Oral Tablet (KlonoPIN)Indicati ons:Panic disorder Take 0.5 Tablets by mouth 3 times a day as needed for Anxiety. 15 Tablet 0 08/20/2023 Active clonazePAM 1 MG Oral Tablet (KlonoPIN)Indicati ons:Panic disorder Take 0.5 Tablets by mouth 3 times a day as needed for Anxiety. 15 Tablet 0 07/31/2023 Discontinue d(Refill) documented as of this encounter (statuses as of 08/20/2023) Active Problems Problem Noted Date Diagnosed Date Cutaneous abscess of left lower limb 04/14/2023 ELI (stress urinary incontinence, female) 2022 Gastro-esophageal reflux disease without esophag itis 07/03/2022 Chronic obstructive pulmonary disease 07/03/2022 PTSD (post-traumatic stress disorder) 06/14/2022 Iron deficiency anemia due to chronic blood loss 06/14/2022 Complicated migraine 01/22/2022 Overview: Hospitalized for this in December of 2021 Type 2 diabetes mellitus wit h hemoglobin A1c goal of less than 7.0% 10/29/2021 Obesity, Class I, BMI 30.0-34.9 (see actual BMI) 10/29/2021 Restless legs syndrome 10/29/2021 History of CVA (cerebrovascular accident) 2020 Reactive airway disease without asthma Marijuana use, episodic 06/15/2019 Generalized osteoarthritis 10/01/2018 Panic disorder 06/18/2018 HTN, goal below 130/80 10/22/2017 Radial scar of breast 09/02/2016 Overview: Was seen by breast surgeon - Dr. Davis - and reassured Depression with anxiety 08/15/2016 documented as of this encounter (statuses as of 08/20/2023) Resolved Problems Problem Noted Date Diagnosed Date Resolved Date Hemiplegia affecting left dominant side 07/03/2022 04/21/2023 Major depressive disorder, r ecurrent episode, moderate 07/03/2022 04/21/2023 Essential (primary) hypertension 07/03/2022 04/21/2023 Medical home patient encounter 06/12/2022 04/21/2023 Food insecurity 04/08/2022 04/30/2022 Overview: Per [facility] Protocol Prediabetes 07/13/2020 10/29/2021 Impaired fasting glucose 06/15/2019 Tobacco use disorder 06/15/2019 022 Acute right-sided low back p ain with right-sided sciatica 01/02/2019 02/05/2019 Body mass index (BMI) of 40. 0 to 44.9 in adult 08/17/2018 10/08/2019 Overview: ICD-10 update of inactive term Gastroesophageal reflux dise ase with esophagitis 08/15/2016 04/21/2023 documented as of this encounter (statuses as of 08/20/2023) Immunizations No known immunizationsdocumented as of this encounter Social History Tobacco Use Types Packs/Day Years Used Date Smoking Tobacco: Former Cigarettes 2 20 0 01/01/2001 - 01/01/2021 Smokeless Tobacco: Never Alcohol Use Standard Drinks/Week Comments Yes 0 (1 standard drink = 0.6 oz pur e alcohol) rarely - social PHQ-2 Answer Date Recorded PHQ Adult Total Score 20 09/27/2020 Hunger Vital Sign Answer Date Recorded Within the past 12 months, y ou worried that your food would run out before you got the money to buy more. Often true 08/14/19 24 Within the past 12 months, t he food you bought just didn't last and you didn't have money to get more. Often true 08/14/2023 Sex and Gender Information Value Date Recorded Sex Assigned at Female 07/30/2019 1:21 PM EST Gender Identity Female 07/30/2019 1:21 PM EST Sexual Orientation Straight 07/30/2019 1: 21 PM EST Job Start Date Occupation Industry Not on file Not on file Not on file documented as of this encounter Miscellaneous Notes * Telephone Encounter - Wilbert Babb MD - 08/20/2023 10:36 AM EST Defer to pcp * Telephone Encounter - Bailee Perez LPN - 08/20/2023 10:09 AM EST PCP/DOD Pended med refill and referral request. Please review and advise. Pt was to have appt today but it got cancelled. * Telephone Encounter - Zonia Shelton OSA - 08/20/2023 8:30 AM EST Pt called in advise she needs Anxiety medication refill clonazePAM 1 MG doesn't have any refill left & needs Referral for BH/ Psychiatry please call pt and follow up. Thank you JUAN DAVID Mark documented in this encounter Plan of Treatment Upcoming Encounters Date Type Department Care Team (Late st Contact Info) Description 08/21/2023 3:20 PM EST Office Visit Family Practice [facility] [address] [place] [address] Kaitlin Dodge MD [address] [place] [address] Scheduled Referrals Name Type Priority Associated Diagnoses Orde r Schedule ADULT/PEDS PSYCHIATRY REFERRAL OP Referral Within 10 days (routine) Depression with anxiety Ordered: 08/20/2023 Health Maintenance Due Date Last Done Comments Pneumococcal Vaccine: Pediatrics (0 to 5 Years) and At-Risk Patients (6 to 64 Years) (1 of 2 - PCV) 1975 HIV Screening 1984 Albumin/Creatinine Ratio 1987 Alpha-1 Antitrypsin 1987 Hepatitis C Screening 1987 DTaP,Tdap,and Td Vaccines (1 - Tdap) 1988 Hepatitis B (1 of 3 - 19+ 3-dose series) 1988 HPV/Co-Test 1999 Cologuard 2014 Colonoscopy 2014 Colorectal Cancer Screening 2014 Fecal Occult Blood Test 2014 Sigmoidoscopy 2014 LUNG CANCER SCREENING - USE SMARTSET 63528 2019 Zoster Vaccines (1 of 2) 2019 Depression, Most Recent Score >= 10 (will fire each visit until score < 10) 09/28/2020 09/27/2020 *COPD SEVERITY VERIFIED BY PFT 07/06/2022 HbA1c 12/31/2022 07/03/2022, 11/0 07/2021, 09/27/2021, Additional history exists Lipid Panel 01/13/2023 01/13/2018 COVID-19 Vaccine ( - season) 2023 Influenza Vaccine (FLU shot) (#1) 2023 Diabetic Eye Exam 03/27/2023 03/27/2022, , 07/21/2020 Diabetic Foot Exam 03/27/2023 03/27/2022 GFR 07/03/2023 07/03/2022, 03/30, 07/12/2020, Additional history exists O2 ASSESSMENT COMPLETED IN PAST YEAR FOR COPD 08/23/2023 08/23/2022 Cervical Cancer Screening 11/22/2023 Pap Smear 11/22/2023 11/21/2020, 06/05/2017 Mammogram 04/15/2024 04/15/2023, 03/30, 10/22/2021, Additional history exists GARDASIL-HPV IMMUNIZATION SERIES Aged Out No longer eligible based on patient's age to complete this topic MENINGOCOCCAL (MENACTRA/MENVEO) Aged Out No longer eligible based on patient's age to complete this topic documented as of this encounter Medical Devices Not on filedocumented as of this encounter Visit Diagnoses Diagnosis Depression with anxiety- Primary Dysthymic disorder Panic disorder Panic disorder without agoraphobia PTSD (post-traumatic stress disorder) Posttraumatic stress disorder documented in this encounter Advance Directives Latest Code Status on File Code Status Date Activated Date Inactivated Comments Full Code 08/23/2022 12:23 PM 08/23/2022 8:04 PM This order reflects the patients wishes and were consensually agreed upon. Question Answer Comments Discussion of Advance Directives occurred with: Patient Code Status History Code Status Date Activated Date Inactivated Comments Full Code 08/23/2022 12:17 PM 08/23/2022 12:23 PM Thi s order reflects the patients wishes and were consensually agreed upon. Question Answer Comments Discussion of Advance Directives occurred with: Patient Care Teams Stripe Marker Relationship Specialty Start Date End Date Brad Dsouza MD [address] [place] [address] PCP - General Family Medicine 11/02/18 documented as of this encounter
--- OUTSIDE RECORDS SUMMARY | 2023-08-23 09:40 | External Medical Summary | Summary of Care ---
Author Name Unknown Organization [facility] Address [address] [place] [address] Phone [phone] Care Team Providers Care Attic Blower Name Role Phone Yesenia Jung MD Primary Care Provider [phone] Reason for Visit * Reason Onset Date Comments Medication Refill 06/06/2023 Encounter Details Date Type Department Care Team (Late st Contact Info) Description 06/06/2023 Refill Family Practice [facility] [address] [place] [address] Hamida Miranda CRNP [address] [place] [address] Dyshydrosis Allergies Active Allergy Reactions Criticality Noted Date Comments Dust 07/30/2019 documented as of this encounter (statuses as of 06/09/2023) Medications Medication Sig Dispensed Refills Start Date [...] before bedtime. 51 g 1 05/27/2023 Active clonazePAM 1 MG Oral Tablet (KlonoPIN)Indicati ons:Panic disorder Take 0.5 Tablets by mouth 3 times a day as needed for Anxiety. 15 Tablet 0 06/06/2023 Active Clobetasol Propionate 0.05 % External Cream (Temovate)Indicati ons:Dyshydrosis Apply topically to affected area 2 times a day. To affected area for up to two weeks. 30 g 3 06/09/2023 Active Clobetasol Propionate 0.05 % External Cream (Temovate)Indicati ons:Dyshydrosis Apply topically to affected area 2 times a day. To affected area for up to two weeks. 30 g 3 04/21/2023 3 Discontinue d(Refill) documented as of this encounter (statuses as of 06/09/2023) Active Problems Problem Noted Date Diagnosed Date [...] accident) 2020 Reactive airway disease without asthma 0 Marijuana use, episodic 06/15/2019 Generalized osteoarthritis 10/01/2018 Panic disorder 06/18/2018 HTN, goal below 130/80 10/22/2017 Radial scar of breast 09/02/2016 Overview: Was seen by breast surgeon - Dr. Davis - and reassured Depression with anxiety 08/15/2016 documented as of this encounter (statuses as of 06/09/2023) Resolved Problems Problem Noted Date Diagnosed Date [...] as of this encounter (statuses as of 06/09/2023) Immunizations No known immunizationsdocumented as of this encounter Social History Tobacco Use Types Packs/Day Years Used Date Smoking Tobacco: Former Cigarettes 2 20 Q uit: 01/01/2021 Smokeless Tobacco: Never Alcohol Use Standard Drinks/Week Comments Yes 0 (1 standard drink = 0.6 oz pur e alcohol) rarely - social PHQ-2 Answer Date Recorded PHQ Adult Total Score 20 09/27/2020 Hunger Vital Sign Answer Date Recorded Within the past 12 months, y ou worried that your food would run out before you got the money to buy more. Sometimes true Within the past 12 months, t he food you bought just didn't last and you didn't have money to get more. Sometimes true Sex and Gender Information Value Date Recorded Sex Assigned at Female 07/30/2019 1:21 PM EST Gender Identity Female 07/30/2019 1:21 PM EST Sexual Orientation Straight 07/30/2019 1: 21 PM EST Job Start Date Occupation Industry Not on file Not on file Not on file documented as of this encounter Miscellaneous Notes * Telephone Encounter - Yesenia Jung MD - 06/09/2023 8:27 AM ESTSigned Prescriptions: Disp Refills Clobetasol Propionate 0.05 % External Crea*30 g 3 Sig: Apply topically to affected area 2 times a day. To affected area for up to two weeks. Authorizing Provider: YESENIA JUNG * Telephone Encounter - Bailee [place] LPN - 06/09/2023 8:25 AM ESTPending Prescriptions: Disp Refills Clobetasol Propionate 0.05 % External Crea*30 g 3 Sig: Apply topically to affected area 2 times a day. To affected area for up to two weeks. * Telephone Encounter - Bailee Perez LPN - 06/09/2023 8:24 AM EST Did you pend patient's preferred pharmacy and medication before forwarding?yes Pharmacy: [facility] Pending Prescriptions: Disp Refills Clobetasol Propionate 0.05 % External Cre*30 g 3 Sig: Apply topically to affected area 2 times a day. To affected area for up to two weeks. Last Visit: 04/21/2023 (in office), 03/13/2021 (telemedicine) Next Visit: Visit date not found If no future appointments scheduled, and last appointment is greater than a year ago, please schedule patient for a follow-up appointment Last date the medication was ordered: 04/24/2023 Is this request for a controlled substance?No Urine Drug Screen:No results found for this or any previous visit. Patient Phone Numbers Labs: Lab Results Component Value Date/Time CREAT 0.7 07/03/2022 02:50 PM CREAT 0.79 04/08/2021 12:00 AM CREAT 0.6 07/12/2020 03:09 PM POTASSIUM 4.5 07/03/2022 02:50 PM POTASSIUM 3.6 04/08/2021 12:00 AM POTASSIUM 5.0 07/12/2020 03:09 PM LDLCALC 136 (H) 01/13/2018 11:40 AM ALT 25 07/03/2022 02:50 PM ALT 39 (H) 07/12/2020 03:09 PM HGBA1C 5.8 (H) 07/03/2022 02:50 PM HGBA1C 6.2 (H) 07/12/2020 03:09 PM * Telephone Encounter - Marsha Hernandez - 06/07/2023 4:13 AM ESTPending Prescriptions: Disp Refills Clobetasol Propionate 0.05 % External Crea*30 g 3 Sig: Apply topically to affected area 2 times a day. To affected area for up to two weeks. documented in this encounter Plan of Treatment Health Maintenance Due Date Last Done Comments Hepatitis B (1 of 3 - 3-dose series) 1969 COVID-19 Vaccine (#1) 1969 Pneumococcal Vaccine: Pediatrics (0 to 5 Years) and At-Risk Patients (6 to 64 Years) (1 - PCV) 1975 HIV Screening 1984 Albumin/Creatinine Ratio 1987 Alpha-1 Antitrypsin 1987 Hepatitis C Screening 1987 DTaP,Tdap,and Td Vaccines (1 - Tdap) 1988 HPV/Co-Test 1999 Cologuard 2014 Colonoscopy 2014 Colorectal Cancer Screening 2014 Fecal Occult Blood Test 2014 Sigmoidoscopy 2014 LUNG CANCER SCREENING - USE SMARTSET 23025 2019 Zoster Vaccines (1 of 2) 2019 Depression, Most Recent Score >= 10 (will fire each visit until score < 10) 09/28/2020 09/27/2020 *COPD SEVERITY VERIFIED BY PFT 07/06/2022 HbA1c 12/31/2022 07/03/2022, 110 07/2021, 09/27/2021, Additional history exists Lipid Panel 01/13/2023 01/13/2018 Influenza Vaccine (FLU shot) (#1) 2023 Diabetic Eye Exam 03/27/2023 03/27/2022, 07/21/2020 Diabetic Foot Exam 03/27/2023 03/27/2022 GFR 07/03/2023 07/03/2022, 03/30, 07/12/2020, Additional history exists O2 ASSESSMENT COMPLETED IN PAST YEAR FOR COPD 08/23/2023 08/23/2022 Cervical Cancer Screening 11/22/2023 Pap Smear 11/22/2023 11/21/2020, 06/05/2017 Mammogram 04/15/2024 04/15/2023, 09/29, 09/27/2020, Additional history exists GARDASIL-HPV IMMUNIZATION SERIES Aged Out No longer eligible based on patient's age to complete this topic MENINGOCOCCAL (MENACTRA/MENVEO) Aged Out No longer eligible based on patient's age to complete this topic documented as of this encounter Medical Devices Not on filedocumented as of this encounter Visit Diagnoses Diagnosis Dyshydrosis Dyshidrosis documented in this encounter Advance Directives Latest [...] Advance Directives occurred with: Patient Care Teams Attic Blower Relationship Specialty Start Date End Date Yesenia Jung MD [address] [facility] [place] [address] PCP - General Family Medicine 11/02/18 documented as of this encounter
--- OUTSIDE RECORDS SUMMARY | 2023-08-23 09:40 | External Medical Summary | Summary of Care ---
Author Name Unknown Organization [facility] Address [address] [place] [address] Phone [phone] Care Team Providers Care Neurosurgical Nurse Name Role Phone Yesenia Jung MD Primary Care Provider [phone] Reason for Visit * Reason Onset Date Comments Medication Refill 07/30/2023 Encounter Details Date Type Department Care Team (Late st Contact Info) Description 07/30/2023 Refill Family Practice [facility] [address] [place] [address] Yesenia Jung MD [address] [place] [address] Panic disorder Allergies Active Allergy Reactions Criticality Noted Date Comments Dust 07/30/2019 documented as of this encounter (statuses as of 07/31/2023) Medications Medication Sig Dispensed Refills Start Date [...] needed for Anxiety. 15 Tablet 0 07/31/2023 Active clonazePAM 1 MG Oral Tablet (KlonoPIN)Indicati ons:Panic disorder Take 0.5 Tablets by mouth 3 times a day as needed for Anxiety. 15 Tablet 0 07/03/2023 4 Discontinue d(Refill) documented as of this encounter (statuses as of 07/31/2023) Active Problems Problem Noted Date Diagnosed Date [...] as of this encounter (statuses as of 07/31/2023) Resolved Problems Problem Noted Date Diagnosed Date [...] as of this encounter (statuses as of 07/31/2023) Immunizations No known immunizationsdocumented as of this [...] Telephone Encounter - Yesenia Jung MD - 07/31/2023 12:02 PM ESTSigned Prescriptions: Disp Refills clonazePAM 1 MG Oral Tablet (KlonoPIN) 15 Tab*0 Sig: Take 0.5 Tablets by mouth 3 times a day as needed for Anxiety. Authorizing Provider: YESENIA JUNG * Telephone Encounter - Aleksandra Tomlin [facility] - 07/31/2023 11:59 AM EST Pending Prescriptions: Disp Refills clonazePAM 1 MG Oral Tablet (KlonoPIN) 15 Tab*0 Sig: Take 0.5 Tablets by mouth 3 times a day as needed for Anxiety. * Telephone Encounter - Aleksandra Tomlin [facility] - 07/31/2023 11:58 AM EST I have reviewed the patients controlled substance dispensing history in the Prescription Drug Monitoring Program in compliance with the [facility] regulations before prescribing a controlled substance. PDMP checked on 07/31/2023. Pending Prescriptions: Disp Refills clonazePAM 1 MG Oral Tablet (KlonoPIN) 15 Tab*0 Sig: Take 0.5 Tablets by mouth 3 times a day as needed for Anxiety. Last Visit: 04/21/2023 (in office), 03/13/2021 (telemedicine) Next Visit: Visit date not found Date medication was last filled: 06/11/23 Date medication is due for refill: 06/20/23 Pharmacy: [id number] Is this request for a controlled substance? Yes and Urine Drug Screen Not completed Toxicology results: No results found for this or any previous visit. Please approve if appropriate. Thank you, Aleksandra Tomlin, PharmD Clinical Pharmacist [facility] ([facility]) (formerly Telepharmacy) 07/31/23 11:58 AM [phone] documented in this encounter Plan of Treatment [...] 2014 LUNG CANCER SCREENING - USE SMARTSET 81809 2019 Zoster Vaccines (1 of 2) 2019 [...] as of this encounter Visit Diagnoses Diagnosis Panic disorder Panic disorder without agoraphobia documented in this encounter Advance Directives Latest [...] Advance Directives occurred with: Patient Care Teams Neurosurgical Nurse Relationship Specialty Start Date End Date Yesenia Jung MD [address] [place] [address] PCP - General Family Medicine 11/02/18 documented as of this encounter
--- OUTSIDE RECORDS SUMMARY | 2023-08-23 09:40 | External Medical Summary | Summary of Care ---
Author Name Unknown Organization [facility] Address [address] [place] [address] Phone [phone] Care Team Providers Care Licensed Marine Engineer Name Role Phone Kaitlin Dodge MD Primary Care Provider Encounter Details Date Type Department Care Team (Late st Contact Info) Description 08/22/2023 Orders Only PATIENT PORTAL DO NOT DELETE THIS DEPT USED BY EMILY [place] [id number] Allergies Active Allergy Reactions Criticality Noted Date Comments Dust 07/30/2019 documented as of this encounter (statuses as of 08/22/2023) Medications Medication Sig Dispensed Refills Start Date End Date Status Albuterol Sulfate (2.5 MG/3ML) 0.083% Inhalation Nebulization Solution (Proventil) Inhale 1 Vial via nebulizer every 4 hours as needed for Wheezing. 120 mL 3 04/02/2023 Active Diclofenac Sodium 1 % External Gel (Voltaren) Apply topically to affected area 2 times a day as needed for Pain. 100 g 1 04/14/2023 Active hydroCHLOROthiazide 25 MG Oral Tablet (Hydrodiuril)Indicat ions:HTN, goal below 130/80 Take 1 Tablet by mouth in the morning. 90 Tablet 3 04/14/2023 Active Fluticasone Propionate 50 MCG/ACT Nasal Suspension (Flonase)Indications :Seasonal allergic rhinitis due to pollen Administer 2 Sprays into each nostril in the morning. 48 g 2 05/27/2023 Active Clobetasol Propionate 0.05 % External Cream (Temovate)Indication s:Dyshydrosis Apply topically to affected area 2 times a day. To affected area for up to two weeks. 30 g 3 06/09/2023 Active clonazePAM 1 MG Oral Tablet (KlonoPIN)Indication s:Panic disorder Take 0.5 Tablets by mouth 3 times a day as needed for Anxiety. 15 Tablet 0 08/20/2023 Active Aspirin 81 MG Oral Tablet Delayed Release Take 1 Tablet by mouth in the morning. 0 Active Prazosin HCl 1 MG Oral Capsule (Minipress) Take 1 Capsule by mouth at bedtime. 0 Active amLODIPine Besylate 5 MG Oral Tablet (Norvasc)Indications :HTN, goal below 130/80 Take 1 Tablet by mouth in the morning. 30 Tablet 5 08/21/2023 Active Chlorthalidone 25 MG Oral Tablet (Hygroton)Indication s:HTN, goal below 130/80 Take 1 Tablet by mouth in the morning. 90 Tablet 3 08/21/2023 Active Atorvastatin Calcium 20 MG Oral Tablet (Lipitor)Indications :History of CVA (cerebrovascular accident) Take 1 Tablet by mouth in the morning. 90 Tablet 3 08/21/2023 Active documented as of this encounter (statuses as of 08/22/2023) Active Problems Problem Noted Date Diagnosed Date Gallbladder polyp 08/21/2023 ELI (stress urinary incontinence, female) 2022 Gastro-esophageal reflux disease without esophag itis 07/03/2022 Chronic obstructive pulmonary disease 07/03/2022 PTSD (post-traumatic stress disorder) 06/14/2022 Iron deficiency anemia due to chronic blood loss 06/14/2022 Complicated migraine 01/22/2022 Overview: Hospitalized for this in December of 2021 Obesity, Class I, BMI 30.0-34.9 (see actual BMI) 10/29/2021 Restless legs syndrome 10/29/2021 History of CVA (cerebrovascular accident) 2020 Pre-diabetes 07/13/2020 Reactive airway disease without asthma 0 Marijuana use, episodic 06/15/2019 Generalized osteoarthritis 10/01/2018 Panic disorder 06/18/2018 HTN, goal below 130/80 10/22/2017 Radial scar of breast 09/02/2016 Overview: Was seen by breast surgeon - Dr. Davis - and reassured Depression with anxiety 08/15/2016 documented as of this encounter (statuses as of 08/22/2023) Resolved Problems Problem Noted Date Diagnosed Date Resolved Date Cutaneous abscess of left lower limb 04/14/2023 08/21/2023 Hemiplegia affecting left dominant side 07/03/2022 04/21/2023 Major depressive disorder, r ecurrent episode, moderate 07/03/2022 04/21/2023 Essential (primary) hypertension 07/03/2022 04/21/2023 Medical home patient encounter 06/12/2022 04/21/2023 Food insecurity 04/08/2022 04/30/2022 Overview: Per [facility] Protocol Type 2 diabetes mellitus wit h hemoglobin A1c goal of less than 7.0% 10/29/2021 08/21/2023 Impaired fasting glucose 06/15/2019 Tobacco use disorder 06/15/2019 022 Acute right-sided low back p ain with right-sided sciatica 01/02/2019 02/05/2019 Body mass index (BMI) of 40. 0 to 44.9 in adult 08/17/2018 10/08/2019 Overview: ICD-10 update of inactive term Gastroesophageal reflux dise ase with esophagitis 08/15/2016 04/21/2023 documented as of this encounter (statuses as of 08/22/2023) Immunizations No known immunizationsdocumented as of this [...] on file documented as of this encounter Plan of Treatment Upcoming Encounters Date Type Department Care Team (Late st Contact Info) Description 08/28/2023 2:00 PM EST Nurse Only Ancillary [facility] [address] [place] [address] [facility], Nurse Fam Pr[facility] [address] [place] [address] 12/05/2023 12:00 PM EDT Office Visit Family Practice [facility] [address] [place] [address] Kaitlin Dodge MD [address] [place] [address] Health Maintenance Due Date Last Done Comments [...] 2014 LUNG CANCER SCREENING - USE SMARTSET 05896 2019 Zoster Vaccines (1 of 2) 2019 Depression, Most Recent Score >= 10 (will fire each visit until score < 10) 09/28/2020 09/27/2020 *COPD SEVERITY VERIFIED BY PFT 07/06/2022 Lipid Panel 01/13/2023 01/13/2018 COVID-19 Vaccine ( season) 2023 Influenza Vaccine (FLU shot) (#1) 2023 GFR 07/03/2023 07/03/2022, 03/30, 07/12/2020, Additional history exists HbA1c 07/03/2023 07/03/2022, 11/0 07/2021, 09/27/2021, Additional history exists O2 ASSESSMENT COMPLETED IN PAST YEAR FOR COPD 08/23/2023 08/23/2022 Cervical Cancer Screening 11/22/2023 Pap Smear 11/22/2023 11/21/2020, 06/05/2017 Mammogram 04/15/2024 04/15/2023, 03/30, 10/22/2021, Additional history exists Diabetic Eye Exam Discontinued 03/27/2022, , 07/21/2020 Diabetic Foot Exam Discontinued 03/27/2022 GARDASIL-HPV IMMUNIZATION SERIES Aged Out No longer eligible based on patient's age to complete this topic MENINGOCOCCAL (MENACTRA/MENVEO) Aged Out No longer eligible based on patient's age to complete this topic documented as of this encounter Medical Devices Not on filedocumented as of this encounter Advance Directives Latest Code Status [...] Advance Directives occurred with: Patient Care Teams Licensed Marine Engineer Relationship Specialty Start Date End Date Kaitlin Dodge MD [address] [place] [address] PCP - General Internal Medicine 08/21/23 documented as of this encounter
--- OUTSIDE RECORDS SUMMARY | 2023-08-23 09:40 | External Medical Summary | Summary of Care ---
Author Name Unknown Organization [facility] Address [address] [place] [address] Phone [phone] Care Team Providers Care Evaluation Manager Name Role Phone Yesenia Jung MD Primary Care Provider [phone] Reason for Visit * Reason Comments Medication Refill Encounter Details Date Type Department Care Team (Late st Contact Info) Description 05/27/[address] [facility] [address] [place] [address] Yesenia Jung MD [address] [place] [address] Seasonal allergic rhinitis due to pollen; Bronchitis, complicated Allergies Active Allergy Reactions Criticality Noted Date Comments Dust 07/30/2019 documented as of this encounter (statuses as of 05/27/2023) Medications Medication Sig Dispensed Refills Start Date End Date Status Albuterol Sulfate (2.5 MG/3ML) 0.083% Inhalation Nebulization Solution (Proventil) Inhale 1 Vial via nebulizer every 4 hours as needed for Wheezing. 120 mL 3 04/02/2023 Active clonazePAM 1 MG Oral Tablet (KlonoPIN)Indicati ons:Panic disorder Take 0.5 Tablets by mouth 3 times a day as needed for Anxiety. 15 Tablet 0 04/08/2023 Active Diclofenac Sodium 1 % External Gel (Voltaren) Apply topically to affected area 2 times a day as needed for Pain. 100 g 1 04/14/2023 Active hydroCHLOROthiazid e 25 MG Oral Tablet (Hydrodiuril)Indic ations:HTN, goal below 130/80 Take 1 Tablet by mouth in the morning. 90 Tablet 3 04/14/2023 Active Clobetasol Propionate 0.05 % External Cream (Temovate)Indicati ons:Dyshydrosis Apply topically to affected area 2 times a day. To affected area for up to two weeks. 30 g 3 04/21/2023 Active Fluticasone Propionate 50 MCG/ACT Nasal Suspension [...] before bedtime. 51 g 1 05/27/2023 Active ProAir HFA 108 (90 Base) MCG/ACT Inhalation Aerosol SolutionIndication s:Bronchitis, complicated Inhale 2 Puffs by mouth in the morning and 2 Puffs at noon and 2 Puffs in the evening and 2 Puffs before bedtime. 51 g 1 02/18/2023 3 Discontinue d(Refill) Fluticasone Propionate 50 MCG/ACT Nasal Suspension (Flonase)Indicatio ns:Seasonal allergic rhinitis due to pollen Administer 2 Sprays into each nostril in the morning. 16 g 2 02/18/2023 3 Discontinue d(Refill) documented as of this encounter (statuses as of 05/27/2023) Active Problems Problem Noted Date Diagnosed Date [...] as of this encounter (statuses as of 05/27/2023) Resolved Problems Problem Noted Date Diagnosed Date [...] as of this encounter (statuses as of 05/27/2023) Immunizations No known immunizationsdocumented as of this [...] encounter Miscellaneous Notes * Telephone Encounter - Silvio Xie [facility] - 05/27/2023 12:34 PM EST Signed Prescriptions: Disp Refills Fluticasone Propionate 50 MCG/ACT Nasal Arreola*48 g 2 Sig: Administer 2 Sprays into each nostril in the morning. Authorizing Provider: YESENIA JUNG Ordering User: SILVIO XIE ProAir HFA 108 (90 Base) MCG/ACT Inhalatio*51 g 1 Sig: Inhale 2 Puffs by mouth in the morning and 2 Puffs at noon and 2 Puffs in the evening and 2 Puffs before bedtime. Authorizing Provider: YESENIA JUNG Ordering User: SILVIO XIE * Telephone Encounter - 05/27/2023 12:14 AM ESTPending Prescriptions: Disp Refills Fluticasone Propionate 50 MCG/ACT Nasal Arreola*16 g 2 Sig: Administer 2 Sprays into each nostril in the morning. ProAir HFA 108 (90 Base) MCG/ACT Inhalatio*51 g 1 Sig:Inhale 2 Puffs by mouth in the morning and 2 Puffs at noon and 2 Puffs in the evening and 2 Puffs before bedtime. documented in this encounter Plan of Treatment [...] 2014 LUNG CANCER SCREENING - USE SMARTSET 36676 2019 Zoster Vaccines (1 of 2) 2019 Depression, Most Recent Score >= 10 (will fire each visit until score < 10) 09/28/2020 09/27/2020 *COPD SEVERITY VERIFIED BY PFT 07/06/2022 HbA1c 12/31/2022 07/03/2022, 07/2021, 09/27/2021, Additional history exists Lipid Panel [...] as of this encounter Visit Diagnoses Diagnosis Seasonal allergic rhinitis due to pollen Bronchitis, complicated Bronchitis, not specified as acute or chronic documented in this encounter Advance Directives Latest [...] Advance Directives occurred with: Patient Care Teams Evaluation Manager Relationship Specialty Start Date End Date Yesenia Jung MD [address] [place] [address] PCP - General Family Medicine 11/02/18 documented as of this encounter
--- OUTSIDE RECORDS SUMMARY | 2023-08-23 09:40 | External Medical Summary | Summary of Care ---
Author Name Unknown Organization [facility] Address [address] [place] [address] Phone [phone] Care Team Providers Care Sec Reporting Consultant Name Role Phone Kaitlin Dodge MD Primary Care Provider Reason for Visit * Reason Comments NEW PATIENT Re-establish from Dr Berenice Dsouza. Wants to get medication arranged. Working to lose wt, eating healthy. Wants to have one PCP, Dr. Dodge. Acute stuff ok to see anyone. Numbness in middle fingers. Has not been taking Prazosin2 years ago, had stroke. Encounter Details Date Type Department Care Team (Late st Contact Info) Description 08/21/2023 3:20 PM EST Office Visit Family Practice [facility] [address] [facility] [place] [address] Kaitlin Dodge MD [address] [facility] [place] [address] HTN, goal below 130/80*; History of CVA (cerebrovascular accident); Elevated LDL cholesterol level; Pre-diabetes; Iron deficiency anemia due to chronic blood loss; Chronic obstructive pulmonary disease, unspecified COPD type (HCC); Reactive airway disease without asthma Allergies Active Allergy Reactions Criticality Noted Date Comments Dust 07/30/2019 documented as of this encounter (statuses as of 08/21/2023) Medications Medication Sig Dispensed Refills Start Date [...] Active amLODIPine Besylate 5 MG Oral Tablet (Norvasc)Indicatio ns:HTN, goal below 130/80 Take 1 Tablet by mouth in the morning. 30 Tablet 5 08/21/2023 Active Chlorthalidone 25 MG Oral Tablet (Hygroton)Indicati ons:HTN, goal below 130/80 Take 1 Tablet by mouth in the morning. 90 Tablet 3 08/21/2023 Active Atorvastatin Calcium 20 MG Oral Tablet (Lipitor)Indicatio ns:History of CVA (cerebrovascular accident) Take 1 Tablet by mouth in the morning. 90 Tablet 3 08/21/2023 Active ProAir HFA 108 (90 Base) MCG/ACT Inhalation Aerosol SolutionIndication s:Bronchitis, complicated Inhale 2 Puffs by mouth in the morning and 2 Puffs at noon and 2 Puffs in the evening and 2 Puffs before bedtime. 51 g 1 05/27/2023 4 Discontinue d(Medicatio n List Clean Up) documented as of this encounter (statuses as of 08/21/2023) Active Problems Problem Noted Date Diagnosed Date [...] as of this encounter (statuses as of 08/21/2023) Resolved Problems Problem Noted Date Diagnosed Date [...] as of this encounter (statuses as of 08/21/2023) Immunizations No known immunizationsdocumented as of this encounter Social History Tobacco Use Types Packs/Day Years Used Date Smoking Tobacco: Former Cigarettes 2 20 0 01/01/2001 - 01/01/2021 Smokeless Tobacco: Never Tobacco Cessation:Counseling Given: Not Answered Alcohol Use Standard Drinks/Week Comments Yes 0 [...] on file documented as of this encounter Last Filed Vital Signs Vital Sign Reading Time Taken Comments Blood Pressure 180/110 08/21/2023 3:23 PM EST Pulse 80 08/21/2023 3:23 PM EST Temperature - - Respiratory Rate - - Oxygen Saturation 96% 08/21/2023 3:23 PM EST Inhaled Oxygen Concentration - - Weight 76.8 kg (169 lb 4 oz) 08/21/2023 3:23 PM EST Height - - Body Mass Index 33.05 04/14/2023 12:38 PM EDT documented in this encounter Patient Instructions * Patient Instructions* Kaitlin Dodge MD - 08/21/2023 4:06 PM EST Next Steps: -- start amlodipine 5mg daily and chlorthalidone 25mg daily -- keep taking baby aspirin -- start lipitor 20mg -- recommend not using klonopin daily. At most will Rx #10 in a month. -- strongly encourage less marijuana to help with cognitive function documented in this encounter Progress Notes * Kaitlin Dodge MD - 08/21/2023 3:44 PM EST Images from the original note were not included. History of Present Illness Britney Bautista is a 53 year old female that presents for NEW PATIENT (Re-establish from Dr. Dsouza. Wants to get medication arranged. Working to lose wt, eating healthy. Wants to have one PCP, Dr. Dodge. Acute stuff ok to see anyone. /Numbness in middle fingers. /Has not been taking Prazosin/2 years ago, had stroke.) Reports being confused about medication changes, having trouble with cognitive abilities. Didn't have refills and ran out of medications. Not currently taking any blood pressure or cholesterol medications. Has had more headaches recently. No chest pain or shortness of breathe. Is taking baby aspirin. History of stroke. Iron-deficiency anemia, likely from GI bleed from celebrex. Avoids NSAIDs since. Pre-diabetes. Lost weight. Mood: Chart lists many psych diagnoses. Reports back reaction to Effexor in past, believes it caused her stroke. Taking klonopin 1 tablet most nights. Helps her relax enough to take a deep breath. "But I could stop at any time." Not currently taking any other daily anxiety/depression medications. Nicotine: none Cannabis: creams, edibles, smoking. 2-3x/day. Since "elementary school". Stopped during and . Gets from dispensary. Reports taking 3-4 week holiday in the past couple years, doesn't smoke as much as she used to. Surprised that I knew she smoked. Alcohol: stopped 2-3 yrs ago Caffeine: none NSAIDs: none. Tylenol only for pain. Current medications and allergies reviewed. Past medical history and problem list reviewed. Physical Exam Vitals: 08/21/23 1523 Pulse: 80 SpO2: 96% BP: 180/110 BP Readings from Last 3 Encounters: 08/21/23 180/110 04/21/23 130/82 04/14/23 138/88 Wt Readings from Last 3 Encounters: 08/21/23 76.8 kg (169 lb 4 oz) 04/14/23 79 kg (174 lb 3.2 oz) 03/27/23 80.1 kg (176 lb 9.6 oz) Blood pressure still elevated on repeat. Physical Exam Vitals and nursing note reviewed. Constitutional: General: She is not in acute distress. Appearance: Normal appearance. She is not ill-appearing. Comments: Very strong odor of marijuana in room, presumably on patient's clothing. HENT: Head: Normocephalic and atraumatic. Eyes: Pupils: Pupils are equal, round, and reactive to light. Neck: Thyroid: No thyroid mass, thyromegaly or thyroid tenderness. Cardiovascular: Rate and Rhythm: Normal rate and regular rhythm. Heart sounds: No murmur heard. Pulmonary: Effort: Pulmonary effort is normal. Breath sounds: Normal breath sounds. Musculoskeletal: Right lower leg: No edema. Left lower leg: No edema. Lymphadenopathy: Cervical: No cervical adenopathy. Skin: General: Skin is warm and dry. Neurological: Mental Status: She is alert. Psychiatric: Behavior: Behavior normal. Comments: Tearful at times I have reviewed the following results: CMP, Lipid Panel, Hemoglobin A1C, and CBC Assessment and Plan HTN, goal below 130/80 Patient Instructions Next Steps: -- start amlodipine 5mg daily and chlorthalidone 25mg daily -- keep taking baby aspirin -- start lipitor 20mg -- recommend not using klonopin daily. At most will Rx #10 in a month. -- strongly encourage less marijuana to help with cognitive function Nurse BP check in one week. Labs today. - COMPREHENSIVE METABOLIC PANEL; Future - ALBUMIN / CREATININE RATIO, URINE; Future - amLODIPine Besylate 5 MG Oral Tablet (Norvasc); Take 1 Tablet by mouth in the morning. - Chlorthalidone 25 MG Oral Tablet (Hygroton); Take 1 Tablet by mouth in the morning. History of CVA (cerebrovascular accident) - Atorvastatin Calcium 20 MG Oral Tablet (Lipitor); Take 1 Tablet by mouth in the morning. Elevated LDL cholesterol level - LIPID PANEL WITH DIRECT LDL IF TG IS HIGH; Future Pre-diabetes - HEMOGLOBIN A1C; Future Iron deficiency anemia due to chronic blood loss - CBC WITH WBC DIFFERENTIAL AND ANEMIA REFLEX WORKUP; Future Chronic obstructive pulmonary disease, unspecified COPD type (HCC) - DURABLE MEDICAL EQUIPMENT Reactive airway disease without asthma - DURABLE MEDICAL EQUIPMENT Wrap-Up Follow Up: Return in about 3 months (around 11/19/2023) for Labs Today. nurse BP check next week., Return with Dar. | For: Labs Today. nurse BP check next week., Return with Dar Time: I spent a total of 30-39 minutes (exact time 37 mins) on the date of service in preparation, delivery, and documentation of the care provided to Britney Bautista excluding any time spent in the performance of separately billed services. documented in this encounter Plan of Treatment Upcoming Encounters Date Type Department Care Team (Late st Contact Info) Description 08/28/2023 2:00 PM EST Nurse Only Ancillary [facility] [address] [place] [address] Nurse Natan [facility] [address] [place] [address] 12/05/2023 12:00 PM EDT Office Visit Family Practice [facility] [address] [place] [address] Kaitlin Dodge MD [address] [place] [address] Scheduled Orders Name Type Priority Associated Diagnoses Orde r Schedule HEMOGLOBIN A1C Lab Routine Pre-diabetes Expected: 08/21/2023, Expires: 09/18/2024 LIPID PANEL WITH DIRECT LDL IF TG IS HIGH Lab Routine Elevated LDL cholesterol level Expected: 08/21/2023, Expires: 08/21/2024 COMPREHENSIVE METABOLIC PANEL Lab Routine HTN, goal below 130/80 Expected: 08/21/2023, Expires: 08/21/2024 CBC WITH WBC DIFFERENTIAL AND ANEMIA REFLEX WORKUP Lab Routine Iron deficiency anemia due to chronic blood loss Expected: 08/21/2023, Expires: 08/21/2024 ALBUMIN / CREATININE RATIO, URINE Lab Routine HTN, goal below 130/80 Expected: 08/21/2023, Expires: 08/21/2024 Health Maintenance Due Date Last Done Comments [...] 2014 LUNG CANCER SCREENING - USE SMARTSET 45814 2019 Zoster Vaccines (1 of 2) 2019 Depression, Most Recent Score >= 10 (will fire each visit until score < 10) 09/28/2020 09/27/2020 *COPD SEVERITY VERIFIED BY PFT 07/06/2022 Lipid Panel 01/13/2023 01/13/2018 COVID-19 Vaccine ( - season) 2023 Influenza Vaccine (FLU shot) (#1) 2023 GFR 07/03/2023 07/03/2022, 03/30, 07/12/2020, Additional history exists HbA1c 07/03/2023 07/03/2022, 07/2021, 09/27/2021, Additional history exists O2 ASSESSMENT [...] as of this encounter Visit Diagnoses Diagnosis HTN, goal below 130/80- Primary Unspecified essential hypertension History of CVA (cerebrovascular accident) Transient ischemic attack (TIA), and cerebral infarction without residual deficits Elevated LDL cholesterol level Pure hypercholesterolemia Pre-diabetes Other abnormal glucose Iron deficiency anemia due to chronic blood loss Iron deficiency anemia secondary to blood loss (chronic) Chronic obstructive pulmonary disease, unspecified COPD type (HCC) Reactive airway disease without asthma documented in this encounter Advance Directives Latest [...] Advance Directives occurred with: Patient Care Teams Sec Reporting Consultant Relationship Specialty Start Date End Date Kaitlin Dodge MD [address] [place] [address] PCP - General Internal Medicine 08/21/23 documented as of this encounter
--- OUTSIDE RECORDS SUMMARY | 2023-08-23 09:40 | External Medical Summary | Summary of Care ---
Author Name Unknown Organization [facility] Address [address] [place] [address] Phone [phone] Care Team Providers Care Preschool Principal Name Role Phone Kaitlin Dodge MD Primary [...] 3:20 PM EST Office Visit Family Practice [facility] [address] [facility] [place] [address] Kaitlin Dodge MD [address] [facility] [place] [address] HTN, goal below 130/80*; History of CVA [...] 08/28/2023 2:00 PM EST Nurse Only Ancillary [facility] [address] [place] [address] Nurse Natan [facility] [address] [place] [address] 12/05/2023 12:00 PM EDT Office Visit Family Practice [facility] [address] [place] [address] Kaitlin Dodge MD [address] [place] [address] Scheduled Orders Name Type Priority Associated Diagnoses [...] 2014 LUNG CANCER SCREENING - USE SMARTSET [id number] 2019 Zoster Vaccines (1 of 2) 2019 [...] Advance Directives occurred with: Patient Care Teams Preschool Principal Relationship Specialty Start Date End Date Kaitlin Dodge MD [address] [place] [address] PCP - General Internal Medicine 08/21/23 documented as of this encounter
--- OUTSIDE RECORDS SUMMARY | 2023-08-23 09:40 | External Medical Summary | Summary of Care ---
Author Name Unknown Organization [facility] Address [address] [place] [address] Phone [phone] Care Team Providers Care Gas Compressor Turbine Operator Name Role Phone Brad Dsouza MD Primary Care Provider [phone] Reason for Referral * Evaluate & Treat - Unlimited Visits (Within 10 days (routine)) - Authorized Specialty Diagnoses / Procedures Referred By Arsenio tucker Referred To Contact Physical Therapy / Physical Medicine And Rehab Diagnoses Vertigo [facility]ida Miranda CR[facility] [address] [facility] [address] Referral ID Status Reason Start Date Expiration Date Visits Requested Visits Authorized [id number] Authorized Specialty Services Required 3 [phone] Question Answer Referral Priority Within 10 days (routine) Where should this appointment be scheduled? [facility] Reason for Visit * Reason Comments Hospital Follow-Up [facility]-04/02/23L leg in fection Encounter Details Date Type Department Care Team (Late st Contact Info) Description 04/14/2023 12:20 PM EDT Office Visit Family Practice [facility] [address] [place] [address] Hamida Miranda CRNP [address] [place] [address] Cutaneous abscess of left lower limb*; Panic disorder; Dyshydrosis; HTN, goal below 130/80; Vertigo Allergies Active Allergy Reactions Criticality Noted Date Comments Dust 07/30/2019 documented as of this encounter (statuses as of 04/21/2023) Medications Medication Sig Dispensed Refills Start Date End Date Status ProAir HFA 108 (90 Base) MCG/ACT Inhalation Aerosol SolutionIndicati ons:Bronchitis, complicated Inhale 2 Puffs by mouth in the morning and 2 Puffs at noon and 2 Puffs in the evening and 2 Puffs before bedtime. 51 g 1 3 Active Additional Information Patient not taking.Reported on 04/14/2023 Fluticasone Propionate 50 MCG/ACT Nasal Suspension (Flonase)Indicat ions:Seasonal allergic rhinitis due to pollen Administer 2 Sprays into each nostril in the morning. 16 g 2 3 Active Albuterol Sulfate (2.5 MG/3ML) 0.083% Inhalation Nebulization Solution (Proventil) Inhale 1 Vial via nebulizer every 4 hours as needed for Wheezing. 120 mL 3 3 Active clonazePAM 1 MG Oral Tablet (KlonoPIN)Indica tions:Panic disorder Take 0.5 Tablets by mouth 3 times a day as needed for Anxiety. 15 Tablet 0 3 Active Diclofenac Sodium 1 % External Gel (Voltaren) Apply topically to affected area 2 times a day as needed for Pain. 100 g 1 3 Active hydroCHLOROthiaz lise 25 MG Oral Tablet (Hydrodiuril)Ind ications:HTN, goal below 130/80 Take 1 Tablet by mouth in the morning. 90 Tablet 3 3 Active Doxycycline Hyclate 100 MG Oral CapsuleIndicatio ns:Cutaneous abscess of left lower limb Take 1 Capsule by mouth in the morning and 1 Capsule before bedtime. Do all this for 10 days. Until gone.. 20 Capsule 0 3 04/24/20 Active Cephalexin 500 MG Oral CapsuleIndicatio ns:Cutaneous abscess of left lower limb Take 1 Capsule by mouth in the morning and 1 Capsule at noon and 1 Capsule before bedtime. Do all this for 10 days. 30 Capsule 0 3 10/26/20 23 Active hydroCHLOROthiaz lise 25 MG Oral Tablet (Hydrodiuril)Ind ications:HTN, goal below 130/80 Take 1 Tablet by mouth in the morning. 90 Tablet 3 3 04/14/20 Discontinued(Ref ill) Pantoprazole Sodium 40 MG Oral Tablet Delayed Release (Protonix)Indica tions:Gastroesop hageal reflux disease with esophagitis, unspecified whether hemorrhage Take 1 Tablet by mouth in the morning and 1 Tablet before bedtime. 60 Tablet 3 3 04/14/20 Discontinued Diclofenac Sodium 1 % External Gel (Voltaren) Apply topically to affected area 2 times a day as needed for Pain. 100 g 1 3 04/14/20 Discontinued(Ref ill) Clobetasol Propionate 0.05 % External Cream (Temovate)Indica tions:Rash and nonspecific skin eruption Apply topically to affected area 2 times a day. To affected area for up to two weeks. 30 g 3 3 04/14/20 Discontinued(Ref ill) Prazosin HCl 1 MG Oral Capsule (Minipress) Take 1 Capsule by mouth at bedtime. 90 Capsule 0 3 04/14/20 Discontinued Cephalexin 500 MG Oral Capsule (Keflex) Take 1 Capsule by mouth in the morning and 1 Capsule before bedtime. 0 3 04/14/20 Discontinued Clobetasol Propionate 0.05 % External Cream (Temovate)Indica tions:Dyshydrosi s Apply topically to affected area 2 times a day. To affected area for up to two weeks. 30 g 3 3 04/21/20 Discontinued(Ref ill) documented as of this encounter (statuses as of 04/21/2023) Active Problems Problem Noted Date Diagnosed Date [...] as of this encounter (statuses as of 04/21/2023) Resolved Problems Problem Noted Date Diagnosed Date [...] as of this encounter (statuses as of 04/21/2023) Immunizations No known immunizationsdocumented as of this [...] Sign Reading Time Taken Comments Blood Pressure 138/88 04/14/2023 12:38 PM EDT Pulse 68 04/14/2023 12:38 PM EDT Temperature 36.4 C (97.6 F) 04/14/2023 12:38 PM E DT Respiratory Rate - - Oxygen Saturation 68% 04/14/2023 12:38 PM EDT Inhaled Oxygen Concentration - - Weight 79 kg (174 lb 3.2 oz) 04/14/2023 12:38 PM EDT Height 152.4 cm (5') 04/14/2023 12:38 PM EDT Body Mass Index 34.02 04/14/2023 12:38 PM EDT documented in this encounter Progress Notes * KANNAN Linda - 04/14/2023 1:00 PM EDT Images from the original note were not included. History of Present Illness Britney Bautista is a 52 year old female that presents for Hospital Follow-Up ([facility]- 04/02/23/L leg infection ) HPI Here for follow up of cutaneous skin abscess. Went to ER and had I&D. Per patient was very painful. Now on keflex. Unsure if any improvement. No fevers. Also having flare of hand dyshydrosis and needs clobetasol refill. Also asking for clonazepam refill. She just had it filled on 04/08/23. Also c/o chronic vertigo flaring up. Physical Exam Vitals: 04/14/23 1238 Temp: 36.4 C (97.6 F) Pulse: 68 SpO2: 68% BP: 138/88 BMI: 34.02 Physical Exam Vitals reviewed. Constitutional: General: She is not in acute distress. Cardiovascular: Rate and Rhythm: Normal rate. Pulmonary: Effort: No respiratory distress. Skin: General: Skin is warm and dry. Comments: + open wound L anterior calf with mild edema and tenderness of the surrounding tissue. Scant purulent drainage. Neurological: Mental Status: She is alert and oriented to person, place, and time. Psychiatric: Behavior: Behavior normal. Assessment and Plan Cutaneous abscess of left lower limb F/u 1 week Dressing applied, wound care discussed Back to ER if s/s of systemic infection occur - Doxycycline Hyclate 100 MG Oral Capsule; Take 1 Capsule by mouth in the morning and 1 Capsule before bedtime. Do all this for 10 days. Until gone.. - Cephalexin 500 MG Oral Capsule; Take 1 Capsule by mouth in the morning and 1 Capsule at noon and 1 Capsule before bedtime. Do all this for 10 days. Panic disorder Just refilled clonazepam Would defer subsequent refill to PCP Dyshydrosis Clobetasol as discussed HTN, goal below 130/80 Requesting refill - hydroCHLOROthiazide 25 MG Oral Tablet (Hydrodiuril); Take 1 Tablet by mouth in the morning. Vertigo - PHYSICAL THERAPY REFERRAL OP Wrap-Up Follow-up: Return in about 1 week (around 04/21/2023). | Check-out note: 1 week with me Also 3 mo with PCP Time: I spent a total of 30-39 minutes (exact time 30 mins) on the date of service in preparation, delivery, and documentation of the care provided to Britney Bautista excluding any time spent in the performance of separately billed services. documented in this encounter Nursing Notes * Brianna Lester - 04/14/2023 12:23 PM EDT The patient has been properly identified by confirmation of name and date of . Chief Complaint Patient presents with Hospital Follow-Up [facility]-04/02/23 L leg infection Started off as a pimple few weeks ago then got worse Went to [facility] they gave her bactrim. Pt went to [place] did I/d Pt. was in a lot of pain. Pt. Using abx ointment and keeping it covered. Did wound cultures, results need reviewed. Pt. Needs evaluated for cellulitis. Has swollen knee BL Right hand eczema flare. Pt. Needs medication evaluation, not taking prescribes medications documented in this encounter Plan of Treatment Scheduled Referrals Name Type Priority Associated Diagnoses Orde r Schedule PHYSICAL THERAPY REFERRAL OP Referral Within 10 days (routine) Vertigo Ordered: 04/14/2023 Health Maintenance Due Date Last Done Comments [...] 2014 LUNG CANCER SCREENING - USE SMARTSET 29469 2019 Zoster Vaccines (1 of 2) 2019 Depression, Most Recent Score >= 10 (will fire each visit until score < 10) 09/28/2020 09/27/2020 *COPD SEVERITY VERIFIED BY PFT 07/06/2022 HbA1c 12/31/2022 07/03/2022, 07/2021, 09/27/2021, Additional history exists Lipid Panel 01/13/2023 01/13/2018 Influenza Vaccine (FLU shot) (#1) 2023 DIABETES-EYE EXAM 03/27/2023 03/27/2022, 07/21/2020 Diabetic Foot Exam 03/27/2023 [...] as of this encounter Visit Diagnoses Diagnosis Cutaneous abscess of left lower limb- Primary Panic disorder Panic disorder without agoraphobia Dyshydrosis Dyshidrosis HTN, goal below 130/80 Unspecified essential hypertension Vertigo Dizziness and giddiness documented in this encounter Advance Directives Latest [...] Advance Directives occurred with: Patient Care Teams Gas Compressor Turbine Operator Relationship Specialty Start Date End Date Brad Dsouza MD [address] [facility] [place] [address] PCP - General Family Medicine 11/02/18 documented as of this encounter"
--- OUTSIDE RECORDS SUMMARY | 2023-08-23 09:40 | External Medical Summary | Summary of Care ---
Author Name Unknown Organization [facility] Address [address] [place] [address] Phone [phone] Care Team Providers Care Electronic Train Control Technician Name Role Phone Brad Dsouza MD Primary Care Provider [phone] Reason for Visit * Reason Onset Date Comments Medication Refill 08/20/2023 Encounter Details Date Type Department Care Team (Late st Contact Info) Description 08/20/2023 Refill Family Practice [facility] [address] [place] [address] Brad Dsouza MD [address] [place] [address] Panic disorder Allergies Active Allergy Reactions Criticality [...] HFA 108 (90 Base) MCG/ACT Inhalation Aerosol SolutionIndications: Bronchitis, complicated Inhale 2 Puffs by mouth in [...] for Anxiety. 15 Tablet 0 08/20/2023 Active documented as of this encounter (statuses [...] encounter Miscellaneous Notes * Telephone Encounter - Mohsen Franks [facility] - 08/21/2023 9:16 AM ESTRefused Prescriptions: Disp Refills clonazePAM 1 MG Oral Tablet (KlonoPIN) 15 Tab*0 Sig: Take 0.5 Tablets by mouth 3 times a day as needed for Anxiety.Refused By: MOHSEN FRANKS MReason for Refusal:Duplicate Request documented in this encounter Plan of Treatment Upcoming Encounters Date Type Department Care Team (Late st Contact Info) Description 08/21/2023 3:20 PM EST Office Visit Family [facility] [address] [place] [address] Kaitlin Dodge MD [address] [place] [address] Health Maintenance Due Date Last Done Comments [...] 2014 LUNG CANCER SCREENING - USE SMARTSET 42929 2019 Zoster Vaccines (1 of 2) 2019 [...] Advance Directives occurred with: Patient Care Teams Electronic Train Control Technician Relationship Specialty Start Date End Date Brad Dsouza MD [address] [place] [address] PCP - General Family Medicine 11/02/18 documented as of this encounter
--- OUTSIDE RECORDS SUMMARY | 2023-08-23 09:40 | External Medical Summary | Summary of Care ---
Author Name Unknown Organization [facility] Address [address] [place] [address] Phone [phone] Care Team Providers Care Regional Director Name Role Phone Brad Dsouza MD Primary Care Provider [phone] Reason for Visit * Reason Onset Date Comments Medication Refill 08/20/2023 Encounter Details Date Type Department Care Team (Late st Contact Info) Description 08/20/2023 Refill Family Practice [facility] [address] [place] [address] Brad Dsouza MD [address] [place] [address] Panic disorder Allergies Active Allergy Reactions Criticality [...] Notes * Telephone Encounter - Mohsen Franks [facility] - 08/21/2023 9:16 AM ESTRefused Prescriptions: Disp Refills clonazePAM 1 MG Oral Tablet (KlonoPIN) 15 Tab*0 Sig: Take 0.5 Tablets by mouth 3 times a day as needed for Anxiety.Refused By: MOHSEN FRANKS MReason for Refusal:Duplicate Request documented in this encounter Plan of Treatment Upcoming Encounters Date Type Department Care Team (Late st Contact Info) Description 08/21/2023 3:20 PM EST Office Visit Family [facility] [address] [place] [address] Kaitlin Dodge MD [address] [place] [address] Health Maintenance Due Date Last Done Comments [...] 2014 LUNG CANCER SCREENING - USE SMARTSET 44121 2019 Zoster Vaccines (1 of 2) 2019 [...] Advance Directives occurred with: Patient Care Teams Regional Director Relationship Specialty Start Date End Date Brad Dsouza MD [address] [place] [address] PCP - General Family Medicine 11/02/18 documented as of this encounter
--- OUTSIDE RECORDS SUMMARY | 2023-08-23 09:40 | External Medical Summary | Summary of Care ---
Author Name Unknown Organization [facility] Address [address] [place] [address] Phone [phone] Care Team Providers Care Senior Manufacturing Test Engineer Name Role Phone Brad Dsouza MD Primary Care Provider [phone] Encounter Details Date Type Department Care Team (Late st Contact Info) Description 08/04/2023 Orders Only [facility] [address] [place] [address] Viv Rice [facility] [employer] [facility] Other*[id number] Allergies Active Allergy Reactions Criticality Noted Date Comments Dust 07/30/2019 documented as of this encounter (statuses as of 08/04/2023) Medications Medication Sig Dispensed Refills Start Date [...] for Anxiety. 15 Tablet 0 07/31/2023 Active documented as of this encounter (statuses as of 08/04/2023) Active Problems Problem Noted Date Diagnosed Date [...] as of this encounter (statuses as of 08/04/2023) Resolved Problems Problem Noted Date Diagnosed Date [...] as of this encounter (statuses as of 08/04/2023) Immunizations No known immunizationsdocumented as of this [...] as of this encounter Plan of Treatment Scheduled Orders Name Type Priority Associated Diagnoses Orde r Schedule MYCODE SUBSEQUENT ADULT Lab Routine [facility] Other*[id number] Every 6 Months for 2 Occurrences starting 08/04/2023 until 08/23/2024 Health Maintenance Due Date Last Done Comments [...] 2014 LUNG CANCER SCREENING - USE SMARTSET 34391 2019 Zoster Vaccines (1 of 2) 2019 [...] as of this encounter Visit Diagnoses Diagnosis [employer] [facility] Other*[id number] documented in this encounter Advance Directives Latest [...] Advance Directives occurred with: Patient Care Teams Senior Manufacturing Test Engineer Relationship Specialty Start Date End Date Brad Dsouza MD [address] [place] [address] PCP - General Family Medicine 11/02/18 documented as of this encounter
--- OUTSIDE RECORDS SUMMARY | 2023-08-23 09:40 | External Medical Summary | Summary of Care ---
Author Name Unknown Organization [facility] Address [address] [place] [address] Phone [phone] Care Team Providers Care Golf Superintendent Name Role Phone Yesenia Jung MD Primary Care Provider [phone] Reason for Visit * Reason Onset Date Comments Medication Refill 06/30/2023 Encounter Details Date Type Department Care Team (Late st Contact Info) Description 06/30/2023 Refill Family Practice [facility] [address] [place] [address] Yesenia Jung MD [address] [place] [address] Panic disorder Allergies Active Allergy Reactions Criticality Noted Date Comments Dust 07/30/2019 documented as of this encounter (statuses as of 07/03/2023) Medications Medication Sig Dispensed Refills Start Date [...] needed for Anxiety. 15 Tablet 0 07/03/2023 Active clonazePAM 1 MG Oral Tablet (KlonoPIN)Indicati ons:Panic disorder Take 0.5 Tablets by mouth 3 times a day as needed for Anxiety. 15 Tablet 0 06/06/2023 4 Discontinue d(Refill) documented as of this encounter (statuses as of 07/03/2023) Active Problems Problem Noted Date Diagnosed Date [...] as of this encounter (statuses as of 07/03/2023) Resolved Problems Problem Noted Date Diagnosed Date [...] as of this encounter (statuses as of 07/03/2023) Immunizations No known immunizationsdocumented as of this [...] Telephone Encounter - Yesenia Jung MD - 07/03/2023 9:35 AM ESTSigned Prescriptions: Disp Refills clonazePAM 1 MG Oral Tablet (KlonoPIN) 15 Tab*0 Sig: Take 0.5 Tablets by mouth 3 times a day as needed for Anxiety. Authorizing Provider: YESENIA JUNG * Telephone Encounter - Nadeem Trejo [facility] - 07/03/2023 7:59 AM EST Pending Prescriptions: Disp Refills clonazePAM 1 MG Oral Tablet (KlonoPIN) 15 Tab*0 Sig: Take 0.5 Tablets by mouth 3 times a day as needed for Anxiety. * Telephone Encounter - Nadeem Trejo [facility] - 07/03/2023 7:58 AM EST I have reviewed the patients controlled substance dispensing history in the Prescription Drug Monitoring Program in compliance with the [facility] regulations before prescribing a controlled substance. PDMP checked on 07/03/2023. Pending Prescriptions: Disp Refills clonazePAM 1 MG Oral Tablet (KlonoPIN) 15 Tab*0 Sig: Take 0.5 Tablets by mouth 3 times a day as needed for Anxiety. Last Visit: 04/21/2023 (in office), 03/13/2021 (telemedicine) Next Visit: Visit date not found Date medication was last filled: 06/11/2023 Date medication is due for refill: 06/20/2023 Pharmacy: [facility] [id number] Is this request for a controlled substance? Yes and Urine Drug Screen Not completed Toxicology results: No results found for this or any previous visit. Please approve if appropriate. Thank You, Nadeem Trejo, Pharm-D Clinical Pharmacist [facility] ([facility] (Former[facility]) [phone] 07/03/2023, 7:58 AM documented in this encounter Plan of Treatment [...] 2014 LUNG CANCER SCREENING - USE SMARTSET [id number] 2019 Zoster Vaccines (1 of 2) 2019 [...] Advance Directives occurred with: Patient Care Teams Golf Superintendent Relationship Specialty Start Date End Date Yesenia Jung MD [address] [place] [address] PCP - General Family Medicine 11/02/18 documented as of this encounter
--- OUTSIDE RECORDS SUMMARY | 2023-08-23 09:40 | External Medical Summary | Summary of Care ---
Author Name Unknown Organization [facility] Address [address] [place] [address] Phone [phone] Care Team Providers Care Customer Supply Chain Analyst Name Role Phone Brad Dsouza MD Primary Care Provider [phone] Reason for Visit * Reason Comments Follow Up 1 week-- leg wound Encounter Details Date Type Department Care Team (Late st Contact Info) Description 04/21/2023 1:00 PM EDT Office Visit Family Practice [facility] [address] [place] [address] Hamida Miranda CRNP [address] [place] [address] Cutaneous abscess of left lower limb*; Panic disorder; Dyshydrosis Allergies Active Allergy Reactions Criticality Noted [...] Puffs before bedtime. 51 g 1 02/18/2023 Active Additional Information Patient not taking.Reported on 04/14/2023 Fluticasone Propionate 50 MCG/ACT Nasal Suspension (Flonase)Indicatio ns:Seasonal allergic rhinitis due to pollen Administer 2 Sprays into each nostril in the morning. 16 g 2 02/18/2023 Active Albuterol Sulfate (2.5 MG/3ML) 0.083% Inhalation [...] the morning. 90 Tablet 3 04/14/2023 Active Doxycycline Hyclate 100 MG Oral CapsuleIndications :Cutaneous abscess of left lower limb Take 1 Capsule by mouth in the morning and 1 Capsule before bedtime. Do all this for 10 days. Until gone.. 20 Capsule 0 04/14/2023 3 Active Cephalexin 500 MG Oral CapsuleIndications :Cutaneous abscess of left lower limb Take 1 Capsule by mouth in the morning and 1 Capsule at noon and 1 Capsule before bedtime. Do all this for 10 days. 30 Capsule 0 04/14/2023 3 Active Clobetasol Propionate 0.05 % External Cream (Temovate)Indicati ons:Dyshydrosis Apply topically to affected area 2 times a day. To affected area for up to two weeks. 30 g 3 04/21/2023 Active Clobetasol Propionate 0.05 % External Cream (Temovate)Indicati ons:Dyshydrosis Apply topically to affected area 2 times a day. To affected area for up to two weeks. 30 g 3 04/14/2023 3 Discontinue d(Refill) documented as of this [...] Sign Reading Time Taken Comments Blood Pressure 130/82 04/21/2023 1:12 PM EDT Pulse 98 04/21/2023 1:12 PM EDT Temperature 36.2 C (97.1 F) 04/21/2023 1:12 PM ED T Respiratory Rate - - Oxygen Saturation 95% 04/21/2023 1:12 PM EDT Inhaled Oxygen Concentration - - Weight - - Height - - Body Mass Index - - documented in this encounter Progress Notes * KANNAN Linda - 04/21/2023 1:15 PM EDT Images from the original note were not included. History of Present Illness Britney Bautista is a 52 year old female that presents for Follow Up (1 week-- leg wound ) HPI Here for 1 week wound follow up. Has been changing dressing daily. Still with some scant blood tinged discharge. Decreased pain but notes it is very itchy. Didn't take doxy with food and caused stomach upset so took it for 2-3 days only. Taking 1 full tab of klonopin twice a day -- anxiety has been worse lately with the wound and "everything going on" Didn't get refill of clobetasol for hand rash Outpatient Medications Marked as Taking for the 04/21/23 encounter (Office Visit) with KANNAN Linda Medication Sig Clobetasol Propionate 0.05 % External Cream (Temovate) Apply topically to affected area 2 times a day. To affected area for up to two weeks. Cephalexin 500 MG Oral Capsule Take 1 Capsule by mouth in the morning and 1 Capsule at noon and 1 Capsule before bedtime. Do all this for 10 days. Diclofenac Sodium 1 % External Gel (Voltaren) Apply topically to affected area 2 times a day as needed for Pain. Doxycycline Hyclate 100 MG Oral Capsule Take 1 Capsule by mouth in the morning and 1 Capsule beforebedtime. Do all this for 10 days. Until gone.. hydroCHLOROthiazide 25 MG Oral Tablet (Hydrodiuril) Take 1 Tablet by mouth in the morning. clonazePAM 1 MG Oral Tablet (KlonoPIN) Take 0.5 Tablets by mouth 3 times a day as needed for Anxiety. Albuterol Sulfate (2.5 MG/3ML) 0.083% Inhalation Nebulization Solution (Proventil) Inhale 1 Vial via nebulizer every 4 hours as needed for Wheezing. Fluticasone Propionate 50 MCG/ACT Nasal Suspension (Flonase) Administer 2 Sprays into each nostril in the morning. Physical Exam Vitals: 04/21/23 1312 Temp: 36.2 C (97.1 F) Pulse: 98 SpO2: 95% BP: 130/82 Physical Exam Vitals reviewed. Constitutional: General: She is not in acute distress. Appearance: She is not ill-appearing. Skin: General: Skin is warm and dry. Comments: L leg ulcer open with scant purulent discharge appears smaller and improved since last visit with no s/s of cellulitis of surrounding tissue Neurological: Mental Status: She is alert and oriented to person, place, and time. Psychiatric: Behavior: Behavior normal. Assessment and Plan Cutaneous abscess of left lower limb Take doxy with food until gone Overall improving Continue wound care as discussed Panic disorder Will discuss refills with PCP Dyshydrosis Apply gloves or other occlusive dressing after application of clobetasol Derm follow up if no improvement - Clobetasol Propionate 0.05 % External Cream (Temovate); Apply topically to affected area 2 times a day. To affected area for up to two weeks. Wrap-Up Follow Up: Return if symptoms worsen or fail to improve. Time: I spent a total of 20-29 minutes (exact time 20 mins) on the date of service in preparation, delivery, and documentation of the care provided to Britney Bautista excluding any time spent in the performance of separately billed services. documented in this encounter Nursing Notes * Bailee Perez LPN - 04/21/2023 1:08 PM EDT The patient has been properly identified by confirmation of name and date of . Chief Complaint Patient presents with Follow Up 1 week-- leg wound Pt states she can not take the doxy, was not taking with food. Pt states she can not take it at all. Pt states leg wound is sill draining. Dose not have odor. Not painful but is itchy. Pt has neuro appt 06/18/2023 in [place] through [facility]. documented in this encounter Plan of Treatment [...] 2014 LUNG CANCER SCREENING - USE SMARTSET [id number] 2019 Zoster Vaccines (1 of 2) 2019 [...] disorder Panic disorder without agoraphobia Dyshydrosis Dyshidrosis documented in this encounter Advance [...] Advance Directives occurred with: Patient Care Teams Customer Supply Chain Analyst Relationship Specialty Start Date End Date Brad Dsouza MD [address] [facility] [place] [address] PCP - General Family Medicine 11/02/18 documented as of this encounter
--- OUTSIDE RECORDS SUMMARY | 2023-08-23 09:40 | External Medical Summary | Summary of Care ---
Author Name Unknown Organization [facility] Address [address] [place] [address] Phone [phone] Care Team Providers Care Track Superintendent Name Role Phone Brad Dsouza MD Primary Care Provider [phone] Reason for Visit * Reason Onset Date Comments Medication Refill 08/20/2023 Encounter Details Date Type Department Care Team (Late st Contact Info) Description 08/20/2023 Refill Family Practice [facility] [address] [place] [address] Brad Dsouza MD [address] [place] [address] Panic disorder Allergies Active Allergy Reactions Criticality [...] for Anxiety.Refused By: MOHSEN FRANKS MReason for Refusal: Duplicate Request documented in this encounter Plan of Treatment Upcoming Encounters Date Type Department Care Team (Late st Contact Info) Description 08/21/2023 3:20 PM EST Office Visit Family [facility] [address] [place] [address] Kaitlin Dodge MD [address] [place] [address] Health Maintenance Due Date Last Done Comments [...] 2014 LUNG CANCER SCREENING - USE SMARTSET 26719 2019 Zoster Vaccines (1 of 2) 2019 [...] Advance Directives occurred with: Patient Care Teams Track Superintendent Relationship Specialty Start Date End Date Brad Dsouza MD [address] [place] [address] PCP - General Family Medicine 11/02/18 documented as of this encounter
--- OUTSIDE RECORDS SUMMARY | 2023-08-23 09:40 | External Medical Summary | Summary of Care ---
Author Name Unknown Organization [facility] Address [address] [place] [address] Phone [phone] Care Team Providers Care Credit Controller Name Role Phone Kaitlin Dodge MD Primary Care Provider Encounter Details Date Type Department Care Team (Late st Contact Info) Description 08/22/2023 Telephone Family Practice [facility] [address] [facility] [place] [address] Kaitlin Dodge MD [address] [address] Allergies Active Allergy Reactions Criticality Noted Date [...] encounter Miscellaneous Notes * Telephone Encounter - Haven Piña MED ASSIST - 08/22/2023 8:48 AM EST DME order faxed to [facility]. documented in this encounter Plan of Treatment Upcoming Encounters Date Type Department Care Team (Late st Contact Info) Description 08/28/2023 2:00 PM EST Nurse Only Ancillary [facility] [address] [place] [address] [facility] Nurse [facility] [address] [place] [address] 12/05/2023 12:00 PM EDT Office Visit Family Practice [facility] [address] [place] [address] Kaitlin Dodge MD [address] [place] [address] Health Maintenance Due Date Last Done Comments [...] 2014 LUNG CANCER SCREENING - USE SMARTSET [id number] 2019 Zoster Vaccines (1 of 2) 2019 [...] Advance Directives occurred with: Patient Care Teams Credit Controller Relationship Specialty Start Date End Date Kaitlin Dodge MD [address] [place] [address] PCP - General Internal Medicine 08/21/23 documented as of this encounter
--- OUTSIDE RECORDS SUMMARY | 2023-08-23 09:41 | External Medical Summary | Summary of Care ---
Author Name Unknown Organization [facility] Address [address] [place] [address] Phone [phone] Care Team Providers Care Outpatient Psychiatrist Name Role Phone Brad Dsuoza MD Primary Care Provider [phone] Reason for Visit * Reason Comments Other Bump on leg Encounter Details Date Type Department Care Team Description 03/27/2023 Convenient Care Visit [facility] [address] [place] [address] Catrachita Mcginnis PA-C [address] [place], [place] [id number] Abscess*; Dyshydrosis Allergies Active Allergy Reactions Severity Noted Date Comments Dust 07/30/2019 documented as of this encounter (statuses as of 03/27/2023) Medications Medication Sig Dispensed Refills Start Date End Date Status DULoxetine HCl 60 MG Oral Capsule Delayed Release Particles (Cymbalta)Indicatio ns:Depression with anxiety Take by mouth 1 Capsule in the morning. Do not cut, crush or chew. 30 Capsule 5 04/01/2022 Active Additional Information Patient not taking.Reported on 03/27/2023 DULoxetine HCl 30 MG Oral Capsule Delayed Release Particles (Cymbalta)Indicatio ns:Depression with anxiety Take by mouth 1 Capsule in the morning. Do not cut, crush or chew. 30 Capsule 5 04/01/2022 Active Additional Information Patient not taking.Reported on 03/27/2023 Folic Acid 1 MG Oral Tablet 1 Tablet. 0 06/07/2022 Active hydroCHLOROthiazide 25 MG Oral Tablet (Hydrodiuril)Indica tions:HTN, goal below 130/80 Take 1 Tablet by mouth in the morning. 90 Tablet 3 07/03/2022 Active Atorvastatin Calcium 40 MG Oral Tablet (Lipitor)Indication s:History of CVA (cerebrovascular accident) Take 1 Tablet by mouth in the morning. 30 Tablet 5 08/09/2022 Active Additional Information Patient not taking.Reported on 03/27/2023 Pantoprazole Sodium 40 MG Oral Tablet Delayed Release (Protonix)Indicatio ns:Gastroesophageal reflux disease with esophagitis, unspecified whether hemorrhage Take 1 Tablet by mouth in the morning and 1 Tablet before bedtime. 60 Tablet 3 08/09/2022 Active Albuterol Sulfate (2.5 MG/3ML) 0.083% Inhalation Nebulization Solution (Proventil) Inhale 1 Vial via nebulizer every 4 hours as needed for Wheezing. 120 mL 3 10/08/2022 Active clonazePAM 0.5 MG Oral Tablet (KlonoPIN)Indicatio ns:Panic disorder TAKE 1 TABLET BY MOUTH THREE TIMES DAILY IF NEEDED FOR ANXIETY. 60 Tablet 0 02/17/2023 Active Prazosin HCl 1 MG Oral Capsule (Minipress) Take 1 Capsule by mouth at bedtime. 30 Capsule 0 02/18/2023 Active Additional Information Patient not taking.Reported on 03/27/2023 ProAir HFA 108 (90 Base) MCG/ACT Inhalation Aerosol SolutionIndications :Bronchitis, complicated Inhale 2 Puffs by mouth in the morning and 2 Puffs at noon and 2 Puffs in the evening and 2 Puffs before bedtime. 51 g 1 02/18/2023 Active Diclofenac Sodium 1 % External Gel (Voltaren) Apply topically to affected area 2 times a day as needed for Pain. 100 g 1 02/18/2023 Active Fluticasone Propionate 50 MCG/ACT Nasal Suspension (Flonase)Indication s:Seasonal allergic rhinitis due to pollen Administer 2 Sprays into each nostril in the morning. 16 g 2 02/18/2023 Active Clobetasol Propionate 0.05 % External Cream (Temovate)Indicatio ns:Rash and nonspecific skin eruption Apply topically to affected area 2 times a day. To affected area for up to two weeks. 30 g 3 02/18/2023 Active Sulfamethoxazole-Tr imethoprim 800-160 MG Oral Tablet (Bactrim DS)Indications:Absc ess Take 1 Tablet by mouth in the morning and 1 Tablet before bedtime. Do all this for 7 days. Until gone. 14 Tablet 0 03/27/2023 04/03/2023 Active documented as of this encounter (statuses as of 03/27/2023) Active Problems Problem Noted Date Hemiplegia affecting left dominant side 07/03/2022 ELI (stress urinary incontinence, female ) 07/03/2022 Gastro-esophageal reflux disease without esophagitis 07/03/2022 Chronic obstructive pulmonary disease Major depressive disorder, recurrent epi sode, moderate 07/03/2022 Essential (primary) hypertension 023 PTSD (post-traumatic stress disorder) Iron deficiency anemia due to chronic bl ood loss 06/14/2022 Medical home patient encounter Complicated migraine 01/22/2022 Overview: Hospitalized for this in December of 2021 Type 2 diabetes mellitus with hemoglobin A1c goal of less than 7.0% 10/29/2021 Obesity, Class I, BMI 30.0-34.9 (see act ual BMI) 10/29/2021 Restless legs syndrome 10/29/2021 History of CVA (cerebrovascular accident ) 04/13/2021 Reactive airway disease without asthma 0 07/02/2019 Marijuana use, episodic 06/15/2019 Generalized osteoarthritis 10/01/2018 Panic disorder 06/18/2018 Radial scar of breast 09/02/2016 Overview: Was seen by breast surgeon - Dr. Davis - and reassured Depression with anxiety 08/15/2016 Gastroesophageal reflux disease with eso phagitis 08/15/2016 documented as of this encounter (statuses as of 03/27/2023) Resolved Problems Problem Noted Date Resolved Date Food insecurity 04/08/2022 04/30/2022 Overview: Per [facility] Protocol Prediabetes 07/13/2020 10/29/2021 Impaired fasting glucose 06/15/2019 019 Tobacco use disorder 06/15/2019 2022 Acute right-sided low back pain with right-sided sciatica 01/02/2019 02/05/2019 Body mass index (BMI) of 40.0 to 44.9 in adult 0 08/17/2018 10/08/2019 Overview: ICD-10 update of inactive term HTN, goal below 130/80 10/22/2017 documented as of this encounter (statuses as of 03/27/2023) Immunizations No known immunizationsdocumented as of this encounter Social History Tobacco Use Types Packs/Day Years Used Date Smoking Tobacco: Former Cigarettes 2 20 Q uit: 01/01/2021 Smokeless Tobacco: Never Tobacco Cessation:Counseling Given: Not Answered Alcohol Use Standard Drinks/Week Comments Yes 0 (1 standard drink = 0.6 oz pur e alcohol) rarely - social Food Insecurity Answer Date Recorded Within the past 12 months, y ou worried that your food would run out before you got money to buy more. Sometimes true 2021 Within the past 12 months, t he food you bought just didn't last and you didn't have money to get more. Sometimes true Sex Assigned at Date Recorded Female 07/30/2019 1:[address] Job Start Date Occupation Industry Not on file Not on file Not on file documented as of this encounter Last Filed Vital Signs Vital Sign Reading Time Taken Comments Blood Pressure 130/90 03/27/2023 4:04 PM EDT Pulse 85 03/27/2023 4:04 PM EDT Temperature 36.7 C (98 F) 03/27/2023 4:04 PM EDT Respiratory Rate 16 03/27/2023 4:04 PM EDT Oxygen Saturation 100% 03/27/2023 4:04 PM EDT Inhaled Oxygen Concentration - - Weight 80.1 kg (176 lb 9.6 oz) 03/27/2023 4:04 P M EDT Height 152.4 cm (5') 03/27/2023 4:04 PM EDT Body Mass Index 34.49 03/27/2023 4:04 PM EDT documented in this encounter Patient Instructions * Patient Instructions* Catrachita Mcginnis PA-C - 03/27/2023 4:35 PM EDT Return Friday if not improvement documented in this encounter Progress Notes * Catrachita Mcginnis PA-C - 03/27/2023 4:07 PM EDT Subjective: Nursing Notes: Carla Wilcox, RT 03/27/23 1608 Signed Britney Bautista is a 52 year old female who presents to walk-in clinic today complaining of Chief Complaint Patient presents with Other Bump on leg Main Symptoms: bump on lower left leg X 3 days, pain, swelling and redness How lon days Tried: warm compress Pt accompanied by: son Sx are 1. swelling and sore on left lower leg that started as a very small red spot on the leg and in three days has gotten larger, very sore with some redness surrounding it. 2. Hands are sore and peeling. Has been prescribed clobetasol for this and has worked when she has used it in the past. 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 Does not wear gloves usually. Sometimes uses Eucerin cream no sick contacts at home. Sig med hx/risk factors: Type II diabetes: last A1c was 5.8% in June no flu shot this year. Review of Systems Constitutional: Negative. Respiratory: Negative. Cardiovascular: Negative. Gastrointestinal: Negative. Musculoskeletal: Negative for joint swelling. Skin: As noted Neurological: Negative for headaches. Hematological: Negative for adenopathy. PMH: Patient Active Problem List Diagnosis Code Depression with anxiety F41.8 Gastroesophageal reflux disease with esophagitis K21.00 Radial scar of breast N64.89 Panic disorder F41.0 Generalized osteoarthritis M15.9 Marijuana use, episodic F12.90 Reactive airway disease without asthma J98.9 History of CVA (cerebrovascular accident) Z86.73 Type 2 diabetes mellitus with hemoglobin A1c goal of less than 7.0% ([facility]) E11.9 Obesity, Class I, BMI 30.0-34.9 (see actual BMI) E66.9 Restless legs syndrome G25.81 Complicated migraine G43.109 Medical home patient encounter Z00.8 PTSD (post-traumatic stress disorder) F43.10 Iron deficiency anemia due to chronic blood loss D50.0 Hemiplegia affecting left dominant side (HCC) G81.92 ELI (stress urinary incontinence, female) N39.3 Gastro-esophageal reflux disease without esophagitis K21.9 Chronic obstructive pulmonary disease (HCC) J44.9 Major depressive disorder, recurrent episode, moderate ([facility]) F33.1 Essential (primary) hypertension I10 Current Outpatient Medications Medication Sig Dispense Refill hydroCHLOROthiazide 25 MG Oral Tablet (Hydrodiuril) Take 1 Tablet by mouth in the morning. 90 Tablet 3 Albuterol Sulfate (2.5 MG/3ML) 0.083% Inhalation Nebulization Solution (Proventil) Inhale 1 Vial via nebulizer every 4 hours as needed for Wheezing. 120 mL 3 clonazePAM 0.5 MG Oral Tablet (KlonoPIN) TAKE 1 TABLET BY MOUTH THREE TIMES DAILY IF NEEDED FOR ANXIETY. 60 Tablet 0 ProAir HFA 108 (90 Base) MCG/ACT Inhalation Aerosol Solution Inhale 2 Puffs by mouth in the morningand 2 Puffs at noon and 2 Puffs in the evening and 2 Puffs before bedtime. 51 g 1 Diclofenac Sodium 1 % External Gel (Voltaren) Apply topically to affected area 2 times a day as needed for Pain. 100 g 1 Fluticasone Propionate 50 MCG/ACT Nasal Suspension (Flonase) Administer 2 Sprays into each nostril in the morning. 16 g 2 Sulfamethoxazole-Trimethoprim 800-160 MG Oral Tablet (Bactrim DS) Take 1 Tablet by mouth in the morning and 1 Tablet before bedtime. Do all this for 7 days. Until gone. 14 Tablet 0 DULoxetine HCl 60 MG Oral Capsule Delayed Release Particles (Cymbalta) Take by mouth 1 Capsule in the morning. Do not cut, crush or chew. (Patient not taking: Reported on 03/27/2023) 30 Capsule 5 DULoxetine HCl 30 MG Oral Capsule Delayed Release Particles (Cymbalta) Take by mouth 1 Capsule in the morning. Do not cut, crush or chew. (Patient not taking: Reported on 03/27/2023) 30 Capsule 5 Folic Acid 1 MG Oral Tablet 1 Tablet. (Patient not taking: Reported on 03/27/2023) Atorvastatin Calcium 40 MG Oral Tablet (Lipitor) Take 1 Tablet by mouth in the morning. (Patient not taking: Reported on 03/27/2023) 30 Tablet 5 Pantoprazole Sodium 40 MG Oral Tablet Delayed Release (Protonix) Take 1 Tablet by mouth in the morning and 1 Tablet before bedtime. 60 Tablet 3 Prazosin HCl 1 MG Oral Capsule (Minipress) Take 1 Capsule by mouth at bedtime. (Patient not taking:Reported on 03/27/2023) 30 Capsule 0 Clobetasol Propionate 0.05 % External Cream (Temovate) Apply topically to affected area 2 times a day. To affected area for up to two weeks. 30 g 3 No current facility-administered medications for this visit. Past Medical History: Diagnosis Date Bipolar 1 disorder (HCC) since 15 yo Complicated migraine 01/22/2022 Depression with anxiety 08/15/2016 Generalized osteoarthritis 10/01/2018 History of CVA (cerebrovascular accident) 04/13/2021 HTN, goal below 130/80 10/22/2017 Impaired fasting glucose 06/15/2019 Iron deficiency anemia due to chronic blood loss 06/14/2022 Marijuana use, episodic 06/15/2019 Obesity, Class I, BMI 30.0-34.9 (see actual BMI) 10/29/2021 Panic disorder 06/18/2018 Prediabetes 07/13/2020 PTSD (post-traumatic stress disorder) 06/14/2022 Radial scar of breast 08/28/2016 Core Bx Reactive airway disease that is not asthma 07/02/2019 Restless legs syndrome 10/29/2021 Tobacco use disorder 06/15/2019 Type 2 diabetes mellitus with hemoglobin A1c goal of less than 7.0% ([facility]) 10/29/2021 Past Surgical History: Procedure Laterality Date BREAST BIOPSY Right 08/28/2016 Stereotactic Bx - Radial scar & surgical consult w/ Ryan. LAPAROSCOPY; CHOLECYSTECTOMY N/A 08/23/2022 LAPAROSCOPIC CHOLECYSTECTOMY performed by Richard Montano MD at OR [facility] LIGATE/CUT OVIDUCT(S) 2003 Review of patient's allergies indicates: Allergen Reactions Environmental [Dust] Objective: BP 130/90 (BP Site: Left Arm, BP Position: Sitting, BP Cuff Size: Regular) | Pulse 85 | Temp 36.7 C (98 F) (Tympanic) | Resp 16 | Ht 1.524 m (5') | Wt 80.1 kg (176 lb 9.6 oz) | LMP 07/31/2016 (Approximate) | SpO2 100% | BMI 34.49 kg/m | BSA 1.84 m Physical Exam Constitutional: Appearance: Normal appearance. She is not ill-appearing. Cardiovascular: Rate and Rhythm: Normal rate. Pulmonary: Effort: Pulmonary effort is normal. Musculoskeletal: General: Swelling (mild of the left lower leg) and tenderness (over the area of abscess) present. Normal range of motion. Skin: Findings: Erythema and lesion (4 mm papule with purulent looking liguid beneath the dermal layer, erythema around it over 7 cm regionn: diffuse) present. Comments: Red swollen area of the lower left leg Hands: blisters and some crusty scabbing over lesions on her hands. Somewhat TTP Neurological: Mental Status: She is alert and oriented to person, place, and time. Psychiatric: Mood and Affect: Mood normal. Behavior: Behavior normal. ASSESSMENT/PLAN: Abscess (Primary) - Sulfamethoxazole-Trimethoprim 800-160 MG Oral Tablet (Bactrim DS); Take 1 Tablet by mouth in the morning and 1 Tablet before bedtime. Do all this for 7 days. Until gone. - CULTURE, WOUND, SUPERFICIAL, AEROBIC Dyshydrosis Discussed heat 20 min, moist for the abscess to draw it out. Did discuss lancing in the office but pt declined Discussed care of hands: use the clobetasol in thin layer and then put Eucerin cream over it. Wear gloves at work and can where with the cream in bed overnight Return instruction reviewed with pt in detail. Reasons to report to the ED were also reviewed. Voiced understanding Advised to follow up if no improvement in 3-5days. Catrachita Mcginnis PA-C documented in this encounter Nursing Notes * RT Garrett - 03/27/2023 4:06 PM EDT Britney Bautista is a 52 year old female who presents to walk-in clinic today complaining of Chief Complaint Patient presents with Other Bump on leg Main Symptoms: bump on lower left leg X 3 days, pain, swelling and redness How lon days Tried: warm compress Pt accompanied by: son documented in this encounter Plan of Treatment Pending Results Name Type Priority Associated Diagnoses Date /Time CULTURE, WOUND, SUPERFICIAL, AEROBIC Lab Routine Abscess 03/27/2023 4:38 PM EDT Health Maintenance Due Date Last Done Comments [...] 2014 LUNG CANCER SCREENING - USE SMARTSET 63752 2019 Zoster Vaccines (1 of 2) 2019 Depression, Most Recent Score >= 10 (will fire each visit until score < 10) 09/28/2020 09/27/2020 *COPD SEVERITY VERIFIED BY PFT 07/06/2022 Mammogram 10/22/2022 10/22/2021, 03/06/2020, 01/13/2018, Additional history exists HbA1c 12/31/2022 07/03/2022, 1107/2021, 09/27/2021, Additional history exists Lipid Panel 01/13/2023 01/13/2018 Influenza Vaccine (FLU shot) (#1) 2023 DIABETES-EYE EXAM 03/27/2023 03/27/2022, 07/21/2020 Diabetic Foot Exam 03/27/2023 03/27/2022 GFR 07/03/2023 07/03/2022, 03/30, 07/12/2020, Additional history exists O2 ASSESSMENT COMPLETED IN PAST YEAR FOR COPD 08/23/2023 08/23/2022 Cervical Cancer Screening 11/22/2023 Pap Smear 11/22/2023 11/21/2020, 06/05/2017 GARDASIL-HPV IMMUNIZATION SERIES Aged Out No longer eligible based on patient's age to complete this topic MENINGOCOCCAL (MENACTRA/MENVEO) Aged Out No longer eligible based on patient's age to complete this topic documented as of this encounter Medical Devices Not on filedocumented as of this encounter Visit Diagnoses Diagnosis Abscess- Primary Cellulitis and abscess of unspecified site Dyshydrosis Dyshidrosis documented in this encounter Advance [...] Advance Directives occurred with: Patient Care Teams Outpatient Psychiatrist Relationship Specialty Start Date End Date Brad Dsouza MD [address] [place] [address] PCP - General Family Medicine 11/02/18 documented as of this encounter"
--- OUTSIDE RECORDS SUMMARY | 2023-08-23 09:41 | External Medical Summary | Summary of Care ---
Author Name Unknown Organization [facility] Address [address] [place] [address] Phone [phone] Care Team Providers Care Travel Money Advisor Name Role Phone Yesenia Jung MD Primary Care Provider [phone] Reason for Visit * Reason Onset Date Comments Medication Refill 04/01/2023 Encounter Details Date Type Department Care Team Description 04/01/2023 Refill Family Practice [facility] [address] [facility] [place] [address] Yesenia Jung MD [address] [facility] [place] [address] Allergies Active Allergy Reactions Severity Noted Date Comments Dust 07/30/2019 documented as of this encounter (statuses as of 04/02/2023) Medications Medication Sig Dispensed Refills Start Date End Date Status DULoxetine HCl 60 MG Oral Capsule Delayed Release Particles (Cymbalta)Indicati ons:Depression with anxiety Take by mouth 1 Capsule in the morning. Do not cut, crush or chew. 30 Capsule 5 04/01/2022 Active Additional Information Patient not taking.Reported on 03/27/2023 DULoxetine HCl 30 MG Oral Capsule Delayed Release Particles (Cymbalta)Indicati ons:Depression with anxiety Take by mouth 1 Capsule in the morning. Do not cut, crush or chew. 30 Capsule 5 04/01/2022 Active Additional Information Patient not taking.Reported on 03/27/2023 Folic Acid 1 MG Oral Tablet 1 Tablet. 0 06/07/2022 Active hydroCHLOROthiazid e 25 MG Oral Tablet (Hydrodiuril)Indic ations:HTN, goal below 130/80 Take 1 Tablet by mouth in the morning. 90 Tablet 3 07/03/2022 Active Atorvastatin Calcium 40 MG Oral Tablet (Lipitor)Indicatio ns:History of CVA (cerebrovascular accident) Take 1 Tablet by mouth in the morning. 30 Tablet 5 08/09/2022 Active Additional Information Patient not taking.Reported on 03/27/2023 Pantoprazole Sodium 40 MG Oral Tablet Delayed Release (Protonix)Indicati ons:Gastroesophage al reflux disease with esophagitis, unspecified whether hemorrhage Take 1 Tablet by mouth in the morning and 1 Tablet before bedtime. 60 Tablet 3 08/09/2022 Active ProAir HFA 108 (90 Base) MCG/ACT [...] Clobetasol Propionate 0.05 % External Cream (Temovate)Indicati ons:Rash and nonspecific skin eruption Apply topically to affected area 2 times a day. To affected area for up to two weeks. 30 g 3 02/18/2023 Active clonazePAM 0.5 MG Oral Tablet (KlonoPIN)Indicati ons:Panic disorder TAKE 1 TABLET BY MOUTH THREE TIMES DAILY IF NEEDED FOR ANXIETY. 60 Tablet 0 03/28/2023 Active Sulfamethoxazole-T rimethoprim 800-160 MG Oral Tablet (Bactrim DS)Indications:Abs cess Take 1 Tablet by mouth in the morning and 1 Tablet before bedtime. Do all this for 7 days. Until gone. 14 Tablet 0 03/27/2023 Active Prazosin HCl 1 MG Oral Capsule (Minipress) Take 1 Capsule by mouth at bedtime. 90 Capsule 0 04/01/2023 Active Albuterol Sulfate (2.5 MG/3ML) 0.083% Inhalation Nebulization Solution (Proventil) Inhale 1 Vial via nebulizer every 4 hours as needed for Wheezing. 120 mL 3 04/02/2023 Active Albuterol Sulfate (2.5 MG/3ML) 0.083% Inhalation Nebulization Solution (Proventil) Inhale 1 Vial via nebulizer every 4 hours as needed for Wheezing. 120 mL 3 10/08/2022 3 Discontinue d(Refill) documented as of this encounter (statuses as of 04/02/2023) Active Problems Problem Noted Date Hemiplegia affecting left dominant side 07/03/2022 ELI (stress urinary incontinence, female ) 07/03/2022 Gastro-esophageal reflux disease without esophagitis 07/03/2022 Chronic obstructive pulmonary disease Major depressive disorder, recurrent epi sode, moderate 07/03/2022 Essential (primary) hypertension 023 PTSD (post-traumatic stress disorder) Iron deficiency anemia due to chronic bl ood loss 06/14/2022 Medical home patient encounter 2 Complicated migraine 01/22/2022 Overview: Hospitalized for this [...] as of this encounter (statuses as of 04/02/2023) Resolved Problems Problem Noted Date Resolved Date Food insecurity 04/08/2022 04/30/2022 Overview: Per [facility] Protocol Prediabetes 07/13/2020 10/29/2021 Impaired fasting glucose 06/15/2019 019 Tobacco use disorder 06/15/2019 2022 Acute right-sided low back pain with right-sided sciatica 01/02/2019 02/05/2019 Body mass index (BMI) of 40.0 to 44.9 in adult 0 08/17/2018 10/08/2019 Overview: ICD-10 update of inactive term HTN, goal below 130/80 10/22/2017 2 documented as of this encounter (statuses as of 04/02/2023) Immunizations No known immunizationsdocumented as of this [...] encounter Miscellaneous Notes * Telephone Encounter - Jason Rivera [facility] - 04/02/2023 12:24 PM EDTSigned Prescriptions: Disp Refills Albuterol Sulfate (2.5 MG/3ML) 0.083% Inha*120 mL 3 Sig: Inhale 1 Vial via nebulizer every 4 hours as needed for Wheezing.Authorizing Provider: YESENIA JUNG User: JASON RIVERA documented in this encounter Plan of Treatment [...] 2014 LUNG CANCER SCREENING - USE SMARTSET 63976 2019 Zoster Vaccines (1 of 2) 2019 Depression, Most Recent Score >= 10 (will fire each visit until score < 10) 09/28/2020 09/27/2020 *COPD SEVERITY VERIFIED BY PFT 07/06/2022 Mammogram 10/22/2022 10/22/2021, 08/30, 01/13/2018, Additional history exists HbA1c 12/31/2022 07/03/2022, 07/2021, 09/27/2021, Additional history [...] Advance Directives occurred with: Patient Care Teams Travel Money Advisor Relationship Specialty Start Date End Date Yesenia Jung MD [address] [place] [address] PCP - General Family Medicine 11/02/18 documented as of this encounter
--- OUTSIDE RECORDS SUMMARY | 2023-08-23 09:41 | External Medical Summary | Summary of Care ---
Author Name Unknown Organization [facility] Address [address] [place] [address] Phone [phone] Care Team Providers Care Bark Spudder Name Role Phone Yesenia Jung MD Primary Care Provider [phone] Reason for Visit * Reason Comments Medication Refill Encounter Details Date Type Department Care Team Description [facility] [address] [facility] [address] Yesenia Jung MD [address] [facility] [place] [address] Allergies Active Allergy Reactions Severity Noted Date Comments Dust 07/30/2019 documented as of this encounter (statuses as of 03/28/2023) Medications Medication Sig Dispensed Refills Start Date [...] 10/08/2022 Active clonazePAM 0.5 MG Oral Tablet (KlonoPIN)Indicati ons:Panic disorder TAKE 1 TABLET BY MOUTH THREE TIMES DAILY IF NEEDED FOR ANXIETY. 60 Tablet 0 02/17/2023 Active ProAir HFA 108 (90 Base) MCG/ACT [...] two weeks. 30 g 3 02/18/2023 Active Sulfamethoxazole-T rimethoprim 800-160 MG Oral Tablet (Bactrim DS)Indications:Abs cess Take 1 Tablet by mouth in the morning and 1 Tablet before bedtime. Do all this for 7 days. Until gone. 14 Tablet 0 03/27/2023 3 Active Prazosin HCl 1 MG Oral Capsule (Minipress) Take 1 Capsule by mouth at bedtime. 30 Capsule 0 03/28/2023 Active Prazosin HCl 1 MG Oral Capsule (Minipress) Take 1 Capsule by mouth at bedtime. 30 Capsule 0 02/18/2023 3 Discontinue d(Refill) documented as of this encounter (statuses as of 03/28/2023) Active Problems Problem Noted Date Hemiplegia affecting [...] as of this encounter (statuses as of 03/28/2023) Resolved Problems Problem Noted Date Resolved Date [...] as of this encounter (statuses as of 03/28/2023) Immunizations No known immunizationsdocumented as of this [...] Telephone Encounter - Yesenia Jung MD - 03/28/2023 7:51 AM EDTSigned Prescriptions: Disp Refills Prazosin HCl 1 MG Oral Capsule (Minipress) 30 Cap*0 Sig: Take 1 Capsule by mouth at bedtime. Authorizing Provider: YESENIA JUNG * Telephone Encounter - Bailee Perez LPN - 03/28/2023 7:45 AM EDTPending Prescriptions: Disp Refills Prazosin HCl 1 MG Oral Capsule (Minipress) 30 Cap*0 Sig: Take 1 Capsule by mouth at bedtime. * Telephone Encounter - Bailee Perez LPN - 03/28/2023 7:42 AM EDT Did you pend patient's preferred pharmacy and medication before forwarding?yes Pharmacy: [facility] Pending Prescriptions: Disp Refills Prazosin HCl 1 MG Oral Capsule (Minipress)30 Cap*0 Sig: Take 1 Capsule by mouth at bedtime. Last Visit: Visit date not found (in office), 06/11/2022 (telemedicine) Next Visit: Visit date not found If no future appointments scheduled, and last appointment is greater than a year ago, please schedule patient for a follow-up appointment Last date the medication was ordered: 02/18/2023 Is this request for a controlled substance?No [...] PM HGBA1C 6.2 (H) 07/12/2020 03:09 PM documented in this encounter Plan of Treatment [...] 2014 LUNG CANCER SCREENING - USE SMARTSET 17758 2019 Zoster Vaccines (1 of 2) 2019 [...] Advance Directives occurred with: Patient Care Teams Bark Spudder Relationship Specialty Start Date End Date Yesenia Jung MD [address] [place] [address] PCP - General Family Medicine 11/02/18 documented as of this encounter
--- OUTSIDE RECORDS SUMMARY | 2023-08-23 09:41 | External Medical Summary ---
Author Name Unknown Address Unknown Organization K01:[facility] - [address] [place] [address] Laboratory Report Ordering Provider Test Date Status PIPPA RAMIREZ 03/27/2023 16:38:56 Final Observation Date Value Abnormality Reference (Units ) Status Bacteria identified in Specimen by Culture 03/27/2023 16:38:56 No growth Final Test: Culture, Wound, Superf icial, Aerobic
Specimen Source: Leg, Left
Specimen Type: Superficial Wound
Specimen Date: 03/27/2023 4:38 PM
Result Date: 03/29/2023 7:55 AM
Result Status: Final result
Resulting Lab: [facility]
[address]
[place] [id number]

CULTURE

No growth

null Performing Location [facility] - [address] [place] [id number]
--- OUTSIDE RECORDS SUMMARY | 2023-08-23 09:41 | External Medical Summary | Summary of Care ---
Author Name Unknown Organization [facility] Address [address] [place] [address] Phone [phone] Care Team Providers Care Hospital Manager Name Role Phone Brad Dsouza MD Primary Care Provider [phone] Reason for Visit * Reason Onset Date Comments Medication Problem 04/07/2023 BACKORDER Encounter Details Date Type Department Care Team Description 04/07/2023 Telephone Family Practice [facility] [address] [place] [address] Brad Dsouza MD [address] [place] [address] Medication Problem (BACKORDER) Allergies Active Allergy Reactions Severity Noted Date Comments Dust 07/30/2019 documented as of this encounter (statuses as of 04/08/2023) Medications Medication Sig Dispensed Refills Start Date End Date Status hydroCHLOROthiazid e 25 MG Oral Tablet (Hydrodiuril)Indic ations:HTN, goal below 130/80 Take 1 Tablet by mouth in the morning. 90 Tablet 3 07/03/2022 Active Pantoprazole Sodium 40 MG Oral Tablet Delayed [...] two weeks. 30 g 3 02/18/2023 Active Prazosin HCl 1 MG Oral Capsule [...] for Anxiety. 15 Tablet 0 04/08/2023 Active DULoxetine HCl 60 MG Oral Capsule Delayed Release Particles (Cymbalta)Indicati ons:Depression with anxiety Take by mouth 1 Capsule in the morning. Do not cut, crush or chew. 30 Capsule 5 04/01/2022 3 Discontinue d(Discharge d) DULoxetine HCl 30 MG Oral Capsule Delayed Release Particles (Cymbalta)Indicati ons:Depression with anxiety Take by mouth 1 Capsule in the morning. Do not cut, crush or chew. 30 Capsule 5 04/01/2022 3 Discontinue d(Discharge d) Folic Acid 1 MG Oral Tablet 1 Tablet. 0 06/07/2022 3 Discontinue d(Discharge d) Atorvastatin Calcium 40 MG Oral Tablet (Lipitor)Indicatio ns:History of CVA (cerebrovascular accident) Take 1 Tablet by mouth in the morning. 30 Tablet 5 08/09/2022 3 Discontinue d(Discharge d) clonazePAM 0.5 MG Oral Tablet (KlonoPIN)Indicati ons:Panic disorder TAKE 1 TABLET BY MOUTH THREE TIMES DAILY IF NEEDED FOR ANXIETY. 60 Tablet 0 03/28/2023 3 Discontinue d(Discharge d) documented as of this encounter (statuses as of 04/08/2023) Active Problems Problem Noted Date Hemiplegia affecting [...] as of this encounter (statuses as of 04/08/2023) Resolved Problems Problem Noted Date Resolved Date [...] as of this encounter (statuses as of 04/08/2023) Immunizations No known immunizationsdocumented as of this [...] encounter Miscellaneous Notes * Telephone Encounter - Brad Dsouza MD - 04/08/2023 7:14 AM EDT Alternative sent. * Telephone Encounter - Shannon Paul CPhT - 04/07/2023 3:36 PM EDT Patient calling to inform doctor that the patient's medication is on backorder and requesting an alternative. Did confirm this information with the pharmacy Patient is requesting high priority Pt's current insurance information is as follows: Patient name: Britney Bautista ID number: [id number] BIN number: [id number] PCN number: [id number] Group number: [id number] Subscriber name: Britney Bautista Primary or Secondary Insurance:Primary Medication: CLONAZEPAM 0.5 Reason for Request: BACKORDER Pharmacy and phone number: [facility] [id number] [phone] Rx plan and phone number: MEDICAID [place] [phone] What alternative medications does the pharmacy have in stock?: CLONAZEPAM 1 MG TABLET Thank you, Shannon Paul CPhT Sand Cleaning Machine Operator II [facility] ( [facility]) 04/07/2023,3:37 PM documented in this encounter Plan of Treatment Upcoming Encounters Date Type Specialty Care Team Description 04/11/2023 Office Visit Family Medicine Brad Dsouza MD [address] [place] [address] Health Maintenance Due Date Last Done Comments [...] 2014 LUNG CANCER SCREENING - USE SMARTSET 45564 2019 Zoster Vaccines (1 of 2) 2019 Depression, Most Recent Score >= 10 (will fire each visit until score < 10) 09/28/2020 09/27/2020 *COPD SEVERITY VERIFIED BY PFT 07/06/2022 Mammogram 10/22/2022 10/22/2021, 08/30, 01/13/2018, Additional history exists HbA1c 12/31/2022 07/03/2022, 11/0 07/2021, 09/27/2021, Additional [...] of this encounter Visit Diagnoses Diagnosis Panic disorder- Primary Panic disorder without agoraphobia documented in this [...] Advance Directives occurred with: Patient Care Teams Hospital Manager Relationship Specialty Start Date End Date Brad Dsouza MD [address] [place] [address] PCP - General Family Medicine 11/02/18 documented as of this encounter
--- OUTSIDE RECORDS SUMMARY | 2023-08-23 09:41 | External Medical Summary | Summary of Care ---
Author Name Unknown Organization [facility] Address [address] [place] [address] Phone [phone] Care Team Providers Care Revenue Audit Clerk Name Role Phone Yesenia Jung MD Primary Care Provider [phone] Reason for Visit * Reason Onset Date Comments Medication Refill 03/27/2023 Encounter Details Date Type Department Care Team Description 03/27/2023 Refill Family Practice [facility] [address] [facility] [place] [address] Yesenia Jung MD [address] [facility] [place] [address] Type 2 diabetes mellitus with hemoglobin A1c goal of less than 7.0% ([facility])*; Panic disorder Allergies Active Allergy Reactions Severity Noted Date [...] for Wheezing. 120 mL 3 10/08/2022 Active ProAir HFA 108 (90 Base) MCG/ACT [...] gone. 14 Tablet 0 03/27/2023 3 Active clonazePAM 0.5 MG Oral Tablet (KlonoPIN)Indicati ons:Panic disorder TAKE 1 TABLET BY MOUTH THREE TIMES DAILY IF NEEDED FOR ANXIETY. 60 Tablet 0 02/17/2023 3 Discontinue d(Refill) documented as of this [...] Encounter - Yesenia Jung MD - 03/28/2023 9:58 AM EDTSigned Prescriptions: Disp Refills clonazePAM 0.5 MG Oral Tablet (KlonoPIN) 60 Tab*0 Sig: TAKE 1 TABLET BY MOUTH THREE TIMES DAILY IF NEEDED FOR ANXIETY. Authorizing Provider: YESENIA JUNG * Telephone Encounter - Harry Aburto [facility] - 03/28/2023 9:48 AM EDT Pending Prescriptions: Disp Refills clonazePAM 0.5 MG Oral Tablet (KlonoPIN) 60 Tab*0 Sig: TAKE 1 TABLET BY MOUTH THREE TIMES DAILY IF NEEDED FOR ANXIETY. * Telephone Encounter - Harry Aburto [facility] - 03/28/2023 9:44 AM EDT I have reviewed the patients controlled substance dispensing history in the Prescription Drug Monitoring Program in compliance with the [facility] regulations before prescribing a controlled substance. PDMP checked on 03/28/2023. Pending Prescriptions: Disp Refills clonazePAM 0.5 MG Oral Tablet (KlonoPIN) 60 Tab*0 Sig: TAKE 1 TABLET BY MOUTH THREE TIMES DAILY IF NEEDED FOR ANXIETY. Last Visit: 07/03/2022 (in office), 03/13/2021 (telemedicine) Next Visit: Visit date not found Date medication was last filled: 01/19 Date medication is due for refill: 02/19 Pharmacy: [facility] [id number] Is this request for a controlled substance? Yes and Urine Drug Screen Not completed Toxicology results: No results found for this or any previous visit. Please approve if appropriate. Thanks, Harry Aburto, PharmD Clinical Pharmacist [facility] ([facility]) (formerly Tele[facility]) [phone] 03/28/2023,9:47 AM documented in this encounter Plan of Treatment Scheduled Orders Name Type Priority Associated Diagnoses Orde r Schedule ALBUMIN / CREATININE RATIO, URINE Lab Routine Type 2 diabetes mellitus with hemoglobin A1c goal of less than 7.0% ([facility]) Expected: 03/28/2023 (Approximate), Expires: 03/28/2024 Health Maintenance Due Date Last Done Comments [...] 2014 LUNG CANCER SCREENING - USE SMARTSET 99841 2019 Zoster Vaccines (1 of 2) 2019 [...] as of this encounter Visit Diagnoses Diagnosis Type 2 diabetes mellitus with hemoglobin A1c goal of less than 7.0% ([facility])- Primary Panic disorder Panic disorder without agoraphobia documented [...] Advance Directives occurred with: Patient Care Teams Revenue Audit Clerk Relationship Specialty Start Date End Date Yesenia Jung MD [address] [place] [address] PCP - General Family Medicine 11/02/18 documented as of this encounter
--- OUTSIDE RECORDS SUMMARY | 2023-08-23 09:41 | External Medical Summary | Summary of Care ---
Author Name Unknown Organization [facility] Address [address] [place] [address] Phone [phone] Care Team Providers Care Spot Facer Name Role Phone Yesenia Jung MD Primary Care Provider [phone] Reason for Visit * Reason Onset Date Comments Medication Refill 03/31/2023 Encounter Details Date Type Department Care Team Description 03/31/2023 Refill Family Practice [facility] [address] [address] Yesenia Jung MD [address] [place] [address] Allergies Active Allergy Reactions Severity Noted Date Comments Dust 07/30/2019 documented as of this encounter (statuses as of 04/01/2023) Medications Medication Sig Dispensed Refills Start Date [...] at bedtime. 90 Capsule 0 04/01/2023 Active Prazosin HCl 1 MG Oral Capsule (Minipress) Take 1 Capsule by mouth at bedtime. 30 Capsule 0 03/28/2023 3 Discontinue d(Refill) documented as of this encounter (statuses as of 04/01/2023) Active Problems Problem Noted Date Hemiplegia affecting [...] as of this encounter (statuses as of 04/01/2023) Resolved Problems Problem Noted Date Resolved Date [...] as of this encounter (statuses as of 04/01/2023) Immunizations No known immunizationsdocumented as of this [...] Notes * Telephone Encounter - Jason Rivera RPh - 04/01/2023 12:16 PM EDTSigned Prescriptions: Disp Refills Prazosin HCl 1 MG Oral Capsule (Minipress) 90 Cap*0 Sig: Take 1 Capsule by mouth at bedtime. Authorizing Provider: YESENIA JUNG Ordering User: JASON RIVERA * Telephone Encounter - Mely Jesus CPhT - 03/31/2023 1:44 PM EDT Pharmacy is requesting a 90-day supply, pre-edited RXs as such. Please review and approve if appropriate. Pending Prescriptions: Disp Refills Prazosin HCl 1 MG Oral Capsule (Minipress)90 Cap*0 Sig: Take 1 Capsule by mouth at bedtime. Last Visit: 07/03/2022 (in office), 03/13/2021 (telemedicine) Visit date not found If no future appointments scheduled, and last appointment is greater than a year ago, please schedule patient for an appointment Last date the medication was ordered: 03/28/2023 Patient Phone Numbers Labs: Lab Results Component [...] 2014 LUNG CANCER SCREENING - USE SMARTSET [id number] 2019 Zoster Vaccines (1 of 2) 2019 [...] Advance Directives occurred with: Patient Care Teams Spot Facer Relationship Specialty Start Date End Date Yesenia Jung MD [address] [place] [address] PCP - General Family Medicine 11/02/18 documented as of this encounter
--- NOTE | 2023-08-23 11:27 | Discharge Summary ---
Discharge Summary Date of Service August 23, 2023 Notes For Next Care Provider Was seen for stroke-like symptoms, treated for Hypertensive urgency: BP at time of discharge is 166/95. Per Neurology: 1. Take a baby aspirin, 81mg daily 2. Take the cholesterol medication Atorvastatin 40mg daily. A prescription for this was sent to her pharmacy. 3. Follow up with Neurology as an outpatient. Primary care provider can refer at discharge follow up. She was also noted to have really high blood pressures. Stated that she did take medications at home to help but she was unsure of what exactly she should be taking. We recommend the followin. Take the amlodipine 5mg daily 2. Take the hydrochlorothiazide 25mg daily 3. Since hydrochlorothiazide can cause low potassium, recommend taking a daily potassium supplement to help. We replaced her potassium in the hospital. 4. Prescriptions for the amlodipine, hydrochlorothiazide and potassium were all sent to her pharmacy. 5. Please continue to monitor her blood pressure at home and at pcp follow up. For the headache that is not responding to other medications, we also discharged her with a few days of hydrocodone-acetaminophen to help. Instructed to take it only as needed for severe pain and NOT take it while taking her home clonazepam. It is likely that the headache is from her blood pressure being too high as well so taking her blood pressure medications should help with that as well. Medication Changes From Visit Per neurology, atorvastatin 40mg daily with aspirin 81mg Continue home hydrochlorothiazide 25mg daily, amlodipine 5mg with potassium 10mEq daily hydrocodone- acetaminophen 5mg-300mg BID prn for severe head pain x 5 days Admission HPI Per Admitting Provider Ms. Bautista presented to the ED today with left sided weakness and headaches that have been occurring over the past few days and up to a week. She reports increased stress at home. Last night she laid down and started to see floaters and have diaphoresis. This morning she woke up and tried to go to the bathroom and felt weakness on her left side along with reporting slurred speech. She has recently lost 30 pounds intentionally. She also has complaints of tingling in her fingers and feet. Known prediabetic with most recent A1c from June 2023 5.8. She has known risk factors for CVA including HTN, HLD, prediabetes and a history of CVA/TIA? (not on anticoagulation). She is prescribed aspirin but admits to discontinuing it on her own due to risk factor she found on line. No leukocytosis or infectious concerns, serum K+ 3.3; otherwise electrolytes unremarkable. Head CT negative for ICH, midline shift or SDH. Head CTA negative, Neck CTA indicates slight atherosclerosis proximal bilateral internal carotids without significant stenosis. Brain MRI Suspected old small right frontal lobe infarct is unchanged. The appearance of the brain is unchanged. Patient denies dizziness, chest pain, shortness of breath, palpitations, abdominal pain or tenderness, dysuria or any other urine changes, bowel changes, appetite changes, recent falls or trauma. Patient quit smoking more than 5 years ago, no alcohol use, reports daily marijuana use. Patient reports that she is adopted so is unaware of her family medical history. Suspect patient having left-sided weakness related to TIA. Will order baby aspirin, echocardiogram due to atherosclerosis of internal carotid, continue statin, replace potassium, formal neurology consultation. Will check B12 and TSH for neuropathy symptoms. Patient will be admitted for further evaluation and management. Please see A/P for further details. Admission Exam Per Admitting Provider Neuro: AAOx4, PERRLA, no aphagia, memory changes, CNII-XII grossly intact HEENT: head normocephalic, moist mucus membranes CV: S1/S2, (-) M/G/R, (-) edema, cap refill < 3 seconds Resp: Lungs CTA in all garces. On RA GI: Abdomen S/NT/ND, Ax4 bowel sounds, (-) CVA tenderness Musculoskeletal: 5/5 B/L UE strength, 5/5 B/L LE strength. No gait disturbance Skin: (-) rashes , (-) erythema. Psych: euthymic mood Principal Dx & Hospital Course #1 = Principal Diagnosis (1) Stroke-like symptoms: (2) History of CVA (cerebrovascular accident): (3) Acute hypokalemia: (4) HLD (hyperlipidemia): (5) Pre-diabetes: (6) HTN (hypertension): (7) Anxiety: Plan Ms. Bautista is a 53 year old female that presented to the ED today with left sided weakness and headaches that have been occurring over the past few days and up to a week. The night prior to admission she laid down and started to see floaters and have diaphoresis. The next morning she woke up and tried to go to the bathroom and felt weakness on her left side along with reporting slurred speech. She has recently lost 30 pounds intentionally. She also has complaints of tingling in her fingers and feet. Known prediabetic with most recent A1c from June 2023 5.8. She has known risk factors for CVA including HTN, HLD, prediabetes and a history of CVA/TIA (not on anticoagulation/antiplt). She is prescribed aspirin but admits to discontinuing it on her own due to research she found online. No leukocytosis or infectious concerns, serum K+ 3.3; otherwise electrolytes unremarkable. Head CT negative for ICH, midline shift or SDH. Head CTA negative, Neck CTA indicates slight atherosclerosis proximal bilateral internal carotids without significant stenosis. Brain MRI Suspected old small right frontal lobe infarct is unchanged. The appearance of the brain is unchanged. Patient reports that she is adopted so is unaware of her family medical history. Stroke-like symptoms: History of TIA/CVA left sided weakness. On examination LUE/LLE 4/5 strength. Otherwise CN II-XII grossly intact. NIH [address] negative for ICH, midline shift or SDH. Head CTA negative, Neck CTA indicates slight atherosclerosis proximal bilateral internal carotids without significant stenosis. Brain MRI Suspected old small right frontal lobe infarct is unchanged. The appearance of the brain is unchanged. stopped taking baby ASA on her own Start baby aspirin Continue atorvastatin 20 mg; consider increasing dosage for high dose coverage echocardiogram showing moderate LVH, EF 60-65% Neurology consult placed, recommended the followin. Take a baby aspirin, 81mg daily 2. Take the cholesterol medication Atorvastatin 40mg daily. 3. Follow up with Neurology as an outpatient. Hypertensive urgency Pt with noted BP as high as 186/108 She states that she stopped taking her home antihypertensives due to confusion as to what she should take. BP at time of discharge was 166/95. Recommend the following on discharge: 1. Take the amlodipine 5mg daily 2. Take the hydrochlorothiazide 25mg daily 3. Since hydrochlorothiazide can cause low potassium, discharged with a daily potassium supplement to help. 4. Prescriptions for the amlodipine, hydrochlorothiazide and potassium were all sent to her pharmacy. 5. Pt to monitor blood pressure at home and at pcp follow up. Acute hypokalemia: Serum potassium 3.3 on admission, repleted Since hydrochlorothiazide can cause low potassium, discharged with a daily potassium supplement to help. HLD: Takes atorvastatin, dose increased to 40mg daily Prediabetes: Diet controlled and weight modifications Recent weight loss of 30 pounds intentionally with dieting Most recent A1c 5.8 07/03/2023 Anxiety/Mood On prazosin Discharge Exam General: Alert, oriented. No acute distress Skin: No noted rashes or bruises Psych: Appropriate mood and affect Neuro: No gross deficits HEENT: NC/AT, PERRLA, EOMI, oropharynx moist. Chest: Nontender to palpation. CV: RRR, Normal s1, s2. No murmurs appreciated Resp: Breath sounds clear bilaterally, no increased effort of breathing. No crackles/rhonchi/rales. Abdomen: BS+. Soft, nontender, nondistended. No guarding. No organomegaly appreciated. Extremities: No edema in lower extremities bilaterally. Updated Medication List Medication Instructions Recorded Confirmed Type acetaminophen 500 mg tablet 1,000 mg PO Q6H PRN Fever Or Pain 04/08/21 08/22/23 History (Tylenol Extra Strength) albuterol sulfate 2.5 mg/3 mL 2.5 mg inhalation Q4 PRN Wheezing 04/08/21 08/22/23 History (0.083 %) solution for nebulization albuterol sulfate 90 mcg/actuation 2 puff inhalation QID PRN 04/08/21 08/22/23 History aerosol inhaler Shortness Of Breath Or Wheezing fluticasone propionate 50 2 spray intranasal QAM 04/08/21 08/22/23 History mcg/actuation nasal spray,suspension prazosin 1 mg capsule 1 mg PO HS 05/31/22 08/22/23 History clobetasol 0.05 % topical cream 1 applic topical UD 04/02/23 08/22/23 History aspirin 81 mg tablet 81 mg PO DAILY 08/22/23 08/22/23 History amlodipine 5 mg tablet (Norvasc) 5 mg PO QPM #30 tabs 08/23/23 Rx atorvastatin 40 mg tablet 40 mg PO QAM #30 tabs 08/23/23 Rx hydrochlorothiazide 25 mg tablet 25 mg PO QAM #30 tabs 08/23/23 Rx hydrocodone 5 mg-acetaminophen 300 1 tab PO BID PRN pain #10 tabs 02/24/24 Rx mg tablet potassium chloride 10 mEq 10 meq PO DAILY #30 tabs 08/23/23 Rx tablet,extended release Hospital Stay Data Consultations 08/22/23 10:13 ED Decision to Admit Stat 08/22/23 12:00 Consult Neurology Routine Diagnostic Imagining Performed 08/22/23 06:04 CT angio head w con Stat CT angio neck with con Stat CT head/brain wo con Stat 08/22/23 07:20 MRI Brain [MR brain wo con] Stat Head CT 08/22/23 06:[address] DOSE: HISTORY: Dizziness. neuro deficit, acute stroke suspected TECHNIQUE: Multiaxial CT images of the head were performed without the use of intravenous contrast. Automated exposure control was utilized for this study. A dose lowering technique was utilized adhering to the principles of ALARA. Comparison: Head CT 08/24/2022. Findings: The paranasal sinuses and mastoid air cells are clear. The calvarium and skull base are intact. The ventricles and sulci are within normal limits. There is no mass, hematoma, midline shift, or acute infarct. Impression: No acute intracranial abnormality. ACT 112: Negative or not required by law. Electronically signed by: Christopher Lindsey M.D. 08/22/2023 8:39 AM Head CTA 08/22/23 06:04 HEAD CTA HISTORY: neuro deficit, acute stroke suspected TECHNIQUE: Multiaxial CT images of the head were performed following the intravenous administration of contrast to evaluate the major cerebral vessels. 3D/MIP images were also obtained. Sagittal and coronal reformats were reviewed. A dose lowering technique was utilized adhering to the principles of ALARA. COMPARISON: Head CTA 06/06/2022.. FINDINGS: There is no mass, hematoma, midline shift, or acute infarct. Visualized intracranial internal carotid arteries, distal vertebral arteries, and basilar artery are widely patent. There is no significant stenosis, occlusion, or aneurysm seen within the bilateral ACAs, MCAs, or paper final inspector. The major dural venous sinuses are patent. 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 This remains unchanged. Persistent right posterior circulation again noted. IMPRESSION: No significant stenosis, occlusion, or aneurysm within the [place]. ACT 112: Negative or not required by law. Electronically signed by: Christopher Lindsey M.D. 08/22/2023 8:43 AM Neck CTA 08/22/23 06:04 CT ANGIOGRAPHY OF THE NECK WITH CONTRAST CLINICAL HISTORY: neuro deficit, acute stroke suspected COMPARISON STUDY: CTA of the neck June 06, 2022. Technique: CT angiography of the carotid and vertebral arteries was obtained using [employer] and 3D reconstruction on an independent workstation. NASCET criteria was utilized. Automated exposure control was utilized for the study. A dose lowering technique was utilized adhering to the principles of ALARA. CT DOSE: 1026.1 mGy.cm Findings: Visualized portions of the lung apices are unremarkable. There is no cervical lymphadenopathy. No acute cervical spine fractures are present. There is mild plaque within the proximal bilateral cervical internal carotid arteries without significant stenosis. Bilateral vertebral arteries are patent. There is no aneurysm or dissection within the neck. IMPRESSION: Mild atherosclerotic plaque within the proximal bilateral cervical internal carotid arteries without significant stenosis. ACT 112: Negative or not required by law. Electronically signed by: Tai Salazar M.D. 08/22/2023 8:21 AM Brain MRI 08/22/23 07:20 MRI OF THE BRAIN WITHOUT CONTRAST CLINICAL HISTORY: L arm weakness; slurred speech; gait instability COMPARISON STUDY: Head CT and CTA of the head performed earlier today. MRI of the brain June 06, 2022. TECHNIQUE: Utilizing a 1.5 Pam magnet and dedicated coil, multiplanar, multiecho imaging of the brain was performed without IV contrast. FINDINGS: There are no foci of restricted diffusion to suggest acute infarct. No acute intracranial hemorrhage, midline shift or mass effect is present. Ventricular system is unremarkable. Basal cisterns are patent. There are no extra-axial collections. Flow-voids for the major intracranial vessels are present. No intracranial masses are identified on unenhanced exam. T2 hyperintense focus within the right koo radiata is unchanged. Suspected old small right frontal lobe infarct is unchanged. The appearance of the brain is unchanged. IMPRESSION: No acute intracranial findings. ACT 112: Negative or not required by law. Electronically signed by: Tai Salazar M.D. 08/22/2023 12:16 PM Discharge Instructions Given to Patient (Per Discharging Provider) Ms. Bautista, You were seen by the neurologist and they recommended that you do the followin. Take a baby aspirin, 81mg daily 2. Take the cholesterol medication Atorvastatin 40mg daily. A prescription for this was sent to your pharmacy. 3. Follow up with Neurology as an outpatient. Your primary care provider can refer you once you follow up after discharge You were also noted to have really high blood pressures. You stated that you did take medications at home to help but you were unsure of what exactly you should be taking. We recommend the followin. Take the amlodipine 5mg daily 2. Take the hydrochlorothiazide 25mg daily 3. Since hydrochlorothiazide can cause your potassium level to go low, we recommend taking a daily potassium supplement to help. We replaced your potassium in the hospital. 4. Prescriptions for the amlodipine, hydrochlorothiazide and potassium were all sent to your pharmacy. 5. Please continue to monitor your blood pressure at home For your headache that is not responding to other medications, we are also discharging you with a few days of hydrocodone-acetaminophen to help. Please take it only as needed for severe pain and do NOT take it while taking your home clonazepam. It is likely that the headache is from your blood pressure being too high as well so taking your blood pressure medications should help with that as well. Please keep close follow up with your primary care provider after discharge. Again please also keep follow up with Neurology after discharge. Please do not hesitate to come back to the emergency room if your symptoms worsen or return. It was a pleasure taking care of you while you were here. Total Time Total Time Spent Total Time Spent (In Minutes): >30 minutes
[2023-08-23] MEDS: CHLORTHALIDONE 25 MG TAB PO SCH (14:31)
[2023-08-23 15:38] VITALS: RESP 18; TEMP 98.1; O2SAT 96
[2023-08-23] MEDS: CHLORTHALIDONE 25 MG TAB PO ONE (16:30)
[2023-08-23] MEDS: hydrALAZINE HCL 20 MG/ML VIAL IV ONE (17:27)
[2023-08-23 18:28] VITALS: BP 182/115; PULSE 85
[2023-08-23] MEDS ORDERED: PRAZOSIN HCL 1 MG CAP PO SCH (21:00)
== END 2023-08-23 19:15 | disposition home or self-care (01) | DRG 305 ==
LOC: ED 05:47 → SUATTDRO 10:25 → EDINP 10:25 → 2W 10:37